=== PATIENT | male | born 1960 | race Caucasian/White ===

== ENCOUNTER 2023-07-16 08:00 | Outpatient (OUT) | payer OTHER, SELFPAY ==
[2023-07-16] MEDS: COVID VAC 23-24(12UP)MODERNA/PF 50 MCG/0.5 ML VIAL IM (14:30)
== END 2023-07-16 08:01 | disposition home or self-care (01) ==
LOC: VACCLI 09-04 09:18
DX: Z23 Encounter for immunization (principal)
CPT/HCPCS: 90480; 91322

== ENCOUNTER 2024-03-31 06:33 | Outpatient (OUT) | payer OTHER, SELFPAY ==
[2024-03-31 07:10] LABS: Basophils Percent Auto 0.6 % (0.2-2.0); Eosinophils Absolute Auto 0.1 10^3/uL (0.0-0.7); Eosinophils Percent Auto 1.8 % (0.9-7.0); Hematocrit 46.7 % (42.0-54.0); Hemoglobin 15.1 g/dL (14.0-18.0); Immature Granulocytes Abs Auto 0.03 10^3/uL (0.00-0.03); Immature Granulocytes Pct Auto 0.4 % (0.0-0.5); Lymphocytes Percent Auto 27.1 % (20.5-60.0); Mean Corpuscular HGB Conc 32.3 g/dL (29.9-35.2); Mean Corpuscular Hemoglobin 27.5 pg (25.9-34.0); Mean Corpuscular Volume 85.1 fL (80.0-94.0); Mean Platelet Volume 9.7 fL (9.5-13.5); Monocytes Absolute Auto 0.7 10^3/uL (0.3-0.8); Monocytes Percent Auto 10.1 % (1.7-12.0); Neutrophils Absolute Auto 4.4 10^3/uL (1.4-6.5); Platelet Count 179 10^3/uL (150-450); Red Blood Count 5.49 10^6/uL (4.70-6.10); Red Cell Distribution Width 13.6 % (11.0-15.0); White Blood Count 7.2 10^3/uL (4.0-11.0)
[2024-03-31 07:39] LABS: Estimated Average Glucose 111 mg/dL; Glycohemoglobin A1C 5.5 % (4.5-6.2)
[2024-03-31 08:58] LABS: Anion Gap 14.1; Calcium 8.7 mg/dL (8.5-10.1); Carbon Dioxide 26.9 mmol/L (21.0-32.0); Chloride 103 mmol/L (98-107); Chol HDL Ratio 2.5; Cholesterol 142 mg/dL (<=200); Estimated GFR (African America >60 (>=60); Estimated GFR (Non-African Ame >60 (>=60); Glucose 112 mg/dL (74-106); HDL Cholesterol 57 mg/dL (40-60); LDL Cholesterol Calculated 67.8 mg/dL; Sodium 140 mmol/L (136-145); Thyroid Stimulating Hormone 1.597 uIU/mL (0.358-3.740); Triglycerides 86 mg/dL (<=150); VLDL CHOLESTEROL 17.2 mg/dL
[2024-03-31 09:03] LABS: Prostate Specific Antigen Scrn 0.92 ng/mL (<=4.00)
== END 2024-03-31 06:34 | disposition home or self-care (01) ==
LOC: LAB 06:33
PROVIDERS: PCP Internal Medicine; Visit Provider Internal Medicine
DX: Z00.00 Encounter for general adult medical examination without abnormal findings (principal); Z12.5 Encounter for screening for malignant neoplasm of prostate
CPT/HCPCS: 36415; 80048; 80061; 83036; 84443; 85025; G0103

== ENCOUNTER 2024-07-11 06:40 | Outpatient (OUT) | payer OTHER, SELFPAY ==
--- OUTSIDE RECORDS SUMMARY | 2024-07-11 06:43 | XMS_ITS | CCD ---
Author Organization [facility] Care Team Providers [employer] Manager Name Role Phone DO Oliva Croft Primary Care Provider DO Christiano Weston Emergency Provider Noni KNUTSON, DR AUGUSTINE Carlson Consulting Unavailable TA, DR FATIMA Attending Unavailable TA, DR FATIMA Admitting Unavailable REQUEST, DR ACOSTA LISTED Primary Care Unavaila ble TA, DR FATIMA Consulting Unavailable WEST, DR NASIMA Chou Attending Unavailable REQUEST, DR ACOSTA LISTED Primary Care Unavaila ble WEST, DR NASIMA Chou Admitting Unavailable WEST, DR NASIMA Chou Admitting Unavailable REQUEST, DR ACOSTA LISTED Primary Care Unavaila ble WEST, DR NASIMA Chou Attending Unavailable TA, DR FATIMA Attending Unavailable TA, DR FATIMA Admitting Unavailable TA, DR FATIMA Consulting Unavailable REQUEST, DR ACOSTA LISTED Primary Care Unavaila ble GUERDA, DR BAPTISTE Attending Unavailable GUERDA, DR BAPTISTE Admitting Unavailable REQUEST, DR ACOSTA LISTED Primary Care Unavaila ble WEST, DR NASIMA Chou Attending Unavailable REQUEST, DR ACOSTA LISTED Primary Care Unavaila ble WEST, DR NASIMA Chou Admitting Unavailable REQUEST, DR ACOSTA LISTED Primary Care Unavaila ble HOY ., DR PHIPPS Admitting Unavailable HOY ., DR PHIPPS Consulting Unavailable HOY ., DR PHIPPS Attending Unavailable WEST, DR NASIMA Chou Admitting Unavailable REQUEST, DR ACOSTA LISTED Primary Care Unavaila ble WEST, DR NASIMA Chou Attending Unavailable WEST, DR NASIMA Chou Admitting Unavailable WEST, DR NASIMA Chou Consulting Unavailable REQUEST, DR ACOSTA LISTED Primary Care Unavaila ble WEST, DR NASIMA Chou Attending Unavailable WEST, DR NASIMA Chou Admitting Unavailable WEST, DR NASIMA Chou Consulting Unavailable REQUEST, NONE LISTED Primary Care Unavaila ble WEST, DR NASIMA Chou Attending Unavailable MARIA TERESA, DR AUGUSTINE Carlson Consulting Unavailable WEST, DR NASIMA Chou Admitting Unavailable WEST, DR NASIMA Chou Consulting Unavailable REQUEST, NONE LISTED Primary Care Unavaila ble WEST, DR NASIMA Chou Attending Unavailable WEST, DR NASIMA Chou Admitting Unavailable WEST, DR NASIMA Chou Consulting Unavailable REQUEST, DR ACOSTA LISTED Primary Care Unavaila ble WEST, DR NASIMA Chou Attending Unavailable WEST, DR NASIMA Chou Consulting Unavailable VASGAB, DR BAPTISTE Admitting Unavailable REQUEST, DR ACOSTA LISTED Primary Care Unavaila ble VASCHAK, DR BAPTISTE Attending Unavailable VASCHAK, DR BAPTISTE Consulting Unavailable TA, DR FATIMA Attending Unavailable TA, DR FATIMA Admitting Unavailable REQUEST, DR NONE LISTED Primary Care Unavaila ble ZIEBER, DR AUGUSTINE Carlson Consulting Unavailable VASCHAKaren, DR BAPTISTE Admitting Unavailable REQUEST, DR ACOSTA LISTED Primary Care Unavaila ble VASCHAK, DR BAPTISTE Attending Unavailable VASCHAK, DR BAPTISTE Consulting Unavailable TA, DR FATIMA Admitting Unavailable REQUEST, NONE LISTED Primary Care Unavaila ble TA, DR FATIMA Attending Unavailable TESJORDANA, SISSY Admitting Unavailable ZIEBER, DR AUGUSTINE Carlson Consulting Unavailable TESMOND, SISSY Attending Unavailable TESJORDANA, SISSY Consulting Unavailable Vaschakaren, Dr. Oliva Bedoya Attending Unava ilable Guerda, Dr. Oliva Bedoya Primary Care Yandyva Oliva Sorensen Unavailable Unavailable Unavailable DO Oliva Croft Primary Care Provider DO Christiano Weston Emergency Provider Unastephi DO Dave Fernandez Attending Provider Chung Garcia Attending Unavailable Guerda, Dr. Oliva Bedoya Primary Care Yandyva Chung Ace Attending Unavailable Chung Garcia Referring Unavailable Guerda, Dr. Oliva Bedoya Primary Care Dave Dwyer Admitting Unavailable Oliva Croft Primary Care Unavailable Dave Garcia Attending Unavailable Christiano Weston Attending Unavailable Christiano Weston Admitting Unavailable Oliva Croft Primary Care Unavailable Oliva Croft Primary Care Unavailable Dave Garcia Attending Unavailable Dave Garcia Admitting Unavailable OLIVA CROFT Referring Unavailable MARIO LOYA Attending Unavailable OLIVA CROFT Attending Unavailable Allergies Allergy Classification Reported Allergen(s) Allergy Type Date of Onset Reaction(s) Facility (3 sources) cefditoren; Translations: [Spectracef] Drug Allergy Nausea -[facility] 250 DO Work Phone: (3 sources) cefditoren; Translations: [cefditoren] Drug Allergy 12-10-2022 N/V [facility] Medications Current Medications Medication Drug Class(es) Dates Sig (Normalized) Sig (Original) amLODIPine 10 mg oral tablet (5 sources) Dihydropyridine Calcium Channel Carli Start: 12-10-2022 take 10 mg by mouth once daily Amlodipine Active 10 MG PO Daily December 10, 2022 12:00am aspirin 81 mg delayed release oral tablet (5 sources) Platelet Aggregation Inhibitor, Nonsteroidal Anti-inflammatory Drug Start: 12-10-2022 take 81 mg by mouth once daily Aspirin Active 81 MG PO Daily December 10, 2022 12:00am rosuvastatin calcium 20 mg oral tablet (5 sources) HMG-CoA Reductase Inhibitor Start: 12-10-2022 take 20 mg by mouth once daily at bedtime Rosuvastatin Active 20 MG PO Daily at bedtime December 10, 2022 12:00am sildenafil 100 mg oral tablet (5 sources) Phosphodiesterase 5 Inhibitor Start: 12-10-2022 Sildenafil Active 100 MG PO Daily December 10, 2022 12:00am administer 30 minutes to 4 hours before activity take 1 tablet by mouth once sandor y Sildenafil Citrate 100 MG Oral Tablet TAKE 1 TABLET DAILY 1 HOUR BEFORE NEEDED Quantity: 30 Refills: 5 Ordered: 09-Dec-2022 DO Active Problems Active Problems Problem Classification Problem Date Documented Da te Episodic/Chronic Cardiac dysrhythmias (3 sources) Palpitations; Translations: [Palpitations] 10-31-2022 Episodic Disorders of lipid metabolism (3 sources) Hyperlipidemia, unspecified; Translations: [Hyperlipidemia, unspecified] Onset: 3 Chronic Essential hypertension (4 sources) Essential (primary) hypertension; Translations: [Hypertensive disorder] Onset: 3 Chronic Heart valve disorders (1 source) Other cardiac sounds; Translations: [OTHER CARDIAC SOUNDS] Onset: 3 Episodic Joint disorders and dislocations; trauma-related (8 sources) Other tear of medial meniscus, current injury, right knee, subsequent encounter; Translations: [Other tear of medial meniscus, current injury, right knee, initial encounter] Onset: 2 Episodic Nonspecific chest pain (11 sources) Chest pain; Translations: [Chest pain, unspecified] Onset: 3 10-31-2022 Episodic Other circulatory disease (3 sources) Elevated blood pressure; Translations: [Elevated blood-pressure reading, without diagnosis of hypertension] 10-31-2022 Episodic Other nutritional; endocrine; and metabolic disorders (3 sources) Overweight in adulthood with body mass index of 25 or more but less than 30; Translations: [Overweight] Episodic Other screening for suspected conditions (not mental disorders or infectious disease) (1 source) Abnormal findings on diagnostic imaging of other specified body structures; Translations: [ABNORML FIND DX IMG OTH BODY STRUC] Onset: 3 Chronic Other screening for suspected conditions (not mental disorders or infectious disease) (4 sources) Calcification of coronary artery; Translations: [Nonspecific (abnormal) findings on radiological and other examination of other intrathoracic organs] Onset: 3 Episodic Phlebitis; thrombophlebitis and thromboembolism (8 sources) Phlebitis and thrombophlebitis of superficial vessels of left lower extremity; Translations: [Phlebitis and thrombophlebitis of superficial vessels of right lower extremity] Onset: 2 Episodic Screening and history of mental health and substance abuse codes (3 sources) Ex-smoker; Translations: [Personal history of tobacco use] Episodic Comment on above: Quit smoking 30 + ye ars ago- 1 pack daily. Smoked 1 cigar daily-Quit in 2019; Unclassified (1 source) Encounter for preprocedural laboratory examination; Translations: [Encounter for preprocedural laboratory examination] Onset: 3 Varicose veins of lower extremity (11 sources) Varicose veins of bilateral lower extremities with pain; Translations: [Varicose veins of right lower extremity with pain] Onset: 2 Episodic Past or Other Problems Problem Classification Problem Date Documented Date Episodic/Chronic Other nervous system disorders (1 source) Other abnormalities of gait and mobility; Translations: [OTHER ABNORMALITIES GAIT AND MOBILITY] Onset: 08-08-2022 Episodic Other nervous system disorders (1 source) Unspecified abnormalities of gait and mobility; Translations: [UNS ABNORMALITIES GAIT AND MOBILITY] Onset: 08-08-2022 Episodic Other non-traumatic joint disorders (1 source) Pain in right knee; Translations: [PAIN IN RIGHT KNEE] Onset: 08-08-2022 Episodic Sprains and strains (5 sources) Strain of unspecified muscle(s) and tendon(s) at lower leg level, right leg, subsequent encounter; Translations: [Strain of unspecified muscle(s) and tendon(s) at lower leg level, right leg, initial encounter] Onset: 04-08-2022 Episodic Superficial injury; contusion (1 source) Contusion of right knee, subsequent encounter; Translations: [CONTUSION RIGHT KNEE SUBSEQUENT ENC] Onset: 08-08-2022 Episodic Results Test Name Value Interpretation Reference Range Facility Activated partial thrombopla stin time (aPTT) in platelet poor plasma by coagulation aOrdered By: Dave Garcia on 12-10-2022 aPTT Coag (PPP) [Time] 32.8 s 25.1-36.5 [facility] Basophils Auto (Bld) [#/Vol] Ordered By: Dave Garcia on 12-10-2022 Basophils (Bld) [#/Vol] 0.0 10*3/uL 0.0-0.2 [facility] Basophils/100 WBC Auto (Bld) Ordered By: Dave Garcia on 12-10-2022 Basophils/100 WBC (Bld) 0.5 % . [facility] Blood Urea Nitrogenon 2022 Urea nitrogen [Mass/Vol] 18 mg/dL Normal 7-25 [facility] Comment on above: Performed By: #### L IPID, CREAT, PP, CBC, LYTES, BUN #### [address] Carbon dioxide, total [Moles /volume] in Serum or PlasmaOrdered By: Dave Garcia on 12-10-2022 CO2 [Moles/Vol] 28.7 mmol/L 21.0-31.0 [facility] Chloride [Moles/volume] in S jose carlos or PlasmaOrdered By: Dave Garcia on 12-10-2022 Chloride [Moles/Vol] 107 mmol/L 98-107 [facility] Cholesterol [Mass/volume] in Serum or PlasmaOrdered By: Dave Garcia on 12-10-2022 Cholesterol [Mass/Vol] 118 mg/dL 140-200 [facility] Comment on above: Chol less than 200 m g/dl low riskChol 201-239 mg/dl borderline riskChol 240 mg/dl and greater high risk Cholesterol in LDL Calc [Mas s/Vol]Ordered By: Dave Garcia on 12-10-2022 Cholesterol in LDL [Mass/Vol] 57 mg/dL 0-100 [facility] Comment on above: LDL ATP III CLASSIFI CATIONLDL less than 100 mg/dL OptimalLDL 100-129 mg/dL Near or above optimalLDL 130-159 mg/dL Borderline highLDL 160-189 mg/dL HighLDL greater than 189 mg/dL Very high Cholesterol in VLDL Calc [Ma ss/Vol]Ordered By: Dave Garcia on 12-10-2022 Cholesterol in VLDL [Mass/Vol] 13 mg/dL [facility] Coagulation Profileon 2022 aPTT Coag (Bld) [Time] 32.8 s Normal 25.1-36.5 [facility] Comment on above: Result Comment: PERF ORMED BY: [place] [address] PATHOLOGIST JEWELRY MOLD MAKER ALEKSANDER TOBIN M.D. Performed By: #### L IPID, CREAT, PP, CBC, LYTES, BUN #### [address] INR Coag (PPP) [Relative time] 1.0 {INR} Normal [facility] Comment on above: Result Comment: INR Therapeutic Range A) Pre- and Peroperative OAT started two weeks before surgery. NOT HIP SURGERY: 1.5 - 2.5 HIP SURGERY: 2 - 3 B) Primary and secondary prevention of venous THROMBOSIS: 2 - 3 C) Active venous thrombosis, pulmonary embolism and prevention of recurrent venous thrombosis: 2 - 3 D) Prevention of arterial thromboembolism including patients with mechanical heart valves: 3 - 4.5 Performed By: #### L IPID, CREAT, PP, CBC, LYTES, BUN #### [facility] [address] PT Coag (PPP) [Time] 11.8 s Normal 9.0-12.9 [facility] Comment on above: Performed By: #### L IPID, CREAT, PP, CBC, LYTES, BUN #### [facility] [address] Complete Blood Count Auto Di ffon 12-10-2022 Basophils (Bld) [#/Vol] 0.0 10*3/uL Normal 0.0-0.2 [facility] Comment on above: Result Comment: PERF ORMED BY: [place] [address] PATHOLOGIST JEWELRY MOLD MAKER ALEKSANDER TOBIN M.D. Performed By: #### L IPID, CREAT, PP, CBC, LYTES, BUN #### [address] Basophils/100 WBC (Bld) 0.5 % Normal . [facility] Comment on above: Performed By: #### L IPID, CREAT, PP, CBC, LYTES, BUN #### [address] Eosinophils (Bld) [#/Vol] 0.1 10*3/uL Normal 0.0-0.45 [facility] Comment on above: Performed By: #### L IPID, CREAT, PP, CBC, LYTES, BUN #### [address] Eosinophils/100 WBC (Bld) 1.7 % Normal . [facility] Comment on above: Performed By: #### L IPID, CREAT, PP, CBC, LYTES, BUN #### [address] Erythrocyte distribution width (RBC) [Ratio] 14.1 % Normal 12.0-14.8 [facility] Comment on above: Performed By: #### L IPID, CREAT, PP, CBC, LYTES, BUN #### [address] Hematocrit (Bld) [Volume fraction] 44.7 % Normal 38.8-50.0 [facility] Comment on above: Performed By: #### L IPID, CREAT, PP, CBC, LYTES, BUN #### [place] [address] [place] Hemoglobin (Bld) [Mass/Vol] 14.9 g/dL Normal 13.0-17.0 [facility] Comment on above: Performed By: #### L IPID, CREAT, PP, CBC, LYTES, BUN #### [address] Lymphocytes (Bld) [#/Vol] 1.3 10*3/uL Normal 1.00-4.8 [facility] Comment on above: Performed By: #### L IPID, CREAT, PP, CBC, LYTES, BUN #### [address] Lymphocytes/100 WBC (Bld) 22.4 % Normal . [facility] Comment on above: Performed By: #### L IPID, CREAT, PP, CBC, LYTES, BUN #### [address] MCH (RBC) [Entitic mass] 27.4 pg Low 27.5-35.2 [facility] Comment on above: Performed By: #### L IPID, CREAT, PP, CBC, LYTES, BUN #### [address] MCV (RBC) [Entitic vol] 82.4 fL Low 83.5-101 [facility] Comment on above: Performed By: #### L IPID, CREAT, PP, CBC, LYTES, BUN #### [address] Mean Corpuscular HGB Conc 33.3 g/dL Normal 32.5-35.6 [facility] Comment on above: Performed By: #### L IPID, CREAT, PP, CBC, LYTES, BUN #### [address] Monocytes (Bld) [#/Vol] 0.6 10*3/uL Normal 0.0-0.8 [facility] Comment on above: Performed By: #### L IPID, CREAT, PP, CBC, LYTES, BUN #### [address] Monocytes/100 WBC (Bld) 9.7 % Normal . [facility] Comment on above: Performed By: #### L IPID, CREAT, PP, CBC, LYTES, BUN #### [address] Neutrophils (Bld) [#/Vol] 3.8 10*3/uL Normal 1.8-7.7 [facility] Comment on above: Performed By: #### L IPID, CREAT, PP, CBC, LYTES, BUN #### [address] Neutrophils/100 WBC (Bld) 65.7 % Normal . [facility] Comment on above: Performed By: #### L IPID, CREAT, PP, CBC, LYTES, BUN #### [address] NRBC% 0.6 /100{WBC} High 0-0.5 [facility] Comment on above: Performed By: #### L IPID, CREAT, PP, CBC, LYTES, BUN #### [address] Platelet mean volume (Bld) [Entitic vol] 7.8 fL Normal 6.6-10.1 [facility] Comment on above: Performed By: #### L IPID, CREAT, PP, CBC, LYTES, BUN #### [address] Platelets (Bld) [#/Vol] 162 10*3/uL Normal 150-450 [facility] Comment on above: Performed By: #### L IPID, CREAT, PP, CBC, LYTES, BUN #### [place] [address] [place] RBC (Bld) [#/Vol] 5.43 10*6/uL Normal 3.90-5.60 [facility] Comment on above: Performed By: #### L IPID, CREAT, PP, CBC, LYTES, BUN #### [facility] [address] [place] [address] [place] WBC (Bld) [#/Vol] 5.7 10*3/uL Normal 4.1-10.5 [facility] Comment on above: Performed By: #### L IPID, CREAT, PP, CBC, LYTES, BUN #### [facility] [address] [place] [address] [place] Creatinineon 12-10-2022 Creatinine [Mass/Vol] 0.97 mg/dL Normal 0.70-1.30 [facility] Comment on above: Performed By: #### L IPID, CREAT, PP, CBC, LYTES, BUN #### [address] GFR/1.73 sq M.predicted MDRD (S/P/Bld) [Vol rate/Area] mL/min/{1.73_m2} [facility] Comment on above: Performed By: #### L IPID, CREAT, PP, CBC, LYTES, BUN #### [address] Creatinine [Mass/volume] in Serum or PlasmaOrdered By: Dave Garcia on 12-10-2022 Creatinine [Mass/Vol] 0.97 mg/dL 0.70-1.30 [facility] ECG 12 lead ECGon 12-10-2022 ECG 12 lead ECG [facility] Main [place] [address] [place] [address] Electrocardiograph Report Signed Patient: Augustine Hall MR#: [id number] : 1960 Acct:[id number] Age/Sex: 62 / M ADM Date: 12/10/22 Loc: Room: Type: [facility] Attending Dr: Dave Garcia DO Ordering Provider: Dave Garcia DO Date of Service: 12/10/22 ECG/ECG 12 lead ECG: cardiac cath Copies to: Test Reason : Blood Pressure : / mmHG Vent. Rate : 061 BPM Atrial Rate : 061 BPM P-R Int : 166 ms QRS Dur : 086 ms QT Int : 400 ms P-R-T Axes : 066 060 057 degrees QTc Int : 402 ms Normal sinus rhythm Normal ECG When compared with ECG of 31-OCT-2022 10:23, No significant change was found Confirmed by ANKUR RODRÍGUEZ [facility], BRYAN ([id number]) on 12/10/2022 4:25:08 PM Referred By: GUERDA GARCIA Electronically Signed By:BRYAN FERNANDEZ MD [facility] Transcribed By: MUS Signed By Bryan Fernandez MD, FAC 12/10/22 1625 Normal [facility] Electrolyteson 12-10-2022 Anion gap [Moles/Vol] 8.6 mmol/L Normal 6.0-15.0 [facility] Comment on above: Performed By: #### L IPID, CREAT, PP, CBC, LYTES, BUN #### [address] Chloride [Moles/Vol] 107 mmol/L Normal 98-107 [facility] Comment on above: Performed By: #### L IPID, CREAT, PP, CBC, LYTES, BUN #### [address] CO2 [Moles/Vol] 28.7 mmol/L Normal 21.0-31.0 [facility] Comment on above: Performed By: #### L IPID, CREAT, PP, CBC, LYTES, BUN #### [address] Potassium [Moles/Vol] 4.3 mmol/L Normal 3.5-5.1 [facility] Comment on above: Performed By: #### L IPID, CREAT, PP, CBC, LYTES, BUN #### [address] Sodium [Moles/Vol] 140 mmol/L Normal 136-145 [facility] Comment on above: Performed By: #### L IPID, CREAT, PP, CBC, LYTES, BUN #### [address] Eosinophils Auto (Bld) [#/Vo l]Ordered By: Dave Garcia on 12-10-2022 Eosinophils (Bld) [#/Vol] 0.1 10*3/uL 0.0-0.45 [facility] Eosinophils/100 WBC Auto (Bl d)Ordered By: Dave Garcia on 12-10-2022 Eosinophils/100 WBC (Bld) 1.7 % . [facility] Erythrocyte distribution wid th Auto (RBC) [Ratio]Ordered By: Dave Garcia on 12-10-2022 Erythrocyte distribution width (RBC) [Ratio] 14.1 % 12.0-14.8 [facility] Hematocrit Auto (Bld) [Volum e fraction]Ordered By: Dave Garcia on 12-10-2022 Hematocrit (Bld) [Volume fraction] 44.7 % 38.8-50.0 [facility] Hemoglobin [Mass/volume] in BloodOrdered By: Dave Garcia on 12-10-2022 Hemoglobin (Bld) [Mass/Vol] 14.9 g/dL 13.0-17.0 [facility] Laboratory - Chemistry and C hemistry - challengeon 12-10-2022 Cholesterol [Mass/Vol] 118\S\118 below low threshold 140-200 [facility] 250 DO Work Phone: Comment on above: Chol less than 200 m g/dl low risk Chol 201-239 mg/dl borderline risk Chol 240 mg/dl and greater high risk Cholesterol in LDL [Mass/Vol] 57\S\57 Normal 0-100 [facility] 250 DO Work Phone: Comment on above: LDL ATP III CLASSIFI CATION LDL less than 100 mg/dL Optimal LDL 100-129 mg/dL Near or above optimal LDL 130-159 mg/dL Borderline high LDL 160-189 mg/dL High LDL greater than 189 mg/dL Very high Laboratory - Chemistry and C hemistry - challengeOrdered By: Dave Garcia on 12-10-2022 GFR/1.73 sq M.predicted MDRD (S/P/Bld) [Vol rate/Area] mL/min/{1.73_m2} [facility] - CoagulationOrde red By: Dave Garcia on 12-10-2022 PT Coag (PPP) [Time] 11.8 s 9.0-12.9 [facility] Leukocytes [#/volume] correc laya for nucleated erythrocytes in Blood by Automated counOrdered By: Dave Garcia on 12-10-2022 WBC corrected for nucl RBC Auto (Bld) [#/Vol] 5.7 10*3/uL 4.1-10.5 [facility] Lipid Panelon 12-10-2022 Cholesterol [Mass/Vol] 118 mg/dL Low 140-200 [facility] Comment on above: Result Comment: Chol less than 200 mg/dl low risk Chol 201-239 mg/dl borderline risk Chol 240 mg/dl and greater high risk Performed By: #### L IPID, CREAT, PP, CBC, LYTES, BUN #### [facility] [address] Cholesterol in HDL [Mass/Vol] 48 mg/dL Normal 29-71 [facility] Comment on above: Result Comment: HDL CHOL ATP-III CLASSIFICATION Cardiovascular Risk HDL > or equal to 60 mg/dL LOW HDL < 40 mg/dL HIGH Performed By: #### L IPID, CREAT, PP, CBC, LYTES, BUN #### [facility] [address] Cholesterol.total/Chol esterol in HDL [Mass ratio] 2.5 {ratio} Normal <5.0 [facility] Comment on above: Result Comment: PERF ORMED BY: [place] [address] PATHOLOGIST JEWELRY MOLD MAKER ALEKSANDER TOBIN M.D. Performed By: #### L IPID, CREAT, PP, CBC, LYTES, BUN #### [facility] [address] LDL Cholesterol,Calculated 57 mg/dL Normal 0-100 [facility] Comment on above: Result Comment: LDL ATP III CLASSIFICATION LDL less than 100 mg/dL Optimal LDL 100-129 mg/dL Near or above optimal LDL 130-159 mg/dL Borderline high LDL 160-189 mg/dL High LDL greater than 189 mg/dL Very high Performed By: #### L IPID, CREAT, PP, CBC, LYTES, BUN #### [facility] [address] [place] [address] [place] Triglyceride w/Reflex 67 mg/dL Normal 0-149 [facility] Comment on above: Result Comment: TRIG ATP III CLASSIFICATION TRIG less than 150 mg/dL Normal TRIG 150-199 mg/dL Borderline high TRIG 200-500 mg/dL High TRIG greater than 500 mg/dL Very high Standard traceable to the Center for Disease Conrtrol and Prevention (CDC) test method. Performed By: #### L IPID, CREAT, PP, CBC, LYTES, BUN #### [facility] [address] [place] [address] [place] VLDL CHOLESTEROL 13 mg/dL Normal [facility] Comment on above: Performed By: #### L IPID, CREAT, PP, CBC, LYTES, BUN #### [facility] [address] Lymphocytes Auto (Bld) [#/Vo l]Ordered By: Dave Gacria on 12-10-2022 Lymphocytes (Bld) [#/Vol] 1.3 10*3/uL 1.00-4.8 [facility] Lymphocytes/100 WBC Auto (Bl d)Ordered By: Dave Garcia on 12-10-2022 Lymphocytes/100 WBC (Bld) 22.4 % . [facility] MCH Auto (RBC) [Entitic mass ]Ordered By: Dave Garcia on 12-10-2022 MCH (RBC) [Entitic mass] 27.4 pg 27.5-35.2 [facility] MCHC Auto (RBC) [Mass/Vol]Or dered By: Dave Garcia on 12-10-2022 MCHC (RBC) [Mass/Vol] 33.3 g/dL 32.5-35.6 [facility] MCV Auto (RBC) [Entitic vol] Ordered By: Dave Garcia on 12-10-2022 MCV (RBC) [Entitic vol] 82.4 fL 83.5-101 [facility] Monocytes Auto (Bld) [#/Vol] Ordered By: Dave Garcia on 12-10-2022 Monocytes (Bld) [#/Vol] 0.6 10*3/uL 0.0-0.8 [facility] Monocytes/100 WBC Auto (Bld) Ordered By: Dave Garcia on 12-10-2022 Monocytes/100 WBC (Bld) 9.7 % . [facility] Neutrophils Auto (Bld) [#/Vo l]Ordered By: Dave Garcia on 12-10-2022 Neutrophils (Bld) [#/Vol] 3.8 10*3/uL 1.8-7.7 [facility] Neutrophils/100 WBC Auto (Bl d)Ordered By: Dave Garcia on 12-10-2022 Neutrophils/100 WBC (Bld) 65.7 % . [facility] No Panel InformationOrdered By: Dave Garcia on 12-10-2022 Pharmacy Creatinine Clearance (Chem N/A [facility] No Panel Informationon 12-10 0.0\S\0.0 Normal 0.0-0.2 [facility] 250 DO Work Phone: Comment on above: PERFORMED BY:[facility] [place] [phone] MEDICAL DIRECTORALEKSANDER TOBIN M.D. 0.1\S\0.1 Normal 0.0-0.45 [facility] 250 DO Work Phone: 0.6\S\0.6 above high threshold 0-0.5 [facility] 250 DO Work Phone: 1.3\S\1.3 Normal 1.00-4.8 [facility] 250 DO Work Phone: [phone] 3.8\S\3.8 Normal 1.8-7.7 [facility] 250 DO Work Phone: 0.5\S\0.5 Normal . [facility] alonso 250 DO Work Phone: 1.7\S\1.7 Normal . [facility] 250 DO Work Phone: [phone] 9.7\S\9.7 Normal . [facility] 250 DO Work Phone: [phone] 22.4\S\22.4 Normal . [facility] 250 DO Work Phone: [phone] 65.7\S\65.7 Normal . [facility] 250 DO Work Phone: [phone] 7.8\S\7.8 Normal 6.6-10.1 [facility] 250 DO Work Phone: [phone] 162\S\162 Normal 150-450 [facility] 250 DO Work Phone: [phone] 14.1\S\14.1 Normal 12.0-14.8 [facility] 250 DO Work Phone: [phone] 33.3\S\33.3 Normal 32.5-35.6 [facility] 250 DO Work Phone: [phone] 27.4\S\27.4 below low threshold 27.5-35.2 [facility] 250 DO Work Phone: [phone] 82.4\S\82.4 below low threshold 83.5-101 [facility] 250 DO Work Phone: [phone] 44.7\S\44.7 Normal 38.8-50.0 [facility] 250 DO Work Phone: [phone] 14.9\S\14.9 Normal 13.0-17.0 [facility] 250 DO Work Phone: [phone] 5.43\S\5.43 Normal 3.90-5.60 [facility] 250 DO Work Phone: [phone] 5.7\S\5.7 Normal 4.1-10.5 [facility] 250 DO Work Phone: [phone] 32.8\S\32.8 Normal 25.1-36.5 -[facility] alonso 250 DO Work Phone: Comment on above: PERFORMED BY:[facility] [place] [id number] MEDICAL DIRECTORALEKSANDER TOBIN M.D. 1.0\S\1.0 Normal -[facility] alonso 250 DO Work Phone: Comment on above: INR Therapeutic Rang e A) Pre- and Peroperative OAT started two weeks before surgery. NOT HIP SURGERY: 1.5 - 2.5 HIP SURGERY: 2 - 3 B) Primary and secondary prevention of venous THROMBOSIS: 2 - 3 C) Active venous thrombosis, pulmonary embolism and prevention of recurrent venous thrombosis: 2 - 3 D) Prevention of arterial thromboembolism including patients with mechanical heart valves: 3 - 4.5 11.8\S\11.8 Normal 9.0-12.9 [facility] 250 DO Work Phone: [phone] 8.6\S\8.6 Normal 6.0-15.0 [facility] 250 DO Work Phone: 28.7\S\28.7 Normal 21.0-31.0 [facility] 250 DO Work Phone: 107\S\107 Normal 98-107 [facility] 250 DO Work Phone: 4.3\S\4.3 Normal 3.5-5.1 [facility] 250 DO Work Phone: 140\S\140 Normal 136-145 [facility] 250 DO Work Phone: 18\S\18 Normal 7-25 [facility] 250 DO Work Phone: > 60.0 Normal [facility] 250 DO Work Phone: 0.97\S\0.97 Normal 0.70-1.30 [facility] alonso 250 DO Work Phone: 2.5\S\2.5 Normal <5.0 [facility] Work Phone: Comment on above: PERFORMED BY:[facility] [place] [place] [id number] MEDICAL DIRECTORALEKSANDER TOBIN M.D. 13\S\13 Normal [facility] alonso 250 DO Work Phone: 67\S\67 Normal 0-149 [facility] 250 DO Work Phone: Comment on above: TRIG ATP III CLASSIF ICATION TRIG less than 150 mg/dL Normal TRIG 150-199 mg/dL Borderline high TRIG 200-500 mg/dL High TRIG greater than 500 mg/dL Very high Standard traceable to the Center for Disease Conrtrol and Prevention (CDC) test method. 48\S\48 Normal 29-71 [facility] alonso 250 DO Work Phone: Comment on above: HDL CHOL ATP-III CLA SSIFICATION Cardiovascular Risk HDL > or equal to 60 mg/dL LOW HDL < 40 mg/dL HIGH Nucleated erythrocytes [Pres ence] in Blood by Automated countOrdered By: Dave Garcia on 12-10-2022 Nucleated RBC Auto Ql (Bld) 0.6 /100{WBC} 0-0.5 [facility] Platelet mean volume Auto (B ld) [Entitic vol]Ordered By: Dave Garcia on 12-10-2022 Platelet mean volume (Bld) [Entitic vol] 7.8 fL 6.6-10.1 [facility] Platelet poor plasma interna tional normalized ratio (INR) by coagulation assay (relatOrdered By: Dave Garcia on 12-10-2022 INR Coag (PPP) [Relative time] 1.0 {INR} [facility] Comment on above: INR Therapeutic Rang e A) Pre- and Peroperative OAT started two weeks before surgery. NOT HIP SURGERY: 1.5 - 2.5 HIP SURGERY: 2 - 3B) Primary and secondary prevention of venous THROMBOSIS: 2 - 3C) Active venous thrombosis, pulmonary embolismand prevention of recurrent venous thrombosis: 2 - 3D) Prevention of arterial thromboembolismincluding patients with mechanical heart valves: 3 - 4.5 Platelets Auto (Bld) [#/Vol] Ordered By: Dave Garcia on 12-10-2022 Platelets (Bld) [#/Vol] 162 10*3/uL 150-450 [facility] Potassium [Moles/volume] in Serum or PlasmaOrdered By: Dave Garcia on 12-10-2022 Potassium [Moles/Vol] 4.3 mmol/L 3.5-5.1 [facility] RBC Auto (Bld) [#/Vol]Ordere d By: Dave Gracia on 12-10-2022 RBC (Bld) [#/Vol] 5.43 10*6/uL 3.90-5.60 [facility] Serum or plasma anion gap de terminationOrdered By: Dave Garcia on 12-10-2022 Anion gap [Moles/Vol] 8.6 mmol/L 6.0-15.0 [facility] Serum or plasma high density lipoprotein (HDL) cholesterol measurementOrdered By: Dave Garcia on 12-10-2022 Cholesterol in HDL [Mass/Vol] 48 mg/dL 29-71 [facility] Comment on above: HDL CHOL ATP-III CLA SSIFICATION Cardiovascular RiskHDL > or equal to 60 mg/dL LOWHDL < 40 mg/dL HIGH Serum or plasma total choles terol/high density lipoprotein (HDL) cholesterol mass ratOrdered By: Dave Garcia on 12-10-2022 Cholesterol.total/Chol esterol in HDL [Mass ratio] 2.5 {ratio} <5.0 [facility] Sodium [Moles/volume] in Ser um or PlasmaOrdered By: Dave Garcia on 12-10-2022 Sodium [Moles/Vol] 140 mmol/L 136-145 [facility] Triglyceride [Mass/volume] i n Serum or PlasmaOrdered By: Dave Garcia on 12-10-2022 Triglyceride [Mass/Vol] 67 mg/dL 0-149 [facility] Comment on above: TRIG ATP III CLASSIF ICATIONTRIG less than 150 mg/dL NormalTRIG 150-199 mg/dL Borderline highTRIG 200-500 mg/dL High TRIG greater than 500 mg/dL Very highStandard traceable to the Center for Disease Conrtrol and Prevention (CDC) test method. Urea nitrogen [Mass/volume] in Serum or PlasmaOrdered By: Dave Garcia on 12-10-2022 Urea nitrogen [Mass/Vol] 18 mg/dL 7 [facility] WBC Auto (Bld) [#/Vol]Ordere d By: Dave Garcia on 12-10-2022 WBC (Bld) [#/Vol] 5.7 10*3/uL 4.1-10.5 [facility] Office Visit (Cardiology)on 12-09-2022 Follow-up visit Diagnoses/Problems Assessed Hypertension (401.9) (I10) Chest pressure (786.59) (R07.89) Agatston coronary artery calcium score between 200 and 399 (793.2) (R93.1) Varicose vein of leg (454.9) (I83.90) Overweight with body mass index (BMI) of 26 to 26.9 in adult (278.02,V85.22) (E66.3,Z68.26) Former smoker (V15.82) (Z87.891) Quit smoking 30 + years ago- 1 pack daily. Smoked 1 cigar daily-Quit in 2020 Orders Agatston coronary artery calcium score between 200 and 399, Chest pressure, Hypertension Cardiac Catherization; Status:Active - Retrospective Authorization; Requested for:09Dec2022; Overweight with body mass index (BMI) of 26 to 26.9 in adult IO EKG Electrocardiogram- 12 Lead; Status:Complete; Done: 09Dec2022 Healthy Weight Tips; Status:Complete - Retrospective Authorization; Done: 09Dec2022 Some eating tips that can help you lose weight.; Status:Complete - Retrospective Authorization; Done: 09Dec2022 SocHx: Former smoker Tobacco Use Screening; Status:Complete; Done: 09Dec2022 Patient Instructions Please bring all medicines, vitamins, and herbal supplements with you when you come to the office. Prescriptions will not be filled unless you are compliant with your follow up appointments or have a follow up appointment scheduled as per instruction of your physician. Refills should be requested at the time of your visit. Follow up after testing completed Chief Complaint AUGUSTINE HALL is being seen for a consultation for Dr. Kahn/ Melvi Aguilar CP/ Abnormal stress/elevated calcium score. 62-year-old gentleman seen in cardiology consultation at the request of Dr. Moncada check for further evaluation and management regarding new onset chest discomfort. Patient was recently seen in the emergency room, details of that evaluation, laboratories and ECG are reviewed. Patient describes chest pressure for the past 3 to 4 months and has been reticent to seek out further attention for this. He has recently been diagnosed with essential hypertension and treated with amlodipine with improved blood pressure results. He underwent stress testing at [facility] details of which are unknown but he was told he achieved his target heart rate and there were no EKG changes and he did not describe any angina. We do not have details of the stress test as of yet. He did have calcium score performed in [facility] which revealed mild proximal LAD calcification with Aggiston score of 200, consistent with mild single-vessel LAD calcification. He is a former smoker quit 30 years ago and then smoked a cigar daily up until 2 years ago. He denies any previous myocardial infarction, revascularization, stroke, thromboembolic or bleeding disorder. He does have a history of varicose veins and underwent ablation for his varicose veins within the last year with improved results and resolution of lower extremity edema Informed decision-making process as well as risks, benefits and alternatives performed with the patient and his for over 45 minutes this morning in regards to noninvasive/conservative management versus invasive assessment with by means of heart catheterization possible revascularization. He is concerned and fearful about these new symptoms. He would like to proceed with heart catheterization out of concern for his health. We will proceed electively either later this week or next week. Surgical History Problems Denied: History of Complete colonoscopy History of Knee surgery History of Neck surgery History of Rotator cuff repair Current Meds Medication NameInstruction amLODIPine Besylate 10 MG Oral TabletTAKE 1 TABLET DAILY. Aspirin EC 81 MG Oral Tablet Delayed ReleaseTAKE 1 TABLET DAILY FOR 100 DAYS. Rosuvastatin Calcium 20 MG Oral TabletTAKE 1 TABLET AT BEDTIME Sildenafil Citrate 100 MG Oral TabletTAKE 1 TABLET DAILY 1 HOUR BEFORE NEEDED Allergies Medication Spectracef Adverse Reaction; Nausea; Recorded By: Kanchan Newton; 12/09/2022 8:45:46 AM Social History Problems Alcohol ingestion (V69.8) (Z78.9) 2-3 beers daily Daily caffeine consumption 4 cups of 8 oz of coffee daily Former smoker (V15.82) (Z87.891) Quit smoking 30 + years ago- 1 pack daily. Smoked 1 cigar daily-Quit in 2019 No illicit drug use Review of Systems Constitutional: not feeling tired. Cardiovascular: chest pain and palpitations, but no intermittent leg claudication and as noted in HPI. Respiratory: shortness of breath during exertion, but no cough and no shortness of breath. Gastrointestinal: no change in bowel habits and no blood in stools. Integumentary: no skin rashes. Neurological: no seizures and no frequent falls. All other systems have been reviewed and are negative for complaint. Vitals Vital Signs Recorded: 09Dec2022 08:58AMRecorded: 09Dec2022 08:56AM [id number], LUE, Edcnjqu232, RUE, Sitting [id number], LUE, Cjddnfu29, RUE, Sitting PHQ-2 #1. Over the last 2 weeks have you felt down, depresse (more content not included)... Normal [facility] PHQ-2 VITALSon 12-09-2022 Adult depression screening assessment No [facility] [employer] 250 DO Work Phone: Tobacco Screening.on 023 Fall risk assessment c) Not medically indicated [facility] [employer] alonso 250 DO Work Phone: Tobacco use status [facility] b) No [facility] alonso 250 DO Work Phone: CT CARDIAC SCORINGon 023 CT CARDIAC SCORING Addendum Begins Patient Name: AUGUSTINE HALL ADDENDUM: Technical: The following is to serve as an over-read for an unenhanced cardiac CT, to evaluate the extra vascular structures. Contiguous unenhanced CT sections are performed from the level of the hermila to the upper abdomen. Findings: The visualized portions of both lungs are clear. There is no sign of pathologic lymph node enlargement. There is no pericardial or pleural effusion. Images through the upper abdomen suggest splenic enlargement of the spleen is incompletely visualized with this field of view. There is a dense calcification anteriorly at the level of the left hemidiaphragm which could reflect a calcified lymph node or granuloma. The visualized osseous and soft tissue structures of the chest wall are intact. Impression: Questionable splenomegaly though the spleen is incompletely visualized. The extra vascular structures are otherwise unremarkable. Electronically signed by: JENNIFER FUENTES MD Addendum Ends Patient Name: AUGUSTINE HALL STUDY: CT CARDIAC SCORING; 12/02/2022 3:04 pm INDICATION: Hyperlipidemia, unspecified. COMPARISON: None. ACCESSION NUMBER(S): [id number] ORDERING CLINICIAN: OLIVA CROFT TECHNIQUE: Using prospective ECG gating, CT scan of the coronary arteries was performed without intravenous contrast. Coronary calcium scoring was performed according to the method of Agatston. CT Dose-Length Product (DLP): 65.1 mGy*cm CT Dose Reduction Employed: Yes, prospective gating, iterative reconstruction. FINDINGS: The score and distribution of calcium in the coronary arteries is as follows: LM 2 LAD 199 LCx 0 RCA 0 Total 201 The visualized ascending thoracic aorta measures 4.0 cm in diameter. The heart is normal in size. No pericardial effusion is present. The main pulmonary artery, right and left pulmonary artery are normal in size. IMPRESSION: 1. Coronary artery calcium score of 201*. 2. MUSE 72nd percentile for age, gender, and race in asymptomatic patients. *Coronary Artery Agatston score Score risk Very low 1-99 Mildly increased 100-299 Moderately increased >300 Moderate to severely increased >800 Marvel et al. JCCT 2016 (http://dx.doi.org/10.1016 /j.jcct.2016.11.003) MUSE Percentile In general, greater than 75th percentile for age, gender, and race is considered to be a higher relative risk and higher lifetime risk condition. Greater than 75th percentile=moderate to severely increased relative risk irrespective of the score. Advise using MUSE 10 year CHD risk calculator below for better discrimination of risk. MUSE 10-Year CHD Risk with Coronary Artery Calcification can be calcuate using link below https://www.muse-nhlbi.org /MESACHDRisk/MesaRiskScore /RiskScore.aspx Luisa mcgarry al. JACC 2015 (http://dx.doi.org/10.1016 /j.j acc.2015.08.035) [place] Parent: Dr. Akua Kline, Date: 12/02/2022 3:21 pm Electronically signed by: JENNIFER FUENTES MD Normal [facility] CT Cardiac Scoringon 023 CT Cardiac Scoring Normal -[facility] alonso 250 DO Work Phone: ECHOCARDIO M/2D COMPLETEon 0 11-12-2022 ECHOCARDIO M/2D COMPLETE Patient: AUGUSTINE HALL Exam Date: 11/12/2022 : 1960 Gender:M Ordering : DR OLIVA CROFT Admission #: [id number] Family : Order #: [id number] CLICK HERE TO VIEW EXAM ECHOCARDIOGRAM REPORT PROCEDURE: CARDIO PULMONARY ECHOCARDIO M/2D COMP INDICATIONS: Chest pain, HTN COMPARISON: None. DESCRIPTION: COMPLETE ECHOCARDIOGRAM Real-time transthoracic echocardiography with 2D, M-mode, spectral and color flow Doppler performed. QUALITY: Technical quality was good. LEFT VENTRICLE: Normal chamber size. Borderline left ventricular hypertrophy. LV EF: Global left ventricular systolic function is normal. Calculated left ventricular ejection fraction is 66%. DIASTOLIC: Normal diastolic function. ATRIAL SEPTUM: Inadequately seen. LEFT ATRIUM: Mild dilatation. RIGHT ATRIUM: Mild dilatation. RIGHT VENTRICLE: Normal chamber size. Normal right ventricular systolic function. TRICUSPID VALVE: Normal mobility and thickness. No stenosis with trivial regurgitation. Mild pulmonary hypertension. RVSP 35mmHg MITRAL VALVE: Normal mobility and thickness. No mitral valve prolapse. No evidence of mitral valve stenosis. There is no mitral annular calcification. Trivial mitral regurgitation. AORTIC VALVE: Normal trileaflet appearance. No visible sclerosis. Normal leaflet mobility. No evidence of aortic valve stenosis. No aortic regurgitation. AORTIC ROOT: Normal diameter and appearance. PULMONIC VALVE: Normal thickness and mobility. No stenosis. Trivial regurgitation. PERICARDIUM: Anterior free space; trivial effusion versus fat pad. IVC: Collapses with inspirations. Mild dilatation measuring 2.3cm. CONCLUSION: Global left ventricular systolic function is normal; visually estimated ejection fraction is 55 to 60%. No wall motion abnormalities. Borderline left ventricular hypertrophy. Biatrial enlargement. The right ventricle is normal in size and systolic function. Mildly elevated right-sided pressures. No significant valvular abnormalities. Anterior free space; trivial effusion versus fat pad. Adult Echocardiography Procedure Report Left Ventricle LVEDD (3.7 - 5.6 cm): 4.87 cm LVESD (2.2 - 4.0 cm): 3.38 cm LVIVS thickness (0.6 - 1.2 cm): 1.12 cm LVPW thickness (0.5 - 1.0 cm): 1.25 cm e': 0.14 m/s E - e': 6.31 LVOT Max Gradient: 3.96 mm[Hg] Peak Velocity (LVOT): 0.99 m/s Mean Velocity (LVOT): 0.53 m/s LVOT Diameter 2.28 cm Left Ventricular Ejection Fraction: 57.99 %, 57.99 % Left Atrium LA Volume Index (2D A2C): 98.99 ml, 98.99 ml Left Atrium Systolic Dimension: 4.10 cm Mitral Valve MV E to A Ratio: 1.20 Mitral Valve A-Wave Peak Velocity: 0.73 m/s Mitral Valve E-Wave Peak Velocity: 0.88 m/s Right Ventricle RV Internal Diastolic Dimension: 4.07 cm Aorta AO Root Diam: 3.19 cm Ascending Ao Diam: 3.64 cm Aortic Valve AoV Area (Peak Christian): 3.27 cm2, 3.27 cm2 AoV Area (VTI): 2.89 cm2, 2.89 cm2 Peak Velocity(Antegrade Flow): 1.24 m/s Peak Gradient(Antegrade Flow): 6.11 mm[Hg] Mean Velocity(Antegrade Flow): 0.79 m/s Mean Gradient(Antegrade Flow): 2.84 mm[Hg] Velocity Time Integral: 24.43 cm Tricuspid Valve Peak Velocity (Regurgitant Flow): 2.47 m/s, 2.44 m/s, 2.59 m/s Peak Velocity: 0.75 m/s Pulmonic Valve Mean Gradient: 3.89 mm[Hg] Mean Velocity: 0.93 m/s Peak Velocity: 1.36 m/s, 1.37 m/s Peak Gradient: 7.40 mm[Hg], 7.49 mm[Hg] Right Atrium Right Atrium Systolic Pressure: 73.94 ml, 57.51 ml, 90.37 ml Dictated by: Chuck Faustin M.D. on 11/12/2022 at 11:28 Approved by: Chuck Faustin M.D. on 11/12/2022 at 11:31 Normal [facility] NM STRESS/REST MULTIon 11-12 NM STRESS/REST MULTI Patient: VERÓNICA HALL Exam Date: 11/12/2022 : 1960 Gender:M Ordering : DR OLIVA CROFT Admission #: [id number] Family : Order #: [id number] CLICK HERE TO VIEW EXAM RADIOLOGY REPORT PROCEDURE: RADIONUCLIDE IMAGING STRESS/REST MULTI COMPARISON: None. INDICATIONS: Chest pain TECHNIQUE: Exam Description: Stress/Rest one day protocol gated SPECT Rest Imagin.8 mCi Tc-99m Cardiolite IV on 11/12/2022 Stress Imaging 31.6 mCi Tc-99m Cardiolite IV on 11/12/2022 Exercise Protocol: Gerardo Heart Rate (bpm): Rest: 75 Max: 133 PMHR: 84 Blood Pressure: Rest: 170/96 Max: 218/104 Exercise Time: Minutes: 7 Seconds: 15 Stage Reached: Stage: 3 Mets 9.1 Symptoms: persistent chest pain the entire time Rest and peak stress ECG findings were abnormal and the exercise portion of the study was Non-diagnostic per attending physician Dr. Torres due to EKG changes, inverted T-waves at rest, and positive orientation with exercise. For more details please see separate cardiac stress test report. FINDINGS: QUALITY OF STUDY: Excellent. PERFUSION DEFECT: LOCATION: Mid-inferior. Apical inferior. SIZE: Small (1-2 segments). SEVERITY: Mild. TYPE: Persistent. WALL MOTION: Normal. LV SIZE: Normal. 120 mL. TID / TCD: None; 1.0 LVEF: Normal. Calculated EF 59%. SUMMARY: Myocardial perfusion imaging study has ABNORMAL findings. CONCLUSION: 1. No acute or reversible ischemia. 2. Inferior wall diaphragm attenuation artifact is suspected. Fixed ischemia cannot be completely excluded. 3. Normal wall motion and ejection fraction. Dictated by: Augustine Knutson M.D. on 11/13/2022 at 12:07 Approved by: Augustine Knutson M.D. on 11/13/2022 at 12:09 Normal [facility] Activated partial thrombopla stin time (aPTT) in platelet poor plasma by coagulation aOrdered By: Christiano Weston on 10-31-2022 aPTT Coag (PPP) [Time] 33.6 s 25.1-36.5 [facility] B-Type Natriuretic Peptideon 10-31-2022 Natriuretic peptide B (Bld) [Mass/Vol] 42.0 pg/mL Normal 5-100 [facility] Comment on above: Result Comment: PERF ORMED BY: [place] [address] PATHOLOGIST JEWELRY MOLD MAKER ALEKSANDER TOBIN M.D. Performed By: #### L IPID, CREAT, PP, CBC, LYTES, BUN #### [address] Basic Metabolic Panelon 10-22 Anion gap [Moles/Vol] 10.2 mmol/L Normal 6.0-15.0 [facility] Comment on above: Performed By: #### B ENTREPRENEURSHIP PROGRAM DIRECTOR, HS TROP, PT, PTT, CBC, CKMB, BMP #### [address] Calcium [Mass/Vol] 9.1 mg/dL Normal 8.2-10.2 [facility] Comment on above: Performed By: #### B ENTREPRENEURSHIP PROGRAM DIRECTOR, HS TROP, PT, PTT, CBC, CKMB, BMP #### [address] Chloride [Moles/Vol] 105 mmol/L Normal 95-114 [facility] Comment on above: Performed By: #### B ENTREPRENEURSHIP PROGRAM DIRECTOR, HS TROP, PT, PTT, CBC, CKMB, BMP #### [address] CO2 [Moles/Vol] 26.9 mmol/L Normal 22.0-30.0 [facility] Comment on above: Performed By: #### B ENTREPRENEURSHIP PROGRAM DIRECTOR, HS TROP, PT, PTT, CBC, CKMB, BMP #### [address] Creatinine [Mass/Vol] 0.95 mg/dL Normal 0.64-1.27 [facility] Comment on above: Performed By: #### B ENTREPRENEURSHIP PROGRAM DIRECTOR, HS TROP, PT, PTT, CBC, CKMB, BMP #### [facility] [address] Creatinine Clr Calc Pharmacy 92.54 [facility] Comment on above: Result Comment: PERF ORMED BY: [place] [address] PATHOLOGIST JEWELRY MOLD MAKER ALEKSANDER TOBIN M.D. Performed By: #### B ENTREPRENEURSHIP PROGRAM DIRECTOR, HS TROP, PT, PTT, CBC, CKMB, BMP #### [facility] [address] Estimated GFR ( Milady > 60 [facility] Comment on above: Result Comment: GFR estimated reference range: According to KDOQI guidelines, <60 ml/min/1.73m2 is sufficient to diagnose a patient with chronic kidney disease. Performed By: #### B ENTREPRENEURSHIP PROGRAM DIRECTOR, HS TROP, PT, PTT, CBC, CKMB, BMP #### [facility] [address] Estimated GFR (Non- Am > 60 [facility] Comment on above: Performed By: #### B ENTREPRENEURSHIP PROGRAM DIRECTOR, HS TROP, PT, PTT, CBC, CKMB, BMP #### [facility] [address] Glucose [Mass/Vol] 95 mg/dL Normal 70-100 [facility] Comment on above: Result Comment: [place] Glucose Reference Range is dependent on time and content of last meal. Glucose of more than 200 mg/dL in a nonstressed, ambulatory subject supports the diagnosis of Diabetes Mellitus. ADA recommended reference range Performed By: #### B ENTREPRENEURSHIP PROGRAM DIRECTOR, HS TROP, PT, PTT, CBC, CKMB, BMP #### [facility] [address] Potassium [Moles/Vol] 4.1 mmol/L Normal 3.5-5.1 [facility] Comment on above: Performed By: #### B ENTREPRENEURSHIP PROGRAM DIRECTOR, HS TROP, PT, PTT, CBC, CKMB, BMP #### [facility] [address] [place] [address] [place] Sodium [Moles/Vol] 138 mmol/L Normal 136-146 [facility] Comment on above: Performed By: #### B ENTREPRENEURSHIP PROGRAM DIRECTOR, HS TROP, PT, PTT, CBC, CKMB, BMP #### [facility] [address] Urea nitrogen [Mass/Vol] 16 mg/dL Normal 9-23 [facility] Comment on above: Performed By: #### B ENTREPRENEURSHIP PROGRAM DIRECTOR, HS TROP, PT, PTT, CBC, CKMB, BMP #### [facility] [address] Basophils Auto (Bld) [#/Vol] Ordered By: Christiano Weston on 10-31-2022 Basophils (Bld) [#/Vol] 0.0 10*3/uL 0.0-0.2 [facility] Basophils/100 WBC Auto (Bld) Ordered By: Christiano Weston on 10-31-2022 Basophils/100 WBC (Bld) 0.6 % . [facility] Complete Blood Count Auto Di ffon 10-31-2022 Basophils (Bld) [#/Vol] 0.0 10*3/uL Normal 0.0-0.2 [facility] Comment on above: Result Comment: PERF ORMED BY: [place] [address] PATHOLOGIST JEWELRY MOLD MAKER ALEKSANDER TOBIN M.D. Performed By: #### B ENTREPRENEURSHIP PROGRAM DIRECTOR, HS TROP, PT, PTT, CBC, CKMB, BMP #### [address] Basophils/100 WBC (Bld) 0.6 % Normal . [facility] Comment on above: Performed By: #### B ENTREPRENEURSHIP PROGRAM DIRECTOR, HS TROP, PT, PTT, CBC, CKMB, BMP #### [facility] [address] Eosinophils (Bld) [#/Vol] 0.1 10*3/uL Normal 0.0-0.45 [facility] Comment on above: Performed By: #### B ENTREPRENEURSHIP PROGRAM DIRECTOR, HS TROP, PT, PTT, CBC, CKMB, BMP #### [address] Eosinophils/100 WBC (Bld) 1.3 % Normal . [facility] Comment on above: Performed By: #### B ENTREPRENEURSHIP PROGRAM DIRECTOR, HS TROP, PT, PTT, CBC, CKMB, BMP #### [address] Erythrocyte distribution width (RBC) [Ratio] 14.3 % Normal 12.0-14.8 [facility] Comment on above: Performed By: #### B ENTREPRENEURSHIP PROGRAM DIRECTOR, HS TROP, PT, PTT, CBC, CKMB, BMP #### [address] Hematocrit (Bld) [Volume fraction] 45.3 % Normal 38.8-50.0 [facility] Comment on above: Performed By: #### B ENTREPRENEURSHIP PROGRAM DIRECTOR, HS TROP, PT, PTT, CBC, CKMB, BMP #### [address] Hemoglobin (Bld) [Mass/Vol] 15.0 g/dL Normal 13.0-17.0 [facility] Comment on above: Performed By: #### B ENTREPRENEURSHIP PROGRAM DIRECTOR, HS TROP, PT, PTT, CBC, CKMB, BMP #### [address] Lymphocytes (Bld) [#/Vol] 1.1 10*3/uL Normal 1.00-4.8 [facility] Comment on above: Performed By: #### B ENTREPRENEURSHIP PROGRAM DIRECTOR, HS TROP, PT, PTT, CBC, CKMB, BMP #### [address] Lymphocytes/100 WBC (Bld) 17.2 % Normal . [facility] Comment on above: Performed By: #### B ENTREPRENEURSHIP PROGRAM DIRECTOR, HS TROP, PT, PTT, CBC, CKMB, BMP #### [address] MCH (RBC) [Entitic mass] 27.7 pg Normal 27.5-35.2 [facility] Comment on above: Performed By: #### B ENTREPRENEURSHIP PROGRAM DIRECTOR, HS TROP, PT, PTT, CBC, CKMB, BMP #### [address] MCV (RBC) [Entitic vol] 83.4 fL Low 83.5-101 [facility] Comment on above: Performed By: #### B ENTREPRENEURSHIP PROGRAM DIRECTOR, HS TROP, PT, PTT, CBC, CKMB, BMP #### [address] Mean Corpuscular HGB Conc 33.2 g/dL Normal 32.5-35.6 [facility] Comment on above: Performed By: #### B ENTREPRENEURSHIP PROGRAM DIRECTOR, HS TROP, PT, PTT, CBC, CKMB, BMP #### [address] Monocytes (Bld) [#/Vol] 0.6 10*3/uL Normal 0.0-0.8 [facility] Comment on above: Performed By: #### B ENTREPRENEURSHIP PROGRAM DIRECTOR, HS TROP, PT, PTT, CBC, CKMB, BMP #### [address] Monocytes/100 WBC (Bld) 15.84 % Normal 0.00-20.00 [facility] Comment on above: Performed By: #### B ENTREPRENEURSHIP PROGRAM DIRECTOR, HS TROP, PT, PTT, CBC, CKMB, BMP #### [place] [address] [place] Monocytes/100 WBC (Bld) 9.9 % Normal . [facility] Comment on above: Performed By: #### B ENTREPRENEURSHIP PROGRAM DIRECTOR, HS TROP, PT, PTT, CBC, CKMB, BMP #### [place] [address] [place] Neutrophils (Bld) [#/Vol] 4.4 10*3/uL Normal 1.8-7.7 [facility] Comment on above: Performed By: #### B ENTREPRENEURSHIP PROGRAM DIRECTOR, HS TROP, PT, PTT, CBC, CKMB, BMP #### [address] Neutrophils/100 WBC (Bld) 71.0 % Normal . [facility] Comment on above: Performed By: #### B ENTREPRENEURSHIP PROGRAM DIRECTOR, HS TROP, PT, PTT, CBC, CKMB, BMP #### [address] NRBC% 0.2 /100{WBC} Normal 0-0.5 [facility] Comment on above: Performed By: #### B ENTREPRENEURSHIP PROGRAM DIRECTOR, HS TROP, PT, PTT, CBC, CKMB, BMP #### [address] Platelet mean volume (Bld) [Entitic vol] 7.8 fL Normal 6.6-10.1 [facility] Comment on above: Performed By: #### B ENTREPRENEURSHIP PROGRAM DIRECTOR, HS TROP, PT, PTT, CBC, CKMB, BMP #### [address] Platelets (Bld) [#/Vol] 172 10*3/uL Normal 150-450 [facility] Comment on above: Performed By: #### B ENTREPRENEURSHIP PROGRAM DIRECTOR, HS TROP, PT, PTT, CBC, CKMB, BMP #### [address] RBC (Bld) [#/Vol] 5.43 10*6/uL Normal 3.90-5.60 [facility] Comment on above: Performed By: #### B ENTREPRENEURSHIP PROGRAM DIRECTOR, HS TROP, PT, PTT, CBC, CKMB, BMP #### [address] WBC (Bld) [#/Vol] 6.2 10*3/uL Normal 4.1-10.5 [facility] Comment on above: Performed By: #### B ENTREPRENEURSHIP PROGRAM DIRECTOR, HS TROP, PT, PTT, CBC, CKMB, BMP #### [address] Creatinine Kinase MBon 10-31 CK.MB [Mass/Vol] 2.0 ng/mL Normal 0.6-6.3 [facility] Comment on above: Performed By: #### L IPID, CREAT, PP, CBC, LYTES, BUN #### [place] [id number] [place] CKMB Relative Index Not performed Normal 0.00-2.50 [facility] Comment on above: Performed By: #### L IPID, CREAT, PP, CBC, LYTES, BUN #### [address] Creatinine and Glomerular fi ltration rate.predicted panel (S/P/Bld)Ordered By: Christiano Weston on 10-31-2022 Creatinine [Mass/Vol] 0.95 mg/dL 0.64-1.27 [facility] ECG 12 lead ECGon 10-31-2022 ECG 12 lead ECG [facility] Main [place] [address] [place] [address] Electrocardiograph Report Signed Patient: Augutsine Hall MR#: [id number] : 1960 Acct:[id number] Age/Sex: 62 / M ADM Date: 10/31/22 Loc: ER Room: Type: [facility] ER Attending Dr: Ordering Provider: Christiano Weston DO Date of Service: 10/31/2207/13/1020 ECG/ECG 12 lead ECG: CHEST PAIN Copies to: Test Reason : Blood Pressure : 194/098 mmHG Vent. Rate : 070 BPM Atrial Rate : 070 BPM P-R Int : 168 ms QRS Dur : 086 ms QT Int : 396 ms P-R-T Axes : 061 041 062 degrees QTc Int : 427 ms Normal sinus rhythm Confirmed by Christiano Weston DO ([id number]) on 10/31/2022 4:28:51 PM Referred By: Electronically Signed By:Christiano Weston DO Transcribed By: MUS Signed By Christiano Weston DO [id number] Normal [facility] Eosinophils Auto (Bld) [#/Vo l]Ordered By: Christiano Weston on 10-31-2022 Eosinophils (Bld) [#/Vol] 0.1 10*3/uL 0.0-0.45 [facility] Eosinophils/100 WBC Auto (Bl d)Ordered By: Christiano Weston on 10-31-2022 Eosinophils/100 WBC (Bld) 1.3 % . [facility] Erythrocyte distribution wid th Auto (RBC) [Ratio]Ordered By: Christiano Weston on 10-31-2022 Erythrocyte distribution width (RBC) [Ratio] 14.3 % 12.0-14.8 [facility] Estimated glomerular filtrat ion rate (GFR) non- AmericanOrdered By: Christiano Weston on 10-31-2022 GFR/1.73 sq M.predicted among non-blacks MDRD (S/P/Bld) [Vol rate/Area] > 60 mL/Min [facility] Hematocrit Auto (Bld) [Volum e fraction]Ordered By: Christiano Weston on 10-31-2022 Hematocrit (Bld) [Volume fraction] 45.3 % 38.8-50.0 [facility] Hemoglobin [Mass/volume] in BloodOrdered By: Christiano Weston on 10-31-2022 Hemoglobin (Bld) [Mass/Vol] 15.0 g/dL 13.0-17.0 [facility] Laboratory - Chemistry and C hemistry - challengeOrdered By: Christiano Weston on 10-31-2022 Natriuretic peptide B (Bld) [Mass/Vol] 42.0 pg/mL 5-100 [facility] - CoagulationOrde red By: Christiano Weston on 10-31-2022 PT Coag (PPP) [Time] 11.4 s 9.0-12.9 [facility] Leukocytes [#/volume] correc laya for nucleated erythrocytes in Blood by Automated counOrdered By: Christiano Weston on 10-31-2022 WBC corrected for nucl RBC Auto (Bld) [#/Vol] 6.2 10*3/uL 4.1-10.5 [facility] Lymphocytes Auto (Bld) [#/Vo l]Ordered By: Christiano Weston on 10-31-2022 Lymphocytes (Bld) [#/Vol] 1.1 10*3/uL 1.00-4.8 [facility] Lymphocytes/100 WBC Auto (Bl d)Ordered By: Christiano Weston on 10-31-2022 Lymphocytes/100 WBC (Bld) 17.2 % . [facility] MCH Auto (RBC) [Entitic mass ]Ordered By: Christiano Weston on 10-31-2022 MCH (RBC) [Entitic mass] 27.7 pg 27.5-35.2 [facility] MCHC Auto (RBC) [Mass/Vol]Or dered By: Christiano Weston on 10-31-2022 MCHC (RBC) [Mass/Vol] 33.2 g/dL 32.5-35.6 [facility] MCV Auto (RBC) [Entitic vol] Ordered By: Christiano Weston on 10-31-2022 MCV (RBC) [Entitic vol] 83.4 fL 83.5-101 [facility] Monocyte distribution width [Entitic volume] in Blood by AutomatedOrdered By: Christiano Weston on 10-31-2022 Monocyte distribution width Auto (Bld) [Entitic vol] 15.84 % 0.00-20.00 [facility] Monocytes Auto (Bld) [#/Vol] Ordered By: Christiano Weston on 10-31-2022 Monocytes (Bld) [#/Vol] 0.6 10*3/uL 0.0-0.8 [facility] Monocytes/100 WBC Auto (Bld) Ordered By: Christiano Weston on 10-31-2022 Monocytes/100 WBC (Bld) 9.9 % . [facility] Neutrophils Auto (Bld) [#/Vo l]Ordered By: Christiano Weston on 10-31-2022 Neutrophils (Bld) [#/Vol] 4.4 10*3/uL 1.8-7.7 [facility] Neutrophils/100 WBC Auto (Bl d)Ordered By: Christiano Weston on 10-31-2022 Neutrophils/100 WBC (Bld) 71.0 % . [facility] No Panel InformationOrdered By: Christiano Weston on 10-31-2022 Estimated GFR () > 60 mL/Min [facility] Comment on above: GFR estimated refere nce range: According to KDOQI guidelines, <60 ml/min/1.73m2 is sufficient to diagnose a patient with chronic kidney disease. Pharmacy Creatinine Clearance (Chem 92.54 [facility] Nucleated erythrocytes [Pres ence] in Blood by Automated countOrdered By: Christiano Weston on 10-31-2022 Nucleated RBC Auto Ql (Bld) 0.2 /100{WBC} 0-0.5 [facility] Partial Thromboplastin Timeo n 10-31-2022 aPTT Coag (Bld) [Time] 33.6 s Normal 25.1-36.5 [facility] Comment on above: Result Comment: PERF ORMED BY: [facility] [address] [place] [address] PATHOLOGIST JEWELRY MOLD MAKER ALEKSANDER TOBIN M.D. Performed By: #### B ENTREPRENEURSHIP PROGRAM DIRECTOR, HS TROP, PT, PTT, CBC, CKMB, BMP #### [facility] [address] Platelet mean volume Auto (B ld) [Entitic vol]Ordered By: Christiano Weston on 10-31-2022 Platelet mean volume (Bld) [Entitic vol] 7.8 fL 6.6-10.1 [facility] Platelet poor plasma interna tional normalized ratio (INR) by coagulation assay (relatOrdered By: Christiano Weston on 10-31-2022 INR Coag (PPP) [Relative time] 1.0 {INR} [facility] Comment on above: INR Therapeutic Rang e A) Pre- and Peroperative OAT started two weeks before surgery. NOT HIP SURGERY: 1.5 - 2.5 HIP SURGERY: 2 - 3B) Primary and secondary prevention of venous THROMBOSIS: 2 - 3C) Active venous thrombosis, pulmonary embolismand prevention of recurrent venous thrombosis: 2 - 3D) Prevention of arterial thromboembolismincluding patients with mechanical heart valves: 3 - 4.5 Platelets Auto (Bld) [#/Vol] Ordered By: Christiano Weston on 10-31-2022 Platelets (Bld) [#/Vol] 172 10*3/uL 150-450 [facility] Prothrombin Time INRon 10-31 INR Coag (PPP) [Relative time] 1.0 {INR} Normal [facility] Comment on above: Result Comment: INR Therapeutic Range A) Pre- and Peroperative OAT started two weeks before surgery. NOT HIP SURGERY: 1.5 - 2.5 HIP SURGERY: 2 - 3 B) Primary and secondary prevention of venous THROMBOSIS: 2 - 3 C) Active venous thrombosis, pulmonary embolism and prevention of recurrent venous thrombosis: 2 - 3 D) Prevention of arterial thromboembolism including patients with mechanical heart valves: 3 - 4.5 Performed By: #### B ENTREPRENEURSHIP PROGRAM DIRECTOR, HS TROP, PT, PTT, CBC, CKMB, BMP #### [facility] [address] PT Coag (PPP) [Time] 11.4 s Normal 9.0-12.9 [facility] Comment on above: Performed By: #### B ENTREPRENEURSHIP PROGRAM DIRECTOR, HS TROP, PT, PTT, CBC, CKMB, BMP #### [facility] [address] RBC Auto (Bld) [#/Vol]Ordere d By: Christiano Weston on 10-31-2022 RBC (Bld) [#/Vol] 5.43 10*6/uL 3.90-5.60 [facility] Serum or plasma anion gap de terminationOrdered By: Christiano Weston on 10-31-2022 Anion gap [Moles/Vol] 10.2 mmol/L 6.0-15.0 [facility] Serum or plasma calcium shannon urement (mass/volume)Ordered By: Christiano Weston on 10-31-2022 Calcium [Mass/Vol] 9.1 mg/dL 8.2-10.2 [facility] Serum or plasma chloride cheryl surement (moles/volume)Ordered By: Christiano Weston on 10-31-2022 Chloride [Moles/Vol] 105 mmol/L 95-114 [facility] Serum or plasma creatine kin ase MB (CKMB)/total creatine kinase (CK) ratio by calculaOrdered By: Christiano Weston on 10-31-2022 CK.MB Calc [Catalytic fraction] TNP [facility] Comment on above: Test not performed Serum or plasma creatine kin ase MB measurement (mass/volume)Ordered By: Christiano Weston on 10-31-2022 CK.MB [Mass/Vol] 2.0 ng/mL 0.6-6.3 [facility] Serum or plasma glucose shannon urement (mass/volume)Ordered By: Christiano Weston on 10-31-2022 Glucose [Mass/Vol] 95 mg/dL 70-100 [facility] Comment on above: ADA recommended refe rence rangeRandom Glucose Reference Range is dependent on time and content of last meal. Glucose of more than 200 mg/dL in a nonstressed, ambulatory subject supports the diagnosis of Diabetes Mellitus. Serum or plasma potassium me asurement (moles/volume)Ordered By: Christiano Weston on 10-31-2022 Potassium [Moles/Vol] 4.1 mmol/L 3.5-5.1 [facility] Serum or plasma sodium measu rement (moles/volume)Ordered By: Christiano Weston on 10-31-2022 Sodium [Moles/Vol] 138 mmol/L 136-146 [facility] Serum or plasma total carbon dioxide measurement (moles/volume)Ordered By: Christiano Weston on 10-31-2022 CO2 [Moles/Vol] 26.9 mmol/L 22.0-30.0 [facility] Serum or plasma urea nitroge n measurement (mass/volume)Ordered By: Christiano Weston on 10-31-2022 Urea nitrogen [Mass/Vol] 16 mg/dL 9-23 [facility] Troponin I High Sensitivityo n 10-31-2022 Troponin I High Sensitivity 4 pg/mL Normal 0-20 [facility] Comment on above: Result Comment: PERF ORMED BY: [facility] [address] [facility] [place] [address] PATHOLOGIST JEWELRY MOLD MAKER ALEKSANDER TOBIN M.D. Performed By: #### L IPID, CREAT, PP, CBC, LYTES, BUN #### [facility] [address] Troponin I.cardiac [Mass/vol ume] in Serum or Plasma by High sensitivity methodOrdered By: Christiano Weston on 10-31-2022 Troponin I.cardiac High sensitivity method [Mass/Vol] 4 pg/mL 0-20 [facility] WBC Auto (Bld) [#/Vol]Ordere d By: Christiano Weston on 10-31-2022 WBC (Bld) [#/Vol] 6.2 10*3/uL 4.1-10.5 [facility] XR chest 1V portableon 10-31 XR chest 1V portable [facility] Main [place] [address] [place], [place] [id number] XRay Report Signed Patient: Augustine Hall MR#: [id number] : 1960 Acct:[id number] Age/Sex: 62 / M ADM Date: 10/31/22 Loc: ER Room: Type: [facility] ER Attending Dr: Copies to: Christiano Weston DO Ordering Provider: Christiano Weston DO Date of Service: 10/31/22 XR/XR chest 1V portable: CHEST PAIN Plain film chestsingle view HISTORY:Chest pressure and palpitations. COMPARISON:None FINDINGS: Heart is borderline enlarged. Hilar vasculature unremarkable. No acute lung process, pleural effusion or pneumothorax identified. Thoracic spondylosis identified. XR/XR chest 1V portable IMPRESSION: No acute process. Impression dictated by: Tenzin Sagastume M.D.10/31/2022 10:53 AM Dictation Location: [place] [address] Transcribed By: [facility] 10/31/22 1053 Dictated By: Tenzin Sagastume DO 10/31/22 1052 Signed By: 10/31/22 1053 [facility] VC CONSULT FOLLOWUPon 2021 VC CONSULT FOLLOWUP Patient: AUGUSTINE HALL Exam Date: 09/01/2022 : 1960 Gender:M Ordering : DR NASIMA SIMS M.D. Admission #: [id number] Family : Order #: [id number] CLICK HERE TO VIEW EXAM RADIOLOGY REPORT PROCEDURE: VEIN CENTER CONSULTATION FOLLOWUP VEIN CENTER - OFFICE VISIT FOLLOW UP COMPARISON: VC CONSULT FOLLOWUP, 08/25/2022. PROGRESS NOTES: The patient reports no significant discomfort following intravenous laser ablation the left great saphenous vein. The patient did not require oral analgesics. The patient did wear his compression stockings. The patient has followed our recommendations to walk 20-30 minutes once or twice per day since the procedure. Ports improvement in his initial presenting symptoms. Physical exam demonstrates scattered areas of bruising likely related to tumescence injection. No areas of erythema or warmth to suggest cellulitis or thrombophlebitis. No active ulceration. Residual incompetent varicose veins are observed. Moderate residual reticular and spider veins Review of the ultrasound performed the same day demonstrates occlusive thrombus extending throughout the treated left great saphenous vein with heat induced thrombus 1 cm from the saphenofemoral junction. The patient's insurance denied micro foam chemical ablation. We did discuss this in the patient was given options of self pay or to wait until he begins Medicare which is 2 years away. The patient did want to proceed with treatment of reticular and spider veins with injection sclerotherapy. IMPRESSION: 1. Successful ablation of the left great saphenous vein 2. Persistent bilateral incompetent varicose veins, reticular veins and spider veins PLAN: Injection sclerotherapy Nurse notes, history and physical were reviewed and confirmed, see attached forms. The nurse was present throughout the physical exam and consultation Dictated by: Nasima Sims MD on 09/01/2022 at 09:53 Approved by: Nasima Sims MD on 09/01/2022 at 09:55 Normal [facility] VC EXT VENOUS LT LIMITEDon 1 11-02-2021 VC EXT VENOUS LT LIMITED Patient: AUGUSTINE HALL Exam Date: 09/01/2022 : 1960 Gender:M Ordering : DR NASIMA SIMS M.D. Admission #: [id number] Family : Order #: [id number] CLICK HERE TO VIEW EXAM RADIOLOGY REPORT PROCEDURE: VEIN CENTER EXTREMITY VENOUS LEFT LIMITED COMPARISON: None. INDICATIONS: Phlebitis and thrombophlebitis of superficial veins of left lower extremity I80.02 TECHNIQUE: Lower extremity winn scale and Duplex Doppler evaluation of the deep venous system from the inguinal ligament through the calf veins. FINDINGS: REGION: Left lower extremity. THROMBI: Negative for DVT. Thrombus in left GSV 1.0 cm from SFJ and extends to the distal lower leg/ankle. COMPRESSIBILITY: Non-compressible segments corresponding to thrombus. FLOW: Absent flow corresponding to thrombus OTHER: Multiple varicose veins remain. *Exam performed in accordance with [facility] practice guidelines- Peripheral venous ultrasound, December 15, 2009. CONCLUSION: Post ablation occlusion of the left great saphenous vein heat induced thrombus 1 cm from the saphenofemoral junction Dictated by: Nasima Sims MD on 09/01/2022 at 09:34 Approved by: Nasima Sims MD on 09/01/2022 at 09:34 Normal [facility] VC ENDOVENOUS ABL 1ST V LTon 08-29-2022 VC ENDOVENOUS ABL 1ST V LT Patient: AUGUSTINE HALL Exam Date: 08/29/2022 : 1960 Gender:M Ordering : DR NASIMA SIMS M.D. Admission #: [id number] Family : Order #: [id number] CLICK HERE TO VIEW EXAM RADIOLOGY REPORT PROCEDURE: VEIN CENTER ENDOVENOUS ABLATION FIRST VEIN LEFT COMPARISON: None. INDICATIONS: Pain co-occurrent and due to varicose veins of bilateral legs I83.813 OPERATIVE REPORT: The risks and benefits of the procedure had been previously discussed, and were rediscussed at length. Informed written consent was obtained by me and Loc Guerra assisted. Time out procedure was performed. The left lower extremity was prepared and draped in the usual sterile fashion to allow knee flexion in the sterile field. Duplex ultrasound probe was draped in a sterile cover, sterile transmission gel was used. Venous mapping was performed with the areas of dilation and large tributaries marked. The total length was 72 cm from the entry 5 cm above the medial malleolus to 3 cm below the saphenofemoral junction. The diameter of the greater saphenous vein ranged from 6-12 mm. A 30 gauge needle and 1% buffered lidocaine was used to anesthetize the entry site. A 4 mm incision was made with a scalpel and the saphenous vein was entered percutaneously under direct ultrasound guidance with a micropuncture set, a single stick was successful in gaining access. A micro-guide wire was inserted and the needle removed. A micro-set including a dilator was inserted over the microwire and the needle and dilator were removed. A 0.018 guide wire was inserted through the micro-set and threaded through the saphenous vein to the saphenofemoral junction. The dilator was removed and an introducer sheath was inserted over the wire until the end of the sheath entered the saphenofemoral junction. The dilator and wire were removed and the 600 micron fiber was introduced and placed and positioned so that it extended beyond the sheath and was 3 cm peripheral to the saphenofemoral femoral junction. Final position of the fiber was determined by ultrasound guidance and duplex imaging. Tumescent anesthetic was delivered by ultrasound guidance. 300 cc of fluid was delivered along the entire course of the saphenous vein. The solution consisted of 500 cc of normal saline with 20mL of 1% lidocaine and 10 mL of sodium bicarbonate. A final positioning check was made. The energy source was turned on by means of the foot pedal and the fiber and sheath were withdrawn. The total number of Joules delivered was 3395. The laser was active for 424 seconds under continuous pulse, average laser use of 8 J. Laser start time 1:30 p.m. August 29, 2022 Laser stop time 1:38 p.m. August 29, 2022. A duplex ultrasound revealed compressibility and flow at the saphenofemoral junction immediately after the procedure. Hemostasis at the access site was achieved. The skin incision of the saphenous vein was closed with a 4 x 4. A compression stocking was applied. Postop instructions were given. A follow up appointment was recommended and scheduled. The patient tolerated the procedure well and was discharged in good condition. CONCLUSION: 1. Technically successful endovenous laser ablation of the left great saphenous vein. Dictated by: Nasima Sims MD on 08/29/2022 at 13:39 Approved by: Nasima Sims MD on 08/29/2022 at 13:45 Normal [facility] VC CONSULT FOLLOWUPon 2021 VC CONSULT FOLLOWUP Patient: AUGUSTINE HALL Exam Date: 08/25/2022 : 1960 Gender:M Ordering : DR NASIMA SIMS M.D. Admission #: [id number] Family : Order #: [id number] CLICK HERE TO VIEW EXAM RADIOLOGY REPORT PROCEDURE: VEIN CENTER CONSULTATION FOLLOWUP VEIN CENTER - OFFICE VISIT FOLLOW UP COMPARISON: None. PROGRESS NOTES: The patient reports only mild discomfort following intravenous laser ablation of the right great saphenous vein. The patient did not require oral analgesics. The patient did wear his compression stocking. The patient has followed our recommendations to walk 20-30 minutes once or twice per day since the procedure. Physical exam demonstrates no areas of erythema, warmth or bruising. No evidence of cellulitis or thrombophlebitis. Thrombosed right great saphenous vein can be palpated. Some thrombosed branch saphenous varicose veins are observed. Multiple patent varicose veins. Review of the ultrasound performed the same day demonstrates occlusive thrombus extending throughout the treated right great saphenous vein with heat induced thrombus 1.4 cm from the saphenofemoral junction. No deep vein thrombus. The patient expressed a desire to proceed with treatment of incompetent left great saphenous vein. IMPRESSION: 1. Successful ablation of the right great saphenous vein 2. Persistent incompetent left great saphenous vein PLAN: Intravenous laser ablation left great saphenous vein Nurse notes, history and physical were reviewed and confirmed, see attached forms. The nurse was present throughout the physical exam and consultation Dictated by: Nasima Sims MD on 08/25/2022 at 09:23 Approved by: Nasima Sims MD on 08/25/2022 at 09:26 Normal [facility] VC EXT VENOUS RT LIMITEDon 1 10-26-2021 VC EXT VENOUS RT LIMITED Patient: JENNIFER AUGUSTINE A. Exam Date: 08/25/2022 : 1960 Gender:M Ordering : DR NASIMA SIMS M.D. Admission #: [id number] Family : Order #: [id number] CLICK HERE TO VIEW EXAM RADIOLOGY REPORT PROCEDURE: VEIN CENTER EXTREMITY VENOUS RIGHT LIMITED COMPARISON: None. INDICATIONS: Phlebitis and thrombophlebitis of superficial veins of right lower extremity I80.01 TECHNIQUE: Lower extremity winn scale and Duplex Doppler evaluation of the deep venous system from the inguinal ligament through the calf veins. FINDINGS: REGION: Right lower extremity. THROMBI: Negative for DVT. Heat induced thrombus 1.4 cm from SFJ and extends to the mid lower leg at insert. COMPRESSIBILITY: Possible segments corresponding to thrombus FLOW: Absent flow corresponding to thrombus OTHER: Multiple varicose veins remain. *Exam performed in accordance with [facility] practice guidelines- Peripheral venous ultrasound, December 15, 2009. CONCLUSION: Post ablation occlusion of the right great saphenous vein with heat induced thrombus 1.4 cm from the saphenofemoral junction Dictated by: Nasima Sims MD on 08/25/2022 at 09:21 Approved by: Nasima Sims MD on 08/25/2022 at 09:23 [facility] VC ENDOVENOUS ABL 1ST V RTon 08-20-2022 VC ENDOVENOUS ABL 1ST V RT Patient: AUGUSTINE HALL Exam Date: 08/20/2022 : 1960 Gender:M Ordering : DR NASIMA SIMS M.D. Admission #: [id number] Family : Order #: [id number] CLICK HERE TO VIEW EXAM RADIOLOGY REPORT PROCEDURE: VEIN CENTER ENDOVENOUS ABLATION FIRST VEIN RIGHT COMPARISON: None. INDICATIONS: Pain co-occurrent and due to varicose veins of bilateral legs I83.813 OPERATIVE REPORT: The risks and benefits of the procedure had been previously discussed, and were rediscussed at length. Informed written consent was obtained by me and Loc Guerra assisted. Time out procedure was performed. The right lower extremity was prepared and draped in the usual sterile fashion to allow knee flexion in the sterile field. Duplex ultrasound probe was draped in a sterile cover, sterile transmission gel was used. Venous mapping was performed with the areas of dilation and large tributaries marked. The total length was 52 cm from the entry 4 cm above the medial malleolus to 3 cm below the saphenofemoral junction (due to in in passive all segment just above the knee, 2 insertions were made, 1 just above the medial malleolus and treated, followed by vein access just above the knee and subsequent treatment). The diameter of the greater saphenous vein ranged from 13 mm. A 30 gauge needle and 1% buffered lidocaine was used to anesthetize the entry site. A 4 mm incision was made with a scalpel and the saphenous vein was entered percutaneously under direct ultrasound guidance with a micropuncture set, a single stick was successful in gaining access. A micro-guide wire was inserted and the needle removed. A micro-set including a dilator was inserted over the microwire and the needle and dilator were removed. A 0.018 guide wire was inserted through the micro-set and threaded through the saphenous vein to the saphenofemoral junction. The dilator was removed and an introducer sheath was inserted over the wire until the end of the sheath entered the saphenofemoral junction. The dilator and wire were removed and the 600 micron fiber was introduced and placed and positioned so that it extended beyond the sheath and was 3 cm peripheral to the saphenofemoral femoral junction. Final position of the fiber was determined by ultrasound guidance and duplex imaging. Tumescent anesthetic was delivered by ultrasound guidance. Three hundred cc of fluid was delivered along the entire course of the saphenous vein. The solution consisted of 500 cc of normal saline with 20mL of 1% lidocaine and 10 mL of sodium bicarbonate. A final positioning check was made. The energy source was turned on by means of the foot pedal and the fiber and sheath were withdrawn. The total number of Joules delivered was 3214. The laser was active for 402 seconds split between the calf segment treatment and thigh segment treatment, average laser use of 8 J. Laser time 10:26 a.m. to 10:32 a.m. 10:47 a.m. to 10:50 a.m.; August 20, 2022. A duplex ultrasound revealed compressibility and flow at the saphenofemoral junction immediately after the procedure. Hemostasis at the access site was achieved. The skin incision of the saphenous vein was closed with a 4 x 4. A compression stocking was applied. Postop instructions were given. A follow up appointment was recommended and scheduled. The patient tolerated the procedure well and was discharged in good condition. CONCLUSION: 1. Technically successful endovenous laser ablation of the right great saphenous vein. Dictated by: Augustine Knutson M.D. on 08/20/2022 at 13:13 Approved by: Augustine Knutson M.D. on 08/20/2022 at 13:17 Normal [facility] COMP CONSULTATIONon 07-10 VC COMP CONSULTATION Patient: VERÓNICA HALL Exam Date: 07/10/2022 : 1960 Gender:M Ordering : DR OLIVA CROFT Admission #: [id number] Family : Order #: [id number] CLICK HERE TO VIEW EXAM RADIOLOGY REPORT PROCEDURE: VEIN CENTER CONSULTATION VEIN CENTER - OFFICE VISIT INITIAL COMPARISON: None. PROGRESS NOTES: 62-year-old male who presents with a 15-20 year history of lower extremity pain swelling and varicose veins. The patient describes dilated bulging veins with right greater than left pain. The patient describes the pain as aching burning heaviness with a pain rated as a 3 on a scale of 1-10. The patient developed an episode of nonhealing venous stasis ulceration 15 years ago treated by a vascular surgeon with compression stockings for 6 months. Vein treatments were recommended at that time but the patient deferred treatment. 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 The patient's symptoms require periodic rest and leg elevation. The patient's symptoms are improved by rest, leg elevation, compression stockings and over the counter ibuprofen. The patient had an episode 5-10 years ago of spontaneous venous thrombosis on the right leg ultrasound demonstrates chronic changes to the right great saphenous vein consistent with the patient's history. The patient does walk 5 days per week and normal body BMI. The patient denies any signs and symptoms to suggest arterial ischemia. The patient describes a family history significant for type 2 diabetes in his father. Breast cancer and stroke in her mother. Heart disease in her brother. Patient has never smoked. Occasional social alcohol use. No illicit drug use. Past medical history significant for back and neck pain with neck surgery. Hypertriglyceridemia. Lumbosacral radiculopathy. The patient's is scheduled to undergo a 2nd right knee arthroscopy next week for clicking, catching and pain. No history of pulmonary embolus. See separate history and physical for medication list. No prior treatment for varicose or spider veins. Nursing notes were reviewed. Nursing notes were reviewed. After history and physical exam I discussed at length the pathophysiology of venous hypertension and possible treatments, therapies and strategies available. We discussed at length the importance of elevating the lower extremities above the level of the heart, increased physical activity and compression stocking use. We discussed nonsurgical treatments with compression stockings, surgical interventions including ligation and stripping and phlebectomy. We discussed intravenous laser ablation, micro foam chemical ablation and injection sclerotherapy at length. The risks and benefits were discussed. The patient's questions were answered. Ultrasound venous reflux study performed the same day was discussed at length with the patient. The report demonstrates severe right and moderate to severe left great saphenous vein venous insufficiency. Mild right anterior accessory saphenous vein venous insufficiency. Nonocclusive chronic thrombus right great saphenous vein. Bilateral incompetent branch saphenous tributary/varicose veins PHYSICAL EXAM: The right leg demonstrates marked diffuse varicosities throughout the thigh knee and lower leg. Extensive reticular and spider veins below the knee. large amount of hemosiderin staining below the knee. Minimal subcutaneous edema. The left leg demonstrates moderate scattered varicosities primarily along the medial lower leg and posterior knee. Moderate reticular and spider veins below the knee. Moderate amount of hemosiderin staining. Minimal subcutaneous edema Both thighs, legs and feet were symmetrically warm to the touch. Good posterior tibial and dorsalis pedis pulses were present bilaterally. IMPRESSION: 1. Severe right and moderate to severe left great saphenous vein venous insufficiency with marked dilatation 2. Moderate bilateral incompetent lower extremity varicose veins 3. Minimal lower extremity subcutaneous edema 4. No definite flow significant arterial disease 5. CEAP: C5, Ep, As, Pro PLAN: 1. Endovenous laser ablation right great saphenous vein followed by left great saphenous vein 2. Bilateral micro foam chemical ablation of incompetent varicose veins/tributaries 3. Injection sclerotherapy of reticular and spider veins 4. Long-term use of bilateral thigh-high 20-30 mm compression stockings 5. Leg elevation and increased physical activity for symptomatic relief Nurse notes, history and physical were reviewed and confirmed, see attached forms. The nurse was present throughout the physical exam and consultation Dictated by: Nasima Sims MD on 07/10/2022 at 12:50 Approved by: Nasima Sims MD on 07/10/2022 at 13:02 Normal [facility] VC VENOUS REFLUX FEI LMTon 1 VC VENOUS REFLUX FEI LMT Patient: AUGUSTINE HALL Exam Date: 07/10/2022 : 1960 Gender:M Ordering : DR OLIVA CROFT Admission #: [id number] Family : Order #: [id number] CLICK HERE TO VIEW EXAM RADIOLOGY REPORT PROCEDURE: VEIN CENTER ULTRASOUND VENOUS REFLUX BILATERAL LIMTED COMPARISON: None. INDICATIONS: Pain co-occurrent and due to varicose veins of right leg I83.811 TECHNIQUE: Duplex imaging of the lower extremity to assess the deep and superficial venous system for the presence of deep or superficial venous incompetence and to document the location and severity of disease. The study includes evaluation of the great saphenous vein (GSV), anterior accessory saphenous vein (AASV) and small saphenous vein (SSV). Patient scanned in reverse Trendelenburg and standing. FINDINGS: RIGHT LOWER EXTREMITY: Saphenofemoral Junction Reflux: Yes 9.5mm 3.9 sec GSV: Diam (mm) Reflux/ Time (sec) Proximal Thigh 12.9 Yes 3.9 Mid Thigh 13.2 Yes 3.7 Distal Thigh 16.8 Yes 3.2 Prox Calf 10.7 Yes 3.1 Mid Calf 7.1 Yes 2.9 Saphenopopliteal Junction Reflux: 3.6mm No SSV: Proximal Calf 3.3 No Mid Calf 2.6 No AASV: Proximal Thigh 4.7 Yes 0.4 Mid Thigh 3.8 Yes 1.0 Distal Thigh Thrombi: No acute or chronic thrombus visualized Compressibility: Normal Flow: 0.9s reflux visualized in the popliteal vein. Preforator: Dist/med calf 3.4mm with 0s reflux. Dist/med calf 2.6mm with 1.5s reflux. Mid/med calf 3.4mm with 0s reflux. Prox/lat calf 4.5mm with 0s reflux. Tech Note: Incompetent SFJ and GSV. AASV arises off of mid thigh GSV. GSV has hyperechoic components within, but is compressible throughout the entire leg. Patent varicose vein mid/med calf 5.2mm with 1.4s reflux. Patent varicose vein prox/ant calf 7.2mm with 1.3s reflux. Patent varicose vein prox/lat calf 6.5mm with 0.9s reflux. Patent varicose vein dist/med thigh 3.9mm with 0.6s reflux. LEFT LOWER EXTREMITY: Saphenofemoral Junction Reflux: Yes 9.9 mm 2.8 sec GSV: Diam (mm) Reflux/Time (sec) Proximal Thigh 11.9 Yes 1.6 Mid Thigh 8.4 Yes 2.3 Distal Thigh 8.0 Yes 1.2 Prox Calf 8.8 Yes 2.7 Mid Calf 6.8 Yes 3.0 Saphenopopliteal Junction Relux: 3.2 mm No SSV: Proximal Calf 2.5 No Mid Calf 2.2 No AASV: Proximal Thigh 3.4 No Mid Thigh 2.8 No Distal Thigh Thrombi: No acute or chronic thrombus visualized Compressibility: Normal Flow: Normal [employer] Floor[employer]: Dist/med calf 5.3mm with 0s reflux. Prox/med calf 2.8mm with 0s reflux. Tech Note: Incompetent SFJ and GSV. Patent varicose vein dist/med calf 6.9mm with 0.9s reflux. Patent varicose vein prox/med calf 3.2mm with 0s reflux. CONCLUSION: 1. Severe right and moderate left great saphenous vein venous insufficiency with moderate to marked dilatation 2. Nonocclusive chronic thrombus right great saphenous vein 3. Bilateral incompetent branch saphenous varicose veins 4. Mild venous insufficiency right anterior accessory saphenous vein Dictated by: Nasima Sims MD on 07/10/2022 at 11:22 Approved by: Nasima Sims MD on 07/10/2022 at 11:24 Normal [facility] CBC AUTO DIFFon 06-30-2022 BASO # 0.0 103/ul Normal 0.0-0.1 [facility] Comment on above: Performed By: #### C BC ####[facility] [address] [place] [address]Dr. Mariangel Gill Basophils/100 WBC (Bld) 0.5 % Normal 0.2-2.0 [facility] Comment on above: Performed By: #### C BC ####[facility] [address] [place], [place] [address]Dr. Mariangel Gill EO # 0.1 103/ul Normal 0.0-0.7 [facility] Comment on above: Performed By: #### C BC ####[facility] [address] [place], [place] [address]Dr. Mariangel Gill Eosinophils/100 WBC (Bld) 0.8 % Critically low 0.9-7.0 [facility] Comment on above: Performed By: #### C BC ####[facility] [address] [place], [place] [address]Dr. Mariangel Gill Erythrocyte distribution width (RBC) [Ratio] 13.7 % Normal 11.0-15.0 [facility] Comment on above: Performed By: #### C BC ####[facility] [address] [place], [place] [address]Dr. Mariangel Gill Hematocrit (Bld) [Volume fraction] 46.8 % Normal 42.0-54.0 [facility] Comment on above: Performed By: #### C BC ####[facility] [address] [place], [place] [address]Dr. Mariangel Gill Hemoglobin (Bld) [Mass/Vol] 15.2 g/dL Normal 14.0-18.0 [facility] Comment on above: Performed By: #### C BC ####[facility] [address] [place] [id number]. Mariangel Gill IG # 0.02 10e3/ul Normal 0.00-0.03 [facility] Comment on above: Performed By: #### C BC ####[facility] [address] [place] [id number]. Mariangel Gill IG % 0.3 % Normal 0.0-0.5 [facility] Comment on above: Performed By: #### C BC ####[facility] [address] [place] [address]Dr. Mariangel Gill LYMPH # 1.4 103/ul Normal 1.2-3.8 [facility] Comment on above: Performed By: #### C BC ####[facility] [address] [place], [place] [address]Dr. Mariangel Gill Lymphocytes/100 WBC (Bld) 23.6 % Normal 20.5-60.0 [facility] Comment on above: Performed By: #### C BC ####[facility] [address] [place] [address]Dr. Mariangel Gill MANUAL DIFF REQ NO Normal [facility] Comment on above: Performed By: #### C BC ####[facility] [address] [place], [place] [address]Dr. Mariangel Gill MCH (RBC) [Entitic mass] 27.8 pg Normal 25.9-34.0 [facility] Comment on above: Performed By: #### C BC ####[facility] [address] [place], [place] [address]Dr. Mariangel Gill MCHC (RBC) [Mass/Vol] 32.5 g/dL Normal 29.9-35.2 [facility] Comment on above: Performed By: #### C BC ####[facility] [address] [place], [place] [address]Dr. Mariangel Gill MCV (RBC) [Entitic vol] 85.7 fL Normal 80.0-94.0 [facility] Comment on above: Performed By: #### C BC ####[facility] [address] [place] [id number]. Mariangel Gill MONO # 0.6 103/ul Normal 0.3-0.8 [facility] Comment on above: Performed By: #### C BC ####[facility] [address] [place] [id number]. Mariangel Gill Monocytes/100 WBC (Bld) 10.0 % Normal 1.7-12.0 [facility] Comment on above: Performed By: #### C BC ####[facility] [address] [place] [id number]. Mariangel Gill NEUT # 4.0 103/ul Normal 1.4-6.5 [facility] Comment on above: Performed By: #### C BC ####[facility] [address] [place] [address]Dr. Mariangel Gill Neutrophils/100 WBC (Bld) 64.8 % Normal 43.0-75.0 [facility] Comment on above: Performed By: #### C BC ####[facility] [address] [place] [id number]. Mariangel Gill Platelet mean volume (Bld) [Entitic vol] 9.3 fL Critically low 9.5-13.5 [facility] Comment on above: Performed By: #### C BC ####[facility] [address] [place] [id number]. Mariangel Gill PLT 193 103/ul Normal 150-450 [facility] Comment on above: Performed By: #### C BC ####[facility] [address] [place], [place] [id number]. Mariangel Gill RBC 5.46 106/ul Normal 4.70-6.10 [facility] Comment on above: Performed By: #### C BC ####[facility] [address] [place], [place] [id number]. Mariangel Gill WBC 6.1 103/ul Normal 4.0-11.0 [facility] Comment on above: Performed By: #### C BC ####[facility] [address] [place] [address]Dr. Mariangel Gill PROF CHEM 8 (BAS METB)on Anion gap [Moles/Vol] 11.4 mmol/L Normal [facility] Comment on above: Performed By: #### B MP ####[facility] [address] [place] [address]Dr. Mariangel Gill Calcium [Mass/Vol] 8.5 mg/dL Normal 8.5-10.1 [facility] Comment on above: Performed By: #### B MP ####[facility] [address] [place], [place] [address]Dr. Mariangel Gill Chloride [Moles/Vol] 103 mmol/L Normal 98-107 [facility] Comment on above: Performed By: #### B MP ####[facility] [address] [place], [place] [address]Dr. Mariangel Gill CO2 [Moles/Vol] 28.8 mmol/L Normal 21.0-32.0 [facility] Comment on above: Performed By: #### B MP ####[facility] [address] [place], [place] [address]Dr. Mariangel Gill Creatinine [Mass/Vol] 1.12 mg/dL Normal 0.70-1.30 [facility] Comment on above: Performed By: #### B MP ####[facility] [address] [place], [place] [address]Dr. Mariangel Gill EGFR-AF IRAQI >60 Normal >=60 [facility] Comment on above: Performed By: #### B MP ####[facility] [address] [place], [place] [address]Dr. Mariangel Gill EGFR-NON AF IRAQI >60 Normal >=60 [facility] Comment on above: Performed By: #### B MP ####[facility] [address] [place], [place] [address]Dr. Mariangel Gill Glucose [Mass/Vol] 129 mg/dL Critically high 74-106 [facility] Comment on above: Performed By: #### B MP ####[facility] [address] [place], [place] [id number]. Mariangel Gill Potassium [Moles/Vol] 4.2 mmol/L Normal 3.5-5.1 [facility] Comment on above: Performed By: #### B MP ####[facility] [address] [place], [place] [address]Yy. Mariangel Gill Sodium [Moles/Vol] 139 mmol/L Normal 136-145 [facility] Comment on above: Performed By: #### B MP ####[facility] [address] [place], [place] [address]Lh. Mariangel Gill Urea nitrogen [Mass/Vol] 18.0 mg/dL Normal 7.0-18.0 [facility] Comment on above: Performed By: #### B MP ####[facility] [address] [place] [id number]. Mariangel Gill Urea nitrogen/Creatinine [Mass ratio] 16.1 mg/mg Normal [facility] Comment on above: Performed By: #### B MP ####[facility] [address] [place] [id number]. Mariangel Gill MRI KNEE RT WO CONon 022 MRI KNEE RT WO CON EXAMINATION: MRI KNE E RT WO CON HISTORY: Strain of muscle and/or tendon of lower leg ; acute stiffness and swelling of right knee COMPARISON: No relevant comparison available. TECHNIQUE: A complete multi-planar MRI was performed. FINDINGS: MEDIAL COMPARTMENT MEDIAL MENISCUS: Undersurface tear of the body and posterior junction. CARTILAGE: No visible defect. BONES: Very mild edema within the medial margin of the tibial plateau, possibly bone bruising. MCL AND MEDIAL CAPSULE: Grade I sprain of the medial collateral ligament. LATERAL COMPARTMENT LATERAL MENISCUS: No visible tear or significant degeneration. CARTILAGE: No visible defect. BONES: No marrow pathology, fracture, or significant arthropathy. LCL/POSTEROLAT COMPLEX: Normal lateral collateral ligament, fascicles, lateral capsule and ligaments. ANTERIOR COMPARTMENT PATELLA: No marrow pathology, fracture, or significant arthropathy. CARTILAGE: No visible defect. TENDONS: Normal. EFFUSION: Small joint effusion. ACL: Normal appearing ligament. PCL: Normal appearing ligament. MENISCOFEMORAL: Normal meniscofemoral ligaments. OTHER: Small Acosta's cyst. IMPRESSION: 1. Medial meniscus undersurface tear body and posterior junction. 2. Mild bone bruising of the medial margin of the tibial plateau. 3. Mild strain of the medial collateral ligament. 4. Small joint effusion. 5. Small Acosta's cyst. Electronically authenticated by: AUGUSTINE KNUTSON Date: 2022-04-09 07:47 Normal [facility] XR Knee Complete Right*on XR Knee Complete Right* CLINICAL HISTORY: Knee pain COMPARISON: None. TECHNIQUE: Right knee radiographs RESULT: No acute fracture or dislocation.Joint spaces maintained. Minimal chondrocalcinosis. Soft tissues unremarkable. No joint effusion. IMPRESSION: No acute findings. Report reported and signed by TREY MAURER on 03/04/2022 1132 Normal [facility] [place] Vital Signs Date Time Vital Sign Value Performing Clinician Angeles laguna 12-12-2022 14:15-0400 Diastolic blood pressure 80 mm[Hg] DO Oliva MR Presta Work Phone: [facility] 12-12-2022 14:15-0400 Heart rate 73 /min DO Oliva HamlinLucernex Work Phone: [facility] 12-12-2022 14:15-0400 Respiratory rate 18 /min DO Oliva HamlinLucernex Work Phone: [facility] 12-12-2022 14:15-0400 SaO2% (BldA) [Mass fraction] 94 % DO Oliva HamlinLucernex Work Phone: [facility] 12-12-2022 14:15-0400 Systolic blood pressure 146 mm[Hg] DO Oliva BoubacarLucernex Work Phone: [facility] 12-12-2022 09:55-0400 Body height 187.96 cm DO Oliva BujbumonikaLucernex Work Phone: [facility] 12-12-2022 09:55-0400 Body temperature 97.6 [degF] DO Oliva HmalinLucernex Work Phone: [facility] 12-12-2022 09:55-0400 Body weight 95 kg DO Oliva HamlinLucernex Work Phone: [facility] 12-09-2022 08:58-0400 Diastolic blood pressure 80 mm[Hg] Oliva Croft Work Phone: [facility] 250 DO Work Phone: 12-09-2022 08:58-0400 Systolic blood pressure 142 mm[Hg] Oliva Croft Work Phone: [facility] 250 DO Work Phone: 12-09-2022 08:56-0400 Body height 187.96 cm Oliva Croft Work Phone: [facility] 250 DO Work Phone: 12-09-2022 08:56-0400 Body mass index (BMI) [Ratio] 26.83 kg/m2 Oliva Croft Work Phone: [facility] 250 DO Work Phone: 12-09-2022 08:56-0400 Body surface area Derived from formula 2.21 m2 Oliva Croft Work Phone: [facility] 250 DO Work Phone: 12-09-2022 08:56-0400 Body weight 94.8 kg Oliva Croft Work Phone: [facility] 250 DO Work Phone: 12-09-2022 08:56-0400 Diastolic blood pressure 80 mm[Hg] Oliva Croft Work Phone: [facility] [facility] DO Work Phone: 12-09-2022 08:56-0400 Heart rate 74 /min Oliva Croft Work Phone: [facility] DO Work Phone: 12-09-2022 08:56-0400 Systolic blood pressure 144 mm[Hg] Oliva J Boubacark Work Phone: [facility] DO Work Phone: 10-31-2022 12:00-0500 Diastolic blood pressure 78 mm[Hg] DO Oliva Antwanchak Work Phone: [facility] 10-31-2022 12:00-0500 Heart rate 60 /min DO Oliva Boubacark Work Phone: [facility] 10-31-2022 12:00-0500 Respiratory rate 18 /min DO Oliva Boubacark Work Phone: [facility] 10-31-2022 12:00-0500 SaO2% (BldA) [Mass fraction] 96 % DO Oliva Hamlink Work Phone: [facility] 10-31-2022 12:00-0500 Systolic blood pressure 134 mm[Hg] DO Oliva Guerda Work Phone: [facility] 10-31-2022 10:21-0500 Body height 187.96 cm DO Oliva Croft Work Phone: [facility] 10-31-2022 10:21-0500 Body temperature 97.1 [degF] DO Oliva Croft Work Phone: [facility] 10-31-2022 10:21-0500 Body weight 95.25 kg DO Oliva Croft Work Phone: [facility] Encounters Encounter Date Encounter Type Care Provider Facility Start: 05-04-2024 End: 05-04-2024 ambulatory OLIVA CROFT Not Available Start: 10-21-2023 End: 10-21-2023 ambulatory OLIVA HAMLINK Not Available Start: 12-12-2022 ambulatory Chung Irving [id number] Start: 12-12-2022 [facility], Provider: Chung Garcia, Status: Pen, Time: 11:00 AM Oliva Croft Work Phone: [facility] DO Work Phone: Start: 12-12-2022 End: 12-12-2022 ambulatory Dave Garcia Facility:[facility] Start: 12-12-2022 End: 12-12-2022 Admission to same day surgery center DO Oliva Hamlinkaren Work Phone: [facility] Work Phone: Start: 12-12-2022 End: 12-12-2022 ambulatory DO Oliva Croft Work Phone: [facility] Work Phone: Start: 12-10-2022 Chart Update Oliva wyman Work Phone: [facility] DO Work Phone: Start: 12-10-2022 End: 12-10-2022 ambulatory Oliva Croft Facility:[facility] Start: 12-10-2022 End: 12-10-2022 ambulatory DO Oliva Croft Work Phone: [facility] Work Phone: Start: 12-10-2022 End: 12-10-2022 Patient encounter procedure DO Oliva Croft Work Phone: [facility] [facility] Work Phone: Start: 12-09-2022 Office consultation new/estab patient 80 min Oliva Croft Work Phone: [facility] DO Work Phone: Start: 12-09-2022 ambulatory Chung Garcia Facilit y: Start: 12-02-[address] Oliva Croft Facility:[id number] Start: 11-12-2022 End: 11-13-[address] AUGUSTINE KNUTSON Facility:[facility] Start: 10-31-2022 End: 10-31-2022 Emergency department patient visit Christiano Weston Facility:[facility] Start: 10-31-2022 End: 10-31-2022 Emergency department patient visit DO Oliva Croft Work Phone: [facility] Work Phone: Start: 09-21-2022 End: 09-22-[address] AKUA TA Facility:[facility] Start: 09-19-[address] NASIMA SIMS Facilit y:[facility]1 Start: 09-16-[address] NASIMA SIMS Facilit y:[facility] Start: 09-12-[address] NASIMA SIMS Facilit y:[facility] Start: 09-09-[address] NASIMA SIMS Facilit y:[facility]1 Start: 09-01-2022 End: 09-02-[address] NASIMA SIMS Facility:[facility] Start: 08-29-2022 End: 08-30-[address] NASIMA SIMS Facility:[facility] Start: 08-25-2022 End: 08-26-[address] NASIMA SIMS Facility:[facility] Start: 08-20-2022 End: 08-21-[address] NASIMA SIMS Facility:[facility] Start: 08-04-2022 End: 09-20-[address] AKUA TA Facility:[facility] Start: 07-10-2022 End: 07-11-[address] NASIMA SIMS Facility:[facility] Start: 07-04-[address] OLIVA Lawrence ity:H1 Start: 07-02-2022 End: 07-03-[address] AKUA TA Facility:[facility] Start: 06-30-2022 End: 07-01-[address] AUGUSTINE KNUTSON Facility:[facility] Start: 04-08-2022 End: 04-09-2022 ambulatory SISSY MARISCAL Facility:[facility] Procedures Date Procedure Procedure Detail Performing Clinician Start: 12-12-2022 [facility] Angio DO R tino Guerda Work Phone: Start: 10-31-2022 Plain chest X-ray DO Ro danny Croft Work Phone: Operative procedure on knee Oliva Croft Work Phone: Procedure on neck Oliva hathaway Work Phone: Repair of musculoten dinous cuff of shoulder Oliva Croft Work Phone: NEGATED: Highlighted row has not occurred! Total colonoscopy Oliva Croft Work Phone: Plan of Treatment Date Care Activity Detail Author Start: 01-06-2023 [facility], Provider: Chung Garcia, Status: Pen, Time: 8:50 AM [facility], Provider: Chung Garcia, Status: Pen, Time: [facility] [facility] Work Phone: Start: 12-12-2022 [facility], Provider: Chung Garcia, Status: Pen, Time: 11:00 AM [facility], Provider: Chung Garcia, Status: Pen, Time: 11:00 AM [facility] 250 DO Work Phone: Start: 12-12-2022 [facility] Patient Education Anxiety, Adult (DC) Chest Pain (DC) [facility] Work Phone: Patient referral [facility] Work Phone: Immunizations Immunization Date Immunization Notes Care Provider Fa jacquelin 08-26-2022 Moderna COVID-19 Vac cine 100 MCG/0.5ML Intramuscular Suspension Oliva Croft Work Phone: [facility] 07-17-2021 Moderna COVID-19 Vac cine 100 MCG/0.5ML Intramuscular Suspension Oliva Croft Work Phone: [facility] 12-21-2020 COVID-19 mRNA-1273 (Moderna) DO Oliva Croft Work Phone: [facility] 10-25-2020 Moderna COVID-19 Vac cine 100 MCG/0.5ML Intramuscular Suspension Oliva Croft Work Phone: [facility] DO Work Phone: 09-27-2020 Moderna COVID-19 Vac cine 100 MCG/0.5ML Intramuscular Suspension Oliva Croft Work Phone: [facility] Payers Date Payer Category Payer Self-pay 1960 Private Health Insurance [id number] 1960 Private Health Insurance [id number] 1960 Self-pay [id number] 1960 Unknown [id number] [id number]3 1959 Unknown [id number] 2.16.840.1.268045.3.579.2.593 1959 Unknown [id number] 2.16.840.1.888602.3.579.2.593 1959 Unknown [id number] 2.16.840.1.123972.3.579.2.593 1959 Unknown [id number] 2.16.840.1.479285.3.579.2.593 1959 Unknown [id number] 2.16.840.1.123352.3.579.2.593 1959 Unknown [id number] 2.16.840.1.138841.3.579.2.593 1959 Unknown [id number] 2.16.840.1.026853.3.579.2.593 1959 Unknown [id number] 2.16.840.1.362751.3.579.2.593 1959 Unknown [id number] 2.16.840.1.558713.3.579.2.593 1959 Unknown [id number] 2.16.840.1.608761.3.579.2.593 1959 Unknown [id number] 2.16.840.1.956372.3.579.2.593 1959 Unknown [id number] 2.16.840.1.719614.3.579.2.593 1959 Unknown [id number] 2.16.840.1.347837.3.579.2.593 1959 Unknown [id number] 2.16.840.1.353865.3.579.2.593 1959 Unknown [id number] 2.16.840.1.633945.3.579.2.593 1959 Unknown [id number] 2.16.840.1.694642.3.579.2.1068 1959 Unknown [id number] 2.16.840.1.618462.3.579.2.356 1959 Unknown [id number] 2.16.840.1.519329.3.579.2.356 1959 Unknown [id number] 2.16.840.1.992289.3.579.2.1259 1959 Unknown [id number] 2.16.840.1.830742.3.579.2.1259 Private Health Insurance [employer] [id number] Unknown [id number] Unknown [id number] 2.16840.1.146598.3.579.2.593 Unknown Unknown [id number] Unknown [id number] 2.16840.1.084756.3.579.2.531 Unknown [id number] 2.16840.1.195190.3.579.2.531 Unknown [id number] 2.16840.1.424333.3.579.2.531 Social History Date Type Detail Facility Start: 10-31-2022 End: 12-10-2022 Tobacco smoking status NHIS Ex-smoker (finding) [facility] Start: 1960 Sex Assigned At Male F [facility] No illicit drug use No illicit drug use [facility] 250 DO Work Phone: Comment on above: 2-3 beers daily; 4 cups of 8 oz of co ffee daily; Quit smoking 30 + ye ars ago- 1 pack daily. Smoked 1 cigar daily-Quit in 2019; Goals Date Patient Goal Desired Activity /State Discharge summary 12-12-2022 Note Date & Type Note Facility 12-12-2022 Discharge summary Note Date/Time December 12, 2022 12:14pm [facility] [address] [place] [address] Discharge Summary Signed Patient: Augustine Hall MR#: [id number] : 1960 Acct:[id number] Age/Sex: 62 / M Adm Date: 3 Loc: Room: Attending Dr: Dave Garcia DO Copies to: DO Dave Robertson DO~ Providers Date of Discharge: 12/12/22 Discharging Provider: Dave Garcia Primary Care Provider: Oliva Croft Discharge Diagnosis Final Diagnosis Final Discharge Diagnosis: Abnormal calcium score Abnormal stress test Hypertension Chest pain syndrome Normal coronary arteries and normal left ventricular function Summary Hospital Course Hospital course: 62-year-old gentleman with abnormal calcium score of 200 in the proximal LAD. Minimally abnormal stress test with atypical right-sided chest pain Heart catheterization reveals normal coronary arteries and normal left ventricular function Medical therapy is warranted Condition Condition at Discharge: Stable Status at Discharge Functional status at discharge: independent ambulation Overall status at discharge: patient is back to baseline Time Spent with Patient Time spent providing/coordinating discharge services (# min): 15 Surgeries and Procedures Operation Date: 12/12/22 11:15 Actual Procedures p [facility] Angio - Dave Garcia DO Complications Complications: None Exam Physical Exam Vital Signs: Temp Pulse Resp BP Pulse Ox O2 Del Method 97.6 F 72 20 148/85 H 100 Room Air 12/12/22 09:55 12/12/22 09:55 12/12/22 09:55 12/12/22 09:55 12/12/22 09:55 12/12/22 09:55 Discharge Plan Discharge Plan Patient Disposition: Home Diet: Low-Cholesterol Additional Instructions: DISCHARGE INSTRUCTIONS FOR CARDIAC WEATHERIZATION CREW LEADER PHONE NUMBER OF YOUR PHYSICIAN: [phone] PROCEDURE: Heart Cath The following instructions have been prepared to help you care for yourself, or be cared for upon your return home. 1. You were given conscious sedation. Do not operate a vehicle, power tools, make important decisions, or drink alcohol for 24 hours. You might be drowsy orlight headed. Return to the Emergency Room if you have trouble breathing, walking or nausea and vomiting. 2. FOR BLEEDING: Apply continuous pressure to the site and call 911. 3. Operative Site Care: Keep the dressing clean and dry. You may change the dressing only if soiled or wet. You may remove the dressing the following morning. You may wash over the puncture site in the shower. If the puncture site is at the wrist no soaking for 3 days. Some bruising or slight swelling may be present. -Signs of infection are redness, warmth, swelling, getting more sore, colored drainage, fever or chills. -Should the arm or leg become cold, numb, blue or white, call the recovery specialist immediately. 4. ACTIVITY: You are advised to go directly home from the hospital. Restrict your activities for the rest of the day. Resume light or normal activities tomorrow. Do not engage in any activity that will stress the puncture site. Avoid heavy lifting (over 15 lbs.), straining or bending at the catheter site for 48 hours after discharge. If the puncture site is at the wrist do not manipulate wrist for 24 hours and no lifting more than 3 lbs for 3 days. 5. DIET:You may eat your regular diet when you desire. 6. MEDICATIONS: Resume your daily prescription schedule. Prescriptions may be sent with you if needed. Use as directed. When taking pain medications, you may experience dizziness or drowsiness. Do not drink alcohol or drive when taking pain medications. 7. If you should experience episodes of angina e.g. chest discomfort, heaviness, tightness, pressure, burning, with or without radiation to the neck, jaws, arms, or back- Use 1 Nitrostat under your tongue every 5-10 minutes, and up to 3 tablets. If no relief- Call 911 and go to the nearest Emergency Room. -Notify the office for recurrent angina, chest pain or other concerns. You may NOT drive yourself home! Follow the medication instructions provided on your discharge. If the dosages and instructions on this sheet differ from the dosage and instructions on the bottle, follow the instructions on the bottle. [facility] is not responsible for incorrect prescription information provided by thepatient during their visit. Do not stop your medications without consulting your health care provider. Please take the list with you to your next doctor's appointment. Prescriptions: Continued aspirin 81 mg tablet,delayed release (DR/EC) 81 mg PO DAILY Patient Comments: TAKE 1 TABLET BY MOUTH EVERY DAY FOR 100 DAYS sildenafil 100 mg Tablet 100 mg PO DAILY PRN (Reason: Erectile Dysfunction) Rx Instructions: administer 30 minutes to 4 hours before activity amlodipine 10 mg tablet 10 mg PO DAILY Patient Comments: TAKE 1 TABLET BY MOUTH EVERY DAY FOR 30 DAYS rosuvastatin 20 mg tablet 20 mg PO QHS Patient Comments: TAKE 1 TABLET BY MOUTH EVERY DAY FOR 100 DAYS Follow Up: Dave Garcia DO [Active Staff - D.O.] - Oliva Croft DO [Primary Care Provider] - Documented By: Dave Garcia DO 12/12/22 1212 Signed By: <Electronically signed by Dave Garcia DO> 12/12/22 1216 [facility] Work Phone: Procedure note 12-12-2022 Note Date & Type Note Facility 12-12-2022 Procedure note [facility] Discharge instructions 12-12-2022 Note Date & Type Note Facility 12-12-2022 Hospital Discharg e instructions Additional Instructions DISCHARGE INSTRUCTIONS FOR CARDIAC WEATHERIZATION CREW LEADER PHONE NUMBER OF YOUR PHYSICIAN: [phone] PROCEDURE: Heart Cath The following instructions have been prepared to help you care for yourself, or be cared for upon your return home. 1. You were given conscious sedation. Do not operate a vehicle, power tools, make important decisions, or drink alcohol for 24 hours. You might be drowsy or light headed. Return to the Emergency Room if you have trouble breathing, walking or nausea and vomiting. 2. FOR BLEEDING: Apply continuous pressure to the site and call 911. 3. Operative Site Care: Keep the dressing clean and dry. You may change the dressing only if soiled or wet. You may remove the dressing the following morning. You may wash over the puncture site in the shower. If the puncture site is at the wrist no soaking for 3 days. Some bruising or slight swelling may be present. -Signs of infection are redness, warmth, swelling, getting more sore, colored drainage, fever or chills. -Should the arm or leg become cold, numb, blue or white, call the recovery specialist immediately. 4. ACTIVITY: You are advised to go directly home from the hospital. Restrict your activities for the rest of the day. Resume light or normal activities tomorrow. Do not engage in any activity that will stress the puncture site. Avoid heavy lifting (over 15 lbs.), straining or bending at the catheter site for 48 hours after discharge. If the puncture site is at the wrist do not manipulate wrist for 24 hours and no lifting more than 3 lbs for 3 days. 5. DIET:You may eat your regular diet when you desire. 6. MEDICATIONS: Resume your daily prescription schedule. Prescriptions may be sent with you if needed. Use as directed. When taking pain medications, you may experience dizziness or drowsiness. Do not drink alcohol or drive when taking pain medications. 7. If you should experience episodes of angina e.g. chest discomfort, heaviness, tightness, pressure, burning, with or without radiation to the neck, jaws, arms, or back- Use 1 Nitrostat under your tongue every 5-10 minutes, and up to 3 tablets. If no relief- Call 911 and go to the nearest Emergency Room. -Notify the office for recurrent angina, chest pain or other concerns. You may NOT drive yourself home! Follow the medication instructions provided on your discharge. If the dosages and instructions on this sheet differ from the dosage and instructions on the bottle, follow the instructions on the bottle. [facility] is not responsible for incorrect prescription information provided by the patient during their visit. Do not stop your medications without consulting your health care provider. Please take the list with you to your next doctor's appointment. [facility] Work Phone: Clinical Note 06-30-2022 Note Date & Type Note Facility 06-30-2022 Note EXAMINATION: XR CHES T 2 V HISTORY: Lateral meniscus tear ; presurgical evaluation COMPARISON: XR chest 08/22/2020 FINDINGS: LUNGS: Small calcified granuloma within lateral left lung base. Slightly hyperexpanded lungs. No acute infiltrates. VASCULATURE: No increased pulmonary vasculature. PLEURA: No pneumothorax, effusion, or pleural thickening. CARDIAC: No cardiomegaly or cardiac silhouette abnormality. MEDIASTINUM: No visible mass or adenopathy. BONES: No fracture or visible bone lesion. OTHER: Negative. IMPRESSION: 1. No acute cardiopulmonary process or suspicious findings. Electronically authenticated by: AUGUSTINE KNUTSON Date: 2022-06-30 16:08 [facility] Chief complaint Narrative - Reported Note Date & Type Note Facility Chief complaint Narrative - Reported AUGUSTINE HALL is being seen for a consultation for Dr. Kahn/ Melvi Aguilar CP/ Abnormal stress/elevated calcium score.62-year-old gentleman seen in cardiology consultation at the request of Dr. Antwan riley for further evaluation and management regarding new onset chest discomfort. Patient was recently seen in the emergency room, details of that evaluation, laboratories and ECG are reviewed.Patient describes chest pressure for the past 3 to 4 months and has been reticent to seek out further attention for this. He has recently been diagnosed with essential hypertension and treated with amlodipine with improved blood pressure results.He underwent stress testing at [facility] details of which are unknown but he was told he achieved his target heart rate and there were no EKG changes and he did not describe any angina. We do not have details of the stress test as of yet. He did have calcium score performed in [facility] which revealed mild proximal LAD calcification with Aggiston score of 200, consistent with mild single-vessel LAD calcification.He is a former smoker quit 30 years ago and then smoked a cigar daily up until 2 years ago.He denies any previous myocardial infarction, revascularization, stroke, thromboembolic or bleeding disorder. He does have a history of varicose veins and underwent ablation for his varicose veins within the last year with improved results and resolution of lower extremity edemaInformed decision-making process as well as risks, benefits and alternatives performed with the patient and his for over 45 minutes this morning in regards to noninvasive/conservative management versus invasive assessment with by means of heart catheterization possible revascularization. He is concerned and fearful about these new symptoms. He would like to proceed with heart catheterization out of concern for his health. We will proceed electively either later this week or next week. -[facility] 250 DO Work Phone: Evaluation note Note Date & Type Note Facility Evaluation note No assessment information availa [facility] Work Phone: Hospital Discharge instructions Note Date & Type Note Facility Hospital Discharge instructions Additional Instructions Take baby aspirin daily. Follow-up with your PCP for outpatient stress test and for recheck of your blood pressure for possible hypertension. Return if you develop any chest pain shortness of breath, chest pain with nausea or sweating or that radiates to your arm jaw or back. [facility] Work Phone: Summary Purpose Family History No Family History Records Found Relationship Condition Age at Onset Recorded Date/T karine Not Specified Type 2 diabetes mellitus Unknown father Type 2 diabetes mellitus Unknown Unknown Family Member Name Dates Details Family history of diabetes m ellitus: Mother, Father(V18.0, Z83.3) Status:Active Family history of cardiac pa cemaker: Father, Brother(V17.49, Z82.49) Status:Active Family history of myocardial infarction: Father, Sister(V17.3, Z82.49) Status:Active Unknown Family Member Name Dates Details Family history of myocardial infarction: Father, Sister(V17.3, Z82.49) Status:Active Family history of cardiac pa cemaker: Father, Brother(V17.49, Z82.49) Status:Active Family history of diabetes m ellitus: Mother, Father(V18.0, Z83.3) Status:Active Relationship Condition Age at Onset Recorded Date/T karine Not Specified Type 2 diabetes mellitus Unknown father Type 2 diabetes mellitus Unknown Presence of cardiac pacemaker Unknown sister Myocardial infarction Unknown Advance Directives No Advanced Directives Records Found Advance Directive Response Recorded Date/ Time Advance Directives No October 10:43am Advance Directive Response Recorded Date/ Time Advance Directives No October 11:43am Chief Complaint and Reason for Visit Chief Complaint chest pain Chief Complaint chest pain Chest Pressure, HTN Chief Complaint chest pain Chest Pressure, HTN Chest Pressure, HTN Additional Source Comments (unrecognized sect ion and content) No Status Records FoundNo Status Records FoundNo Status Records FoundNo Status Records FoundNo Status Records FoundNo Status Records FoundNo Status Records Found INFORMATION SOURCE (unrecogn ized section and content) DATE CREATED AUTHOR 03/05/2022 [facility] dical Specialist DATE CREATED AUTHOR AUTHOR'S ORGANIZ ATION 11/16/2022 [facility] DATE CREATED AUTHOR AUTHOR'S ORGANIZ ATION 12/06/2022 [facility] DATE CREATED AUTHOR AUTHOR'S ORGANIZ ATION 12/09/2022 [employer] DATE CREATED AUTHOR AUTHOR'S ORGANIZ ATION 12/13/2022 [facility] DATE CREATED AUTHOR AUTHOR'S ORGANIZ ATION 01/02/2023 [facility] DATE CREATED AUTHOR AUTHOR'S ORGANIZ ATION 05/06/2024 [facility] dical Specialists EPIC Care Teams (unrecognized sec tion and content) Team Status: Inactive Member Role Status Dates Oliva Croft , DO Primary Care Provider Active Christiano Weston , DO Emergency Provider Active Team Status: Active Member Role Status Dates Oliva Croft , DO Primary Care Provider Active Team Status: Inactive Member Role Status Dates Oliva Croft , DO Primary Care Provider Active Dave Garcia , DO Attending Provider Active Goals (unrecognized section and content) Goals may be documented in a n alternate sectionGoals may be documented in an alternate section FOR RECORDS PERTAINING TO PATIENTS WHO ARE OR HAVE BEEN ENROLLED IN A CHEMICAL DEPENDENCY/SUBSTANCEABUSE PROGRAM, SOME INFORMATION MAY BE OMITTED. This clinical summary was aggregated from multiple sources. Caution should be exercised in using it in the provision of clinical care. This summary normalizes information from multiple sources, and as a consequence, information in this document may materially change the coding, format and clinical context of patient data. In addition, data may be omitted in some cases. CLINICAL DECISIONS SHOULD BE BASED ON THE PRIMARY CLINICAL RECORDS. [facility] [employer] [facility]. provides no warranty or guarantee of the accuracy or completeness of information in this document.
[2024-07-11 07:07] LABS: Bilirubin Urine NEGATIVE (NEGATIVE); Blood Urine NEGATIVE (NEGATIVE); Clarity Urine CLEAR (CLEAR); Color Urine LT. YELLOW (YELLOW); Glucose Urine UA NEGATIVE (NEGATIVE); Ketones Urine NEGATIVE (NEGATIVE); Leukocyte Esterase Urine NEGATIVE (NEGATIVE); Nitrite Urine NEGATIVE (NEGATIVE); Protein Urine NEGATIVE (NEG/TRACE); pH Urine 6.5 (5.0-9.0)
[2024-07-11 07:28] LABS: Bacteria Urine NONE SEEN #/HPF (NONE SEEN); Cast Seen? NONE SEEN #/LPF (NONE SEEN); Crystals Seen? None Seen #/HPF (None Seen); Mucus Urine NONE SEEN (NONE SEEN); RBC Urine NONE SEEN #/HPF (0-2); Squamous Epithelial Cell Urine RARE #/LPF (NONE/RARE); Urine Culture Indicated NO; WBC Urine NONE SEEN #/HPF (NONE SEEN)
[2024-07-11 07:53] LABS: Creatinine Urine Random 83.91 mg/dL (20.00-300.00); Microalbum Creatinine Ratio Ur 15.4 mg/g (0.0-29.9); Microalbumin Urine Random <1.3 mg/dL (<=30.0)
== END 2024-07-11 06:41 | disposition home or self-care (01) ==
LOC: LAB 06:40
PROVIDERS: PCP Internal Medicine
DX: Z00.00 Encounter for general adult medical examination without abnormal findings (principal); I10 Essential (primary) hypertension
CPT/HCPCS: 81001; 82043; 82570

== ENCOUNTER 2024-07-11 06:42 | Outpatient (OUT) | payer OTHER, SELFPAY ==
--- OUTSIDE RECORDS SUMMARY | 2024-07-11 06:44 | XMS_ITS | CCD ---
Author Organization [facility] Care Team Providers Care Fashion Consultant Sales Name Role Phone DO Oliva Croft Primary Care Provider DO Christiano Weston Emergency Provider Noni KNUTSON, DR AUGUSTINE Carlson Consulting Unavailable TA, DR FATIMA Attending Unavailable TA, DR FATIAM Admitting Unavailable REQUEST, DR ACOSTA LISTED Primary [...] Attending Unavailable TA, DR FATIMA Admitting Unavailable AT, DR FATIMA Consulting Unavailable REQUEST, DR ACOSTA [...] Unavailable DO Oliva Croft Primary Care Provider [phone] DO Christiano Weston Emergency Provider [employer]phi DO [...] sources) cefditoren; Translations: [Spectracef] Drug Allergy Nausea -[facility] 250 DO Work Phone: (3 sources) cefditoren; Translations: [cefditoren] Drug Allergy 12-10-2022 N/V [facility] Medications Current Medications Medication Drug Class(es) Dates [...] aPTT Coag (PPP) [Time] 32.8 s 25.1-36.5 [facility] Basophils Auto (Bld) [#/Vol] Ordered By: Dave Garcia on 12-10-2022 Basophils (Bld) [#/Vol] 0.0 10*3/uL 0.0-0.2 [facility] Basophils/100 WBC Auto (Bld) Ordered By: Dave Garcia on 12-10-2022 Basophils/100 WBC (Bld) 0.5 % . [facility] Blood Urea Nitrogenon 2022 Urea nitrogen [Mass/Vol] 18 mg/dL Normal 7-25 [facility] Comment on above: Performed By: #### L IPID, CREAT, PP, CBC, LYTES, BUN #### [address] Carbon dioxide, total [Moles /volume] in Serum or PlasmaOrdered By: Dave Garcia on 12-10-2022 CO2 [Moles/Vol] 28.7 mmol/L 21.0-31.0 [facility] Chloride [Moles/volume] in S jose carlos or PlasmaOrdered By: Dave Garcia on 12-10-2022 Chloride [Moles/Vol] 107 mmol/L 98-107 [facility] Cholesterol [Mass/volume] in Serum or PlasmaOrdered By: Dave Garcia on 12-10-2022 Cholesterol [Mass/Vol] 118 mg/dL 140-200 [facility] Comment on above: Chol less than 200 m g/dl low riskChol 201-239 mg/dl borderline riskChol 240 mg/dl and greater high risk Cholesterol in LDL Calc [Mas s/Vol]Ordered By: Dave Garcia on 12-10-2022 Cholesterol in LDL [Mass/Vol] 57 mg/dL 0-100 [facility] Comment on above: LDL ATP III CLASSIFI CATIONLDL less than 100 mg/dL OptimalLDL 100-129 mg/dL Near or above optimalLDL 130-159 mg/dL Borderline highLDL 160-189 mg/dL HighLDL greater than 189 mg/dL Very high Cholesterol in VLDL Calc [Ma ss/Vol]Ordered By: Dave Garcia on 12-10-2022 Cholesterol in VLDL [Mass/Vol] 13 mg/dL [facility] Coagulation Profileon 2022 aPTT Coag (Bld) [Time] 32.8 s Normal 25.1-36.5 [facility] Comment on above: Result Comment: PERF ORMED BY: [place] [address] PATHOLOGIST NEWSPAPER VENDOR ALEKSANDER TOBIN M.D. Performed By: #### L IPID, CREAT, PP, CBC, LYTES, BUN #### [address] INR Coag (PPP) [Relative time] 1.0 {INR} Normal [facility] Comment on above: Result Comment: INR Therapeutic [...] IPID, CREAT, PP, CBC, LYTES, BUN #### [facility] [address] PT Coag (PPP) [Time] 11.8 s Normal 9.0-12.9 [facility] Comment on above: Performed By: #### L IPID, CREAT, PP, CBC, LYTES, BUN #### [facility] [address] Complete Blood Count Auto Di ffon 12-10-2022 Basophils (Bld) [#/Vol] 0.0 10*3/uL Normal 0.0-0.2 [facility] Comment on above: Result Comment: PERF ORMED BY: [place] [address] PATHOLOGIST NEWSPAPER VENDOR ALEKSANDER TOBIN M.D. Performed By: #### L IPID, CREAT, PP, CBC, LYTES, BUN #### [address] Basophils/100 WBC (Bld) 0.5 % Normal . [facility] Comment on above: Performed By: #### L IPID, CREAT, PP, CBC, LYTES, BUN #### [address] Eosinophils (Bld) [#/Vol] 0.1 10*3/uL Normal 0.0-0.45 [facility] Comment on above: Performed By: #### L IPID, CREAT, PP, CBC, LYTES, BUN #### [address] Eosinophils/100 WBC (Bld) 1.7 % Normal . [facility] Comment on above: Performed By: #### L IPID, CREAT, PP, CBC, LYTES, BUN #### [address] Erythrocyte distribution width (RBC) [Ratio] 14.1 % Normal 12.0-14.8 [facility] Comment on above: Performed By: #### L IPID, CREAT, PP, CBC, LYTES, BUN #### [address] Hematocrit (Bld) [Volume fraction] 44.7 % Normal 38.8-50.0 [facility] Comment on above: Performed By: #### L IPID, CREAT, PP, CBC, LYTES, BUN #### [place] [address] [place] Hemoglobin (Bld) [Mass/Vol] 14.9 g/dL Normal 13.0-17.0 [facility] Comment on above: Performed By: #### L IPID, CREAT, PP, CBC, LYTES, BUN #### [address] Lymphocytes (Bld) [#/Vol] 1.3 10*3/uL Normal 1.00-4.8 [facility] Comment on above: Performed By: #### L IPID, CREAT, PP, CBC, LYTES, BUN #### [address] Lymphocytes/100 WBC (Bld) 22.4 % Normal . [facility] Comment on above: Performed By: #### L IPID, CREAT, PP, CBC, LYTES, BUN #### [address] MCH (RBC) [Entitic mass] 27.4 pg Low 27.5-35.2 [facility] Comment on above: Performed By: #### L IPID, CREAT, PP, CBC, LYTES, BUN #### [address] MCV (RBC) [Entitic vol] 82.4 fL Low 83.5-101 [facility] Comment on above: Performed By: #### L IPID, CREAT, PP, CBC, LYTES, BUN #### [address] Mean Corpuscular HGB Conc 33.3 g/dL Normal 32.5-35.6 [facility] Comment on above: Performed By: #### L IPID, CREAT, PP, CBC, LYTES, BUN #### [address] Monocytes (Bld) [#/Vol] 0.6 10*3/uL Normal 0.0-0.8 [facility] Comment on above: Performed By: #### L IPID, CREAT, PP, CBC, LYTES, BUN #### [address] Monocytes/100 WBC (Bld) 9.7 % Normal . [facility] Comment on above: Performed By: #### L IPID, CREAT, PP, CBC, LYTES, BUN #### [address] Neutrophils (Bld) [#/Vol] 3.8 10*3/uL Normal 1.8-7.7 [facility] Comment on above: Performed By: #### L IPID, CREAT, PP, CBC, LYTES, BUN #### [address] Neutrophils/100 WBC (Bld) 65.7 % Normal . [facility] Comment on above: Performed By: #### L IPID, CREAT, PP, CBC, LYTES, BUN #### [address] NRBC% 0.6 /100{WBC} High 0-0.5 [facility] Comment on above: Performed By: #### L IPID, CREAT, PP, CBC, LYTES, BUN #### [address] Platelet mean volume (Bld) [Entitic vol] 7.8 fL Normal 6.6-10.1 [facility] Comment on above: Performed By: #### L IPID, CREAT, PP, CBC, LYTES, BUN #### [address] Platelets (Bld) [#/Vol] 162 10*3/uL Normal 150-450 [facility] Comment on above: Performed By: #### L IPID, CREAT, PP, CBC, LYTES, BUN #### [place] [address] [place] RBC (Bld) [#/Vol] 5.43 10*6/uL Normal 3.90-5.60 [facility] Comment on above: Performed By: #### L IPID, CREAT, PP, CBC, LYTES, BUN #### [facility] [address] [place] [address] [place] WBC (Bld) [#/Vol] 5.7 10*3/uL Normal 4.1-10.5 [facility] Comment on above: Performed By: #### L IPID, CREAT, PP, CBC, LYTES, BUN #### [facility] [address] [place] [address] [place] Creatinineon 12-10-2022 Creatinine [Mass/Vol] 0.97 mg/dL Normal 0.70-1.30 [facility] Comment on above: Performed By: #### L IPID, CREAT, PP, CBC, LYTES, BUN #### [address] GFR/1.73 sq M.predicted MDRD (S/P/Bld) [Vol rate/Area] mL/min/{1.73_m2} [facility] Comment on above: Performed By: #### L IPID, CREAT, PP, CBC, LYTES, BUN #### [address] Creatinine [Mass/volume] in Serum or PlasmaOrdered By: Dave Garcia on 12-10-2022 Creatinine [Mass/Vol] 0.97 mg/dL 0.70-1.30 [facility] ECG 12 lead ECGon 12-10-2022 ECG 12 lead ECG [facility] Main [place] [address] [place] [address] Electrocardiograph Report Signed Patient: Augustine Hall MR#: [id number] : 1960 Acct:[id number] Age/Sex: 62 / M ADM Date: 12/10/22 Loc: Room: Type: [facility] Attending Dr: Dave Garcia DO Ordering Provider: [...] change was found Confirmed by ANKUR RODRÍGUEZ [facility], BRYAN ([id number]) on 12/10/2022 4:25:08 PM Referred By: GUERDA GARCIA Electronically Signed By:BRYAN FERNANDEZ MD [facility] Transcribed By: MUS Signed By Bryan Fernandez MD, FAC 12/10/22 1625 Normal [facility] Electrolyteson 12-10-2022 Anion gap [Moles/Vol] 8.6 mmol/L Normal 6.0-15.0 [facility] Comment on above: Performed By: #### L IPID, CREAT, PP, CBC, LYTES, BUN #### [address] Chloride [Moles/Vol] 107 mmol/L Normal 98-107 [facility] Comment on above: Performed By: #### L IPID, CREAT, PP, CBC, LYTES, BUN #### [address] CO2 [Moles/Vol] 28.7 mmol/L Normal 21.0-31.0 [facility] Comment on above: Performed By: #### L IPID, CREAT, PP, CBC, LYTES, BUN #### [address] Potassium [Moles/Vol] 4.3 mmol/L Normal 3.5-5.1 [facility] Comment on above: Performed By: #### L IPID, CREAT, PP, CBC, LYTES, BUN #### [address] Sodium [Moles/Vol] 140 mmol/L Normal 136-145 [facility] Comment on above: Performed By: #### L IPID, CREAT, PP, CBC, LYTES, BUN #### [address] Eosinophils Auto (Bld) [#/Vo l]Ordered By: Dave Garcia on 12-10-2022 Eosinophils (Bld) [#/Vol] 0.1 10*3/uL 0.0-0.45 [facility] Eosinophils/100 WBC Auto (Bl d)Ordered By: Dave Garcia on 12-10-2022 Eosinophils/100 WBC (Bld) 1.7 % . [facility] Erythrocyte distribution wid th Auto (RBC) [Ratio]Ordered By: Dave Garcia on 12-10-2022 Erythrocyte distribution width (RBC) [Ratio] 14.1 % 12.0-14.8 [facility] Hematocrit Auto (Bld) [Volum e fraction]Ordered By: Dave Garcia on 12-10-2022 Hematocrit (Bld) [Volume fraction] 44.7 % 38.8-50.0 [facility] Hemoglobin [Mass/volume] in BloodOrdered By: Dave Garcia on 12-10-2022 Hemoglobin (Bld) [Mass/Vol] 14.9 g/dL 13.0-17.0 [facility] Laboratory - Chemistry and C hemistry - challengeon 12-10-2022 Cholesterol [Mass/Vol] 118\S\118 below low threshold 140-200 [facility] 250 DO Work Phone: Comment on above: Chol less than 200 m g/dl low risk Chol 201-239 mg/dl borderline risk Chol 240 mg/dl and greater high risk Cholesterol in LDL [Mass/Vol] 57\S\57 Normal 0-100 [facility] 250 DO Work Phone: Comment on above: LDL ATP III CLASSIFI CATION LDL less than 100 mg/dL Optimal LDL 100-129 mg/dL Near or above optimal LDL 130-159 mg/dL Borderline high LDL 160-189 mg/dL High LDL greater than 189 mg/dL Very high Laboratory - Chemistry and C hemistry - challengeOrdered By: Dave Garcia on 12-10-2022 GFR/1.73 sq M.predicted MDRD (S/P/Bld) [Vol rate/Area] mL/min/{1.73_m2} [facility] Laboratory - CoagulationOrde red By: Dave Garcia on 12-10-2022 PT Coag (PPP) [Time] 11.8 s 9.0-12.9 [facility] Leukocytes [#/volume] correc laya for nucleated erythrocytes in Blood by Automated counOrdered By: Dave Garcia on 12-10-2022 WBC corrected for nucl RBC Auto (Bld) [#/Vol] 5.7 10*3/uL 4.1-10.5 [facility] Lipid Panelon 12-10-2022 Cholesterol [Mass/Vol] 118 mg/dL Low 140-200 [facility] Comment on above: Result Comment: Chol less than 200 mg/dl low risk Chol 201-239 mg/dl borderline risk Chol 240 mg/dl and greater high risk Performed By: #### L IPID, CREAT, PP, CBC, LYTES, BUN #### [facility] [address] Cholesterol in HDL [Mass/Vol] 48 mg/dL Normal 29-71 [facility] Comment on above: Result Comment: HDL CHOL ATP-III CLASSIFICATION Cardiovascular Risk HDL > or equal to 60 mg/dL LOW HDL < 40 mg/dL HIGH Performed By: #### L IPID, CREAT, PP, CBC, LYTES, BUN #### [facility] [address] Cholesterol.total/Chol esterol in HDL [Mass ratio] 2.5 {ratio} Normal <5.0 [facility] Comment on above: Result Comment: PERF ORMED BY: [place] [address] PATHOLOGIST NEWSPAPER VENDOR ALEKSANDER TOBIN M.D. Performed By: #### L IPID, CREAT, PP, CBC, LYTES, BUN #### [facility] [address] LDL Cholesterol,Calculated 57 mg/dL Normal 0-100 [facility] Comment on above: Result Comment: LDL ATP III CLASSIFICATION LDL less than 100 mg/dL Optimal LDL 100-129 mg/dL Near or above optimal LDL 130-159 mg/dL Borderline high LDL 160-189 mg/dL High LDL greater than 189 mg/dL Very high Performed By: #### L IPID, CREAT, PP, CBC, LYTES, BUN #### [facility] [address] [place] [address] [place] Triglyceride w/Reflex 67 mg/dL Normal 0-149 [facility] Comment on above: Result Comment: TRIG ATP III CLASSIFICATION TRIG less than 150 mg/dL Normal TRIG 150-199 mg/dL Borderline high TRIG 200-500 mg/dL High TRIG greater than 500 mg/dL Very high Standard traceable to the Center for Disease Conrtrol and Prevention (CDC) test method. Performed By: #### L IPID, CREAT, PP, CBC, LYTES, BUN #### [facility] [address] [place] [address] [place] VLDL CHOLESTEROL 13 mg/dL Normal [facility] Comment on above: Performed By: #### L IPID, CREAT, PP, CBC, LYTES, BUN #### [facility] [address] Lymphocytes Auto (Bld) [#/Vo l]Ordered By: Dave Garcia on 12-10-2022 Lymphocytes (Bld) [#/Vol] 1.3 10*3/uL 1.00-4.8 [facility] Lymphocytes/100 WBC Auto (Bl d)Ordered By: Dave Garcia on 12-10-2022 Lymphocytes/100 WBC (Bld) 22.4 % . [facility] MCH Auto (RBC) [Entitic mass ]Ordered By: Dave Garcia on 12-10-2022 MCH (RBC) [Entitic mass] 27.4 pg 27.5-35.2 [facility] MCHC Auto (RBC) [Mass/Vol]Or dered By: Dave Garcia on 12-10-2022 MCHC (RBC) [Mass/Vol] 33.3 g/dL 32.5-35.6 [facility] MCV Auto (RBC) [Entitic vol] Ordered By: Dave Garcia on 12-10-2022 MCV (RBC) [Entitic vol] 82.4 fL 83.5-101 [facility] Monocytes Auto (Bld) [#/Vol] Ordered By: Dave Garcia on 12-10-2022 Monocytes (Bld) [#/Vol] 0.6 10*3/uL 0.0-0.8 [facility] Monocytes/100 WBC Auto (Bld) Ordered By: Dave Garcia on 12-10-2022 Monocytes/100 WBC (Bld) 9.7 % . [facility] Neutrophils Auto (Bld) [#/Vo l]Ordered By: Dave Garcia on 12-10-2022 Neutrophils (Bld) [#/Vol] 3.8 10*3/uL 1.8-7.7 [facility] Neutrophils/100 WBC Auto (Bl d)Ordered By: Dave Garcia on 12-10-2022 Neutrophils/100 WBC (Bld) 65.7 % . [facility] No Panel InformationOrdered By: Dave Garcia on 12-10-2022 Pharmacy Creatinine Clearance (Chem N/A [facility] No Panel Informationon 12-10 0.0\S\0.0 Normal 0.0-0.2 [facility] alonso 250 DO Work Phone: Comment on above: PERFORMED BY:[facility] [place], [place] [phone] MEDICAL DIRECTORALEKSANDER TOBIN M.D. 0.1\S\0.1 Normal 0.0-0.45 [facility] alonso 250 DO Work Phone: 0.6\S\0.6 above high threshold 0-0.5 [facility] alonso 250 DO Work Phone: 1.3\S\1.3 Normal 1.00-4.8 [facility] alonso 250 DO Work Phone: 3.8\S\3.8 Normal 1.8-7.7 [facility] alonso 250 DO Work Phone: 0.5\S\0.5 Normal . [facility] alonso 250 DO Work Phone: 1.7\S\1.7 Normal . [facility] alonso 250 DO Work Phone: [phone] 9.7\S\9.7 Normal . [facility] al[facility] 250 DO Work Phone: [phone] 22.4\S\22.4 Normal . [facility] alonso 250 DO Work Phone: [phone] 65.7\S\65.7 Normal . [facility] al[facility] 250 DO Work Phone: [phone] 7.8\S\7.8 Normal 6.6-10.1 [facility] al[facility] 250 DO Work Phone: [phone] 162\S\162 Normal 150-450 [facility] al[facility] 250 DO Work Phone: [phone] 14.1\S\14.1 Normal 12.0-14.8 [facility] alonso 250 DO Work Phone: [phone] 33.3\S\33.3 Normal 32.5-35.6 [facility] alonso 250 DO Work Phone: [phone] 27.4\S\27.4 below low threshold 27.5-35.2 [facility] 250 DO Work Phone: [phone] 82.4\S\82.4 below low threshold 83.5-101 [facility] al[facility] 250 DO Work Phone: [phone] 44.7\S\44.7 Normal 38.8-50.0 [facility] 250 DO Work Phone: [phone] 14.9\S\14.9 Normal 13.0-17.0 [facility] al[facility] 250 DO Work Phone: [phone] 5.43\S\5.43 Normal 3.90-5.60 [facility] al[facility] 250 DO Work Phone: [phone] 5.7\S\5.7 Normal 4.1-10.5 [facility] alonso 250 DO Work Phone: 32.8\S\32.8 Normal 25.1-36.5 -[facility] alonso 250 DO Work Phone: Comment on above: PERFORMED BY:[facility] [place] [phone] MEDICAL DIRECTORALEKSANDER TOBIN M.D. 1.0\S\1.0 Normal -[facility] alonso 250 DO Work Phone: Comment [...] valves: 3 - 4.5 11.8\S\11.8 Normal 9.0-12.9 [facility]-Beren[facility] alonso 250 DO Work Phone: [phone] 8.6\S\8.6 Normal 6.0-15.0 [facility]Beren[facility] alonso 250 DO Work Phone: 28.7\S\28.7 Normal 21.0-31.0 [facility]Beren[facility] alonso 250 DO Work Phone: 107\S\107 Normal 98-107 [facility]-Bereniceu alonso 250 DO Work Phone: 4.3\S\4.3 Normal 3.5-5.1 [facility] alonso 250 DO Work Phone: 140\S\140 Normal 136-145 [facility] alonso 250 DO Work Phone: 18\S\18 Normal 7-25 [facility] alonso 250 DO Work Phone: > 60.0 Normal [facility] alonso 250 DO Work Phone: 0.97\S\0.97 Normal 0.70-1.30 [facility] alonso 250 DO Work Phone: 2.5\S\2.5 Normal <5.0 [facility] 250 DO Work Phone: Comment on above: PERFORMED BY:[facility] [place] [place], [place] [phone] MEDICAL DIRECTORALEKSANDER TOBIN M.D. 13\S\13 Normal [facility] alonso 250 DO Work Phone: 67\S\67 Normal 0-149 [facility] 250 DO Work Phone: Comment on above: TRIG ATP III CLASSIF ICATION TRIG less than 150 mg/dL Normal TRIG 150-199 mg/dL Borderline high TRIG 200-500 mg/dL High TRIG greater than 500 mg/dL Very high Standard traceable to the Center for Disease Conrtrol and Prevention (CDC) test method. 48\S\48 Normal 29-71 [facility] alonso 250 DO Work Phone: Comment on above: HDL CHOL ATP-III CLA SSIFICATION Cardiovascular Risk HDL > or equal to 60 mg/dL LOW HDL < 40 mg/dL HIGH Nucleated erythrocytes [Pres ence] in Blood by Automated countOrdered By: Dave Garcia on 12-10-2022 Nucleated RBC Auto Ql (Bld) 0.6 /100{WBC} 0-0.5 [facility] Platelet mean volume Auto (B ld) [Entitic vol]Ordered By: Dave Garcia on 12-10-2022 Platelet mean volume (Bld) [Entitic vol] 7.8 fL 6.6-10.1 [facility] Platelet poor plasma interna tional normalized ratio (INR) by coagulation assay (relatOrdered By: Dave Garcia on 12-10-2022 INR Coag (PPP) [Relative time] 1.0 {INR} [facility] Comment on above: INR Therapeutic Rang e [...] 12-10-2022 Platelets (Bld) [#/Vol] 162 10*3/uL 150-450 [facility] Potassium [Moles/volume] in Serum or PlasmaOrdered By: Dave Garcia on 12-10-2022 Potassium [Moles/Vol] 4.3 mmol/L 3.5-5.1 [facility] RBC Auto (Bld) [#/Vol]Ordere d By: Dave Garcia on 12-10-2022 RBC (Bld) [#/Vol] 5.43 10*6/uL 3.90-5.60 [facility] Serum or plasma anion gap de terminationOrdered By: Dave Garcia on 12-10-2022 Anion gap [Moles/Vol] 8.6 mmol/L 6.0-15.0 [facility] Serum or plasma high density lipoprotein (HDL) cholesterol measurementOrdered By: Dave Garcia on 12-10-2022 Cholesterol in HDL [Mass/Vol] 48 mg/dL 29-71 [facility] Comment on above: HDL CHOL ATP-III CLA SSIFICATION Cardiovascular RiskHDL > or equal to 60 mg/dL LOWHDL < 40 mg/dL HIGH Serum or plasma total choles terol/high density lipoprotein (HDL) cholesterol mass ratOrdered By: Dave Garcia on 12-10-2022 Cholesterol.total/Chol esterol in HDL [Mass ratio] 2.5 {ratio} <5.0 [facility] Sodium [Moles/volume] in Ser um or PlasmaOrdered By: Dave Garcia on 12-10-2022 Sodium [Moles/Vol] 140 mmol/L 136-145 [facility] Triglyceride [Mass/volume] i n Serum or PlasmaOrdered By: Dave Garcia on 12-10-2022 Triglyceride [Mass/Vol] 67 mg/dL 0-149 [facility] Comment on above: TRIG ATP III CLASSIF ICATIONTRIG less than 150 mg/dL NormalTRIG 150-199 mg/dL Borderline highTRIG 200-500 mg/dL High TRIG greater than 500 mg/dL Very highStandard traceable to the Center for Disease Conrtrol and Prevention (CDC) test method. Urea nitrogen [Mass/volume] in Serum or PlasmaOrdered By: Dave Garcia on 12-10-2022 Urea nitrogen [Mass/Vol] 18 mg/dL 7 [facility] WBC Auto (Bld) [#/Vol]Ordere d By: Dave Garcia on 12-10-2022 WBC (Bld) [#/Vol] 5.7 10*3/uL 4.1-10.5 [facility] Office Visit (Cardiology)on 12-09-2022 Follow-up visit [...] pressure results. He underwent stress testing at [facility] details of which are unknown but he was told he achieved his target heart rate and there were no EKG changes and he did not describe any angina. We do not have details of the stress test as of yet. He did have calcium score performed in [facility] which revealed mild proximal LAD calcification [...] Vital Signs Recorded: 09Dec2022 08:58AMRecorded: 09Dec2022 08:56AM [id number], LUE, [id number], RUE, Sitting [id number], LUE, [id number], RUE, Sitting PHQ-2 #1. Over the last 2 weeks have you felt down, depresse (more content not included)... [facility] PHQ-2 VITALSon 12-09-2022 Adult depression screening assessment No [facility] [employer] 250 DO Work Phone: Tobacco Screening.on 023 Fall risk assessment c) Not medically indicated [facility] [employer] alonso 250 DO Work Phone: Tobacco use status [facility] b) No [facility] alonso 250 DO Work Phone: CT CARDIAC [...] INDICATION: Hyperlipidemia, unspecified. COMPARISON: None. ACCESSION NUMBER(S): [id number] ORDERING CLINICIAN: OLIVA CROFT TECHNIQUE: Using prospective [...] al. JACC 2015 (http://dx.doi.org/10.1016 /j.j acc.2015.08.035) Reading Palliative Nurse: Dr. Akua Kline, Date: 12/02/2022 3:21 pm Electronically signed by: JENNIFER FUENTES MD Normal [facility] CT Cardiac Scoringon 023 CT Cardiac Scoring Normal -Nor [facility] Heart-Sandu alonso 250 DO Work Phone: ECHOCARDIO M/2D COMPLETEon 0 11-12-2022 ECHOCARDIO M/2D COMPLETE Patient: AUGUSTINE HALL Exam Date: 11/12/2022 : 1960 Gender:M Ordering : DR OLIVA CROFT Admission #: [id number] Family : Order #: [id number] CLICK HERE TO VIEW EXAM ECHOCARDIOGRAM REPORT [...] Faustin M.D. on 11/12/2022 at 11:31 Normal [facility] NM STRESS/REST MULTIon 11-12 NM STRESS/REST MULTI Patient: VERÓNICA HALL Exam Date: 11/12/2022 : 1960 Gender:M Ordering : DR OLIVA CROFT Admission #: [id number] Family : Order #: [id number] CLICK HERE TO VIEW EXAM RADIOLOGY REPORT [...] Knutson M.D. on 11/13/2022 at 12:09 Normal [facility] Activated partial thrombopla stin time (aPTT) in platelet poor plasma by coagulation aOrdered By: Christiano Weston on 10-31-2022 aPTT Coag (PPP) [Time] 33.6 s 25.1-36.5 [facility] B-Type Natriuretic Peptideon 10-31-2022 Natriuretic peptide B (Bld) [Mass/Vol] 42.0 pg/mL Normal 5-100 [facility] Comment on above: Result Comment: PERF ORMED BY: [place] [address] PATHOLOGIST NEWSPAPER VENDOR ALEKSANDER TOBIN M.D. Performed By: #### L IPID, CREAT, PP, CBC, LYTES, BUN #### [address] Basic Metabolic Panelon 10-22 Anion gap [Moles/Vol] 10.2 mmol/L Normal 6.0-15.0 [facility] Comment on above: Performed By: #### B SUPERVISOR LENDING ACTIVITIES, HS TROP, PT, PTT, CBC, CKMB, BMP #### [address] Calcium [Mass/Vol] 9.1 mg/dL Normal 8.2-10.2 [facility] Comment on above: Performed By: #### B SUPERVISOR LENDING ACTIVITIES, HS TROP, PT, PTT, CBC, CKMB, BMP #### [address] Chloride [Moles/Vol] 105 mmol/L Normal 95-114 [facility] Comment on above: Performed By: #### B SUPERVISOR LENDING ACTIVITIES, HS TROP, PT, PTT, CBC, CKMB, BMP #### [address] CO2 [Moles/Vol] 26.9 mmol/L Normal 22.0-30.0 [facility] Comment on above: Performed By: #### B SUPERVISOR LENDING ACTIVITIES, HS TROP, PT, PTT, CBC, CKMB, BMP #### [address] Creatinine [Mass/Vol] 0.95 mg/dL Normal 0.64-1.27 [facility] Comment on above: Performed By: #### B SUPERVISOR LENDING ACTIVITIES, HS TROP, PT, PTT, CBC, CKMB, BMP #### [facility] [address] Creatinine Clr Calc Pharmacy 92.54 [facility] Comment on above: Result Comment: PERF ORMED BY: [place] [address] PATHOLOGIST NEWSPAPER VENDOR ALEKSANDER TOBIN M.D. Performed By: #### B SUPERVISOR LENDING ACTIVITIES, HS TROP, PT, PTT, CBC, CKMB, BMP #### [facility] [address] Estimated GFR ( Milady > 60 [facility] Comment on above: Result Comment: GFR estimated reference range: According to KDOQI guidelines, <60 ml/min/1.73m2 is sufficient to diagnose a patient with chronic kidney disease. Performed By: #### B SUPERVISOR LENDING ACTIVITIES, HS TROP, PT, PTT, CBC, CKMB, BMP #### [facility] [address] Estimated GFR (Non- Am > 60 [facility] Comment on above: Performed By: #### B SUPERVISOR LENDING ACTIVITIES, HS TROP, PT, PTT, CBC, CKMB, BMP #### [facility] [address] Glucose [Mass/Vol] 95 mg/dL Normal 70-100 [facility] Comment on above: Result Comment: [place] Glucose Reference Range is dependent on time and content of last meal. Glucose of more than 200 mg/dL in a nonstressed, ambulatory subject supports the diagnosis of Diabetes Mellitus. ADA recommended reference range Performed By: #### B SUPERVISOR LENDING ACTIVITIES, HS TROP, PT, PTT, CBC, CKMB, BMP #### [facility] [address] Potassium [Moles/Vol] 4.1 mmol/L Normal 3.5-5.1 [facility] Comment on above: Performed By: #### B SUPERVISOR LENDING ACTIVITIES, HS TROP, PT, PTT, CBC, CKMB, BMP #### [facility] [address] [place] [address] [place] Sodium [Moles/Vol] 138 mmol/L Normal 136-146 [facility] Comment on above: Performed By: #### B SUPERVISOR LENDING ACTIVITIES, HS TROP, PT, PTT, CBC, CKMB, BMP #### [facility] [address] Urea nitrogen [Mass/Vol] 16 mg/dL Normal 9-23 [facility] Comment on above: Performed By: #### B SUPERVISOR LENDING ACTIVITIES, HS TROP, PT, PTT, CBC, CKMB, BMP #### [facility] [address] Basophils Auto (Bld) [#/Vol] Ordered By: Christiano Weston on 10-31-2022 Basophils (Bld) [#/Vol] 0.0 10*3/uL 0.0-0.2 [facility] Basophils/100 WBC Auto (Bld) Ordered By: Christiano Weston on 10-31-2022 Basophils/100 WBC (Bld) 0.6 % . [facility] Complete Blood Count Auto Di ffon 10-31-2022 Basophils (Bld) [#/Vol] 0.0 10*3/uL Normal 0.0-0.2 [facility] Comment on above: Result Comment: PERF ORMED BY: [place] [address] PATHOLOGIST NEWSPAPER VENDOR ALEKSANDER TOBIN M.D. Performed By: #### B SUPERVISOR LENDING ACTIVITIES, HS TROP, PT, PTT, CBC, CKMB, BMP #### [address] Basophils/100 WBC (Bld) 0.6 % Normal . [facility] Comment on above: Performed By: #### B SUPERVISOR LENDING ACTIVITIES, HS TROP, PT, PTT, CBC, CKMB, BMP #### [facility] [address] Eosinophils (Bld) [#/Vol] 0.1 10*3/uL Normal 0.0-0.45 [facility] Comment on above: Performed By: #### B SUPERVISOR LENDING ACTIVITIES, HS TROP, PT, PTT, CBC, CKMB, BMP #### [address] Eosinophils/100 WBC (Bld) 1.3 % Normal . [facility] Comment on above: Performed By: #### B SUPERVISOR LENDING ACTIVITIES, HS TROP, PT, PTT, CBC, CKMB, BMP #### [address] Erythrocyte distribution width (RBC) [Ratio] 14.3 % Normal 12.0-14.8 [facility] Comment on above: Performed By: #### B SUPERVISOR LENDING ACTIVITIES, HS TROP, PT, PTT, CBC, CKMB, BMP #### [address] Hematocrit (Bld) [Volume fraction] 45.3 % Normal 38.8-50.0 [facility] Comment on above: Performed By: #### B SUPERVISOR LENDING ACTIVITIES, HS TROP, PT, PTT, CBC, CKMB, BMP #### [address] Hemoglobin (Bld) [Mass/Vol] 15.0 g/dL Normal 13.0-17.0 [facility] Comment on above: Performed By: #### B SUPERVISOR LENDING ACTIVITIES, HS TROP, PT, PTT, CBC, CKMB, BMP #### [address] Lymphocytes (Bld) [#/Vol] 1.1 10*3/uL Normal 1.00-4.8 [facility] Comment on above: Performed By: #### B SUPERVISOR LENDING ACTIVITIES, HS TROP, PT, PTT, CBC, CKMB, BMP #### [address] Lymphocytes/100 WBC (Bld) 17.2 % Normal . [facility] Comment on above: Performed By: #### B SUPERVISOR LENDING ACTIVITIES, HS TROP, PT, PTT, CBC, CKMB, BMP #### [address] MCH (RBC) [Entitic mass] 27.7 pg Normal 27.5-35.2 [facility] Comment on above: Performed By: #### B SUPERVISOR LENDING ACTIVITIES, HS TROP, PT, PTT, CBC, CKMB, BMP #### [address] MCV (RBC) [Entitic vol] 83.4 fL Low 83.5-101 [facility] Comment on above: Performed By: #### B SUPERVISOR LENDING ACTIVITIES, HS TROP, PT, PTT, CBC, CKMB, BMP #### [address] Mean Corpuscular HGB Conc 33.2 g/dL Normal 32.5-35.6 [facility] Comment on above: Performed By: #### B SUPERVISOR LENDING ACTIVITIES, HS TROP, PT, PTT, CBC, CKMB, BMP #### [address] Monocytes (Bld) [#/Vol] 0.6 10*3/uL Normal 0.0-0.8 [facility] Comment on above: Performed By: #### B SUPERVISOR LENDING ACTIVITIES, HS TROP, PT, PTT, CBC, CKMB, BMP #### [address] Monocytes/100 WBC (Bld) 15.84 % Normal 0.00-20.00 [facility] Comment on above: Performed By: #### B SUPERVISOR LENDING ACTIVITIES, HS TROP, PT, PTT, CBC, CKMB, BMP #### [place] [address] [place] Monocytes/100 WBC (Bld) 9.9 % Normal . [facility] Comment on above: Performed By: #### B SUPERVISOR LENDING ACTIVITIES, HS TROP, PT, PTT, CBC, CKMB, BMP #### [place] [address] [place] Neutrophils (Bld) [#/Vol] 4.4 10*3/uL Normal 1.8-7.7 [facility] Comment on above: Performed By: #### B SUPERVISOR LENDING ACTIVITIES, HS TROP, PT, PTT, CBC, CKMB, BMP #### [address] Neutrophils/100 WBC (Bld) 71.0 % Normal . [facility] Comment on above: Performed By: #### B SUPERVISOR LENDING ACTIVITIES, HS TROP, PT, PTT, CBC, CKMB, BMP #### [address] NRBC% 0.2 /100{WBC} Normal 0-0.5 [facility] Comment on above: Performed By: #### B SUPERVISOR LENDING ACTIVITIES, HS TROP, PT, PTT, CBC, CKMB, BMP #### [address] Platelet mean volume (Bld) [Entitic vol] 7.8 fL Normal 6.6-10.1 [facility] Comment on above: Performed By: #### B SUPERVISOR LENDING ACTIVITIES, HS TROP, PT, PTT, CBC, CKMB, BMP #### [address] Platelets (Bld) [#/Vol] 172 10*3/uL Normal 150-450 [facility] Comment on above: Performed By: #### B SUPERVISOR LENDING ACTIVITIES, HS TROP, PT, PTT, CBC, CKMB, BMP #### [address] RBC (Bld) [#/Vol] 5.43 10*6/uL Normal 3.90-5.60 [facility] Comment on above: Performed By: #### B SUPERVISOR LENDING ACTIVITIES, HS TROP, PT, PTT, CBC, CKMB, BMP #### [address] WBC (Bld) [#/Vol] 6.2 10*3/uL Normal 4.1-10.5 [facility] Comment on above: Performed By: #### B SUPERVISOR LENDING ACTIVITIES, HS TROP, PT, PTT, CBC, CKMB, BMP #### [address] Creatinine Kinase MBon 10-31 CK.MB [Mass/Vol] 2.0 ng/mL Normal 0.6-6.3 [facility] Comment on above: Performed By: #### L IPID, CREAT, PP, CBC, LYTES, BUN #### [place] [id number] [place] CKMB Relative Index Not performed Normal 0.00-2.50 [facility] Comment on above: Performed By: #### L IPID, CREAT, PP, CBC, LYTES, BUN #### [address] Creatinine and Glomerular fi ltration rate.predicted panel (S/P/Bld)Ordered By: Christiano Weston on 10-31-2022 Creatinine [Mass/Vol] 0.95 mg/dL 0.64-1.27 [facility] ECG 12 lead ECGon 10-31-2022 ECG 12 lead ECG [facility] Main [place] [address] [place] [address] Electrocardiograph Report Signed Patient: Augustine Hall MR#: [id number] : 1960 Acct:[id number] Age/Sex: 62 / M ADM Date: 10/31/22 Loc: ER Room: Type: [facility] ER Attending Dr: Ordering Provider: Christiano [...] sinus rhythm Confirmed by Christiano Weston DO ([id number]) on 10/31/2022 4:28:51 PM Referred By: Electronically Signed By:Christiano Weston DO Transcribed By: MUS Signed By Christiano Weston DO [id number] Normal [facility] Eosinophils Auto (Bld) [#/Vo l]Ordered By: Christiano Weston on 10-31-2022 Eosinophils (Bld) [#/Vol] 0.1 10*3/uL 0.0-0.45 [facility] Eosinophils/100 WBC Auto (Bl d)Ordered By: Christiano Weston on 10-31-2022 Eosinophils/100 WBC (Bld) 1.3 % . [facility] Erythrocyte distribution wid th Auto (RBC) [Ratio]Ordered By: Christiano Weston on 10-31-2022 Erythrocyte distribution width (RBC) [Ratio] 14.3 % 12.0-14.8 [facility] Estimated glomerular filtrat ion rate (GFR) non- AmericanOrdered By: Christiano Weston on 10-31-2022 GFR/1.73 sq M.predicted among non-blacks MDRD (S/P/Bld) [Vol rate/Area] > 60 mL/Min [facility] Hematocrit Auto (Bld) [Volum e fraction]Ordered By: Christiano Weston on 10-31-2022 Hematocrit (Bld) [Volume fraction] 45.3 % 38.8-50.0 [facility] Hemoglobin [Mass/volume] in BloodOrdered By: Christiano Weston on 10-31-2022 Hemoglobin (Bld) [Mass/Vol] 15.0 g/dL 13.0-17.0 [facility] Laboratory - Chemistry and C hemistry - challengeOrdered By: Christiano Weston on 10-31-2022 Natriuretic peptide B (Bld) [Mass/Vol] 42.0 pg/mL 5-100 [facility] Laboratory - CoagulationOrde red By: Christiano Weston on 10-31-2022 PT Coag (PPP) [Time] 11.4 s 9.0-12.9 [facility] Leukocytes [#/volume] correc laya for nucleated erythrocytes in Blood by Automated counOrdered By: Christiano Weston on 10-31-2022 WBC corrected for nucl RBC Auto (Bld) [#/Vol] 6.2 10*3/uL 4.1-10.5 [facility] Lymphocytes Auto (Bld) [#/Vo l]Ordered By: Christiano Weston on 10-31-2022 Lymphocytes (Bld) [#/Vol] 1.1 10*3/uL 1.00-4.8 [facility] Lymphocytes/100 WBC Auto (Bl d)Ordered By: Christiano Weston on 10-31-2022 Lymphocytes/100 WBC (Bld) 17.2 % . [facility] MCH Auto (RBC) [Entitic mass ]Ordered By: Christiano Weston on 10-31-2022 MCH (RBC) [Entitic mass] 27.7 pg 27.5-35.2 [facility] MCHC Auto (RBC) [Mass/Vol]Or dered By: Christiano Weston on 10-31-2022 MCHC (RBC) [Mass/Vol] 33.2 g/dL 32.5-35.6 [facility] MCV Auto (RBC) [Entitic vol] Ordered By: Christiano Weston on 10-31-2022 MCV (RBC) [Entitic vol] 83.4 fL 83.5-101 [facility] Monocyte distribution width [Entitic volume] in Blood by AutomatedOrdered By: Christiano Weston on 10-31-2022 Monocyte distribution width Auto (Bld) [Entitic vol] 15.84 % 0.00-20.00 [facility] Monocytes Auto (Bld) [#/Vol] Ordered By: Christiano Weston on 10-31-2022 Monocytes (Bld) [#/Vol] 0.6 10*3/uL 0.0-0.8 [facility] Monocytes/100 WBC Auto (Bld) Ordered By: Christiano Weston on 10-31-2022 Monocytes/100 WBC (Bld) 9.9 % . [facility] Neutrophils Auto (Bld) [#/Vo l]Ordered By: Christiano Weston on 10-31-2022 Neutrophils (Bld) [#/Vol] 4.4 10*3/uL 1.8-7.7 [facility] Neutrophils/100 WBC Auto (Bl d)Ordered By: Christiano Weston on 10-31-2022 Neutrophils/100 WBC (Bld) 71.0 % . [facility] No Panel InformationOrdered By: Christiano Weston on 10-31-2022 Estimated GFR () > 60 mL/Min [facility] Comment on above: GFR estimated refere nce range: According to KDOQI guidelines, <60 ml/min/1.73m2 is sufficient to diagnose a patient with chronic kidney disease. Pharmacy Creatinine Clearance (Chem 92.54 [facility] Nucleated erythrocytes [Pres ence] in Blood by Automated countOrdered By: Christiano Weston on 10-31-2022 Nucleated RBC Auto Ql (Bld) 0.2 /100{WBC} 0-0.5 [facility] Partial Thromboplastin Timeo n 10-31-2022 aPTT Coag (Bld) [Time] 33.6 s Normal 25.1-36.5 [facility] Comment on above: Result Comment: PERF ORMED BY: [facility] [address] [place] [address] PATHOLOGIST NEWSPAPER VENDOR ALEKSANDER TOBIN M.D. Performed By: #### B SUPERVISOR LENDING ACTIVITIES, HS TROP, PT, PTT, CBC, CKMB, BMP #### [facility] [address] Platelet mean volume Auto (B ld) [Entitic vol]Ordered By: Christiano Weston on 10-31-2022 Platelet mean volume (Bld) [Entitic vol] 7.8 fL 6.6-10.1 [facility] Platelet poor plasma interna tional normalized ratio (INR) by coagulation assay (relatOrdered By: Christiano Weston on 10-31-2022 INR Coag (PPP) [Relative time] 1.0 {INR} [facility] Comment on above: INR Therapeutic Rang e [...] 10-31-2022 Platelets (Bld) [#/Vol] 172 10*3/uL 150-450 [facility] Prothrombin Time INRon 10-31 INR Coag (PPP) [Relative time] 1.0 {INR} Normal [facility] Comment on above: Result Comment: INR Therapeutic [...] 3 - 4.5 Performed By: #### B SUPERVISOR LENDING ACTIVITIES, HS TROP, PT, PTT, CBC, CKMB, BMP #### [facility] [address] PT Coag (PPP) [Time] 11.4 s Normal 9.0-12.9 [facility] Comment on above: Performed By: #### B SUPERVISOR LENDING ACTIVITIES, HS TROP, PT, PTT, CBC, CKMB, BMP #### [facility] [address] RBC Auto (Bld) [#/Vol]Ordere d By: Christiano Weston on 10-31-2022 RBC (Bld) [#/Vol] 5.43 10*6/uL 3.90-5.60 [facility] Serum or plasma anion gap de terminationOrdered By: Christiano Weston on 10-31-2022 Anion gap [Moles/Vol] 10.2 mmol/L 6.0-15.0 [facility] Serum or plasma calcium shannon urement (mass/volume)Ordered By: Christiano Weston on 10-31-2022 Calcium [Mass/Vol] 9.1 mg/dL 8.2-10.2 [facility] Serum or plasma chloride cheryl surement (moles/volume)Ordered By: Christiano Weston on 10-31-2022 Chloride [Moles/Vol] 105 mmol/L 95-114 [facility] Serum or plasma creatine kin ase MB (CKMB)/total creatine kinase (CK) ratio by calculaOrdered By: Christiano Weston on 10-31-2022 CK.MB Calc [Catalytic fraction] TNP [facility] Comment on above: Test not performed Serum or plasma creatine kin ase MB measurement (mass/volume)Ordered By: Christiano Weston on 10-31-2022 CK.MB [Mass/Vol] 2.0 ng/mL 0.6-6.3 [facility] Serum or plasma glucose shannon urement (mass/volume)Ordered By: Christiano Weston on 10-31-2022 Glucose [Mass/Vol] 95 mg/dL 70-100 [facility] Comment on above: ADA recommended refe rence rangeRandom Glucose Reference Range is dependent on time and content of last meal. Glucose of more than 200 mg/dL in a nonstressed, ambulatory subject supports the diagnosis of Diabetes Mellitus. Serum or plasma potassium me asurement (moles/volume)Ordered By: Christiano Weston on 10-31-2022 Potassium [Moles/Vol] 4.1 mmol/L 3.5-5.1 [facility] Serum or plasma sodium measu rement (moles/volume)Ordered By: Christiano Weston on 10-31-2022 Sodium [Moles/Vol] 138 mmol/L 136-146 [facility] Serum or plasma total carbon dioxide measurement (moles/volume)Ordered By: Christiano Weston on 10-31-2022 CO2 [Moles/Vol] 26.9 mmol/L 22.0-30.0 [facility] Serum or plasma urea nitroge n measurement (mass/volume)Ordered By: Christiano Weston on 10-31-2022 Urea nitrogen [Mass/Vol] 16 mg/dL 9-23 [facility] Troponin I High Sensitivityo n 10-31-2022 Troponin I High Sensitivity 4 pg/mL Normal 0-20 [facility] Comment on above: Result Comment: PERF ORMED BY: [facility] [address] [facility] [address] [place] [address] PATHOLOGIST NEWSPAPER VENDOR ALEKSANDER TOBIN M.D. Performed By: #### L IPID, CREAT, PP, CBC, LYTES, BUN #### [facility] [address] Troponin I.cardiac [Mass/vol ume] in Serum or Plasma by High sensitivity methodOrdered By: Christiano Weston on 10-31-2022 Troponin I.cardiac High sensitivity method [Mass/Vol] 4 pg/mL 0-20 [facility] WBC Auto (Bld) [#/Vol]Ordere d By: Christiano Weston on 10-31-2022 WBC (Bld) [#/Vol] 6.2 10*3/uL 4.1-10.5 [facility] XR chest 1V portableon 10-31 XR chest 1V portable [facility] Main [place] [address] [place], [place] [id number] XRay Report Signed Patient: Augustine Hall MR#: [id number] : 1960 Acct:[id number] Age/Sex: 62 / M ADM Date: 10/31/22 Loc: ER Room: Type: [facility] ER Attending Dr: Copies to: Christiano Weston [...] Tenzin Sagastume M.D.10/31/2022 10:53 AM Dictation Location: [place] [address] Transcribed By: [facility] 10/31/22 1053 Dictated By: Tenzin Sagastume DO 10/31/22 1052 Signed By: 10/31/22 1053 [facility] VC CONSULT FOLLOWUPon 2021 VC CONSULT FOLLOWUP Patient: AUGUSTINE HALL Exam Date: 09/01/2022 : 1960 Gender:M Ordering : DR NASIMA SIMS M.D. Admission #: [id number] Family : Order #: [id number] CLICK HERE TO VIEW EXAM RADIOLOGY REPORT [...] Sims MD on 09/01/2022 at 09:55 Normal [facility] VC EXT VENOUS LT LIMITEDon 1 11-02-2021 VC EXT VENOUS LT LIMITED Patient: AUGUSTINE HALL Exam Date: 09/01/2022 : 1960 Gender:M Ordering : DR NASIMA SIMS M.D. Admission #: [id number] Family : Order #: [id number] CLICK HERE TO VIEW EXAM RADIOLOGY REPORT [...] Sims MD on 09/01/2022 at 09:34 Normal [facility] VC ENDOVENOUS ABL 1ST V LTon 08-29-2022 VC ENDOVENOUS ABL 1ST V LT Patient: AUGUSTINE HALL Exam Date: 08/29/2022 : 1960 Gender:M Ordering : DR NASIMA SIMS M.D. Admission #: [id number] Family : Order #: [id number] CLICK HERE TO VIEW EXAM RADIOLOGY REPORT [...] Sims MD on 08/29/2022 at 13:45 Normal [facility] VC CONSULT FOLLOWUPon 2021 VC CONSULT FOLLOWUP Patient: AUGUSTINE HALL Exam Date: 08/25/2022 : 1960 Gender:M Ordering : DR NASIMA SIMS M.D. Admission #: [id number] Family : Order #: [id number] CLICK HERE TO VIEW EXAM RADIOLOGY REPORT [...] Sims MD on 08/25/2022 at 09:26 Normal [facility] VC EXT VENOUS RT LIMITEDon 1 10-26-2021 VC EXT VENOUS RT LIMITED Patient: JENNIFER AUGUSTINE A. Exam Date: 08/25/2022 : 1960 Gender:M Ordering : DR NASIMA SIMS M.D. Admission #: [id number] Family : Order #: [id number] CLICK HERE TO VIEW EXAM RADIOLOGY REPORT [...] Nasima Sims MD on 08/25/2022 at 09:23 [facility] VC ENDOVENOUS ABL 1ST V RTon 08-20-2022 VC ENDOVENOUS ABL 1ST V RT Patient: AUGUSTINE HALL Exam Date: 08/20/2022 : 1960 Gender:M Ordering : DR NASIMA SIMS M.D. Admission #: [id number] Family : Order #: [id number] CLICK HERE TO VIEW EXAM RADIOLOGY REPORT [...] Knutson M.D. on 08/20/2022 at 13:17 Normal [facility] COMP CONSULTATIONon 07-10 VC COMP CONSULTATION Patient: VERÓNICA HALL Exam Date: 07/10/2022 : 1960 Gender:M Ordering : DR OLIVA CROFT Admission #: [id number] Family : Order #: [id number] CLICK HERE TO VIEW EXAM RADIOLOGY REPORT [...] Sims MD on 07/10/2022 at 13:02 Normal [facility] VC VENOUS REFLUX FEI LMTon 1 VC VENOUS REFLUX FEI LMT Patient: AUGUSTINE HALL Exam Date: 07/10/2022 : 1960 Gender:M Ordering : DR OLIVA CROFT Admission #: [id number] Family : Order #: [id number] CLICK HERE TO VIEW EXAM RADIOLOGY REPORT [...] chronic thrombus visualized Compressibility: Normal Flow: Normal Business Development Engineer: Dist/med calf 5.3mm with 0s reflux. Prox/med [...] MD on 07/10/2022 at 11:24 Normal [facility] CBC AUTO DIFFon 06-30-2022 BASO # 0.0 103/ul Normal 0.0-0.1 [facility] Comment on above: Performed By: #### C BC ####[facility] [address] [place] [address]Dr. Mariangel Gill Basophils/100 WBC (Bld) 0.5 % Normal 0.2-2.0 [facility] Comment on above: Performed By: #### C BC ####[facility] [address] [place], [place] [address]Dr. Mariangel Gill EO # 0.1 103/ul Normal 0.0-0.7 [facility] Comment on above: Performed By: #### C BC ####[facility] [address] [place], [place] [address]Dr. Mariangel Gill Eosinophils/100 WBC (Bld) 0.8 % Critically low 0.9-7.0 [facility] Comment on above: Performed By: #### C BC ####[facility] [address] [place], [place] [address]Dr. Mariangel Gill Erythrocyte distribution width (RBC) [Ratio] 13.7 % Normal 11.0-15.0 [facility] Comment on above: Performed By: #### C BC ####[facility] [address] [place], [place] [address]Dr. Mariangel Gill Hematocrit (Bld) [Volume fraction] 46.8 % Normal 42.0-54.0 [facility] Comment on above: Performed By: #### C BC ####[facility] [facility] [address] [place], [place] [address]Dr. Mariangel Gill Hemoglobin (Bld) [Mass/Vol] 15.2 g/dL Normal 14.0-18.0 [facility] Comment on above: Performed By: #### C BC ####[facility] [address] [place] [id number]. Mariangel Gill IG # 0.02 10e3/ul Normal 0.00-0.03 [facility] Comment on above: Performed By: #### C BC ####[facility] Xytfsayqjj8840 [place] [id number]. Mariangel Gill IG % 0.3 % Normal 0.0-0.5 [facility] Comment on above: Performed By: #### C BC ####[facility] Lkizx[address] [place] [address]Dr. Mariangel Gill LYMPH # 1.4 103/ul Normal 1.2-3.8 [facility] Comment on above: Performed By: #### C BC ####[facility] Zhbx[address] [place], [place] [address]Dr. Mariangel Gill Lymphocytes/100 WBC (Bld) 23.6 % Normal 20.5-60.0 [facility] Comment on above: Performed By: #### C BC ####[facility] [address]vushlmqx[address] [place] [address]Dr. Mariangel Gill MANUAL DIFF REQ NO Normal [facility] Comment on above: Performed By: #### C BC ####[facility] Ahp[address] [place], [place] [address]Dr. Mariangel Gill MCH (RBC) [Entitic mass] 27.8 pg Normal 25.9-34.0 [facility] Comment on above: Performed By: #### C BC ####[facility] V[address] [place], [place] [address]Dr. Mariangel Gill MCHC (RBC) [Mass/Vol] 32.5 g/dL Normal 29.9-35.2 [facility] Comment on above: Performed By: #### C BC ####[facility] [address] [place], [place] [address]Dr. Mariangel Gill MCV (RBC) [Entitic vol] 85.7 fL Normal 80.0-94.0 [facility] Comment on above: Performed By: #### C BC ####[facility] Dzsjjnlrgi5[address] [place] [id number]. Mariangel Gill MONO # 0.6 103/ul Normal 0.3-0.8 [facility] Comment on above: Performed By: #### C BC ####[facility] Xzzgnrxuiu8151 [place] [phone]. Mariangel Gill Monocytes/100 WBC (Bld) 10.0 % Normal 1.7-12.0 [facility] Comment on above: Performed By: #### C BC ####[facility] Mlignoijuy025[address] [place] [phone]. Mariangel Gill NEUT # 4.0 103/ul Normal 1.4-6.5 [facility] Comment on above: Performed By: #### C BC ####[facility] [address]unfr[address]xc[address] [place] [address]Dr. Mariangel Gill Neutrophils/100 WBC (Bld) 64.8 % Normal 43.0-75.0 [facility] Comment on above: Performed By: #### C BC ####[facility] Dhapdxutni[address] [place] [phone]. Mariangel Gill Platelet mean volume (Bld) [Entitic vol] 9.3 fL Critically low 9.5-13.5 [facility] Comment on above: Performed By: #### C BC ####[facility] Uqjhokpgto4[address] [place] [phone]. Mariangel Gill PLT 193 103/ul Normal 150-450 [facility] Comment on above: Performed By: #### C BC ####[facility] Zqlv[address] [place], [place] [id number]. Mariangel Gill RBC 5.46 106/ul Normal 4.70-6.10 [facility] Comment on above: Performed By: #### C BC ####[facility] [address] [place], [place] [id number]. Mariangel Gill WBC 6.1 103/ul Normal 4.0-11.0 [facility] Comment on above: Performed By: #### C BC ####[facility] [address] [place] [address]Dr. Mariangel Gill PROF CHEM 8 (BAS METB)on Anion gap [Moles/Vol] 11.4 mmol/L Normal [facility] Comment on above: Performed By: #### B MP ####[facility] Nc[address]tfd38[address] [place] [address]Dr. Mariangel Gill Calcium [Mass/Vol] 8.5 mg/dL Normal 8.5-10.1 [facility] Comment on above: Performed By: #### B MP ####[facility] G[address] [place], [place] [address]Dr. Mariangel Gill Chloride [Moles/Vol] 103 mmol/L Normal 98-107 [facility] Comment on above: Performed By: #### B MP ####[facility] Fxkinuk[address] [place], [place] [address]Dr. Mariangel Gill CO2 [Moles/Vol] 28.8 mmol/L Normal 21.0-32.0 [facility] Comment on above: Performed By: #### B MP ####[facility] Kbbn[address]yumi[address] [place], [place] [address]Dr. Mariangel Gill Creatinine [Mass/Vol] 1.12 mg/dL Normal 0.70-1.30 [facility] Comment on above: Performed By: #### B MP ####[facility] [address] [place], [place] [address]Dr. Mariangel Gill EGFR-AF [place]TH [place]OREAN >60 Normal >=60 [facility] Comment on above: Performed By: #### B MP ####[facility] Ir[address] [place], [place] [address]Dr. Mariangel Gill EGFR-NON AF [place]TH [place]OREAN >60 Normal >=60 [facility] Comment on above: Performed By: #### B MP ####[facility] [address]rtbybks[address] [place], [place] [address]Dr. Mariangel Gill Glucose [Mass/Vol] 129 mg/dL Critically high 74-106 [facility] Comment on above: Performed By: #### B MP ####[facility] [address] [place], [place] [id number]. Mariangel Gill Potassium [Moles/Vol] 4.2 mmol/L Normal 3.5-5.1 [facility] Comment on above: Performed By: #### B MP ####[facility] [address] [place], [place] [address]Bl. Mariangel Gill Sodium [Moles/Vol] 139 mmol/L Normal 136-145 [facility] Comment on above: Performed By: #### B MP ####[facility] Dbexmtzcym[address]194 [place], [place] [address]Ox. Mariangel Gill Urea nitrogen [Mass/Vol] 18.0 mg/dL Normal 7.0-18.0 [facility] Comment on above: Performed By: #### B MP ####[facility] Egmujrucee[address] [place] [phone]. Mariangel Gill Urea nitrogen/Creatinine [Mass ratio] 16.1 mg/mg Normal [facility] Comment on above: Performed By: #### B MP ####[facility] Ghjnihtmda6032 [place] [phone]. Mariangel Gill MRI KNEE RT WO CONon [...] by: AUGUSTINE KNUTSON Date: 2022-04-09 07:47 Normal [facility] XR Knee Complete Right*on XR Knee Complete Right* CLINICAL HISTORY: Knee pain COMPARISON: None. TECHNIQUE: Right knee radiographs RESULT: No acute fracture or dislocation.Joint spaces maintained. Minimal chondrocalcinosis. Soft tissues unremarkable. No joint effusion. IMPRESSION: No acute findings. Report reported and signed by TREY MAURER on 03/04/2022 1132 Normal [facility] Brush Maker Vital Signs Date Time Vital Sign Value Performing Clinician Angeles laguna 12-12-2022 14:15-0400 Diastolic blood pressure 80 mm[Hg] DO Oliva deviantART Work Phone: [facility] 12-12-2022 14:15-0400 Heart rate 73 /min DO Oliva [employer] Work Phone: [facility] 12-12-2022 14:15-0400 Respiratory rate 18 /min DO Oliva [employer] Work Phone: [facility] 12-12-2022 14:15-0400 SaO2% (BldA) [Mass fraction] 94 % DO Oliva [employer] Work Phone: [facility] 12-12-2022 14:15-0400 Systolic blood pressure 146 mm[Hg] DO Oliva Boubacar[employer] Work Phone: [facility] 12-12-2022 09:55-0400 Body height 187.96 cm DO Oliva Robodrommonika[employer] Work Phone: [facility] 12-12-2022 09:55-0400 Body temperature 97.6 [degF] DO Oliva Ham[employer] Work Phone: [facility] 12-12-2022 09:55-0400 Body weight 95 kg DO Oliva [employer] Work Phone: [facility] 12-09-2022 08:58-0400 Diastolic blood pressure 80 mm[Hg] Oliva Croft Work Phone: [facility] 250 DO Work Phone: 12-09-2022 08:58-0400 Systolic blood pressure 142 mm[Hg] Oliva Croft Work Phone: [facility] 250 DO Work Phone: 12-09-2022 08:56-0400 Body height 187.96 cm Oliva Croft Work Phone: [facility] 250 DO Work Phone: 12-09-2022 08:56-0400 Body mass index (BMI) [Ratio] 26.83 kg/m2 Oliva Croft Work Phone: [facility] 250 DO Work Phone: 12-09-2022 08:56-0400 Body surface area Derived from formula 2.21 m2 Oliva Croft Work Phone: [facility] 250 DO Work Phone: 12-09-2022 08:56-0400 Body weight 94.8 kg Oliva Croft Work Phone: [facility] 250 DO Work Phone: 12-09-2022 08:56-0400 Diastolic blood pressure 80 mm[Hg] Oliva Croft Work Phone: [facility] 250 DO Work Phone: 12-09-2022 08:56-0400 Heart rate 74 /min Oliva Croft Work Phone: [facility] 250 DO Work Phone: 12-09-2022 08:56-0400 Systolic blood pressure 144 mm[Hg] Oliva J Boubacark Work Phone: [facility] 250 DO Work Phone: 10-31-2022 12:00-0500 Diastolic blood pressure 78 mm[Hg] DO Oliva Antwanchak Work Phone: [facility] 10-31-2022 12:00-0500 Heart rate 60 /min DO Oliva Boubacark Work Phone: [facility] 10-31-2022 12:00-0500 Respiratory rate 18 /min DO Oliva Boubacark Work Phone: [facility] 10-31-2022 12:00-0500 SaO2% (BldA) [Mass fraction] 96 % DO Oliva Hamlink Work Phone: [facility] 10-31-2022 12:00-0500 Systolic blood pressure 134 mm[Hg] DO Oliva Guerda Work Phone: [facility] 10-31-2022 10:21-0500 Body height 187.96 cm DO Oliva Croft Work Phone: [facility] 10-31-2022 10:21-0500 Body temperature 97.1 [degF] DO Oliva Croft Work Phone: [facility] 10-31-2022 10:21-0500 Body weight 95.25 kg DO Oliva Croft Work Phone: [facility] Encounters Encounter Date Encounter Type Care Provider Facility Start: 05-04-2024 End: 05-04-2024 ambulatory OLIVA CROFT Not Available Start: 10-21-2023 End: 10-21-2023 ambulatory OLIVA HAMLINK Not Available Start: 12-12-2022 ambulatory Chung Irving [id number] Start: 12-12-2022 [facility], Provider: Chung Garcia, Status: Pen, Time: 11:00 AM Oliva Croft Work Phone: [facility] 250 DO Work Phone: Start: 12-12-2022 End: 12-12-2022 ambulatory Dave Garcia Facility:[facility] Start: 12-12-2022 End: 12-12-2022 Admission to same day surgery center DO Oliva Hamlinkaren Work Phone: [facility] Work Phone: Start: 12-12-2022 End: 12-12-2022 ambulatory DO Oliva Croft Work Phone: [facility] Work Phone: Start: 12-10-2022 Chart Update Oliva wyman Work Phone: [facility] 250 DO Work Phone: Start: 12-10-2022 End: 12-10-2022 ambulatory Oliva Croft Facility:[facility] Start: 12-10-2022 End: 12-10-2022 ambulatory DO Oliva Croft Work Phone: [facility] Work Phone: Start: 12-10-2022 End: 12-10-2022 Patient encounter procedure DO Oliva Croft Work Phone: [facility] Work Phone: Start: 12-09-2022 Office consultation new/estab patient 80 min Oliva Croft Work Phone: [facility] 250 DO Work Phone: Start: 12-09-2022 ambulatory Chung Garcia Facilit y: Start: 12-02-[address] Oliva Croft Facility:[id number] Start: 11-12-2022 End: 11-13-[address] AUGUSTINE KNUTSON Facility:[facility] Start: 10-31-2022 End: 10-31-2022 Emergency department patient visit Christiano Westno Facility:[facility] Start: 10-31-2022 End: 10-31-2022 Emergency department patient visit DO Oliva Croft Work Phone: [facility] Work Phone: Start: 09-21-2022 End: 09-22-2022 [...] Start: 08-04-2022 End: 09-20-[address] AKUA AT Facility:[facility]1 Start: 07-10-2022 End: 07-11-[address] [...] Chung Garcia, Status: Pen, Time: 8:50 [facility] Work Phone: Start: 12-12-2022 [facility], Provider: Chung Garcia, Status: Pen, Time: 11:00 AM [facility], Provider: Chung Garcia, Status: Pen, Time: 11:00 [facility] Work Phone: Start: 12-12-2022 [facility] Patient Education Anxiety, Adult (DC) Chest Pain (DC) [facility] Work Phone: Patient referral [facility] Work Phone: Immunizations Immunization Date Immunization Notes Care Provider Fa jacquelin 08-26-2022 Moderna COVID-19 Vac cine 100 MCG/0.5ML Intramuscular Suspension Oliva Croft Work Phone: [facility] 07-17-2021 Moderna COVID-19 Vac cine 100 MCG/0.5ML Intramuscular Suspension Oliva Croft Work Phone: [facility] 12-21-2020 COVID-19 mRNA-1273 (Moderna) DO Oliva Croft Work Phone: [facility] 10-25-2020 Moderna COVID-19 Vac cine 100 MCG/0.5ML Intramuscular Suspension Oliva Croft Work Phone: [facility] 250 DO Work Phone: 09-27-2020 Moderna COVID-19 Vac cine 100 MCG/0.5ML Intramuscular Suspension Oliva Croft Work Phone: [facility] Payers Date Payer Category Payer Self-pay 1960 Private Health Insurance [id number] 1960 Private Health Insurance [id number] 1960 Self-pay [id number] 1960 Unknown [id number] 2.16.840.1.400307.3.579.2.593 1959 Unknown [id number] 2.16.840.1.217403.3.579.2.593 1959 Unknown [id number] 2.16.840.1.955240.3.579.2.593 1959 Unknown [id number] 2.16.840.1.785396.3.579.2.593 1959 Unknown [id number] 2.16.840.1.514306.3.579.2.593 1959 Unknown [id number] 2.16.840.1.319435.3.579.2.593 1959 Unknown [id number] 2.16.840.1.244330.3.579.2.593 1959 Unknown [id number] 2.16.840.1.648892.3.579.2.593 1959 Unknown [id number] 2.16.840.1.430188.3.579.2.593 1959 Unknown [id number] 2.16.840.1.412431.3.579.2.593 1959 Unknown [id number] 2.16.840.1.699829.3.579.2.593 1959 Unknown [id number] 2.16.840.1.316155.3.579.2.593 1959 Unknown [id number] 2.16.840.1.784190.3.579.2.593 1959 Unknown [id number] 2.16.840.1.407232.3.579.2.593 1959 Unknown [id number] 2.16.840.1.118145.3.579.2.593 1959 Unknown [id number] 2.16.840.1.984849.3.579.2.593 1959 Unknown [id number] 2.16.840.1.613076.3.579.2.1068 1959 Unknown [id number] 2.16.840.1.663998.3.579.2.356 1959 Unknown [id number] 2.16.840.1.855614.3.579.2.356 1959 Unknown [id number] 2.16.840.1.589970.3.579.2.1259 1959 Unknown [id number] 2.16.840.1.437123.3.579.2.1259 Private Health Insurance [employer] [id number] Unknown [id number] Unknown [id number] 2.16840.1.690881.3.579.2.593 Unknown Unknown [id number] Unknown [id number] 2.16840.1.039112.3.579.2.531 Unknown [id number] 2.16840.1.217873.3.579.2.531 Unknown [id number] 2.16840.1.969136.3.579.2.531 Social History Date Type Detail Facility Start: 10-31-2022 End: 12-10-2022 Tobacco smoking status NHIS Ex-smoker (finding) [facility] Start: 1960 Sex Assigned At Male F [facility] No illicit drug use No illicit drug use [facility] 250 DO Work Phone: Comment on above: 2-3 beers daily; 4 cups of 8 oz of co ffee daily; Quit smoking 30 + ye ars ago- 1 pack daily. Smoked 1 cigar daily-Quit in 2019; Goals Date Patient Goal Desired Activity /State Discharge summary 12-12-2022 Note Date & Type Note Facility 12-12-2022 Discharge summary Note Date/Time December 12, 2022 12:14pm [facility] [address] [place] [address] Discharge Summary Signed Patient: Augustine Hall MR#: [id number] : 1960 Acct:[id number] Age/Sex: 62 / M Adm Date: 3 [...] Low-Cholesterol Additional Instructions: DISCHARGE INSTRUCTIONS FOR CARDIAC BUILDING MAINTENANCE ENGINEER PHONE NUMBER OF YOUR PHYSICIAN: [phone] PROCEDURE: Heart Cath The following instructions have [...] cold, numb, blue or white, call the resin shaver immediately. 4. ACTIVITY: You are advised to [...] bottle, follow the instructions on the bottle. [facility] is not responsible for incorrect prescription information [...] signed by Dave Garcia DO> 12/12/22 1216 [facility] Work Phone: Procedure note 12-12-2022 Note Date & Type Note Facility 12-12-2022 Procedure note [facility] Hospital Discharge instructions 12-12-2022 Note Date & Type Note Facility 12-12-2022 Hospital Discharg e instructions Additional Instructions DISCHARGE INSTRUCTIONS FOR CARDIAC BUILDING MAINTENANCE ENGINEER PHONE NUMBER OF YOUR PHYSICIAN: [phone] PROCEDURE: Heart Cath The following instructions have [...] cold, numb, blue or white, call the resin shaver immediately. 4. ACTIVITY: You are advised to [...] bottle, follow the instructions on the bottle. [facility] is not responsible for incorrect prescription information provided by the patient during their visit. Do not stop your medications without consulting your health care provider. Please take the list with you to your next doctor's appointment. [facility] Work Phone: Clinical Note 06-30-2022 Note Date [...] by: AUGUSTINE KNUTSON Date: 2022-06-30 16:08 [facility] Chief complaint Narrative - Reported Note [...] blood pressure results.He underwent stress testing at [facility] details of which are unknown but he was told he achieved his target heart rate and there were no EKG changes and he did not describe any angina. We do not have details of the stress test as of yet. He did have calcium score performed in [facility] which revealed mild proximal LAD calcification [...] either later this week or next week. -[facility] 250 DO Work Phone: Evaluation note Note Date & Type Note Facility Evaluation note No assessment information availa [facility] Work Phone: Hospital Discharge instructions Note Date & Type Note Facility Hospital Discharge instructions Additional Instructions Take baby aspirin daily. Follow-up with your PCP for outpatient stress test and for recheck of your blood pressure for possible hypertension. Return if you develop any chest pain shortness of breath, chest pain with nausea or sweating or that radiates to your arm jaw or back. [facility] Work Phone: Summary Purpose Family History [...] section and content) DATE CREATED AUTHOR 03/05/2022 [facility] dical Specialist DATE CREATED AUTHOR AUTHOR'S ORGANIZ ATION 11/16/2022 [facility] DATE CREATED AUTHOR AUTHOR'S ORGANIZ ATION 12/06/2022 [facility] DATE CREATED AUTHOR AUTHOR'S ORGANIZ ATION 12/09/2022 [employer] DATE CREATED AUTHOR AUTHOR'S ORGANIZ ATION 12/13/2022 [facility] DATE CREATED AUTHOR AUTHOR'S ORGANIZ ATION 01/02/2023 [facility] DATE CREATED AUTHOR AUTHOR'S ORGANIZ ATION 05/06/2024 [facility] dical Specialists EPIC Care Teams (unrecognized sec [...] BE BASED ON THE PRIMARY CLINICAL RECORDS. [facility] [employer] [facility]. provides no warranty or guarantee of the accuracy or completeness of information in this document.
== END 2024-07-11 06:43 | disposition home or self-care (01) ==
LOC: LAB 06:42
PROVIDERS: PCP Internal Medicine; Visit Provider Internal Medicine
DX: I10 Essential (primary) hypertension (principal)
CPT/HCPCS: 80053

== ENCOUNTER 2024-11-13 14:18 | Emergency (ER) | payer OTHER, SELFPAY ==
[2024-11-13 14:22] VITALS: BP 157/85; PULSE 68; TEMP 36.5; O2SAT 96; BMI 28.5
--- OUTSIDE RECORDS SUMMARY | 2024-11-13 14:25 | XMS_ITS | CCD ---
Author Organization [facility] Care Team Providers Care Medicaid Eligibility Specialist Name Role Phone DO Oliva Croft Primary Care Provider DO Christiano Weston Emergency Provider Noni KNUTSON, DR MARIANO Carlson Consulting Unavailable TA, DR FATIMA Attending [...] NASIMA Chou Attending Unavailable MARIA TERESA, DR MARIANO Carlson Consulting Unavailable WEST, DR NASIMA Chou Admitting Unavailable WEST, DR NASIMA Chou Consulting Unavailable REQUEST, NONE LISTED Primary Care Unavaila ble WEST, DR NASIMA Chou Attending Unavailable WEST, DR NASIMA Chou Admitting Unavailable WEST, DR NASIMA Chou Consulting Unavailable REQUEST, NONE LISTED Primary Care Unavaila ble WEST, DR NASIMA Chou Attending Unavailable WEST, DR NASIMA Chou Consulting Unavailable VASMISTI, DR BAPTISTE Admitting Unavailable REQUEST, NONE LISTED Primary Care Unavaila ble VASCHAK, DR BAPTISTE Attending Unavailable VASCHAK, DR BAPTISTE Consulting Unavailable TA, DR FATIMA Attending Unavailable TA, DR FATIMA Admitting Unavailable REQUEST, DR NONE LISTED Primary Care Unavaila ble ZIEBER, DR MARIANO Carlson Consulting Unavailable VASCHAZohra, DR BAPTISTE Admitting Unavailable REQUEST, DR ACOSTA LISTED Primary Care Unavaila ble VASCHAK, DR BAPTISTE Attending Unavailable VASCHAK, DR BAPTISTE Consulting Unavailable TA, DR FATIMA Admitting Unavailable REQUEST, NONE LISTED Primary Care Unavaila ble TA, DR FATIMA Attending Unavailable TESJORDANA, SISSY Admitting Unavailable ZIEBER, DR MARIANO Carlson Consulting Unavailable TESJORDANA, SISSY Attending Unavailable TESJORDANA, SISSY Consulting Unavailable Vaschazohra, Dr. Oliva Bedoya Attending Unava ilable Guerda, Dr. Oliva Bedoya Primary Care Unava ilOliva Rothman Unavailable Unavailable Unavailable DO Oliva Croft Primary Care Provider [phone] DO Christiano Weston Emergency Provider Unavai DO Dave Fernandez Attending Provider [phone] Chung Garcia Attending Unavailable Guerda, Dr. lOiva Bedoya [facility] Care Yandyva Chung Ace Attending Unavailable Chung Garcia Referring Unavailable Guerda, Dr. Oliva Bedoya Primary Care Yandyva Dave Ace Admitting Unavailable Oliva Croft Primary Care Unavailable Dave Garcia Attending Unavailable Christiano Weston Attending Unavailable Christiano Weston Admitting Unavailable Oliva Croft Primary Care Unavailable Oliva Croft Primary Care Unavailable Dave Garcia Attending Unavailable Dave Garcia Admitting Unavailable VasOliva chappell DO Primary Care Provider [phone] OLIVA CROFT Referring Unavailable MARIO LOYA Attending Unavailable OLIVA CROFT Attending Unavailable OLIVA CROFT Attending Unavailable OLIVA CROFT Referring Unavailable Anni RODRÍGUEZ, Yvon Sharp Attending Unavaila ble Lien Clayton Attending Unavailable Allergies Allergy Classification Reported Allergen(s) Allergy Type Date of Onset Reaction(s) Facility (3 sources) cefditoren; Translations: [Spectracef] Drug Allergy Nausea [facility] DO Work Phone: (3 sources) cefditoren; Translations: [cefditoren] Drug Allergy 12-10-2022 N/V [facility] (3 sources) amLODIPine Drug Allergy 10-21-2023 [facility] Healthcare (3 sources) cefditoren Drug Allergy 10-21-2023 [facility] Healthcare Medications Current Medications Medication Drug Class(es) Dates Sig (Normalized) Sig (Original) amLODIPine 10 mg oral tablet (5 sources) Dihydropyridine Calcium Channel Carli Start: 12-10-2022 take 10 mg by mouth once daily Amlodipine Active 10 MG PO Daily December 10, 2022 12:00am aspirin 81 mg delayed release oral tablet (8 sources) Platelet Aggregation Inhibitor, Nonsteroidal Anti-inflammatory Drug Start: 02-03-2024 take 1 tablet by mouth once daily aspirin ([facility] Aspirin Low Dose) 81 MG EC tablet Indications: Abnormal findings on diagnostic imaging of heart and coronary circulation TAKE 1 TABLET BY MOUTH EVERY DAY 90 tablet 1 02/03/2024 Active Start: 12-10-2022 take 81 mg by mouth once daily Aspirin Active 81 MG PO Daily December 10, 2022 12:00am losartan potassium 100 mg oral tablet (3 sources) Angiotensin 2 Receptor Carli Start: 02-03-2024 take 1 tablet by mouth once daily losartan (Cozaar) 100 MG tablet Indications: Essential (primary) hypertension (CMS/HCC) TAKE 1 TABLET BY MOUTH EVERY DAY 90 tablet 1 02/03/2024 Active rosuvastatin calcium 20 mg oral tablet (8 sources) HMG-CoA Reductase Inhibitor Start: 05-16-2024 take 1 tablet by mouth once daily at bedtime rosuvastatin (Crestor) 20 MG tablet Indications: Abnormal findings on diagnostic imaging of heart and coronary circulation TAKE 1 TABLET BY MOUTH EVERYDAY AT BEDTIME 90 tablet 2 05/16/2024 Active Start: 12-10-2022 take 20 mg by mouth once daily at bedtime Rosuvastatin Active 20 MG PO Daily at bedtime December 10, 2022 12:00am sildenafil 100 mg oral tablet (10 sources) Phosphodiesterase 5 Inhibitor Start: 05-04-2024 End: 08-09-2024 sildenafil (Viagra) 100 MG tablet Indications: Erectile dysfunction due to arterial insufficiency Take 1 tablet (100 mg) by mouth if needed for erectile dysfunction 10 tablet 11 08/09/2024 Active Start: 12-10-2022 Sildenafil Act delfina 100 MG PO Daily December 10, 2022 12:00am administer 30 minutes to 4 hours before activity take 1 tablet by arturo th once daily Sildenafil Citrate 100 MG Oral Tablet TAKE 1 TABLET DAILY 1 HOUR BEFORE NEEDED Quantity: 30 Refills: 5 Ordered: 09-Dec-2022 DO Active tadalafil 20 mg oral tablet (5 sources) Phosphodiesterase 5 Inhibitor Start: 03-16-2024 End: 08-09-2024 take 1 tablet by mouth once daily as needed tadalafil (Cialis) 20 MG tablet Indications: Erectile dysfunction due to arterial insufficiency Take 1 tablet (20 mg) by mouth Daily as needed for erectile dysfunction 30 tablet 2 08/09/2024 Active Problems Active Problems Problem Classification Problem Date Documented Da te Episodic/Chronic Cardiac dysrhythmias (3 sources) Palpitations; Translations: [Palpitations] 10-31-2022 Episodic Diabetes mellitus without complication (5 sources) Impaired fasting glycemia; Translations: [Impaired fasting glucose] Onset: 4 10-21-2023 Episodic Disorders of lipid metabolism (6 sources) Hyperlipidemia, unspecified; Translations: [Hypertriglyceridemia] Onset: 3 Chronic Essential hypertension (7 sources) Essential (primary) hypertension; Translations: [Hypertensive disorder] Onset: 3 10-21-2023 Chronic Heart valve disorders (1 source) Other [...] without diagnosis of hypertension] 10-31-2022 Episodic Other ear and sense organ disorders (2 sources) Bilateral hearing loss 08-09-2024 Chronic Other ear and sense organ disorders (2 sources) Sensorineural hearing loss, unilateral, left ear, with unrestricted hearing on the contralateral side; Translations: [Sensorineural hearing loss, unilateral] 08-09-2024 Chronic Other male genital disorders (1 source) Male erectile dysfunction, unspecified; Translations: [Impotence of organic origin] Onset: 4 10-21-2023 Chronic Other male genital disorders (2 sources) Erectile dysfunction co-occurrent and due to arterial insufficiency; Translations: [Erectile dysfunction due to arterial insufficiency] 08-09-2024 Chronic Other nutritional; endocrine; and metabolic disorders (3 sources) Metabolic syndrome X; Translations: [Metabolic syndrome] Onset: 4 10-21-2023 Chronic Other nutritional; endocrine; and metabolic disorders (3 [...] conditions (not mental disorders or infectious disease) (9 sources) Calcification of coronary artery; Translations: [Nonspecific (abnormal) findings on radiological and other examination of other intrathoracic organs] Onset: 3 10-21-2023 Episodic Phlebitis; thrombophlebitis and thromboembolism (8 sources) [...] pack daily. Smoked 1 cigar daily-Quit in 2020; Spondylosis; intervertebral disc disorders; other back problems (3 sources) Lumbar spondylosis; Translations: [Spondylosis without myelopathy or radiculopathy, lumbar region] Onset: 4 10-21-2023 Chronic Substance-related disorders (3 sources) Cigar smoker; Translations: [Nicotine dependence, other tobacco product, uncomplicated] Onset: 4 10-21-2023 Chronic Unclassified (1 source) Encounter for preprocedural laboratory examination; Translations: [Encounter for preprocedural laboratory examination] Onset: 3 Varicose veins of lower extremity (11 sources) Varicose veins of bilateral lower extremities with pain; Translations: [Varicose veins of right lower extremity with pain] Onset: 2 Episodic Past or Other Problems Problem Classification Problem Date Documented Date Episodic/Chronic Other nervous system disorders (3 sources) Carpal tunnel syndrome; Translations: [Carpal tunnel syndrome, unspecified upper limb] Onset: 10-21-2023 Resolved: 08-09-2024 10-21-2023 Chronic Other nervous system disorders (1 source) Other abnormalities of gait and mobility; Translations: [OTHER ABNORMALITIES GAIT AND MOBILITY] Onset: 08-08-2022 Episodic Other nervous system disorders (1 source) Unspecified abnormalities of gait and mobility; Translations: [UNS ABNORMALITIES GAIT AND MOBILITY] Onset: 08-08-2022 Episodic Other non-traumatic joint disorders (1 source) Pain in right knee; Translations: [PAIN IN RIGHT KNEE] Onset: 08-08-2022 Episodic Spondylosis; intervertebral disc disorders; other back problems (3 sources) Cervical radiculopathy; Translations: [Radiculopathy, cervical region] Onset: 10-21-2023 Resolved: 08-09-2024 10-21-2023 Episodic Sprains and strains (5 sources) Strain [...] Test Name Value Interpretation Reference Range Facility Otolaryngology Office/Clinic Noteon 09-01-2024 Otolaryngology Office/Clinic Note Chief Complaint Pt states here for bilateral hearing loss . 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 About 4 months ago he felt the hearing in his left ear suddenly diminished. This was not associated with change in vision, muscle weakness, headache, upper respiratory infection or imbalance/vertigo. There is no history of head trauma. He has a history of noise exposure both from work as well as shooting rifles. Audiogram reveals a bilateral sensorineural hearing loss with a marked low-frequency loss in the left ear up to 2000 Hz. Both tympanic membranes are mobile. Speech discrimination is 84% right but only 60% left. He denies history of ear disease as a child or family history of ear disease. Review of Systems General Adult ROS Fatigue: No Appetite change: No Other General: No Weakness: No Weight gain: No Weight Loss: No Cardiovascular Chest pain/pressure: No Claudication: No Edema: No Orthopnea: No Other Cardiovascular: No Palpitations: No Syncope: No EENMT Bleeding gums: No Dental pain: No Ear drainage: No Ear pain: No Facial pain: No Hearing loss: Yes Hoarseness: No Mouth lesions: No Nasal congestion: No Nasal discharge: No Nosebleeds: No Other EENMT: No Postnasal drainage: No Sore_throat: No Tinnitus: No Vision Changes: No Gastrointestinal Abdominal pain: No Constipation: No Diarrhea: No Dysphagia: No Fecal incontinence: No Heartburn: No Nausea: No Other GI: No Stools, black/bloody: No Vomiting: No Vomiting blood: No Genitourinary Decreased urine output: No Dysuria: No Frequency: No Genital irritation: No Hematuria: No Hesitancy: No Impaired urge sensation: No Other Genitourinary: No Polyuria: No Sexual dysfunction: No Urgency: No Urinary Incontinence: No Vaginal discharge: No Hematologic/Lymphatic Bleeding tendencies: No Bruising: No Other Luis/Lymph: No Musculoskeletal Back pain: No Joint pain: No Joint stiffness: No Joint swelling: No Muscle aches: No Other Musculoskeletal: No Neurological Abnormal Gait: No Focal weakness: No Headache: No Incoordination: No Memory problems: No Numbness: No Other Neurological: No Seizures: No Slurred speech: No Tremor: No Psychiatric Anxiety: No Depression: No Homicidal Ideation: No Other Psychiatric: No Poor sleep quality: No Respiratory Apnea: No Cough: No Hemoptysis: No Other Respiratory: No Shortness_of_breath: No Snoring: No Sputum production: No Wheezing: No Skin Change in skin color: No Hair changes: No Itching: No Lesion/change in moles: No Nail changes: No Other skin: No Rash: No Physical Exam Vitals & Measurements BP: 131/76 HT: 183.5 cm WT: 96.5 kg WT: 96.5 kg (Dosing) BMI: 28.66 General: [Alert and oriented, well nourished, no acute distress]. Eye: [PERRL, EOMI, normal conjunctiva]. HENT: [Normocephalic Ears: Both external ears are healthy without deformity. The canals are clear without significant cerumen. Both tympanic membranes are intact with some scarring change of both TMs. Nose: External nose is healthy without deformity. He does have septal deformity to the left but there is no intranasal purulence or stasis. He breathes quietly through his nose. OC/OP: Moist mucous membranes with significant bruxism change involving the incisors. He is chewing gum during the exam. He has a normal lingual coat and the oropharynx is unremarkable without postnasal drainage. Neck: [Supple, non-tender, no lymphadenopathy]. Lungs: [Clear to auscultation and percussion, non-labored respiration]. Heart: [Normal rate, regular rhythm, no murmur, gallop or edema]. Skin: [Skin is warm, dry and pink, no rashes or lesions]. Neurologic: [Awake, alert, and oriented X3, CN II-XII intact]. Psychiatric: [Cooperative, appropriate mood and affect]. Additional Vitals BP Position/Location: Sitting, Right arm Assessment/Plan 1. Sudden left hearing loss 2. Hearing loss, sensorineural, asymmetrical 3. Bilateral sensorineural hearing loss 4. Noise-induced hearing loss of both ears Recommendation: I have advised the patient that an ABR would be initially indicated. He is aware that this may not give us a good answer but it is worth trying first as the second choice would be to obtain an MRI. A low-frequency hearing loss is unlikely caused by an acoustic neuroma but it is possible. I will see him when the ABR is performed. Medical Decision Making Chronic conditions NOT treated during this visit that affected my overall medical decision making: [] Treatment plans discussed but not opted for at this time: [] Prescribed medication that requires intensive monitoring for toxicity: [] I have reviewed the patient?s medication list for medication interactions/contraindicat ions and/or for upcoming procedures: [yes or no] Time Spent with the Pa (more content not included)... Normal [facility] URINALYSIS, WITH MICROS COPICon 07-11-2024 BACTERIA URINE NONE SEEN NONE SEEN #/HPF [facility] BILIRUBIN URINE Negative NEGATIVE [facility] BLOOD URINE Negative NEGATIVE [facility] CAST SEEN? NONE SEEN NONE SEEN #/LPF [facility] Clarity (U) CLEAR CLEAR [facility] Color (U) LT. YELLOW YELLOW [facility] CRYSTALS SEEN? None Seen None Seen #/HPF [facility] GLUCOSE URINE UA Negative NEGATIVE mg/dL [facility] Ketones Ql (U) Negative NEGATIVE [facility] Leukocyte esterase Test strip Ql (U) Negative NEGATIVE [facility] MUCUS URINE NONE SEEN NONE SEEN [facility] NITRITE URINE Negative NEGATIVE [facility] pH (U) 6.5 [pH] 5.0 - 9.0 [facility] PROTEIN URINE Negative NEG/TRACE mg/dL [facility] SPECIFIC GRAVITY URINE 1.010 1.005 - 1.025 [facility] SQUAMOUS EPITHELIAL CELL URINE RARE NONE/RARE #/LPF [facility] Healthcare TBH RBC NONE SEEN [facility] TBH WBC NONE SEEN NONE SEEN #/HPF [facility] URINE CULTURE INDICATED NO [facility] UROBILINOGEN URINE 1.0 EU/dL 0.2 - 1.0 EU/dL [facility] Activated partial thrombopla stin time (aPTT) in platelet poor plasma by coagulation aOrdered By: Dave Garcia on 12-10-2022 aPTT Coag (PPP) [Time] 32.8 s 25.1-36.5 [facility] Basophils Auto (Bld) [#/Vol] Ordered By: Dave Garcia on 12-10-2022 Basophils (Bld) [#/Vol] 0.0 10*3/uL 0.0-0.2 [facility] Basophils/100 WBC Auto (Bld) Ordered By: Dave Garcia on 12-10-2022 Basophils/100 WBC (Bld) 0.5 % . [facility] Blood Urea Nitrogenon 2022 Urea nitrogen [Mass/Vol] 18 mg/dL Normal 7-25 [facility] Comment on above: Performed By: #### L IPID, CREAT, PP, CBC, LYTES, BUN #### [facility] [address] Carbon dioxide, total [Moles /volume] in Serum or PlasmaOrdered By: Dave Garcia on 12-10-2022 CO2 [Moles/Vol] 28.7 mmol/L 21.0-31.[address] [facility] Chloride [Moles/volume] in S jose carlos or PlasmaOrdered By: Dave Garcia on 12-10-2022 Chloride [Moles/Vol] 107 mmol/L 98-107 [facility] Cholesterol [Mass/volume] in Serum or PlasmaOrdered By: Dave Garcia on 12-10-2022 Cholesterol [Mass/Vol] 118 mg/dL 140-200 [facility] Comment on above: Chol less than 200 m g/dl low riskChol 201-239 mg/dl borderline riskChol 240 mg/dl and greater high risk Cholesterol in LDL Calc [Mas s/Vol]Ordered By: Dave Garcia on 12-10-2022 Cholesterol in LDL [Mass/Vol] 57 mg/dL 0-100 [facility] Comment on above: LDL ATP III CLASSIFI CATIONLDL less than 100 mg/dL OptimalLDL 100-129 mg/dL Near or above optimalLDL 130-159 mg/dL Borderline highLDL 160-189 mg/dL HighLDL greater than 189 mg/dL Very high Cholesterol in VLDL Calc [Ma ss/Vol]Ordered By: Dave Garcia on 12-10-2022 Cholesterol in VLDL [Mass/Vol] 13 mg/dL [facility] Coagulation Profileon 2022 aPTT Coag (Bld) [Time] 32.8 s Normal 25.1-36.5 [facility] Comment on above: Result Comment: PERF ORMED BY: [place] [address] PATHOLOGIST [employer] MANAGER ALEKSANDER TOBIN M.D. Performed By: #### L IPID, CREAT, PP, CBC, LYTES, BUN #### [facility] [address] INR Coag (PPP) [Relative time] 1.0 {INR} Normal [facility] Comment on above: Result Comment: INR Therapeutic [...] IPID, CREAT, PP, CBC, LYTES, BUN #### [address] PT Coag (PPP) [Time] 11.8 s Normal 9.0-12.9 [facility] Comment on above: Performed By: #### L IPID, CREAT, PP, CBC, LYTES, BUN #### [address] Complete Blood Count Auto Di ffon 12-10-2022 Basophils (Bld) [#/Vol] 0.0 10*3/uL Normal 0.0-0.2 [facility] Comment on above: Result Comment: PERF ORMED BY: [place] [address] PATHOLOGIST [employer]IOR [employer]S MANAGER ALEKSANDER TOBIN M.D. Performed By: #### L IPID, CREAT, PP, CBC, LYTES, BUN #### [address] Basophils/100 WBC (Bld) 0.5 % Normal . [facility] Comment on above: Performed By: #### L IPID, CREAT, PP, CBC, LYTES, BUN #### [address] Eosinophils (Bld) [#/Vol] 0.1 10*3/uL Normal 0.0-0.45 [facility] Comment on above: Performed By: #### L IPID, CREAT, PP, CBC, LYTES, BUN #### [address] [address] [place] Eosinophils/100 WBC (Bld) 1.7 % Normal . [facility] Comment on above: Performed By: #### L IPID, CREAT, PP, CBC, LYTES, BUN #### [address] Erythrocyte distribution width (RBC) [Ratio] 14.1 % Normal 12.0-14.8 [facility] Comment on above: Performed By: #### L IPID, CREAT, PP, CBC, LYTES, BUN #### [address] Hematocrit (Bld) [Volume fraction] 44.7 % Normal 38.8-50.0 [facility] Comment on above: Performed By: #### L IPID, CREAT, PP, CBC, LYTES, BUN #### [address] Hemoglobin (Bld) [Mass/Vol] 14.9 g/dL Normal 13.0-17.0 [facility] Comment on above: Performed By: #### L IPID, CREAT, PP, CBC, LYTES, BUN #### [address] Lymphocytes (Bld) [#/Vol] 1.3 10*3/uL Normal 1.00-4.8 [facility] Comment on above: Performed By: #### L IPID, CREAT, PP, CBC, LYTES, BUN #### [address] Lymphocytes/100 WBC (Bld) 22.4 % Normal . [facility] Comment on above: Performed By: #### L IPID, CREAT, PP, CBC, LYTES, BUN #### [address] MCH (RBC) [Entitic mass] 27.4 pg Low 27.5-35.2 [facility] Comment on above: Performed By: #### L IPID, CREAT, PP, CBC, LYTES, BUN #### [address] MCV (RBC) [Entitic vol] 82.4 fL Low 83.5-101 [facility] Comment on above: Performed By: #### L IPID, CREAT, PP, CBC, LYTES, BUN #### [address] Mean Corpuscular HGB Conc 33.3 g/dL Normal 32.5-35.6 [facility] Comment on above: Performed By: #### L IPID, CREAT, PP, CBC, LYTES, BUN #### [address] Monocytes (Bld) [#/Vol] 0.6 10*3/uL Normal 0.0-0.8 [facility] Comment on above: Performed By: #### L IPID, CREAT, PP, CBC, LYTES, BUN #### [address] Monocytes/100 WBC (Bld) 9.7 % Normal . [facility] Comment on above: Performed By: #### L IPID, CREAT, PP, CBC, LYTES, BUN #### [address] Neutrophils (Bld) [#/Vol] 3.8 10*3/uL Normal 1.8-7.7 [facility] Comment on above: Performed By: #### L IPID, CREAT, PP, CBC, LYTES, BUN #### [address] Neutrophils/100 WBC (Bld) 65.7 % Normal . [facility] Comment on above: Performed By: #### L IPID, CREAT, PP, CBC, LYTES, BUN #### [address] NRBC% 0.6 /100{WBC} High 0-0.5 [facility] Comment on above: Performed By: #### L IPID, CREAT, PP, CBC, LYTES, BUN #### [address] [place] [address] [place] Platelet mean volume (Bld) [Entitic vol] 7.8 fL Normal 6.6-10.1 [facility] Comment on above: Performed By: #### L IPID, CREAT, PP, CBC, LYTES, BUN #### [facility] [address] Platelets (Bld) [#/Vol] 162 10*3/uL Normal 150-450 [facility] Comment on above: Performed By: #### L IPID, CREAT, PP, CBC, LYTES, BUN #### [address] RBC (Bld) [#/Vol] 5.43 10*6/uL Normal 3.90-5.60 [facility] Comment on above: Performed By: #### L IPID, CREAT, PP, CBC, LYTES, BUN #### [address] WBC (Bld) [#/Vol] 5.7 10*3/uL Normal 4.1-10.5 [facility] Comment on above: Performed By: #### L IPID, CREAT, PP, CBC, LYTES, BUN #### [address] Creatinineon 12-10-2022 Creatinine [Mass/Vol] 0.97 mg/dL Normal 0.70-1.30 [facility] Comment on above: Performed By: #### L IPID, CREAT, PP, CBC, LYTES, BUN #### [address] GFR/1.73 sq M.predicted MDRD (S/P/Bld) [Vol rate/Area] mL/min/{1.73_m2} [facility] Comment on above: Performed By: #### L IPID, CREAT, PP, CBC, LYTES, BUN #### [address] Creatinine [Mass/volume] in Serum or PlasmaOrdered By: Dave Garcia on 12-10-2022 Creatinine [Mass/Vol] 0.97 mg/dL 0.70-1.30 [facility] ECG 12 lead ECGon 12-10-2022 ECG 12 lead ECG [facility] Main [place] [address] [place] [address] Electrocardiograph Report Signed Patient: Mariano Hall MR#: [id number] : 1960 Acct:[id number] Age/Sex: 62 / M ADM Date: 12/10/22 Loc: Room: Type: [facility] Attending Dr: Dave Garcia DO Ordering Provider: [...] change was found Confirmed by ANK[facility]UEZ [id number] on 12/10/2022 4:25:08 PM Referred By: GUERDA GARCIA Electronically Signed By:GINA FERNANDEZ MD [facility] Transcribed By: MUS Signed By Gina Fernandez MD, FACC 12/10/22 1625 Normal [facility] Electrolyteson 12-10-2022 Anion gap [Moles/Vol] 8.6 mmol/L Normal 6.0-15.0 [facility] Comment on above: Performed By: #### L IPID, CREAT, PP, CBC, LYTES, BUN #### [facility] [address] [place] [address] [place] Chloride [Moles/Vol] 107 mmol/L Normal 98-107 [facility] Comment on above: Performed By: #### L IPID, CREAT, PP, CBC, LYTES, BUN #### [facility] [address] CO2 [Moles/Vol] 28.7 mmol/L Normal 21.0-31.[address] [facility] Comment on above: Performed By: #### L IPID, CREAT, PP, CBC, LYTES, BUN #### [facility] [address] Potassium [Moles/Vol] 4.3 mmol/L Normal 3.5-5.1 [facility] Comment on above: Performed By: #### L IPID, CREAT, PP, CBC, LYTES, BUN #### [facility] [address] Sodium [Moles/Vol] 140 mmol/L Normal 136-145 [facility] Comment on above: Performed By: #### L IPID, CREAT, PP, CBC, LYTES, BUN #### [facility] [address] Eosinophils Auto (Bld) [#/Vo l]Ordered By: Dave Garcia on 12-10-2022 Eosinophils (Bld) [#/Vol] 0.1 10*3/uL 0.0-0.45 [facility] Eosinophils/100 WBC Auto (Bl d)Ordered By: Dave Garcia on 12-10-2022 Eosinophils/100 WBC (Bld) 1.7 % . [facility] Erythrocyte distribution wid th Auto (RBC) [Ratio]Ordered By: Dave Garcia on 12-10-2022 Erythrocyte distribution width (RBC) [Ratio] 14.1 % 12.0-14.8 [facility] Hematocrit Auto (Bld) [Volum e fraction]Ordered By: Dave Garcia on 12-10-2022 Hematocrit (Bld) [Volume fraction] 44.7 % 38.8-50.0 [facility] Hemoglobin [Mass/volume] in BloodOrdered By: Dave Garcia on 12-10-2022 Hemoglobin (Bld) [Mass/Vol] 14.9 g/dL 13.0-17.0 [facility] Laboratory - Chemistry and C hemistry - challengeon 12-10-2022 Cholesterol [Mass/Vol] 118\S\118 below low threshold 140-200 [facility] GILU[facility] alonso 250 DO Work Phone: Comment on above: Chol less than 200 m g/dl low risk Chol 201-239 mg/dl borderline risk Chol 240 mg/dl and greater high risk Cholesterol in LDL [Mass/Vol] 57\S\57 Normal 0-100 [facility] [employer] alonso 250 DO Work Phone: Comment on above: LDL ATP III CLASSIFI CATION LDL less than 100 mg/dL Optimal LDL 100-129 mg/dL Near or above optimal LDL 130-159 mg/dL Borderline high LDL 160-189 mg/dL High LDL greater than 189 mg/dL Very high Laboratory - Chemistry and C hemistry - challengeOrdered By: Dave Garcia on 12-10-2022 GFR/1.73 sq M.predicted MDRD (S/P/Bld) [Vol rate/Area] mL/min/{1.73_m2} [facility] Laboratory - CoagulationOrde red By: Dave Garcia on 12-10-2022 PT Coag (PPP) [Time] 11.8 s 9.0-12.9 [facility] Leukocytes [#/volume] correc laya for nucleated erythrocytes in Blood by Automated counOrdered By: Dave Garcia on 12-10-2022 WBC corrected for nucl RBC Auto (Bld) [#/Vol] 5.7 10*3/uL 4.1-10.5 [facility] Lipid Panelon 12-10-2022 Cholesterol [Mass/Vol] 118 mg/dL Low 140-200 [facility] Comment on above: Result Comment: Chol less than 200 mg/dl low risk Chol 201-239 mg/dl borderline risk Chol 240 mg/dl and greater high risk Performed By: #### L IPID, CREAT, PP, CBC, LYTES, BUN #### [facility] [address] Cholesterol in HDL [Mass/Vol] 48 mg/dL Normal 29-71 [facility] Comment on above: Result Comment: HDL CHOL ATP-III CLASSIFICATION Cardiovascular Risk HDL > or equal to 60 mg/dL LOW HDL < 40 mg/dL HIGH Performed By: #### L IPID, CREAT, PP, CBC, LYTES, BUN #### [facility] [address] Cholesterol.total/Chol esterol in HDL [Mass ratio] 2.5 {ratio} Normal <5.0 [facility] Comment on above: Result Comment: PERF ORMED BY: [place] [address] PATHOLOGIST SENIOR CONTRACTS MANAGER ALEKSANDER TOBIN M.D. Performed By: #### L IPID, CREAT, PP, CBC, LYTES, BUN #### [facility] [address] LDL Cholesterol,Calculated 57 mg/dL Normal 0-100 [facility] Comment on above: Result Comment: LDL ATP III CLASSIFICATION LDL less than 100 mg/dL Optimal LDL 100-129 mg/dL Near or above optimal LDL 130-159 mg/dL Borderline high LDL 160-189 mg/dL High LDL greater than 189 mg/dL Very high Performed By: #### L IPID, CREAT, PP, CBC, LYTES, BUN #### [facility] [address] Triglyceride w/Reflex 67 mg/dL Normal 0-149 [facility] Comment on above: Result Comment: TRIG ATP III CLASSIFICATION TRIG less than 150 mg/dL Normal TRIG 150-199 mg/dL Borderline high TRIG 200-500 mg/dL High TRIG greater than 500 mg/dL Very high Standard traceable to the Center for Disease Conrtrol and Prevention (CDC) test method. Performed By: #### L IPID, CREAT, PP, CBC, LYTES, BUN #### [facility] [address] VLDL CHOLESTEROL 13 mg/dL Normal [facility] Comment on above: Performed By: #### L IPID, CREAT, PP, CBC, LYTES, BUN #### [facility] [address] Lymphocytes Auto (Bld) [#/Vo l]Ordered By: Dave Garcia on 12-10-2022 Lymphocytes (Bld) [#/Vol] 1.3 10*3/uL 1.00-4.8 [facility] Lymphocytes/100 WBC Auto (Bl d)Ordered By: Dave Garcia on 12-10-2022 Lymphocytes/100 WBC (Bld) 22.4 % . [facility] MCH Auto (RBC) [Entitic mass ]Ordered By: Dave Garcia on 12-10-2022 MCH (RBC) [Entitic mass] 27.4 pg 27.5-35.2 [facility] MCHC Auto (RBC) [Mass/Vol]Or dered By: Dave Garcia on 12-10-2022 MCHC (RBC) [Mass/Vol] 33.3 g/dL 32.5-35.6 [facility] MCV Auto (RBC) [Entitic vol] Ordered By: Dave Garcia on 12-10-2022 MCV (RBC) [Entitic vol] 82.4 fL 83.5-101 [facility] Monocytes Auto (Bld) [#/Vol] Ordered By: Dave Garcia on 12-10-2022 Monocytes (Bld) [#/Vol] 0.6 10*3/uL 0.0-0.8 [facility] Monocytes/100 WBC Auto (Bld) Ordered By: Dave Garcia on 12-10-2022 Monocytes/100 WBC (Bld) 9.7 % . [facility] Neutrophils Auto (Bld) [#/Vo l]Ordered By: Dave Garcia on 12-10-2022 Neutrophils (Bld) [#/Vol] 3.8 10*3/uL 1.8-7.7 [facility] Neutrophils/100 WBC Auto (Bl d)Ordered By: Dave Garcia on 12-10-2022 Neutrophils/100 WBC (Bld) 65.7 % . [facility] No Panel InformationOrdered By: Dave Garcia on 12-10-2022 Pharmacy Creatinine Clearance (Chem N/A [facility] No Panel Informationon 12-10 0.0\S\0.0 Normal 0.0-0.2 -[facility] alonso 250 DO Work Phone: Comment on above: PERFORMED BY:[address] [address] [place], [place] [phone] MEDICAL DIRECTORALEKSANDER TOBIN M.D. 0.1\S\0.1 Normal 0.0-0.45 -[facility] alonso 250 DO Work Phone: [phone] 0.6\S\0.6 above high threshold 0-0.5 [facility] alonso 250 DO Work Phone: [phone] 1.3\S\1.3 Normal 1.00-4.8 [facility]u alonso 250 DO Work Phone: [phone] 3.8\S\3.8 Normal 1.8-7.7 -[facility] alonso 250 DO Work Phone: [phone] 0.5\S\0.5 Normal . [facility] alonso 250 DO Work Phone: [phone] 1.7\S\1.7 Normal . [facility] alonso 250 DO Work Phone: [phone] 9.7\S\9.7 Normal . [facility] alonso 250 DO Work Phone: [phone] 22.4\S\22.4 Normal . [facility]-Bereniceu alonso 250 DO Work Phone: [phone] 65.7\S\65.7 Normal . [facility] alonso 250 DO Work Phone: [phone] 7.8\S\7.8 Normal 6.6-10.1 [facility]-Bereniceu alonso 250 DO Work Phone: [phone] 162\S\162 Normal 150-450 [facility]Sand[facility] alonso 250 DO Work Phone: [phone] 14.1\S\14.1 Normal 12.0-14.8 [facility] alonso 250 DO Work Phone: [phone] 33.3\S\33.3 Normal 32.5-35.6 [facility]Sandu alonso 250 DO Work Phone: [phone] 27.4\S\27.4 below low threshold 27.5-35.2 [facility]-Jose Alfredo alonso 250 DO Work Phone: 82.4\S\82.4 below low threshold 83.5-101 -[facility] alonso 250 DO Work Phone: [phone] 44.7\S\44.7 Normal 38.8-50.0 [facility]-Jose Alfredo alonso 250 DO Work Phone: [phone] 14.9\S\14.9 Normal 13.0-17.0 [facility]Jose Alfredo alonso 250 DO Work Phone: [phone] 5.43\S\5.43 Normal 3.90-5.60 [facility] Alfredo alonso 250 DO Work Phone: 5.7\S\5.7 Normal 4.1-10.5 [facility] Alfredo alonso 250 DO Work Phone: 32.8\S\32.8 Normal 25.1-36.5 [facility]-Jose Alfredo gupta 250 DO Work Phone: Comment on above: PERFORMED BY:[address] [address] [place] [place], [place] [phone] MEDICAL DIRECTORALEKSANDER TOBIN M.D. 1.0\S\1.0 Normal [facility] edwardsy 250 DO Work Phone: Comment on above: [...] valves: 3 - 4.5 11.8\S\11.8 Normal 9.0-12.9 [facility]-Bereniceu alonso 250 DO Work Phone: [phone] 8.6\S\8.6 Normal 6.0-15.0 [facility]Jose Alfredo alonso 250 DO Work Phone: 28.7\S\28.7 Normal 21.0-31.0 [facility] Alfredo alonso 250 DO Work Phone: 107\S\107 Normal 98-107 [facility] Alfredo gupta 250 DO Work Phone: 4.3\S\4.3 Normal 3.5-5.1 [facility]-Jose Alfredo edwardsy 250 DO Work Phone: 140\S\140 Normal 136-145 [facility]Jose Alfredo gupta 250 DO Work Phone: 18\S\18 Normal 7-25 [facility]Jose Alfredo gupta 250 DO Work Phone: [phone] > 60.0 Normal [facility]-Jose Alfredo gupta 250 DO Work Phone: 0.97\S\0.97 Normal 0.70-1.30 [facility] Alfredo gupta 250 DO Work Phone: [phone] 2.5\S\2.5 Normal <5.0 [facility] Alfredo gupta 250 DO Work Phone: Comment on above: PERFORMED BY:[address] [place], [place] [phone] MEDICAL DIRECTORALEKSANDER TOBIN M.D. 13\S\13 Normal [facility]Jose Alfredo gupta 250 DO Work Phone: 67\S\67 Normal 0-149 [facility]Jose Alfredo gupta 250 DO Work Phone: [phone] Comment on above: TRIG ATP III CLASSIF ICATION TRIG less than 150 mg/dL Normal TRIG 150-199 mg/dL Borderline high TRIG 200-500 mg/dL High TRIG greater than 500 mg/dL Very high Standard traceable to the Center for Disease Conrtrol and Prevention (CDC) test method. 48\S\48 Normal 29-71 [facility]-Jose Alfredo edwardsy 250 DO Work Phone: Comment on above: HDL CHOL ATP-III CLA SSIFICATION Cardiovascular Risk HDL > or equal to 60 mg/dL LOW HDL < 40 mg/dL HIGH Nucleated erythrocytes [Pres ence] in Blood by Automated countOrdered By: Dave Garcia on 12-10-2022 Nucleated RBC Auto Ql (Bld) 0.6 /100{WBC} 0-0.5 [facility] Platelet mean volume Auto (B ld) [Entitic vol]Ordered By: Dave Garcia on 12-10-2022 Platelet mean volume (Bld) [Entitic vol] 7.8 fL 6.6-10.1 [facility] Platelet poor plasma interna tional normalized ratio (INR) by coagulation assay (relatOrdered By: Dave Garcia on 12-10-2022 INR Coag (PPP) [Relative time] 1.0 {INR} [facility] Comment on above: INR Therapeutic Rang e [...] 12-10-2022 Platelets (Bld) [#/Vol] 162 10*3/uL 150-450 [facility] Potassium [Moles/volume] in Serum or PlasmaOrdered By: Dave Garcai on 12-10-2022 Potassium [Moles/Vol] 4.3 mmol/L 3.5-5.1 [facility] RBC Auto (Bld) [#/Vol]Ordere d By: Dave Garcia on 12-10-2022 RBC (Bld) [#/Vol] 5.43 10*6/uL 3.90-5.60 [facility] Serum or plasma anion gap de terminationOrdered By: Dave Garcia on 12-10-2022 Anion gap [Moles/Vol] 8.6 mmol/L 6.0-15.0 [facility] Serum or plasma high density lipoprotein (HDL) cholesterol measurementOrdered By: Dave Garcia on 12-10-2022 Cholesterol in HDL [Mass/Vol] 48 mg/dL 29-71 [facility] Comment on above: HDL CHOL ATP-III CLA SSIFICATION Cardiovascular RiskHDL > or equal to 60 mg/dL LOWHDL < 40 mg/dL HIGH Serum or plasma total choles terol/high density lipoprotein (HDL) cholesterol mass ratOrdered By: Dave Garcia on 12-10-2022 Cholesterol.total/Chol esterol in HDL [Mass ratio] 2.5 {ratio} <5.0 [facility] Sodium [Moles/volume] in Ser um or PlasmaOrdered By: Dave Garcia on 12-10-2022 Sodium [Moles/Vol] 140 mmol/L 136-145 [facility] Triglyceride [Mass/volume] i n Serum or PlasmaOrdered By: Dave Garcia on 12-10-2022 Triglyceride [Mass/Vol] 67 mg/dL 0-149 [facility] Comment on above: TRIG ATP III CLASSIF ICATIONTRIG less than 150 mg/dL NormalTRIG 150-199 mg/dL Borderline highTRIG 200-500 mg/dL High TRIG greater than 500 mg/dL Very highStandard traceable to the Center for Disease Conrtrol and Prevention (CDC) test method. Urea nitrogen [Mass/volume] in Serum or PlasmaOrdered By: Dave Garcia on 12-10-2022 Urea nitrogen [Mass/Vol] 18 mg/dL 7-25 [facility] WBC Auto (Bld) [#/Vol]Ordere d By: Dave Garcia on 12-10-2022 WBC (Bld) [#/Vol] 5.7 10*3/uL 4.1-10.5 [facility] Office Visit (Cardiology)on 12-09-2022 Follow-up visit Diagnoses/Problems [...] Follow up after testing completed Chief Complaint MARIANO HALL is being seen for a consultation [...] pressure results. He underwent stress testing at [facility] details of which are unknown but he was told he achieved his target heart rate and there were no EKG changes and he did not describe any angina. We do not have details of the stress test as of yet. He did have calcium score performed in [facility] which revealed mild proximal LAD calcification [...] Vital Signs Recorded: 09Dec2022 08:58AMRecorded: 09Dec2022 08:56AM [id number], LUE, [id number], RUE, Sitting [id number], LUE, [id number], RUE, Sitting PHQ-2 #1. Over the last 2 weeks have you felt down, depresse (more content not included)... Normal [facility] PHQ-2 VITALSon 12-09-2022 Adult depression screening assessment No [facility]-Sandu alonso 250 DO Work Phone: Tobacco Screening.on 023 Fall risk assessment c) Not medically indicated -[facility]Jose Alfredo edwardsy 250 DO Work Phone: Tobacco use status CP b) No -[facility] Alfredo alonso 250 DO Work Phone: CT CARDIAC SCORINGon 023 CT CARDIAC SCORING Addendum Begins Patient Name: MARIANO HALL ADDENDUM: Technical: The following is to [...] JENNIFER FUENTES MD Addendum Ends Patient Name: MARIANO HALL STUDY: CT CARDIAC SCORING; 12/02/2022 3:04 pm INDICATION: Hyperlipidemia, unspecified. COMPARISON: None. ACCESSION NUMBER(S): [id number] ORDERING CLINICIAN: OLIVA CROFT TECHNIQUE: Using prospective [...] using link below [email or web address]://[email or web address]-[email or web address] [email or web address]/[email or web address] /RiskScore.aspx Luisa et al. JACC 2014 (http://dx.doi.org/10.1016 /j.j acc.2015.08.035) Reading Third Loader: Dr. Akua Kline, Date: 12/02/2022 3:21 pm Electronically signed by: JENNIFER FUENTES MD Normal [facility] CT Cardiac Scoringon 023 CT Cardiac Scoring Normal [facility]-Sandu alonso 250 DO Work Phone: ECHOCARDIO M/2D COMPLETEon 0 11-12-2022 ECHOCARDIO M/2D COMPLETE Patient: MARAINO HALL Exam Date: 11/12/2022 : 1960 Gender:M Ordering : DR OLIVA CROFT Admission #: [id number] Family : Order #: [id number] CLICK HERE TO VIEW EXAM ECHOCARDIOGRAM REPORT [...] Faustin M.D. on 11/12/2022 at 11:31 Normal [facility] NM STRESS/REST MULTIon 11-12 NM STRESS/REST MULTI Patient: VERÓNICA HALLChang Exam Date: 11/12/2022 : 1960 Gender:M Ordering : DR OLIVA CROFT Admission #: [id number] Family : Order #: [id number] CLICK HERE TO VIEW EXAM RADIOLOGY REPORT [...] wall motion and ejection fraction. Dictated by: Mariano Knutson M.D. on 11/13/2022 at 12:07 Approved by: Mariano Knutson M.D. on 11/13/2022 at 12:09 Normal [facility] Activated partial thrombopla stin time (aPTT) in platelet poor plasma by coagulation aOrdered By: Christiano Weston on 10-31-2022 aPTT Coag (PPP) [Time] 33.6 s 25.1-36.5 [facility] B-Type Natriuretic Peptideon 10-31-2022 Natriuretic peptide B (Bld) [Mass/Vol] 42.0 pg/mL Normal 5-100 [facility] Comment on above: Result Comment: PERF ORMED BY: [place] [address] PATHOLOGIST SENIOR CONTRACTS MANAGER ALEKSANDER TOBIN M.D. Performed By: #### L IPID, CREAT, PP, CBC, LYTES, BUN #### [facility] [address] [place] [address] Basic Metabolic Panelon 10-22 Anion gap [Moles/Vol] 10.2 mmol/L Normal 6.0-15.0 [facility] Comment on above: Performed By: #### B HOME STAGING SPECIALIST, HS TROP, PT, PTT, CBC, CKMB, BMP #### [facility] [address] [place] [address] [facility] Calcium [Mass/Vol] 9.1 mg/dL Normal 8.2-10.2 [facility] Comment on above: Performed By: #### B HOME STAGING SPECIALIST, HS TROP, PT, PTT, CBC, CKMB, BMP #### [address] Chloride [Moles/Vol] 105 mmol/L Normal 95-114 [facility] Comment on above: Performed By: #### B HOME STAGING SPECIALIST, HS TROP, PT, PTT, CBC, CKMB, BMP #### [address] CO2 [Moles/Vol] 26.9 mmol/L Normal 22.0-30.[address] [facility] Comment on above: Performed By: #### B HOME STAGING SPECIALIST, HS TROP, PT, PTT, CBC, CKMB, BMP #### [address] Creatinine [Mass/Vol] 0.95 mg/dL Normal 0.64-1.27 [facility] Comment on above: Performed By: #### B HOME STAGING SPECIALIST, HS TROP, PT, PTT, CBC, CKMB, BMP #### [address] Creatinine Clr Calc Pharmacy 92.54 [facility] Comment on above: Result Comment: PERF ORMED BY: [place] [address] PATHOLOGIST SENIOR CONTRACTS MANAGER ALEKSANDER TOBIN M.D. Performed By: #### B HOME STAGING SPECIALIST, HS TROP, PT, PTT, CBC, CKMB, BMP #### [address] Estimated GFR ( Milady > 60 [facility] Comment on above: Result Comment: GFR estimated reference range: According to KDOQI guidelines, <60 ml/min/1.73m2 is sufficient to diagnose a patient with chronic kidney disease. Performed By: #### B HOME STAGING SPECIALIST, HS TROP, PT, PTT, CBC, CKMB, BMP #### [address] Estimated GFR (Non- Am > 60 [facility] Comment on above: Performed By: #### B HOME STAGING SPECIALIST, HS TROP, PT, PTT, CBC, CKMB, BMP #### [facility] [address] Glucose [Mass/Vol] 95 mg/dL Normal 70-100 [facility] Comment on above: Result Comment: [facility] Glucose Reference Range is dependent on time and content of last meal. Glucose of more than 200 mg/dL in a nonstressed, ambulatory subject supports the diagnosis of Diabetes Mellitus. ADA recommended reference range Performed By: #### B HOME STAGING SPECIALIST, HS TROP, PT, PTT, CBC, CKMB, BMP #### [facility] [address] Potassium [Moles/Vol] 4.1 mmol/L Normal 3.5-5.1 [facility] Comment on above: Performed By: #### B HOME STAGING SPECIALIST, HS TROP, PT, PTT, CBC, CKMB, BMP #### [facility] [address] Sodium [Moles/Vol] 138 mmol/L Normal 136-146 [facility] Comment on above: Performed By: #### B HOME STAGING SPECIALIST, HS TROP, PT, PTT, CBC, CKMB, BMP #### [facility] [address] Urea nitrogen [Mass/Vol] 16 mg/dL Normal 9-23 [facility] Comment on above: Performed By: #### B HOME STAGING SPECIALIST, HS TROP, PT, PTT, CBC, CKMB, BMP #### [place] [address] [place] Basophils Auto (Bld) [#/Vol] Ordered By: Christiano Weston on 10-31-2022 Basophils (Bld) [#/Vol] 0.0 10*3/uL 0.0-0.2 [facility] Basophils/100 WBC Auto (Bld) Ordered By: Christiano Weston on 10-31-2022 Basophils/100 WBC (Bld) 0.6 % . [facility] Complete Blood Count Auto Di ffon 10-31-2022 Basophils (Bld) [#/Vol] 0.0 10*3/uL Normal 0.0-0.2 [facility] Comment on above: Result Comment: PERF ORMED BY: [place] [address] PATHOLOGIST SENIOR CONTRACTS MANAGER ALEKSANDER TOBIN M.D. Performed By: #### B HOME STAGING SPECIALIST, HS TROP, PT, PTT, CBC, CKMB, BMP #### [address] Basophils/100 WBC (Bld) 0.6 % Normal . [facility] Comment on above: Performed By: #### B HOME STAGING SPECIALIST, HS TROP, PT, PTT, CBC, CKMB, BMP #### [address] Eosinophils (Bld) [#/Vol] 0.1 10*3/uL Normal 0.0-0.45 [facility] Comment on above: Performed By: #### B HOME STAGING SPECIALIST, HS TROP, PT, PTT, CBC, CKMB, BMP #### [address] Eosinophils/100 WBC (Bld) 1.3 % Normal . [facility] Comment on above: Performed By: #### B HOME STAGING SPECIALIST, HS TROP, PT, PTT, CBC, CKMB, BMP #### [address] Erythrocyte distribution width (RBC) [Ratio] 14.3 % Normal 12.0-14.8 [facility] Comment on above: Performed By: #### B HOME STAGING SPECIALIST, HS TROP, PT, PTT, CBC, CKMB, BMP #### [address] Hematocrit (Bld) [Volume fraction] 45.3 % Normal 38.8-50.0 [facility] Comment on above: Performed By: #### B HOME STAGING SPECIALIST, HS TROP, PT, PTT, CBC, CKMB, BMP #### [address] Hemoglobin (Bld) [Mass/Vol] 15.0 g/dL Normal 13.0-17.0 [facility] Comment on above: Performed By: #### B HOME STAGING SPECIALIST, HS TROP, PT, PTT, CBC, CKMB, BMP #### [address] Lymphocytes (Bld) [#/Vol] 1.1 10*3/uL Normal 1.00-4.8 [facility] Comment on above: Performed By: #### B HOME STAGING SPECIALIST, HS TROP, PT, PTT, CBC, CKMB, BMP #### [address] Lymphocytes/100 WBC (Bld) 17.2 % Normal . [facility] Comment on above: Performed By: #### B HOME STAGING SPECIALIST, HS TROP, PT, PTT, CBC, CKMB, BMP #### [address] MCH (RBC) [Entitic mass] 27.7 pg Normal 27.5-35.2 [facility] Comment on above: Performed By: #### B HOME STAGING SPECIALIST, HS TROP, PT, PTT, CBC, CKMB, BMP #### [address] MCV (RBC) [Entitic vol] 83.4 fL Low 83.5-101 [facility] Comment on above: Performed By: #### B HOME STAGING SPECIALIST, HS TROP, PT, PTT, CBC, CKMB, BMP #### [address] Mean Corpuscular HGB Conc 33.2 g/dL Normal 32.5-35.6 [facility] Comment on above: Performed By: #### B HOME STAGING SPECIALIST, HS TROP, PT, PTT, CBC, CKMB, BMP #### [address] Monocytes (Bld) [#/Vol] 0.6 10*3/uL Normal 0.0-0.8 [facility] Comment on above: Performed By: #### B HOME STAGING SPECIALIST, HS TROP, PT, PTT, CBC, CKMB, BMP #### [address] Monocytes/100 WBC (Bld) 15.84 % Normal 0.00-20.00 [facility] Comment on above: Performed By: #### B HOME STAGING SPECIALIST, HS TROP, PT, PTT, CBC, CKMB, BMP #### [address] Monocytes/100 WBC (Bld) 9.9 % Normal . [facility] Comment on above: Performed By: #### B HOME STAGING SPECIALIST, HS TROP, PT, PTT, CBC, CKMB, BMP #### [address] Neutrophils (Bld) [#/Vol] 4.4 10*3/uL Normal 1.8-7.7 [facility] Comment on above: Performed By: #### B HOME STAGING SPECIALIST, HS TROP, PT, PTT, CBC, CKMB, BMP #### [address] Neutrophils/100 WBC (Bld) 71.0 % Normal . [facility] Comment on above: Performed By: #### B HOME STAGING SPECIALIST, HS TROP, PT, PTT, CBC, CKMB, BMP #### [address] NRBC% 0.2 /100{WBC} Normal 0-0.5 [facility] Comment on above: Performed By: #### B HOME STAGING SPECIALIST, HS TROP, PT, PTT, CBC, CKMB, BMP #### [address] Platelet mean volume (Bld) [Entitic vol] 7.8 fL Normal 6.6-10.1 [facility] Comment on above: Performed By: #### B HOME STAGING SPECIALIST, HS TROP, PT, PTT, CBC, CKMB, BMP #### [place] [address] [place] Platelets (Bld) [#/Vol] 172 10*3/uL Normal 150-450 [facility] Comment on above: Performed By: #### B HOME STAGING SPECIALIST, HS TROP, PT, PTT, CBC, CKMB, BMP #### [address] RBC (Bld) [#/Vol] 5.43 10*6/uL Normal 3.90-5.60 [facility] Comment on above: Performed By: #### B HOME STAGING SPECIALIST, HS TROP, PT, PTT, CBC, CKMB, BMP #### [facility] [address] WBC (Bld) [#/Vol] 6.2 10*3/uL Normal 4.1-10.5 [facility] Comment on above: Performed By: #### B HOME STAGING SPECIALIST, HS TROP, PT, PTT, CBC, CKMB, BMP #### [facility] [address] Creatinine Kinase MBon 10-31 CK.MB [Mass/Vol] 2.0 ng/mL Normal 0.6-6.[address] [facility] Comment on above: Performed By: #### L IPID, CREAT, PP, CBC, LYTES, BUN #### [facility] [address] CKMB Relative Index Not performed Normal 0.00-2.50 [facility] Comment on above: Performed By: #### L IPID, CREAT, PP, CBC, LYTES, BUN #### [facility] [address] Creatinine and Glomerular fi ltration rate.predicted panel (S/P/Bld)Ordered By: Christiano Weston on 10-31-2022 Creatinine [Mass/Vol] 0.95 mg/dL 0.64-1.27 [facility] ECG 12 lead ECGon 10-31-2022 ECG 12 lead ECG [facility] [place] [address] Electrocardiograph Report Signed Patient: Mariano Hall MR#: [id number] : 1960 Acct:[id number] Age/Sex: 62 / M ADM Date: 10/31/22 Loc: ER Room: Type: [facility] ER Attending Dr: Ordering Provider: Christiano Weston [...] sinus rhythm Confirmed by Christiano Weston DO ([id number]) on 10/31/2022 4:28:51 PM Referred By: Electronically Signed By:Christiano Weston DO Transcribed By: MUS Signed By Christiano Weston DO [id number] Normal [facility] Eosinophils Auto (Bld) [#/Vo l]Ordered By: Christiano Weston on 10-31-2022 Eosinophils (Bld) [#/Vol] 0.1 10*3/uL 0.0-0.45 [facility] Eosinophils/100 WBC Auto (Bl d)Ordered By: Christiano Weston on 10-31-2022 Eosinophils/100 WBC (Bld) 1.3 % . [facility] Erythrocyte distribution wid th Auto (RBC) [Ratio]Ordered By: Christiano Weston on 10-31-2022 Erythrocyte distribution width (RBC) [Ratio] 14.3 % 12.0-14.8 [facility] Estimated glomerular filtrat ion rate (GFR) non- AmericanOrdered By: Christiano Weston on 10-31-2022 GFR/1.73 sq M.predicted among non-blacks MDRD (S/P/Bld) [Vol rate/Area] > 60 mL/Min [facility] Hematocrit Auto (Bld) [Volum e fraction]Ordered By: Christiano eWston on 10-31-2022 Hematocrit (Bld) [Volume fraction] 45.3 % 38.8-50.0 [facility] Hemoglobin [Mass/volume] in BloodOrdered By: Christiano Weston on 10-31-2022 Hemoglobin (Bld) [Mass/Vol] 15.0 g/dL 13.0-17.0 [facility] Laboratory - Chemistry and C hemistry - challengeOrdered By: Christiano Weston on 10-31-2022 Natriuretic peptide B (Bld) [Mass/Vol] 42.0 pg/mL 5-100 [facility] Laboratory - CoagulationOrde red By: Christiano Weston on 10-31-2022 PT Coag (PPP) [Time] 11.4 s 9.0-12.9 [facility] Leukocytes [#/volume] correc laya for nucleated erythrocytes in Blood by Automated counOrdered By: Christiano Weston on 10-31-2022 WBC corrected for nucl RBC Auto (Bld) [#/Vol] 6.2 10*3/uL 4.1-10.5 [facility] Lymphocytes Auto (Bld) [#/Vo l]Ordered By: Christiano Weston on 10-31-2022 Lymphocytes (Bld) [#/Vol] 1.1 10*3/uL 1.00-4.8 [facility] Lymphocytes/100 WBC Auto (Bl d)Ordered By: Christiano Weston on 10-31-2022 Lymphocytes/100 WBC (Bld) 17.2 % . [facility] MCH Auto (RBC) [Entitic mass ]Ordered By: Christiano Weston on 10-31-2022 MCH (RBC) [Entitic mass] 27.7 pg 27.5-35.2 [facility] MCHC Auto (RBC) [Mass/Vol]Or dered By: Christiano Weston on 10-31-2022 MCHC (RBC) [Mass/Vol] 33.2 g/dL 32.5-35.6 [facility] MCV Auto (RBC) [Entitic vol] Ordered By: Christiano Weston on 10-31-2022 MCV (RBC) [Entitic vol] 83.4 fL 83.5-101 [facility] Monocyte distribution width [Entitic volume] in Blood by AutomatedOrdered By: Christiano Weston on 10-31-2022 Monocyte distribution width Auto (Bld) [Entitic vol] 15.84 % 0.00-20.00 [facility] Monocytes Auto (Bld) [#/Vol] Ordered By: Christiano Weston on 10-31-2022 Monocytes (Bld) [#/Vol] 0.6 10*3/uL 0.0-0.8 [facility] Monocytes/100 WBC Auto (Bld) Ordered By: Christiano Weston on 10-31-2022 Monocytes/100 WBC (Bld) 9.9 % . [facility] Neutrophils Auto (Bld) [#/Vo l]Ordered By: Christiano Weston on 10-31-2022 Neutrophils (Bld) [#/Vol] 4.4 10*3/uL 1.8-7.7 [facility] Neutrophils/100 WBC Auto (Bl d)Ordered By: Christiano Weston on 10-31-2022 Neutrophils/100 WBC (Bld) 71.0 % . [facility] No Panel InformationOrdered By: Christiano Weston on 10-31-2022 Estimated GFR () > 60 mL/Min [facility] Comment on above: GFR estimated refere nce range: According to KDOQI guidelines, <60 ml/min/1.73m2 is sufficient to diagnose a patient with chronic kidney disease. Pharmacy Creatinine Clearance (Chem 92.54 [facility] Nucleated erythrocytes [Pres ence] in Blood by Automated countOrdered By: Christiano Weston on 10-31-2022 Nucleated RBC Auto Ql (Bld) 0.2 /100{WBC} 0-0.5 [facility] Partial Thromboplastin Timeo n 10-31-2022 aPTT Coag (Bld) [Time] 33.6 s Normal 25.1-36.5 [facility] Comment on above: Result Comment: PERF ORMED BY: [place] [address] PATHOLOGIST [employer]IOR CONTRACTS MANAGER ALEKSANDER TOBIN M.D. Performed By: #### B HOME STAGING SPECIALIST, HS TROP, PT, PTT, CBC, CKMB, BMP #### [facility] [address] Platelet mean volume Auto (B ld) [Entitic vol]Ordered By: Christiano Weston on 10-31-2022 Platelet mean volume (Bld) [Entitic vol] 7.8 fL 6.6-10.1 [facility] Platelet poor plasma interna tional normalized ratio (INR) by coagulation assay (relatOrdered By: Christiano Weston on 02-10-2023 INR Coag (PPP) [Relative time] 1.0 {INR} [facility] Comment on above: INR Therapeutic Rang e [...] 10-31-2022 Platelets (Bld) [#/Vol] 172 10*3/uL 150-450 [facility] Prothrombin Time INRon 10-31 INR Coag (PPP) [Relative time] 1.0 {INR} Normal [facility] Comment on above: Result Comment: INR Therapeutic [...] 3 - 4.5 Performed By: #### B HOME STAGING SPECIALIST, HS TROP, PT, PTT, CBC, CKMB, BMP #### [facility] [address] PT Coag (PPP) [Time] 11.4 s Normal 9.0-12.9 [facility] Comment on above: Performed By: #### B HOME STAGING SPECIALIST, HS TROP, PT, PTT, CBC, CKMB, BMP #### [facility] [address] RBC Auto (Bld) [#/Vol]Ordere d By: Christiano Weston on 10-31-2022 RBC (Bld) [#/Vol] 5.43 10*6/uL 3.90-5.60 [facility] Serum or plasma anion gap de terminationOrdered By: Christiano Weston on 10-31-2022 Anion gap [Moles/Vol] 10.2 mmol/L 6.0-15.0 [facility] Serum or plasma calcium shannon urement (mass/volume)Ordered By: Christiano Weston on 10-31-2022 Calcium [Mass/Vol] 9.1 mg/dL 8.2-10.2 [facility] Serum or plasma chloride cheryl surement (moles/volume)Ordered By: Christiano Weston on 10-31-2022 Chloride [Moles/Vol] 105 mmol/L 95-114 [facility] Serum or plasma creatine kin ase MB (CKMB)/total creatine kinase (CK) ratio by calculaOrdered By: Christiano Weston on 10-31-2022 CK.MB Calc [Catalytic fraction] TNP [facility] Comment on above: Test not performed Serum or plasma creatine kin ase MB measurement (mass/volume)Ordered By: Christiano Weston on 10-31-2022 CK.MB [Mass/Vol] 2.0 ng/mL 0.6-6.[address] [facility] Serum or plasma glucose shannon urement (mass/volume)Ordered By: Christiano Weston on 10-31-2022 Glucose [Mass/Vol] 95 mg/dL 70-100 [facility] Comment on above: ADA recommended refe rence rangeRandom Glucose Reference Range is dependent on time and content of last meal. Glucose of more than 200 mg/dL in a nonstressed, ambulatory subject supports the diagnosis of Diabetes Mellitus. Serum or plasma potassium me asurement (moles/volume)Ordered By: Christiano Weston on 10-31-2022 Potassium [Moles/Vol] 4.1 mmol/L 3.5-5.1 [facility] Serum or plasma sodium measu rement (moles/volume)Ordered By: Christiano Weston on 10-31-2022 Sodium [Moles/Vol] 138 mmol/L 136-146 [facility] Serum or plasma total carbon dioxide measurement (moles/volume)Ordered By: Christiano Weston on 10-31-2022 CO2 [Moles/Vol] 26.9 mmol/L 22.0-30.[address] [facility] Serum or plasma urea nitroge n measurement (mass/volume)Ordered By: Christiano Weston on 10-31-2022 Urea nitrogen [Mass/Vol] 16 mg/dL - [facility] Troponin I High Sensitivityo n 10-31-2022 Troponin I High Sensitivity 4 pg/mL Normal 0-20 [facility] Comment on above: Result Comment: PERF ORMED BY: [place] [address] PATHOLOGIST SENIOR CONTRACTS MANAGER ALEKSANDER TOBIN M.D. Performed By: #### L IPID, CREAT, PP, CBC, LYTES, BUN #### [facility] [address] Troponin I.cardiac [Mass/vol ume] in Serum or Plasma by High sensitivity methodOrdered By: Christiano Weston on 10-31-2022 Troponin I.cardiac High sensitivity method [Mass/Vol] 4 pg/mL 0-20 [facility] WBC Auto (Bld) [#/Vol]Ordere d By: Christiano Weston on 10-31-2022 WBC (Bld) [#/Vol] 6.2 10*3/uL 4.1-10.5 [facility] XR chest 1V portableon 10-31 XR chest 1V portable [facility] Main [place] [address] [place] [address] XRay Report Signed Patient: Mariano Hall MR#: [id number] : 1960 Acct:[id number] Age/Sex: 62 / M ADM Date: 10/31/22 Loc: ER Room: Type: [facility] ER Attending Dr: Copies to: Christiano [...] Tenzin Sagastume M.D.10/31/2022 10:53 AM Dictation Location: [place] [address] Transcribed By: ELVI 10/31/221052 Dictated By: Tenzin Sagastume DO 10/31/221051 Signed By: 10/31/221052 [facility] VC CONSULT FOLLOWUPon 2021 VC CONSULT FOLLOWUP Patient: MARIANO HALL Exam Date: 09/01/2022 : 1960 Gender:M Ordering : DR NASIMA SIMS M.D. Admission #: [id number] Family : Order #: [id number] CLICK HERE TO VIEW EXAM RADIOLOGY REPORT [...] Nasima Sims MD on 09/01/2022 at 09:55 [facility] VC EXT VENOUS LT LIMITEDon 1 11-02-2021 VC EXT VENOUS LT LIMITED Patient: MARIANO HALL Exam Date: 09/01/2022 : 1960 Gender:M Ordering : DR NASIMA SIMS M.D. Admission #: [id number] Family : Order #: [id number] CLICK HERE TO VIEW EXAM RADIOLOGY REPORT [...] Sims MD on 09/01/2022 at 09:34 Normal [facility] VC ENDOVENOUS ABL 1ST V LTon 08-29-2022 VC ENDOVENOUS ABL 1ST V LT Patient: MARIANO HALL Exam Date: 08/29/2022 : 1960 Gender:M Ordering : DR NASIMA SIMS M.D. Admission #: [id number] Family : Order #: [id number] CLICK HERE TO VIEW EXAM RADIOLOGY REPORT PROCEDURE: VEIN CENTER ENDOVENOUS ABLATION FIRST VEIN LEFT COMPARISON: None. INDICATIONS: Pain co-occurrent and due to varicose veins of bilateral legs I83.813 OPERATIVE REPORT: The risks and benefits of the procedure had been previously discussed, and were rediscussed at length. Informed written consent was obtained by and Loc thompson. Time out procedure was performed. The left [...] Sims MD on 08/29/2022 at 13:45 Normal [facility] VC CONSULT FOLLOWUPon 2021 VC CONSULT FOLLOWUP Patient: MARIANO HALL Exam Date: 08/25/2022 : 1960 Gender:M Ordering : DR NASIMA SIMS M.D. Admission #: [id number] Family : Order #: [id number] CLICK HERE TO VIEW EXAM RADIOLOGY REPORT [...] Sims MD on 08/25/2022 at 09:26 Normal [facility] VC EXT VENOUS RT LIMITEDon 1 10-26-2021 VC EXT VENOUS RT LIMITED Patient: MARIANO HALL Exam Date: 08/25/2022 : 1960 Gender:M Ordering : DR NASIMA SIMS M.D. Admission #: [id number] Family : Order #: [id number] CLICK HERE TO VIEW EXAM RADIOLOGY REPORT [...] Nasima Sims MD on 08/25/2022 at 09:23 Normal [facility] VC ENDOVENOUS ABL 1ST V RTon 08-20-2022 VC ENDOVENOUS ABL 1ST V RT Patient: MARIANO HALL Exam Date: 08/20/2022 : 1960 Gender:M Ordering : DR NASIMA SIMS M.D. Admission #: [id number] Family : Order #: [id number] CLICK HERE TO VIEW EXAM RADIOLOGY REPORT PROCEDURE: VEIN CENTER ENDOVENOUS ABLATION FIRST VEIN RIGHT COMPARISON: None. INDICATIONS: Pain co-occurrent and due to varicose veins of bilateral legs I83.813 OPERATIVE REPORT: The risks and benefits of the procedure had been previously discussed, and were rediscussed at length. Informed written consent was obtained by and Loc Guerra assisted. Time out procedure [...] the right great saphenous vein. Dictated by: Mariano Knutson M.D. on 08/20/2022 at 13:13 Approved by: Mariano Knutson M.D. 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 The patient's symptoms require [...] Sims MD on 07/10/2022 at 13:02 Normal [facility] VC VENOUS REFLUX FEI LMTon 1 VC VENOUS REFLUX FEI LMT Patient: MARIANO HALLChang Exam Date: 07/10/2022 : 1960 Gender:M Ordering : DR OLIVA CROFT Admission #: [id number] Family : Order #: [id number] CLICK HERE TO VIEW EXAM RADIOLOGY REPORT [...] chronic thrombus visualized Compressibility: Normal Flow: Normal [place]mer: Dist/med calf 5.3mm with 0s reflux. Prox/med [...] MD on 07/10/2022 at 11:24 Normal [facility] CBC AUTO DIFFon 06-30-2022 BASO # 0.0 103/ul Normal 0.0-0.1 [facility] Comment on above: Performed By: #### C BC ####[facility] [address] [place] [address]DrChang Gill Basophils/100 WBC (Bld) 0.5 % Normal 0.2-2.0 [facility] Comment on above: Performed By: #### C BC ####[facility] [address] [place] [id number] Gill EO # 0.1 103/ul Normal 0.0-0.7 [facility] Comment on above: Performed By: #### C BC ####[facility] [address] [place] [address]DrChang Gill Eosinophils/100 WBC (Bld) 0.8 % Critically low 0.9-7.0 [facility] Comment on above: Performed By: #### C BC ####[facility] [address] [place], [place] [address]Dr. Briheath Gill Erythrocyte distribution width (RBC) [Ratio] 13.7 % Normal 11.0-15.0 [facility] Comment on above: Performed By: #### C BC ####[facility] [address] [place], [place] [address]Dr. Mariangel Gill Hematocrit (Bld) [Volume fraction] 46.8 % Normal 42.0-54.0 [facility] Comment on above: Performed By: #### C BC ####[facility] [address] [place], [place] [address]Dr. Mariangel Gill Hemoglobin (Bld) [Mass/Vol] 15.2 g/dL Normal 14.0-18.0 [facility] Comment on above: Performed By: #### C BC ####[facility] [address] [place], [place] [address]Dr. Mariangel Gill IG # 0.02 10e3/ul Normal 0.00-0.03 [facility] Comment on above: Performed By: #### C BC ####[facility] [address] [place], [place] [address]Dr. Mariangel Gill IG % 0.3 % Normal 0.0-0.5 [facility] Comment on above: Performed By: #### C BC ####[facility] [address] [place], [place] [address]Dr. Mariangel Gill LYMPH # 1.4 103/ul Normal 1.2-3.8 [facility] Comment on above: Performed By: #### C BC ####[facility] [address] [place], [place] [address]Dr. Mariangel Gill Lymphocytes/100 WBC (Bld) 23.6 % Normal 20.5-60.0 [facility] Comment on above: Performed By: #### C BC ####[facility] [address] [place], [place] [address]Dr. Mariangel Gill MANUAL DIFF REQ NO Normal [facility] Comment on above: Performed By: #### C BC ####[facility] [address] [place] [address]DrChang Gill MCH (RBC) [Entitic mass] 27.8 pg Normal 25.9-34.0 [facility] Comment on above: Performed By: #### C BC ####[facility] [address] [place] [address]DrChang Gill MCHC (RBC) [Mass/Vol] 32.5 g/dL Normal 29.9-35.2 [facility] Comment on above: Performed By: #### C BC ####[facility] [address] [place], [place] [address]DrChang Gill MCV (RBC) [Entitic vol] 85.7 fL Normal 80.0-94.0 [facility] Comment on above: Performed By: #### C BC ####[facility] [address] [place], [place] [address]DrChang Gill MONO # 0.6 103/ul Normal 0.3-0.8 [facility] Comment on above: Performed By: #### C BC ####[facility] [address] [place], [place] [address]DrChang Gill Monocytes/100 WBC (Bld) 10.0 % Normal 1.7-12.0 [facility] Comment on above: Performed By: #### C BC ####[facility] [address] [place], [place] [address]DrChang Gill NEUT # 4.0 103/ul Normal 1.4-6.5 [facility] Comment on above: Performed By: #### C BC ####[facility] [address] [place], [place] [address]DrChang Gill Neutrophils/100 WBC (Bld) 64.8 % Normal 43.0-75.0 [facility] Comment on above: Performed By: #### C BC ####[facility] [address] [place], [place] [address]DrChang Gill Platelet mean volume (Bld) [Entitic vol] 9.3 fL Critically low 9.5-13.5 [facility] Comment on above: Performed By: #### C BC ####[facility] [address] [place] [address]Dr. Mariangel Gill PLT 193 103/ul Normal 150-450 [facility] Comment on above: Performed By: #### C BC ####[facility] [address] [place] [address]Dr. Mariangel Gill RBC 5.46 106/ul Normal 4.70-6.10 [facility] Comment on above: Performed By: #### C BC ####[facility] [address] [place] [address]Dr. Mariangel Gill WBC 6.1 103/ul Normal 4.0-11.0 [facility] Comment on above: Performed By: #### C BC ####[facility] [address] [place], [place] [address]DrChang Gill PROF CHEM 8 (BAS METB)on Anion gap [Moles/Vol] 11.4 mmol/L Normal [facility] Comment on above: Performed By: #### B MP ####[facility] [address] [place], [place] [address]Dr. Mariangel Gill Calcium [Mass/Vol] 8.5 mg/dL Normal 8.5-10.1 [facility] Comment on above: Performed By: #### B MP ####[facility] [address] [place], [place] [address]Dr. Mariangel Gill Chloride [Moles/Vol] 103 mmol/L Normal 98-107 [facility] Comment on above: Performed By: #### B MP ####[facility] [address] [place], [place] [address]DrChang Gill CO2 [Moles/Vol] 28.8 mmol/L Normal 21.0-32.0 [facility] Comment on above: Performed By: #### B MP ####[facility] [address] [place], [place] [address]DrChang Gill Creatinine [Mass/Vol] 1.12 mg/dL Normal 0.70-1.30 [facility] Comment on above: Performed By: #### B MP ####[facility] [address] [place] [id number]. Mariangel Jairo EGFR-AF GABONESE >60 Normal >=60 [facility] Comment on above: Performed By: #### B MP ####[facility] [address] [place] [id number]. Briheath Jairo EGFR-NON AF GABONESE >60 Normal >=60 [facility] Comment on above: Performed By: #### B MP ####[facility] [address] [place] [address]Dr. Mariangel Gill Glucose [Mass/Vol] 129 mg/dL Critically high 74-106 [facility] Comment on above: Performed By: #### B MP ####[facility] [address] [place], [place] [address]Dr. Mariangel Gill Potassium [Moles/Vol] 4.2 mmol/L Normal 3.5-5.1 [facility] Comment on above: Performed By: #### B MP ####[facility] [address] [place], [place] [address]Dr. Mariangel Gill Sodium [Moles/Vol] 139 mmol/L Normal 136-145 [facility] Comment on above: Performed By: #### B MP ####[facility] [address] [place], [place] [address]Dr. Mariangel Gill Urea nitrogen [Mass/Vol] 18.0 mg/dL Normal 7.0-18.0 [facility] Comment on above: Performed By: #### B MP ####[facility] [address] [place], [place] [id number]. Mariangel Gill Urea nitrogen/Creatinine [Mass ratio] 16.1 mg/mg Normal [facility] Comment on above: Performed By: #### B MP ####[facility] [address] [place], [place] [address]Dr. Mariangel Gill MRI KNEE RT WO CONon [...] 5. Small Acosta's cyst. Electronically authenticated by: MARIANO KNUTSON Date: 2022-04-09 07:47 Normal [facility] XR Knee Complete Right*on XR Knee Complete Right* CLINICAL HISTORY: Knee pain COMPARISON: None. TECHNIQUE: Right knee radiographs RESULT: No acute fracture or dislocation.Joint spaces maintained. Minimal chondrocalcinosis. Soft tissues unremarkable. No joint effusion. IMPRESSION: No acute findings. Report reported and signed by TREY MAURER on 03/04/2022 1132 Normal [facility] Application Analyst Vital Signs Date Time Vital Sign Value Performing Clinician Facility 08-09-2024 08:59-0500 Body height 185.4 cm Oliva Croft DO Work Phone: [facility] 08-09-2024 08:59-0500 Body mass index (BMI) [Ratio] 28.1 kg/m2 Oliva Croft DO Work Phone: [facility] 08-09-2024 08:59-0500 Body weight 96.62 kg Oliva Boubacark DO Work Phone: [facility] 08-09-2024 08:59-0500 Diastolic blood pressure 60 mm[Hg] Oliva Vaschak DO Work Phone: [facility] 08-09-2024 08:59-0500 Heart rate 75 /min Oliva Vaschak DO Work Phone: [facility] 08-09-2024 08:59-0500 SaO2% (BldA) [Mass fraction] 98 % Oliva Vaschak DO Work Phone: [facility] 08-09-2024 08:59-0500 Systolic blood pressure 126 mm[Hg] Oliva Vaschak DO Work Phone: [facility] 12-12-2022 14:15-0400 Diastolic blood pressure 80 mm[Hg] DO Oliva Antwanchak Work Phone: [facility] 12-12-2022 14:15-0400 Heart rate 73 /min DO Oliva Vaschak Work Phone: [facility] 12-12-2022 14:15-0400 Respiratory rate 18 /min DO Oliva Antwanchak Work Phone: [facility] 12-12-2022 14:15-0400 SaO2% (BldA) [Mass fraction] 94 % DO Oliva Antwanchak Work Phone: [facility] 12-12-2022 14:15-0400 Systolic blood pressure 146 mm[Hg] DO Oliva Vaschak Work Phone: [facility] 12-12-2022 09:55-0400 Body height 187.96 cm DO Oliva Vaschak Work Phone: [facility] 12-12-2022 09:55-0400 Body temperature 97.6 [degF] DO Oliva Vaschak Work Phone: [facility] 12-12-2022 09:55-0400 Body weight 95 kg DO Oliva Vaschak Work Phone: [facility] 12-09-2022 08:58-0400 Diastolic blood pressure 80 mm[Hg] Oliva Croft Work Phone: [facility] [address] DO Work Phone: 12-09-2022 08:58-0400 Systolic blood pressure 142 mm[Hg] Oliva Croft Work Phone: [facility] 250 DO Work Phone: 12-09-2022 08:56-0400 Body height 187.96 cm Oliva Croft Work Phone: [facility] 250 DO Work Phone: 12-09-2022 08:56-0400 Body mass index (BMI) [Ratio] 26.83 kg/m2 Oliva Croft Work Phone: [facility] 250 DO Work Phone: 12-09-2022 08:56-0400 Body surface area Derived from formula 2.21 m2 Oliva Croft Work Phone: [facility] 250 DO Work Phone: 12-09-2022 08:56-0400 Body weight 94.8 kg Oliva Croft Work Phone: [facility] 250 DO Work Phone: 12-09-2022 08:56-0400 Diastolic blood pressure 80 mm[Hg] Oliva Croft Work Phone: [facility] 250 DO Work Phone: 12-09-2022 08:56-0400 Heart rate 74 /min Oliva Croft Work Phone: [facility] 250 DO Work Phone: 03-21-2023 08:56-0400 Systolic blood pressure 144 mm[Hg] Oliva Croft Work Phone: [facility] 250 DO Work Phone: 10-31-2022 12:00-0500 Diastolic blood pressure 78 mm[Hg] DO Oliva Croft Work Phone: [facility] 10-31-2022 12:00-0500 Heart rate 60 /min DO Oliva Croft Work Phone: [facility] 10-31-2022 12:00-0500 Respiratory rate 18 /min DO Oliva Croft Work Phone: [facility] 10-31-2022 12:00-0500 SaO2% (BldA) [Mass fraction] 96 % DO Oliva Croft Work Phone: [facility] 10-31-2022 12:00-0500 Systolic blood pressure 134 mm[Hg] DO Oliva Croft Work Phone: [facility] 10-31-2022 10:21-0500 Body height 187.96 cm DO Oliva Croft Work Phone: [facility] 10-31-2022 10:21-0500 Body temperature 97.1 [degF] DO Oliva Croft Work Phone: [facility] 10-31-2022 10:21-0500 Body weight 95.25 kg DO Oliva Croft Work Phone: [facility] Encounters Encounter Date Encounter Type Care Provider Facility Start: 09-02-2024 ambulatory Lien Eugene Fac ility:[facility] Start: 09-01-2024 End: 09-01-2024 ambulatory Yvon Hutton MD Facility:[facility] Start: 08-09-2024 End: 08-09-2024 Office outpatient visit 25 minutes Oliva Croft DO Work Phone: [facility] Comment on above: Agatston coronary ar herb calcium score between 200 and 399 (Primary Dx); Sensorineural hearing loss (SNHL) of left ear with unrestricted hearing of right ear; Erectile dysfunction due to arterial insufficiency; IFG (impaired fasting glucose) Start: 08-09-2024 End: 08-09-2024 ambulatory OLIVA CROFT Not Available Start: 07-11-2024 End: 07-11-2024 Clinisync Result Encounter Generic External Data Provider [facility] External Department Unsolicited Start: 07-11-2024 End: 07-11-2024 Clinisync Result Encounter Generic External Data Provider [facility] External Department Unsolicited Start: 05-04-2024 End: 05-04-2024 ambulatory OLIVA CROFT Not Available Start: 10-21-2023 End: 10-21-2023 ambulatory OLIVA CROFT Not Available Start: 12-12-2022 ambulatory Chung Garcia Facilit y:[id number] Start: 12-12-2022 [facility], Provider: Chung Garcia, Status: Pen, Time: 11:00 AM Ol[facility] Cro[facility] Work Phone: Start: 12-12-2022 End: 12-12-2022 ambulatory Dave Garcia Facility:[facility] Start: 12-12-2022 End: 12-12-2022 Admission to same day surgery center DO Oliva Antwanmisti Work Phone: [facility]-Mechanical Product Design Engineer Work Phone: Start: 12-12-2022 End: 12-12-2022 ambulatory DO Oliva Antwanmonikak Work Phone: [facility] Work Phone: Start: 12-10-2022 Chart Update Oliva wyman Work Phone: [facility] 250 DO Work Phone: Start: 12-10-2022 End: 12-10-2022 ambulatory Oliva Croft Facility:[facility] Start: 12-10-2022 End: 12-10-2022 ambulatory DO Oliva Antwanmonikak Work Phone: [facility] Work Phone: Start: 12-10-2022 End: 12-10-2022 Patient encounter procedure DO Oliva Croft Work Phone: [facility] Work Phone: Start: 12-09-2022 Office consultation new/estab patient 80 min Oliva Croft Work Phone: -[facility] 250 DO Work Phone: Start: 12-09-2022 ambulatory Chung Garcia Facilit y: Start: 12-02-[address] Oliva Croft Facility:[id number] Start: 11-12-2022 End: 11-13-[address] MARIANO KNUTSON Facility:[facility]1 Start: 10-31-2022 End: 10-31-2022 Emergency department patient visit Christiano Weston Facility:[facility] Start: 10-31-2022 End: 10-31-2022 Emergency department patient visit DO Oliva Croft Work Phone: [facility]Emergency Room Work Phone: Start: 09-21-2022 End: 09-22-2022 [...] SIMS Facility:H1 Start: 07-04-[address] OLIVA CROFT [facility] ity:H1 Start: 07-02-2022 End: 07-03-[address] AKUA TA Facility:[facility]1 Start: 06-30-2022 End: 07-01-[address] MARIANO KNUTSON Facility:[facility]1 Start: 04-08-2022 End: 04-09-2022 ambulatory SISSY MARISCAL Facility:[facility]1 Procedures Date Procedure Procedure Detail Performing Clinician Start: 07-11-2024 [facility] URINALYSIS, WIT H MICROSCOPIC Generic External Data Provider Start: 12-12-2022 [facility] Angio DO R tinosharona Croft Work Phone: Start: 10-31-2022 Plain chest X-ray DO Ro danny Croft Work Phone: Start: 06-19-2015 Colonoscopy Generic Pr ovider Operative procedure on knee Oliva Croft Work Phone: Procedure on neck Oliva hathaway Work Phone: Repair of musculoten dinous cuff of shoulder Oliva Croft Work Phone: NEGATED: Highlighted row has not occurred! Total colonoscopy Oliva Croft Work Phone: Plan of Treatment Date Care Activity Detail Author Start: 06-19-2025 Screening for malignant neoplasm of colon [facility] Start: 05-10-2025 End: 05-10-2025 Patient encounter procedure 05/10/2025 8:30 AM EDT Office Visit [facility] [address] [place] [address] Oliva Croft, DO [address] [place] [address] [facility] Start: 02-07-2025 End: 02-07-2025 Patient encounter procedure 02/07/2025 9:00 AM EDT Office Visit [facility] [address] [place] [id number] Oliva Croft, DO [address] [place] [address] [facility] Start: 08-09-2024 End: 08-09-2024 Patient encounter procedure 08/09/2024 9:00 AM EST Office Visit [facility] [address] [place] [id number] Oliva Croft, DO [address] [place] [address] [facility] Start: 2024 Pneumococcal Vaccine: 65+ Years (1 of 1 - PCV) Pneumococcal Vaccine: 65+ Years (1 of 1 - PCV) [facility] Start: 05-22-2024 Influenza vaccination Influenza Vaccine (#1) [facility] Start: 01-06-2023 [facility], Provider: Chung Garcia, Status: Pen, Time: 8:50 AM [facility], Provider: Chung Garcia, Status: Pen, Time: 8:50 AM [facility] 250 DO Work Phone: Start: 12-12-2022 [facility], Provider: Chung Garcia, Status: Pen, Time: 11:00 AM [facility], Provider: Chung Garcia, Status: Pen, Time: 11:00 AM [facility] Work Phone: Start: 12-12-2022 [facility] Start: 1960 Screening for malignant neoplasm of colon [facility] Patient Education Anxiety, Adult (DC) Chest Pain (DC) [facility] Work Phone: Patient referral [facility] Work Phone: Immunizations Immunization Date Immunization Notes Care Provider Fa cility 08-26-2022 Moderna COVID-19 Vac cine 100 MCG/0.5ML Intramuscular Suspension Oliva Croft Work Phone: [facility] 07-17-2021 Moderna COVID-19 Vac cine 100 MCG/0.5ML Intramuscular Suspension Oliva Rodoflo Moncadamisti Work Phone: [facility] 12-21-2020 COVID-19 mRNA-1273 (Moderna) DO Oliva Croft Work Phone: [facility] 10-25-2020 Moderna COVID-19 Vac cine 100 MCG/0.5ML Intramuscular Suspension Oliva Rodolfo Moncadamisti Work Phone: [facility] 250 DO Work Phone: 09-27-2020 Moderna COVID-19 Vac cine 100 MCG/0.5ML Intramuscular Suspension Oliva Rodolfo Moncadamisti Work Phone: [facility] Payers Date Payer Category Payer Private Health Insurance [id number] 2022 Self-pay 1960 Private Health Insurance [id number] 1959 Private Health Insurance [id number] 1960 Self-pay [id number] 1960 Unknown [id number] 2..[id number] 1959 Unknown [id number] 2.16.840.1.347874.3.579.2.59 1959 Unknown [id number] 2.16.840.1.549922.3.579.2.59 1959 Unknown [id number] 2.16.840.1.289995.3.579.2.593 1959 Unknown [id number] 2.16.840.1.727046.3.579.2.593 1959 Unknown [id number] 2.16.840.1.731275.3.579.2.593 1959 Unknown [id number] 2.16.840.1.819871.3.579.2.593 1959 Unknown [id number] 2.16.840.1.519985.3.579.2.593 1959 Unknown [id number] 2.16.840.1.631643.3.579.2.593 1959 Unknown [id number] 2.16.840.1.822537.3.579.2.593 1959 Unknown [id number] 2.16.840.1.623046.3.579.2.593 1959 Unknown [id number] 2.16.840.1.237070.3.579.2.593 1959 Unknown [id number] 2.16.840.1.840407.3.579.2.593 1959 Unknown [id number] 2.16.840.1.898343.3.579.2.593 1959 Unknown [id number] 2.16.840.1.879525.3.579.2.593 1959 Unknown [id number] 2.16.840.1.408575.3.579.2.593 1959 Unknown [id number] 2.16.840.1.850107.3.579.2.1068 1959 Unknown [id number] 2.16.840.1.211648.3.579.2.356 1959 Unknown [id number] 2.16.840.1.884625.3.579.2.356 1959 Unknown [id number] 2.16.840.1.875006.3.579.2.1259 1959 Unknown [id number] 2.16.840.1.315045.3.579.2.1259 1959 Unknown [id number] 2.16.840.1.083770.3.579.2.1259 1959 Unknown [id number] 2.16.840.1.857722.3.579.2.196 1959 Unknown [id number] 2.16.840.1.532180.3.579.2.196 Private Health Insurance [employer] [id number] Unknown [id number] Unknown [id number] 2.16.840.1.298706.3.579.2.593 Unknown Unknown [id number] Unknown [id number] 2.16.840.1.672750.3.579.2.531 Unknown [id number] 2.16.840.1.405002.3.579.2.531 Unknown [id number] 2.16.840.1.377911.3.579.2.531 Social History Date Type Detail Facility Start: 10-31-2022 End: 10-21-2023 Tobacco smoking status [facility] Ex-smoker (finding) [facility] Start: 1960 Sex Assigned At Male F [facility] Start: 05-04-2024 End: 08-09-2024 No illicit drug use No illicit drug use [place] [address] DO Work Phone: Comment on above: 2-3 beers daily; 4 cups of 8 oz of co ffee daily; Quit smoking 30 + ye ars ago- 1 pack daily. Smoked 1 cigar daily-Quit in 2020; End: 09-21-2019 History of tobacco use Current smoker [facility] End: 09-21-2019 History of tobacco use Cigarette Smoker [facility] History of tobacco use Cigar Smoker [facility] Start: 10-21-2023 Tobacco use and exposure Smokeless tobacco non-user [facility] Start: 05-04-2024 End: 08-09-2024 Alcoholic beverage intake Current drinker of alcohol (finding) [facility] Start: 05-04-2024 End: 08-09-2024 Tobacco use panel [facility] Start: 1960 Sex assigned at Not on file [facility] Goals Date Patient Goal Desired Activity /State History of Present illness Narrative 08-09-2024 Oliva Croft, DO - 08/09/2024 9:00 AM EST Note Date & Type Note Facility 08-09-2024 History of Presen t illness Narrative Images from the original note were not included. Mariano Hall is a 64 y.o. male presents with chief complaint of Three-month office visit HPI: HPI Patient believes he is experiencing hearing loss, more in LT ear but not sure. History of Present Illness He reports a decrease in hearing, particularly in his left ear, which he describes as muffled. He states it is very noticeable, cannot state when it occurred, believes slowly. He initially attributed this to earwax. 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 No headache, tinnitus, pulsations, dizziness, pain, sinus symptoms. HISTORIES: PAST MEDICAL HISTORY: No past medical history on file. SURGICAL HISTORY: No past surgical history on file. SOCIAL HISTORY: Social History Tobacco Use Smoking status: Former Current packs/day: 0.00 Types: Cigarettes, Cigars Quit date: 2019 Years since quittin.8 Smokeless tobacco: Never Vaping Use Vaping status: Never Used Substance Use Topics Alcohol use: Yes Alcohol/week: 2.0 standard drinks of alcohol Types: 2 Cans of beer per week Drug use: Never Depression: Not on file FAMILY HISTORY: No family history on file. MEDICATIONS: Current Outpatient Medications Medication Instructions [facility] Aspirin Low Dose 81 mg, Oral, Daily losartan (COZAAR) 100 mg, Oral, Daily rosuvastatin (CRESTOR) 20 mg, Oral, Nightly sildenafil (VIAGRA) 100 mg, Oral, As needed tadalafil (CIALIS) 20 mg, Oral, Daily PRN ALLERGIES: Allergies Allergen Reactions Amlodipine Other Reaction(s): Leg swelling Cefditoren Pivoxil Other Reaction(s): weakness, NVD PHYSICAL EXAM: Visit Vitals Smoking Status Former BP Readings from Last 3 Encounters: 05/04/24 148/70 10/21/23 126/62 12/22/22 130/80 Wt Readings from Last 3 Encounters: 05/04/24 213 lb 10/21/23 212 lb 12/22/22 219 lb Physical Exam Physical Exam Left ear appears normal. Tympanic membrane is opaque although cone of light is identified. Ear canal is normal. Right ear appears normal. Small amount of cerumen. Tympanic membrane appears normal. Air conduction is greater than bone conduction in both ears. Bone conduction lateralizes to the right ear. Results Testing Hearing test indicates unilateral neural sensory hearing loss. ASSESSMENT AND PLAN: Assessment & Plan Diagnosis Plan 1. Agatston coronary artery calcium score between 200 and 399 2. Sensorineural hearing loss (SNHL) of left ear with unrestricted hearing of right ear Ambulatory referral to ENT 3. Erectile dysfunction due to arterial insufficiency sildenafil (Viagra) 100 MG tablet tadalafil (Cialis) 20 MG tablet 4. IFG (impaired fasting glucose) March 112 1. Unilateral neural sensory hearing loss. The left ear is identified as having neural sensory hearing loss. The ear canal is clear, and the tympanic membrane appears normal. Air conduction is greater than bone conduction in the left ear, and bone conduction lateralizes to the right ear. A referral to an ENT specialist for a formal evaluation is recommended. An MRI may be considered, but this decision will be deferred to the ENT specialist. 2. Moderate plaque load coronary calcium with normal left heart catheterization. It was discussed that maintaining a healthy lifestyle, including regular exercise and a diet low in processed foods, is crucial. Significant improvements have been noted in his lifestyle. He reports no chest discomfort. 86 1.597 R 140 R 27.1 R CHOLESTEROL <=200 mg/dL 142 4.0 R 0.4 R HDL CHOLESTEROL 40 - 60 mg/dL 57 14.1 R 4.4 R Comment: > or =60 mg/dl - LOW CARDIOVASCULAR RISK <40 mg/dl - HIGH CARDIOVASCULAR RISK LDL CHOLESTEROL CALCULATED mg/dL 67.8 112 High R 2.0 R Comment: <100 mg/dl OPTIMAL 100-129 mg/dl NEAR OR ABOVE OPTIMAL 130-159 mg/dl BORDERLINE HIGH 160-189 mg/dl HIGH >190 mg/dl 3. Hypertension. His home blood pressure readings average less than 132. He is planning to retire at the end of the year which will reduce stress documented in this encounter [facility] Discharge summary 12-12-2022 Note Date & Type Note Facility 12-12-2022 Discharge summary Note Date/Time December 12, 2022 12:14pm [facility] [address] [place] [address] Discharge Summary Signed Patient: Mariano Hall MR#: [id number] : 1960 Acct:[id number] Age/Sex: 62 / M Adm Date: 3 [...] Low-Cholesterol Additional Instructions: DISCHARGE INSTRUCTIONS FOR CARDIAC CLIENT TECHNICAL SPECIALIST PHONE NUMBER OF YOUR PHYSICIAN: [phone] PROCEDURE: Heart Cath The following instructions have [...] cold, numb, blue or white, call the web services architect immediately. 4. ACTIVITY: You are advised to [...] bottle, follow the instructions on the bottle. [facility] is not responsible for incorrect prescription information [...] signed by Dave Garcia DO> 12/12/[address] [facility] Work Phone: Procedure note 12-12-2022 Note Date & Type Note Facility 12-12-2022 Procedure note [facility] Discharge instructions 12-12-2022 Note Date & Type Note Facility 12-12-2022 Hospital Discharg e instructions Additional Instructions DISCHARGE INSTRUCTIONS FOR CARDIAC CLIENT TECHNICAL SPECIALIST PHONE NUMBER OF YOUR PHYSICIAN: [phone] PROCEDURE: Heart Cath The following instructions have [...] cold, numb, blue or white, call the web services architect immediately. 4. ACTIVITY: You are advised to [...] bottle, follow the instructions on the bottle. [facility] is not responsible for incorrect prescription information provided by the patient during their visit. Do not stop your medications without consulting your health care provider. Please take the list with you to your next doctor's appointment. [facility] Work Phone: Clinical Note 06-30-2022 Note [...] process or suspicious findings. Electronically authenticated by: MARIANO KNUTSON Date: 2022-06-30 16:08 [facility] Chief complaint Narrative - Reported Note Date & Type Note Facility Chief complaint Narrative - Reported MARIANO HALL is being seen for a consultation for Dr. Kahn/ Melvi Rose- CP/ Abnormal stress/elevated calcium score.62-year-old gentleman seen [...] blood pressure results.He underwent stress testing at [facility] details of which are unknown but he was told he achieved his target heart rate and there were no EKG changes and he did not describe any angina. We do not have details of the stress test as of yet. He did have calcium score performed in [facility] which revealed mild proximal LAD calcification [...] either later this week or next week. -[facility] [address] DO Work Phone: Evaluation note Note Date & Type Note Facility Evaluation note No assessment information availa [facility] Work Phone: Evaluation note Note Date & Type Note Facility Evaluation note Diagnosis Agatston coronary artery calcium score between 200 and 399- Primary Sensorineural hearing loss (SNHL) of left ear with unrestricted hearing of right ear Erectile dysfunction due to arterial insufficiency IFG (impaired fasting glucose) documented in this encounter [facility] Discharge instructions Note Date & Type Note Facility Hospital Discharge instructions Additional Instructions Take baby aspirin daily. Follow-up with your PCP for outpatient stress test and for recheck of your blood pressure for possible hypertension. Return if you develop any chest pain shortness of breath, chest pain with nausea or sweating or that radiates to your arm jaw or back. [facility] Work Phone: Summary Purpose Family History [...] section and content) DATE CREATED AUTHOR 03/05/2022 [facility] dical Specialist DATE CREATED AUTHOR AUTHOR'S ORGANIZ ATION 11/16/2022 [facility] DATE CREATED AUTHOR AUTHOR'S ORGANIZ ATION 12/06/2022 [facility] DATE CREATED AUTHOR AUTHOR'S ORGANIZ ATION 12/09/2022 [facility] DATE CREATED AUTHOR AUTHOR'S ORGANIZ ATION 12/13/2022 [facility] DATE CREATED AUTHOR AUTHOR'S ORGANIZ ATION 01/02/2023 [facility] DATE CREATED AUTHOR AUTHOR'S ORGANIZ ATION 08/11/2024 [facility] dical Specialists [facility] DATE CREATED AUTHOR AUTHOR'S ORGANIZ ATION 09/04/2024 [facility] Care Teams (unrecognized sec tion and content) Team Status: Inactive Member Role Status Dates Oliva Croft , Primary Care Provider Active Christiano Weston , DO Emergency Provider Active Team Status: Active Member Role Status Dates Oliva Croft , Primary Care Provider Active Team Status: Inactive Member Role Status Dates Oliva Croft , Primary Care Provider Active Dave Garcia , Attending Provider Active Medicaid Eligibility Specialist Relationship Specialty Start Date End Date Oliva Croft DO [address] [place] [address] PCP - General Internal Medicine 01/27/23 Medicaid Eligibility Specialist Relationship Specialty Start Date End Date Oliva Croft DO [address] [place] [address] PCP - General Internal Medicine 01/27/23 Goals (unrecognized section and content) Goals may be documented in a n alternate sectionGoals may be documented in an alternate section Reason for Visit (unrecogniz ed section and content) Reason Comments Three-month office visit FOR RECORDS PERTAINING TO PATIENTS WHO ARE [...] BE BASED ON THE PRIMARY CLINICAL RECORDS. [facility], [facility]. provides no warranty or guarantee of the accuracy or completeness of information in this document.
--- NOTE | 2024-11-13 15:47 | ED_ITS ---
Documented by User: Walter Solorio 11/13/24 15:51 HPI HPI - Extremity Injury (Upper) General Chief Complaint: Extremity Injury, Upper Stated Complaint: UPPER EXTREMITY INJURY Time Seen by Provider: 11/13/24 14:29 Source: patient Mode of arrival: walk-in History of Present Illness HPI narrative: cc = crush injury left index finger tip The patient states that he was using a wood splitter and while his left hand was holding the wound in place his right hand was operating the splinter mechanism. He said that the wood crushed his left index finger tip against the machine, causing the skin to tear and resulting in bleeding underneath the fingernail of the left index finger, with increased pain in the area. No other injuries Tetanus is not up-to-date Related Data Previous Rx's ?Medication ?Instructions ?Recorded cephalexin 500 mg capsule 500 mg PO BID 10 days #20 caps 11/13/24 Allergies Allergy/AdvReac Type Severity Reaction Status Date / Time No Known Drug Allergies Allergy Verified 11/13/24 14:25 Opioid HPI Opioid Management Most Recent Pain and Opioid Data: Last Pain Scale 4 11/13/24 14:43 11/13/24 PFSH PFSH Social History Little interest or pleasure in doing things: not at all Feeling down, depressed, or hopeless: not at all Exam Narrative Exam Narrative: Nurses notes and vital signs reviewed and patient is not hypoxic. afebrile General: Well-appearing and in no apparent distress. Skin: Warm, dry, no pallor noted. Head: Normocephalic, atraumatic. Cardiovascular: Normal peripheral perfusion and capillary refill and the left hand. Respiratory: No accessory muscle use or respiratory distress. Musculoskeletal: Lacerations noted to the distal phalanx of the left index finger with subungual hematoma encompassing 100% of the fingernail. The nail is intact at the base, although the base is disrupted with a laceration on the dorsal aspect of the proximal portion of the distal phalanx of the left index finger. Sensation is intact. Normal capillary refill distal to the wounds. No injury to the palmar aspect of the hand or fingers. The remainder of the hand is unremarkable. All fingers of the left hand with normal ROM. Neurological: A&O x4. No cranial nerve dysfunction observed. No truncal ataxia. Moves all extremities. Sensation intact. Psychiatric: Cooperative and interactive. Normal mood and affect. Constitutional Vital Signs, click to edit/add: Last Vital Signs Temp 97.7 F 11/13/24 14:22 Pulse 68 11/13/24 14:22 Resp 18 11/13/24 14:22 BP 157/85 H 11/13/24 14:22 Pulse Ox 96 11/13/24 14:22 O2 Del Method Room Air 11/13/24 14:22 Course Vital Signs Vital signs: Vital Signs Temperature 97.7 F 11/13/24 14:22 Pulse Rate 68 11/13/24 14:22 Respiratory Rate 18 11/13/24 14:22 Blood Pressure 157/85 H 11/13/24 14:22 Pulse Oximetry 96 11/13/24 14:22 Oxygen Delivery Method Room Air 11/13/24 14:22 Temperature 97.7 F 11/13/24 14:22 Pulse Rate 68 11/13/24 14:22 Respiratory Rate 18 11/13/24 14:22 Blood Pressure 157/85 H 11/13/24 14:22 Pulse Oximetry 96 11/13/24 14:22 Oxygen Delivery Method Room Air 11/13/24 14:22 MDM - Extremity Injury (Upper) MDM Narrative Medical decision making narrative: I saw and examined the patient. X-rays of the left hand were obtained, revealing comminuted fracture of the distal phalanx of the left index finger. There is soft tissue swelling noted to the distal phalanx of the left index finger. No acute foreign body noted. Physician assistant professor surgical technology evaluated the patient and performed anesthetic and then closure of the patient's left index finger wounds, as well as trephination of the nail. Discharge Plan Discharge Chief Complaint: Extremity Injury, Upper Clinical Impression: Crush injury to finger, Finger laceration, Subungual hematoma, Open finger fracture Patient Disposition: Home, Self-Care Time of Disposition Decision: 16:06 Condition: Good Prescriptions / Home Meds: New cephalexin 500 mg capsule 500 mg PO BID 10 Days Qty: 20 0RF Print Language: Filipino Instructions: Care For Your Stitches (ED), Subungual Hematoma (ED), Finger Fracture (ED), Finger Laceration (ED) Additional Instructions: follow up with DR Marvin on november 21 at 1030 for suture removal and fracture assessment Referrals: OLIVA ZABALA [Primary Care Provider] - 1 week [place] [Other] - 11/21/24 10:30 am Documented by User: Tia Shields 11/13/24 16:11 HPI HPI - Extremity Injury (Upper) General Chief Complaint: Extremity Injury, Upper Stated Complaint: UPPER EXTREMITY INJURY Time Seen by Provider: 11/13/24 14:29 Related Data Previous Rx's ?Medication ?Instructions ?Recorded cephalexin 500 mg capsule 500 mg PO BID 10 days #20 caps 11/13/24 Allergies Allergy/AdvReac Type Severity Reaction Status Date / Time No Known Drug Allergies Allergy Verified 11/13/24 14:25 Opioid HPI Opioid Management Most Recent Pain and Opioid Data: Last Pain Scale 4 11/13/24 14:43 11/13/24 Review of Systems ROS Narrative All Systems are negative except as noted/marked. PFSH PFSH Social History Little interest or pleasure in doing things: not at all Feeling down, depressed, or hopeless: not at all Exam Constitutional Vital Signs, click to edit/add: Last Vital Signs Temp 97.7 F 11/13/24 14:22 Pulse 68 11/13/24 14:22 Resp 18 11/13/24 14:22 BP 157/85 H 11/13/24 14:22 Pulse Ox 96 11/13/24 14:22 O2 Del Method Room Air 11/13/24 14:22 Course Vital Signs Vital signs: Vital Signs Temperature 97.7 F 11/13/24 14:22 Pulse Rate 68 11/13/24 14:22 Respiratory Rate 18 11/13/24 14:22 Blood Pressure 157/85 H 11/13/24 14:22 Pulse Oximetry 96 11/13/24 14:22 Oxygen Delivery Method Room Air 11/13/24 14:22 Temperature 97.7 F 11/13/24 14:22 Pulse Rate 68 11/13/24 14:22 Respiratory Rate 18 11/13/24 14:22 Blood Pressure 157/85 H 11/13/24 14:22 Pulse Oximetry 96 11/13/24 14:22 Oxygen Delivery Method Room Air 11/13/24 14:22 MDM - Extremity Injury (Upper) MDM Narrative Medical decision making narrative: I saw and examined the patient. X-rays of the left hand were obtained, revealing comminuted fracture of the distal phalanx of the left index finger. There is soft tissue swelling noted to the distal phalanx of the left index finger. No acute foreign body noted. Physician assistant professor surgical technology evaluated the patient and performed anesthetic and then closure of the patient's left index finger wounds, as well as trephination of the nail. Medical Records Attestation: I reviewed the patient's medical records. Imaging Data hand: Attestation: I have reviewed the pertinent imaging results. Discharge Plan Discharge Chief Complaint: Extremity Injury, Upper Clinical Impression: Crush injury to finger, Finger laceration, Subungual hematoma, Open finger fracture Patient Disposition: Home, Self-Care Time of Disposition Decision: 16:06 Condition: Good Prescriptions / Home Meds: New cephalexin 500 mg capsule 500 mg PO BID 10 Days Qty: 20 0RF Print Language: Filipino Instructions: Care For Your Stitches (ED), Subungual Hematoma (ED), Finger Fracture (ED), Finger Laceration (ED) Additional Instructions: follow up with DR Marvin on november 21 at 1030 for suture removal and fracture assessment Referrals: OLIVA ZABALA [Primary Care Provider] - 1 week [place] [Other] - 11/21/24 10:30 am Procedures ED Procedure Instructions Procedures Procedures: Patient presented here with a chief complaint of a crush injury to the left index finger. Patient subungual hematoma noted. Area was cleaned and prepped in sterile fashion injected locally with 1% lidocaine solution x 3 cc, irrigated and flushed well with Hibiclens,foreign bodies noted. Wound was reapproximated with 3 x 4 0 Ethilon with simple suture. By nursing staff. Subungual hematoma was trephinated with small amount of blood was then expressed from the nail. Patient tolerated procedure well.
[2024-11-13] MEDS: ADACEL DIPH,PERTUSS(ACELL),TET VAC/PF 0.5 ML ADULT SYRINGE IM (16:17)
[2024-11-13] MEDS: LIDOCAINE HCL 1% 100 MG/10 ML MDV INJ (16:17)
== END 2024-11-13 16:39 | disposition home or self-care (01) ==
PROVIDERS: Emergency Provider Emergency Medicine; PCP Internal Medicine
DX: S62.631B Displaced fracture of distal phalanx of left index finger, initial encounter for open fracture (principal); W23.0XXA Caught, crushed, jammed, or pinched between moving objects, initial encounter; S60.122A Contusion of left index finger with damage to nail, initial encounter; Z23 Encounter for immunization
CPT/HCPCS: 11740; 12001; 73130; 90471; 90715; 99283

== ENCOUNTER 2025-08-30 09:14 | Outpatient (OUT) | payer MEDICARE, SELFPAY ==
--- OUTSIDE RECORDS SUMMARY | 2025-08-30 09:22 | XMS_ITS | CCD ---
Author Organization [facility] Care Team Providers Care Garage Supervisor Name Role Phone DO Oliva Croft Primary [...] Unavailable VASGAB, DR BAPTISTE Admitting Unavailable REQUEST, NONE LISTED [...] Unavailable ZIEBER, DR AUGUSTINE Carlson Consulting Unavailable TESJORDANA, SISSY Attending Unavailable TESJORDANA, SISSY Consulting Unavailable Vaschakaren, Dr. Oliva Bedoya Attending Unava ilable Guerda, Dr. Oliva Bedoya Primary Care Unava ilOliva Rothman Unavailable Unavailable Unavailable DO Oliva Croft Primary Care Provider [phone] DO Christiano Weston Emergency Provider Unavai DO Dave Fernandez Attending Provider [phone] Chung Garcia Attending Unavailable Guerda, Dr. Oliva Bedoya [facility] Care Yandyva Chung Ace Attending Unavailable Chung Garcia Referring Unavailable Guerda, Dr. Oliva Bedoya [facility] Care Yandyva Dave Ace Admitting Unavailable Oliva Croft Primary Care Unavailable Dave Garcia Attending Unavailable Christiano Weston Attending Unavailable Christiano Weston Admitting Unavailable Oliva Croft Primary Care Unavailable Oliva Croft Primary Care Unavailable Dave Garcia Attending Unavailable Dave Garcia Admitting Unavailable VasOliva chappell DO Primary Care Provider [phone] OLIVA CROFT Referring Unavailable MARIO LOYA Attending Unavailable OLIVA CROFT Attending Unavailable OLIVA CROFT Attending Unavailable OLIVA CROFT Referring Unavailable Yvon Hutton MD Attending Unavaila ble Lien Clayton Attending Unavailable Allergies Allergy ClassificationReported Allergen(s)Allergy TypeDate of OnsetReaction(s) Facility (3 sources)cefditoren; Translations: [Spectracef][facility]Pres[facility] DO Work Phone: (3 sources)cefditoren; Translations: [cefditoren]Drug Enkjcym57-92-4528J/V [facility] (3 sources)amLODIPineDrug Ztvogll62-24-7618[facility] (3 sources)cefditorenDrug Urwetrq77-27-2315[facility] Medications Current Medications MedicationDrug Class(es)DatesSig (Normalized)Sig (Original)amLODIPine 10 mg oral tablet (5 sources)Dihydropyridine Calcium Channel BlockerStart: 08-07-3647vfcr 10 mg by mouth once dailyAmlodipine Active 10 MG PO Daily December 10, 2022 12:00am aspirin 81 mg delayed release oral tablet (8 sources)Platelet Aggregation Inhibitor, Nonsteroidal Anti-inflammatory Drug Start: 30-88-5863wjvl 1 tablet by mouth once dailyaspirin ([facility] Aspirin Low Dose) 81 MG EC tablet Indications: Abnormal findings on diagnostic imagingof heart and coronary circulation TAKE 1 TABLET BY MOUTH EVERY DAY 90 tablet 1 02/03/2024 ActiveStart: 93-40-9778cdyn 81 mg by mouth once dailyAspirin Active 81 MG PO Daily December 10, 2022 12:00amlosartan potassium 100 mg oral tablet (3 sources)Angiotensin 2 Receptor BlockerStart: 15-86-6841mftj 1 tablet by mouth once dailylosartan (Cozaar) 100 MG tablet Indications: Essential (primary) hypertension (CMS/HCC) TAKE 1 TABLET BY MOUTH EVERY DAY 90 tablet 1 02/03/2024 Activerosuvastatin calcium 20 mg oral tablet (8 sources)HMG-CoA Reductase InhibitorStart: 43-27-2011hzar 1 tablet by mouth once daily at bedtimerosuvastatin (Crestor) 20 MG tablet Indications: Abnormal findings on diagnostic imaging of heart and coronary circulation TAKE 1 TABLET BY MOUTH EVERYDAY AT BEDTIME 90 tablet 2 05/16/2024 ActiveStart: 73-45-7675mesb 20 mg by mouth once daily at bedtimeRosuvastatin Active 20 MG PO Daily at bedtime March 22nd, 2023 12:00amsildenafil 100 mg oral tablet (10 sources)Phosphodiesterase 5 InhibitorStart: 05-04-2024 End: 50-32-9493vqadcqrazx (Viagra) 100 MG tablet Indications: Erectile dysfunction due to arterial insufficiency Take 1 tablet (100 mg) by mouth if needed for erectile dysfunction 10 tablet 11 08/09/2024 ActiveStart: 12-10-2022 Sildenafil Active 100 MG PO Daily December 10, 2022 12:00am administer 30 minutes to 4 hours before activitytake 1 tablet by mouth once dailySildenafil Citrate 100 MG Oral Tablet TAKE 1 TABLET DAILY 1 HOUR BEFORE NEEDED Quantity: 30 Refills: 5 Ordered: 09-Dec-2022 DO Activetadalafil 20 mg oral tablet (5 sources)Phosphodiesterase 5 InhibitorStart: 03-16-2024 End: 68-27-2192gkoh 1 tablet by mouth once daily as neededtadalafil (Cialis) 20 MG tablet Indications: Erectile dysfunction due to arterial insufficiency Take 1 tablet (20 mg) by mouth Daily as needed for erectile dysfunction 30 tablet 2 08/09/2024 Active Problems Active Problems Problem ClassificationProblemDateDocumented DateEpisodic/ChronicCardiac dysrhythmias (3 sources)Palpitations; Translations: [Palpitations]88-36-2620UvfmfutnWlbwigam mellitus without complication (5 sources)Impaired fasting glycemia; Translations: [Impaired fasting glucose] Onset: 929513-04-3242XcozqpiaTdovhqslr of lipid metabolism (6 sources)Hyperlipidemia, unspecified; Translations: [Hypertriglyceridemia] Onset: 80-91-3126KthmnxtTkzqzarde hypertension (7 sources)Essential (primary) hypertension; Translations: [Hypertensive disorder]Onset: 745658-27-2815GwxkjwdVdloo valve disorders (1 source)Other cardiac sounds; Translations: [OTHER CARDIAC SOUNDS]Onset: 87-86-4657FukochxvRapao disorders and dislocations; trauma-related (8 sources)Other tear of medial meniscus, current injury, right knee, subsequent encounter; Translations: [Other tear of medial meniscus, current injury, right knee, initial encounter]Onset: 42-14-4547XlddifztEuyqrsutxlw chest pain (11 sources)Chest pain; Translations: [Chest pain, unspecified]Onset: 10-31-2022 98-02-9076IuvzvmutSrsgj circulatory disease (3 sources)Elevated blood pressure; Translations: [Elevated blood-pressure reading, without diagnosis of hypertension]54-23-4207TtshwsiiBurtu ear and sense organ disorders (2 sources)Bilateral hearing kelv35-23-1874FvdpwebQafaq ear and sense organ disorders (2 sources)Sensorineural hearing loss, unilateral, left ear, with unrestricted hearing on the contralateral side; Translations: [Sensorineural hearing loss, unilateral]72-97-8442HyxrsxiNockc male genital disorders (1 source)Male erectile dysfunction, unspecified; Translations: [Impotence of organic origin]Onset: 538648-40-7068IaoxucwLntvx male genital disorders (2 sources)Erectile dysfunction co-occurrent and due to arterial insufficiency; Translations: [Erectile dysfunction due to arterial insufficiency]08-09-2024 ChronicOther nutritional; endocrine; and metabolic disorders (3 sources)Metabolic syndrome X; Translations: [Metabolic syndrome]Onset: 865782-25-4030AueoyixNswfc nutritional; endocrine; and metabolic disorders (3 sources)Overweight in adulthood with body mass index of 25 or more but less than 30; Translations: [Overweight]EpisodicOther screening for suspected conditions (not mental disorders or infectious disease) (1 source)Abnormal findings on diagnostic imaging of other specified body structures; Translations: [ABNORML FIND DX IMG OTH BODY STRUC]Onset: 11-16-2022 ChronicOther screening for suspected conditions (not mental disorders or infectious disease) (9 sources)Calcification of coronary artery; Translations: [Nonspecific (abnormal) findings on radiological and other examination of other intrathoracic organs]Onset: 389879-35-0193FzvbdpzgLfdwrzwxg; thrombophlebitis and thromboembolism (8 sources)Phlebitis and thrombophlebitis of superficial vessels of left lower extremity; Translations: [Phlebitis and thrombophlebitis of superficial vessels of right lower extremity]Onset: 57-16-6154JggpvlzcHdbxklycr and history of mental health and substance abuse codes (3 sources)Ex-smoker; Translations: [Personal history of tobacco use]Episodic Comment on above:Quit smoking 30 + years ago- 1 pack daily. Smoked 1 cigar daily-Quit in 2020;Spondylosis; intervertebral disc disorders; other back problems (3 sources)Lumbar spondylosis; Translations: [Spondylosis without myelopathy or radiculopathy, lumbar region]Onset: 364848-03-0404EsgifuzMpltpvkzf-zghlxxn disorders (3 sources)Cigar smoker; Translations: [Nicotine dependence, other tobacco product, uncomplicated]Onset: 880738-88-9059SmswbjeDznyaxxrtwpr (1 source)Encounter for preprocedural laboratory examination; Translations: [Encounter for preprocedural laboratory examination]Onset: 30-76-7844Nowbylsy veins of lower extremity (11 sources)Varicose veins of bilateral lower extremities with pain; Translations: [Varicose veins of right lower extremity with pain]Onset: 82-33-5307Obulweul Past or Other Problems Problem ClassificationProblemDateDocumented DateEpisodic/ChronicOther nervous system disorders (3 sources)Carpal tunnel syndrome; Translations: [Carpal tunnel syndrome, unspecified upper limb]Onset: 10-21-2023 Resolved: 759772-85-7594UwhpnmmUkdeq nervous system disorders (1 source)Other abnormalities of gait and mobility; Translations: [OTHER ABNORMALITIES GAIT AND MOBILITY]Onset: 13-13-7434BgmfkhgsWabbo nervous system disorders (1 source)Unspecified abnormalities of gait and mobility; Translations: [UNS ABNORMALITIES GAIT AND MOBILITY]Onset: 44-39-9745MlgicfjpJjyrt non-traumatic joint disorders (1 source)Pain in right knee; Translations: [PAIN IN RIGHT KNEE]Onset: 85-93-7118RrofjfquQgzefkggtnp; intervertebral disc disorders; other back problems (3 sources)Cervical radiculopathy; Translations: [Radiculopathy, cervical region]Onset: 10-21-2023 Resolved: 921617-86-1530HrblilbkQvmvgev and strains (5 sources)Strain of unspecified muscle(s) and tendon(s) at lower leg level, right leg, subsequent encounter; Translations: [Strain of unspecified muscle(s) and tendon(s) at lower leg level, right leg, initial encounter]Onset: 04-08-2022 EpisodicSuperficial injury; contusion (1 source)Contusion of right knee, subsequent encounter; Translations: [CONTUSION RIGHT KNEE SUBSEQUENT ENC]Onset: 90-64-4688Tgwsmtob Results Test NameValueInterpretationReference RangeFacilityOtolaryngology Office/Clinic Noteon 01-14-2098Exbmzashvacvly Office/Clinic NoteChief Complaint Pt states here for bilateral hearing loss . 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 About 4 months [...] a child or family history of ear dise ase. Review of Systems General Adult ROS Fatigue: [...] bruxism change involving the incisors. He is chewinggum during the exam. He has a normal [...] reviewed the patient?s medication list for medication interactions/contraindications and/or for upcoming procedures: [yes or no] Time Spent with the Pa (more content not included)...[facility] URINALYSIS, WITH MICROSCOPICon 31-77-0782TKOWGNSY URINENONE SEENNONE SEEN #/HPFNOMS HealthcareBILIRUBIN URINENegativeNEGATIVENOMS Healthcare BLOOD URINENegativeNEGATIVENOMS HealthcareCAST SEEN?NONE SEENNONE SEEN #/LPFNOMS HealthcareClarity (U)CLEARCLEARNOMS HealthcareColor (U)LT. YELLOWYELLOWNOMS HealthcareCRYSTALS SEEN?None SeenNone Seen #/HPFNOMS HealthcareGLUCOSE URINE UA NegativeNEGATIVE mg/dLNOMS HealthcareKetones Ql (U)NegativeNEGATIVE mg/dLNOMS HealthcareLeukocyte esterase Test strip Ql (U)NegativeNEGATIVENOMS Healthcare MUCUS URINENONE SEENNONE SEENNOMS HealthcareNITRITE URINENegativeNEGATIVENOMS HealthcarepH (U)6.5 [pH]5.0 - 9.0NOMS HealthcarePROTEIN URINENegativeNEG/TRACE mg/dLNOMS HealthcareSPECIFIC GRAVITY URINE1.0101.005 - 1.025NOMS Healthcare SQUAMOUS EPITHELIAL CELL URINERARENONE/RARE #/LPFNOMS HealthcareTBH RBCNONE SEEN NOMS HealthcareTBH WBCNONE SEENNONE SEEN #/HPFNOMS HealthcareURINE CULTURE INDICATEDNONOMS HealthcareUROBILINOGEN URINE1.0 EU/dL0.2 - 1.0 EU/dLNOMS HealthcareCLINISYNCNOMS HealthcareActivated partial thromboplastin time (aPTT) in platelet poor plasma by coagulation aOrdered By: Dave Garcia on 30-49-9243tYZW Coag (PPP) [Time]32.8 s25.1-36.5FSouthern Ohio Medical CenterBasophils Auto (Bld) [#/Vol]Ordered By: Dave Garcia on 42-07-7517Bkvpjmswb (Bld) [#/Vol]0.0 10*3/uL0.0-0.2FSouthern Ohio Medical CenterBasophils/100 WBC Auto (Bld) Ordered By: Dave Garcia on 30-05-3307Cqgovjzis/100 WBC (Bld)0.5 %.Uc Medical CenterBlood Urea Nitrogenon 03-72-4139Cjdl nitrogen [Mass/Vol] 18 mg/dLNormal-Uc Medical CenterComment on above:Performed By: #### LIPID, CREAT, PP, CBC, LYTES, BUN #### [place] [address] USACarbon dioxide, total [Moles/volume] in Serum or Plasma Ordered By: Dave Garcia on 79-06-6442TA5 [Moles/Vol]28.7 mmol/L21.0-31.0Uc Medical CenterChloride [Moles/volume] in Serum or PlasmaOrdered By: Dave Garcia on 64-21-4104Kewkcncg [Moles/Vol]107 mmol/N18-526DgvvqjugcUc Medical CenterCholesterol [Mass/volume] in Serum or PlasmaOrdered By: Dave Garcia on 09-14-0911Cjptctmumvy [Mass/Vol]118 mg/kJ129-163FlhrgfqgqUc Medical CenterComment on above:Chol less than 200 mg/dl low riskChol 201-239 mg/dl borderline riskChol 240 mg/dl and greater high riskCholesterol in LDL Calc [Mass/Vol]Ordered By: Dave Garcia on 94-64-5093Iukiwqfsjzp in LDL [Mass/Vol]57 mg/dL0-100Uc Medical CenterComment on above:LDL ATP III CLASSIFICATIONLDL less than 100 mg/dL OptimalLDL 100-129 mg/dL Near or above tzhhxedIEF931-166 mg/dL Borderline highLDL 160-189 mg/dL HighLDL greater than 189 mg/dL Very highCholesterol in VLDL Calc [Mass/Vol]Ordered By: Dave Garcia on 07-87-2813Zeenhsbfibm in VLDL [Mass/Vol]13 mg/dLUc Medical CenterCoagulation Profileon 38-35-7696wSZU Coag (Bld) [Time]32.8 sNormal 25.1-36.5FSouthern Ohio Medical CenterComment on above:Result Comment: PERFORMED BY: [place] [address] PATHOLOGIST FLORAL CLERK ALEKSANDER TOBIN M.D.Performed By: #### LIPID, CREAT, PP, CBC, LYTES, BUN #### [place] [address] USAINR Coag (PPP) [Relative time]1.0 {INR}NormalUc Medical CenterComment on above:Result Comment: INR Therapeutic Range A) Pre- and [...] patients with mechanical heart valves: 3 - 4.5Performed By: #### LIPID, CREAT, PP, CBC, LYTES, BUN #### [place] [address] USAPT Coag (PPP) [Time]11.8 sNormal9.0-12.9Uc Medical CenterComment on above:Performed By: #### LIPID, CREAT, PP, CBC, LYTES, BUN #### [place] [address] USAComplete Blood Count Auto Diffon 08-38-9242Rbajzwdrc (Bld) [#/Vol]0.0 10*3/uLNormal0.0-0.2FSouthern Ohio Medical CenterComment on above:Result Comment: PERFORMED BY: [place] [address] PATHOLOGIST FLORAL CLERK ALEKSANDER TOBIN M.D.Performed By: #### LIPID, CREAT, PP, CBC, LYTES, BUN #### [place] [address] USABasophils/100 WBC (Bld)0.5 %Normal.Uc Medical CenterComment on above:Performed By: #### LIPID, CREAT, PP, CBC, LYTES, BUN #### [place] [address] USAEosinophils (Bld) [#/Vol]0.1 10*3/uLNormal0.0-0.45 Uc Medical CenterComment on above:Performed By: #### LIPID, CREAT, PP, CBC, LYTES, BUN #### [place] [address] USAEosinophils/100 WBC (Bld)1.7 %Normal.Uc Medical CenterComment on above:Performed By: #### LIPID, CREAT, PP, CBC, LYTES, BUN #### [place] [address] USAErythrocyte distribution width (RBC) [Ratio]14.1 %Normal 12.0-14.8Uc Medical CenterCommunson healthcare [facility] on above:Performed By: #### LIPID, CREAT, PP, CBC, LYTES, BUN #### [place] [address] USAHematocrit (Bld) [Volume fraction]44.7 %Odvfqc07.8-50.0 Uc Medical CenterComment on above:Performed By: #### LIPID, CREAT, PP, CBC, LYTES, BUN #### [place] [address] USAHemoglobin (Bld) [Mass/Vol]14.9 g/gNMldkvb29.0-17.0 [facility]c Medical CenterComment on above:Performed By: #### LIPID, CREAT, PP, CBC, LYTES, BUN #### [place] [address] USALymphocytes (Bld) [#/Vol]1.3 10*3/uLNormal1.00-4.8 [facility]c Medical CenterComment on above:Performed By: #### LIPID, CREAT, PP, CBC, LYTES, BUN #### [place] [address] USALymphocytes/100 WBC (Bld)22.4 %Normal.Uc Medical CenterComment on above:Performed By: #### LIPID, CREAT, PP, CBC, LYTES, BUN #### [address] (RBC) [Entitic mass]27.4 pgLow27.5-35.2FSouthern Ohio Medical CenterComment on above:Performed By: #### LIPID, CREAT, PP, CBC, LYTES, BUN #### [address] (RBC) [Entitic vol]82.4 fLLow83.5-101Uc Medical CenterComment on above:Performed By: #### LIPID, CREAT, PP, CBC, LYTES, BUN #### [place] [address] USAMean Corpuscular HGB Conc33.3 g/yAHdxldz29.5-35.6FSouthern Ohio Medical CenterComment on above:Performed By: #### LIPID, CREAT, PP, CBC, LYTES, BUN #### [place] [address] USAMonocytes (Bld) [#/Vol]0.6 10*3/uLNormal0.0-0.8Uc Medical CenterComment on above:Performed By: #### LIPID, CREAT, PP, CBC, LYTES, BUN #### [place] [address] USAMonocytes/100 WBC (Bld)9.7 %Normal.Uc Medical CenterComment on above:Performed By: #### LIPID, CREAT, PP, CBC, LYTES, BUN #### [place] [address] USANeutrophils (Bld) [#/Vol]3.8 10*3/uLNormal1.8-7.7FSouthern Ohio Medical CenterComment on above:Performed By: #### LIPID, CREAT, PP, CBC, LYTES, BUN #### [facility] [address] [place] [address] USANeutrophils/100 WBC (Bld)65.7 %Normal.Uc Medical CenterComment on above:Performed By: #### LIPID, CREAT, PP, CBC, LYTES, BUN #### [place] [address] USANRBC%0.6 /100{WBC}High0-0.5FSouthern Ohio Medical CenterComment on above:Performed By: #### LIPID, CREAT, PP, CBC, LYTES, BUN #### [place] [address] USAPlatelet mean volume (Bld) [Entitic vol]7.8 fLNormal 6.6-10.1FSouthern Ohio Medical CenterComment on above:Performed By: #### LIPID, CREAT, PP, CBC, LYTES, BUN #### [place] [address] USAPlatelets (Bld) [#/Vol]162 10*3/gOGjitqh482-976GzfflcdkzUc Medical CenterComment on above:Performed By: #### LIPID, CREAT, PP, CBC, LYTES, BUN #### [place] [address] USARBC (Bld) [#/Vol]5.43 10*6/uLNormal3.90-5.60Uc Medical CenterComment on above:Performed By: #### LIPID, CREAT, PP, CBC, LYTES, BUN #### [place] [address] USAWBC (Bld) [#/Vol]5.7 10*3/uLNormal4.1-10.5FSouthern Ohio Medical CenterComment on above:Performed By: #### LIPID, CREAT, PP, CBC, LYTES, BUN #### [facility] [address] [place] [address] USACreatinineon 93-34-1348Mpvoealzsp [Mass/Vol]0.97 mg/dL Normal0.70-1.30Uc Medical CenterComment on above:Performed By: #### LIPID, CREAT, PP, CBC, LYTES, BUN #### [facility] [address] [place] [id number] USAGFR/1.73 sq M.predicted MDRD (S/P/Bld) [Vol rate/Area] mL/min/{1.73_m2}NormalUc Medical CenterComment on above: Performed By: #### LIPID, CREAT, PP, CBC, LYTES, BUN #### [facility] [address] [place] [id number] USACreatinine [Mass/volume] in Serum or PlasmaOrdered By: Dave Garcia on 84-70-6160Izxetdharm [Mass/Vol]0.97 mg/dL0.70-1.30Uc Medical CenterECG 12 lead ECGon 84-18-9717JUC 12 lead ECGWVUMEDICINE [facility] [employer] [address] [place] [address] Electrocardiograph Report Signed Patient: Augustine Hall MR#: [id number] : 1960 Acct:[id number] Age/Sex: 62 / M ADM Date: 12/10/22 Loc: Room: Type: [facility] Attending Dr: Dave Garcia DO Ordering [...] change was found Confirmed by ANKUR RODRÍGUEZ [facility]ENTERBRYAN ([id number]) on 12/10/2022 4:25:08 PM Referred By: GUERDA GARCIA Electronically Signed By:BRYAN FERNANDEZ MD [facility] Transcribed By: RENATO Signed By Bryan Fernandez MD, [facility] 12/10/22 1625NormalUc Medical CenterElectrolyteson 12-10-2022 Anion gap [Moles/Vol]8.6 mmol/LNormal6.0-15.0[facility] Comment on above:Performed By: #### LIPID, CREAT, PP, CBC, LYTES, BUN #### [facility] [address] [place] [address] USAChloride [Moles/Vol]107 mmol/SWtitqg29-122SaxgsiubaUc Medical CenterComment on above:Performed By: #### LIPID, CREAT, PP, CBC, LYTES, BUN #### [facility] [address] [place] [address] USACO2 [Moles/Vol]28.7 mmol/VCktsyf89.0-31.0Uc Medical CenterComment on above:Performed By: #### LIPID, CREAT, PP, CBC, LYTES, BUN #### [facility] [address] [place] [address] USAPotassium [Moles/Vol]4.3 mmol/LNormal3.5-5.1FSouthern Ohio Medical CenterComment on above:Performed By: #### LIPID, CREAT, PP, CBC, LYTES, BUN #### [facility] [address] [place] [address] USASodium [Moles/Vol]140 mmol/CEzjrht236-010ZgdiwtyejUc Medical CenterComment on above:Performed By: #### LIPID, CREAT, PP, CBC, LYTES, BUN #### [facility] [address] [place] [address] USAEosinophils Auto (Bld) [#/Vol]Ordered By: Dave Garcia on 26-53-6173Mpzewdnljfs (Bld) [#/Vol]0.1 10*3/uL0.0-0.45Uc Medical CenterEosinophils/100 WBC Auto (Bld)Ordered By: Dave Garcia on 12-10-2022 Eosinophils/100 WBC (Bld)1.7 %.Uc Medical CenterErythrocyte distribution width Auto (RBC) [Ratio]Ordered By: Dave Garcia on 12-10-2022 Erythrocyte distribution width (RBC) [Ratio]14.1 %12.0-14.8Uc Medical CenterHematocrit Auto (Bld) [Volume fraction]Ordered By: Dave Garcia on 12-89-8427Wxjkledhhs (Bld) [Volume fraction]44.7 %38.8-50.0Uc Medical CenterHemoglobin [Mass/volume] in BloodOrdered By: Dave Garcia on 88-40-0627Xwvgssalfe (Bld) [Mass/Vol]14.9 g/dL13.0-17.0Uc Medical CenterLaboratory - Chemistry and Chemistry - challengeon 12-10-2022 Cholesterol [Mass/Vol]118\S\118below low uokxtiuco783-315SQ-NgqdbChildren'S [place] 250 DO Work Phone: Comment on above:Chol less than 200 mg/dl low risk Chol 201-239 mg/dl borderline risk Chol 240 mg/dl and greater high risk Cholesterol in LDL [Mass/Vol]57\S\34Dmiwgj8-425VG-JpoqzSauk Centre Hospital 250 DO Work Phone: Comment on above:LDL ATP III CLASSIFICATION LDL less than 100 mg/dL Optimal LDL 100-129 mg/dL Near or above optimal LDL 130-159 mg/dL Borderline high LDL 160-189 mg/dL High LDL greater than 189 mg/dL Very high Laboratory - Chemistry and Chemistry - challengeOrdered By: Dave Garcia on 58-05-0340SBI/1.73 sq M.predicted MDRD (S/P/Bld) [Vol rate/Area]mL/min/{1.73_m2} [facility] CenterLaboratory - CoagulationOrdered By: Dave Garcia on 03-05-9132SN Coag (PPP) [Time]11.8 s9.0-12.9[facility] Leukocytes [#/volume] corrected for nucleated erythrocytes in Blood by Automated counOrdered By: Dave Garcia on 46-90-6448IYJ corrected for nucl RBC Auto (Bld) [#/Vol]5.7 10*3/uL4.1-10.5FSouthern Ohio Medical CenterLipid Panelon 90-24-5809Lvcyosurcuy [Mass/Vol]118 mg/fLLmf809-830ZmmwyareuUc Medical CenterComment on above:Result Comment: Chol less than 200 mg/dl low risk Chol 201-239 mg/dl borderline risk Chol 240 mg/dl and greater high riskPerformed By: #### LIPID, CREAT, PP, CBC, LYTES, BUN #### [facility] [address] [place] [address] USACholesterol in HDL [Mass/Vol]48 mg/iPRehrxf67-97BciatnyaoUc Medical CenterComment on above:Result Comment: HDL CHOL ATP-III CLASSIFICATION Cardiovascular Risk HDL > or equal to 60 mg/dL LOW HDL < 40 mg/dL HIGHPerformed By: #### LIPID, CREAT, PP, CBC, LYTES, BUN #### [facility] [address] [place] [address] USACholesterol.total/Cholesterol in HDL [Mass ratio]2.5 {ratio}Normal<5.0Uc Medical CenterComment on above:Result Comment: PERFORMED BY: [place] [address] PATHOLOGIST FLORAL CLERK ALEKSANDER TOBIN M.D.Performed By: #### LIPID, CREAT, PP, CBC, LYTES, BUN #### [facility] [address] [place] [address] USALDL Cholesterol,Ysotlxokzf43 mg/dLNormal0-100Uc Medical CenterComment on above:Result Comment: LDL ATP III CLASSIFICATION LDL less than 100 mg/dL Optimal LDL 100-129 mg/dL Near or above optimal LDL 130-159 mg/dL Borderline high LDL 160-189 mg/dL High LDL greater than 189 mg/dL Very highPerformed By: #### LIPID, CREAT, PP, CBC, LYTES, BUN #### [facility] [address] [place] [address] USATriglyceride w/Alyowi23 mg/dLNormal0-149Uc Medical CenterComment on above:Result Comment: TRIG ATP III CLASSIFICATION TRIG less than 150 mg/dL Normal TRIG 150-199 mg/dL Borderline high TRIG 200-500 mg/dL High TRIG greater than 500 mg/dL Very high Standard traceable to the Center for Disease Conrtrol and Prevention (CDC) test method.Performed By: #### LIPID, CREAT, PP, CBC, LYTES, BUN #### [facility] [address] [place] [id number] USAVLDL ODIRQDLVUSQ00 mg/dLNormalUc Medical CenterComment on above:Performed By: #### LIPID, CREAT, PP, CBC, LYTES, BUN #### [facility] [address] [place] [id number] USALymphocytes Auto (Bld) [#/Vol]Ordered By: Dave Garcia on 37-10-5065Jvfhutylfbh (Bld) [#/Vol]1.3 10*3/uL1.00-4.8Uc Medical CenterLymphocytes/100 WBC Auto (Bld)Ordered By: Dave Garcia on 12-10-2022 Lymphocytes/100 WBC (Bld)22.4 %.[facility] Auto (RBC) [Entitic mass]Ordered By: Dave Garcia on 84-50-1453MSD (RBC) [Entitic mass]27.4 pg 27.5-35.2FWexner Medical CenterHC Auto (RBC) [Mass/Vol]Ordered By: Dave Garcia on 04-89-8236ECYT (RBC) [Mass/Vol]33.3 g/dL32.5-35.6FWexner Medical CenterV Auto (RBC) [Entitic vol]Ordered By: Dave Garcia on 12-10-2022 MCV (RBC) [Entitic vol]82.4 fL83.5-101Uc Medical CenterMonocytes Auto (Bld) [#/Vol]Ordered By: Dave Garcia on 83-63-6066Ojubrvava (Bld) [#/Vol]0.6 10*3/uL0.0-0.8Uc Medical CenterMonocytes/100 WBC Auto (Bld) Ordered By: Dave Garcia on 68-45-8641Pufbmummi/100 WBC (Bld)9.7 %.Uc Medical CenterNeutrophils Auto (Bld) [#/Vol]Ordered By: Dave Garcia on 39-41-4705Rfguuxnlcyk (Bld) [#/Vol]3.8 10*3/uL1.8-7.7FSouthern Ohio Medical CenterNeutrophils/100 WBC Auto (Bld)Ordered By: Dave Garcia on 12-10-2022 Neutrophils/100 WBC (Bld)65.7 %.[facility]c Medical CenterNo Panel InformationOrdered By: Dave Garcia on 93-56-1638Xxhvxwsg Creatinine Clearance (ChemN/[facility] HospitalNo Panel Informationon 12-10-2022 0.0\S\0.7Snaiwe8.0-0.2MP-[facility] [address] DO Work Phone: Comment on above:PERFORMED BY:[facility] [place], [place] [phone] MEDICAL DIRECTORALEKSANDER TOBIN M.D.0.1\S\0.6Mddrkk9.0-0.45[facility] [address] DO Work Phone: [phone]\S\0.6above high threshold0-0.5[facility] [address] DO Work Phone: [phone]\S\1.5Ytlafm5.00-4.8[facility] [address] DO Work Phone: [phone]\S\3.7Aecqva6.8-7.7[facility] [address] DO Work Phone: [phone]\S\0.5Normal.[facility] [address] DO Work Phone: [phone]\S\1.7Normal.[facility] [address] DO Work Phone: [phone]\S\9.7Normal.[facility] [address] DO Work Phone: [phone]\S\22.4Normal.[facility] [address] DO Work Phone: [phone]\S\65.7Normal.[facility] [address] DO Work Phone: [phone]\S\7.0Kghcxg0.6-10.1[facility] [address] DO Work Phone: [phone]\S\262Ymfhnv229-553KP-Kbmei [place] [facility] [address] DO Work Phone: [phone]\S\14.8Pkbuby38.0-14.8[facility] [address] DO Work Phone: [phone]\S\33.7Jhjtqj47.5-35.6[facility] [address] DO Work Phone: [phone]\S\27.4below low ykmphqkoy57.5-35.2[facility] [address] DO Work Phone: [phone]\S\82.4below low oultsjhqw19.0-471PT-Kspiv [place] [facility] [address] DO Work Phone: [phone]\S\44.8Agogrx08.8-50.0[facility] [address] DO Work Phone: [phone]\S\14.6Mutwlz45.0-17.0[facility] [address] DO Work Phone: [phone]\S\5.19Ewsquw3.90-5.60[facility] [address] DO Work Phone: [phone]\S\5.6Yokrxs8.1-10.5[facility] [address] DO Work Phone: [phone]\S\32.8Pekhef97.1-36.5[facility] [address] DO Work Phone: Comment on above:PERFORMED BY:[facility] [place] [phone] MEDICAL DIRECTORALEKSANDER TOBIN M.D.1.0\S\1.0NormalMP-[facility] [address] DO Work Phone: Comment on above:INR Therapeutic Range A) Pre- and Peroperative OAT started two weeks before surgery. NOT HIP SURGERY: 1.5 - 2.5 HIP SURGERY: 2 - 3 B) Primary and secondary prevention of venous THROMBOSIS: 2 - 3 C) Active venous thrombosis, pulmonary embolism and prevention of recurrent venous thrombosis: 2 - 3 D) Prevention of arterial thromboembolism including patients with mechanical heart valves: 3 - 4.511.8\S\11.9Bvjzwu7.0-12.9[facility] [address] DO Work Phone: [phone]\S\8.2Mhhrpr2.0-15.0[facility] [address] DO Work Phone: [phone]\S\28.0Yvbwsw90.0-31.0[facility] [address] DO Work Phone: [phone]\S\823Lzkvgq02-565CW-Iuqvi [place] [facility] [address] DO Work Phone: [phone]\S\4.9Frxcby8.5-5.1[facility] [address] DO Work Phone: [phone]\S\347Ztpoka885-761DN-Eensv [place] [facility] [address] DO Work Phone: [phone]\S\25Zppoar5-53ME-Kbhew [place] [facility] [address] DO Work Phone: > 60.0NormalMP-[facility] DO Work Phone: [phone]\S\0.42Mwtykq7.70-1.30[facility] [address] DO Work Phone: [phone]\S\2.5Normal<5.0MP-[facility] [address] DO Work Phone: Comment on above:PERFORMED BY:[facility] [place], [place] [phone] MEDICAL DIRECTORALEKSANDER TOBIN M.D.13\S\13NormalMP-[facility] [address] DO Work Phone: [phone]\S\75Jbtdcj6-733QL-GanreSauk Centre Hospital 250 DO Work Phone: Comment on above:TRIG ATP III CLASSIFICATION TRIG less than 150 mg/dL Normal TRIG 150-199 mg/dL Borderline high ROBR711-876 mg/dL High TRIG greater than 500 mg/dL Very high Standard traceable to the Center for Disease Conrtrol and Prevention (CDC) test method.48\S\68Zmbumj24-27KG-CzzprSauk Centre Hospital 250 DO Work Phone: Comment on above:HDL CHOL ATP-III CLASSIFICATION Cardiovascular Risk HDL > or equal to 60 mg/dL LOW HDL < 40 mg/dL HIGHNucleated erythrocytes [Presence] in Blood by Automated countOrdered By: Dave Garcia on 39-96-7328Sxxvyjttl RBC Auto Ql (Bld)0.6 /100{WBC}0-0.5FSouthern Ohio Medical CenterPlatelet mean volume Auto (Bld) [Entitic vol]Ordered By: Dave Garcia on 03-53-8213Vmxopzpz mean volume (Bld) [Entitic vol]7.8 fL6.6-10.1FSouthern Ohio Medical CenterPlatelet poor plasma international normalized ratio (INR) by coagulation assay (relatOrdered By: Dave Garcia on 78-11-0114BFP Coag (PPP) [Relative time]1.0 {INR}Uc Medical CenterComment on above:INR Therapeutic Range A) Pre- and Peroperative OAT started two weeks before surgery. NOT HIP SURGERY: 1.5 - 2.5 HIP SURGERY: 2 - 3B) Primary and secondary prevention of venous THROMBOSIS: 2 - 3C) Active venous thrombosis, pulmonary embolismand prevention of recurrent venous thrombosis: 2 - 3D) Prevention of arterial thromboembolismincluding patients with mechanical heart valves: 3 - 4.5Platelets Auto (Bld) [#/Vol]Ordered By: Dave Garcia on 05-74-6419Tzwjshkoc (Bld) [#/Vol]162 10*3/jF686-709KiruwafdyUc Medical CenterPotassium [Moles/volume] in Serum or PlasmaOrdered By: Dave Garcia on 09-40-6721Nbeujfbcu [Moles/Vol]4.3 mmol/L 3.5-5.1FSouthern Ohio Medical CenterRBC Auto (Bld) [#/Vol]Ordered By: Dave Garcia on 21-59-7371JWV (Bld) [#/Vol]5.43 10*6/uL3.90-5.60[facility] Hospitalerum or plasma anion gap determinationOrdered By: Dave Garcia on 05-69-6171Forkz gap [Moles/Vol]8.6 mmol/L6.0-15.0[facility] Hospitalerum or plasma high density lipoprotein (HDL) cholesterol measurement Ordered By: Dave Garcia on 29-05-2222Maweqfjctgw in HDL [Mass/Vol]48 mg/dL29-71 Uc Medical CenterComment on above:HDL CHOL ATP-III CLASSIFICATION Cardiovascular RiskHDL > or equal to 60 mg/dL LOWHDL < 40 mg/dL HIGHSerum or plasma total cholesterol/high density lipoprotein (HDL) cholesterol mass ratOrdered By: Dave Garcia on 92-63-4110Nvnrmftmukm.total/Cholesterol in HDL [Mass ratio]2.5 {ratio}<5.0[facility] Hospitalodium [Moles/volume] in Serum or PlasmaOrdered By: Dave Garcia on 71-42-0995Khpgxk [Moles/Vol]140 mmol/W790-440LkyqvfwzxUc Medical CenterTriglyceride [Mass/volume] in Serum or PlasmaOrdered By: Dave Garcia on 63-45-0747Dskyhyjcdqce [Mass/Vol]67 mg/dL0-149Uc Medical CenterComment on above:TRIG ATP III CLASSIFICATIONTRIG less than 150 mg/dL NormalTRIG 150-199 mg/dL Borderline highTRIG 200-500 mg/dL High TRIG greater than 500 mg/dL Very highStandard traceable to the Center for Disease Conrtrol and Prevention (CDC) test method.Urea nitrogen [Mass/volume] in Serum or PlasmaOrdered By: Dave Garcia on 59-23-7381Dqlz nitrogen [Mass/Vol]18 mg/dL7-25Uc Medical CenterWBC Auto (Bld) [#/Vol]Ordered By: Dave Garcia on 35-67-5676SVJ (Bld) [#/Vol] 5.7 10*3/uL4.1-10.5FSouthern Ohio Medical CenterOffice Visit (Cardiology)on 34-94-6967Kzsusr-up visitDiagnoses/Problems Assessed Hypertension (401.9) (I10) Chest pressure (786.59) (R07.89) Agatston coronary artery calcium score between 200 and 399 (793.2) (R93.1) Varicose vein of leg (454.9) (I83.90) Overweight with body mass index (BMI) of 26 to 26.9 in adult (278.02,V85.22) (E66.3,Z68.26) Former smoker (V15.82) (Z87.891) Quit smoking 30 + years ago- 1 pack daily. Smoked 1 cigar daily-Quit in 2019 Orders Agatston coronary artery calcium score between [...] pressure results. He underwent stress testing at [facility] details of which are unknown but he was told he achieved his target heart rate and there were no EKG changes and he did not describe any angina. We donot have details of the stress test as of yet. He did have calcium score performed in [facility] which revealed mild proximal LAD calcification with Aggiston score of 200, consistent with mild single-vessel LAD calcification. He is a former smoker quit 30 years ago and then smoked a cigar daily up until 2 years ago. He denies any previous myocardial infarction, revascularization, stroke, thromboembolic or bleedingdisorder. He does have a history of varicose veins and underwent ablation for his varicose veins within the last year with improved results and resolution of lower extremity edema Informed decision-making process as well as risks, benefits and alternatives performed with the patient and his for over 45 minutes this morning in regards to noninvasive/conservative managementversus invasive assessment with by means of heart catheterization possible revascularization. He isconcerned and fearful about these new symptoms. He [...] Vital Signs Recorded: 09Dec2022 08:58AMRecorded: 09Dec2022 08:56AM Ycsdoknn896, LUE, Yvmdszd127, RUE, Sitting Ebdktpoep77, LUE, Lxylklq33, RUE, Sitting PHQ-2 #1. Over the last 2 weeks have you felt down, depresse (more content not included)...NormalUH TouchworksPHQ-2 VITALSon 58-69-5427Lrccn depression screening assessmentNoIsland Hospital Fant[employer]c DO Work Phone: Tobacco Screening.on 09-36-5163Jpak risk assessmentc) Not medically indicatedIsland Hospital [employer] 250 DO Work Phone: Tobacco use status CPHSb) NoMHarborview Medical Center [employer] 250 DO Work Phone: CT CARDIAC SCORINGon 35-17-1483JT CARDIAC SCORING Addendum Begins Patient Name: AUGUSTINE [...] INDICATION: Hyperlipidemia, unspecified. COMPARISON: None. ACCESSION NUMBER(S): [id number] ORDERING CLINICIAN: OLIVA CROFT TECHNIQUE: Using prospective [...] increased >800 Marvel et al. JCCT 2016 (http://dx.doi.org/10.1016/j.jcct.2016.11.003) MUSE Percentile In general, greater than 75th [...] Calcification can be calcuate using link below https://www.muse-nhlbi.org/MESACHDRisk/MesaRiskScore/RiskScore.aspx Adal. JACC 2015 (http://dx.doi.org/10.1016/j.j acc.2015.08.035) Reading Swing Tender: Dr. Akua Kline, Date: 12/02/2022 3:21 pm Electronically signed by: JENNIFER FUENTES MDLancaster Rehabilitation HospitalCT Cardiac Scoringon 97-78-1683YB Cardiac ScoringNormal-[facility] DO Work Phone: ECHOCARDIO M/2D COMPLETEon 28-31-7944SAWAATDJPO M/2D COMPLETEPatient: AUGUSTINE HALL Exam Date: 11/12/2022 : 1960 Gender:M Ordering : DR OLIVA CROFT Admission #: [id number] Family : Order #: [id number] CLICK HERE TO VIEW EXAM ECHOCARDIOGRAM REPORT [...] by: Chuck Faustin M.D. on 11/12/2022 at 11:31[facility] Doctors HospitalNM STRESS/REST MULTIon 77-66-9532KY STRESS/REST MULTIPatient: AUGUSTINE HALL Exam Date: 11/12/2022 : 1960 Gender:M Ordering : DR OLIVA CROFT Admission #: [id number] Family : Order #: [id number] CLICK HERE TO VIEW EXAM RADIOLOGY REPORT [...] motion and ejection fraction. Dictated by: Augustine nKutson M.D. on 11/13/2022 at 12:07 Approved by: Augustine Knutson M.D. on 11/13/2022 at 12:09Ohio[facility] Doctors HospitalActivated partial thromboplastin time (aPTT) in platelet poor plasma by coagulation aOrdered By: Christiano Weston on 77-48-7386tMBA Coag (PPP) [Time] 33.6 s25.1-36.5FSouthern Ohio Medical CenterB-Type Natriuretic Peptideon 60-66-2792Rwkgkqgyddp peptide B (Bld) [Mass/Vol]42.0 pg/mLNormal5-100Uc Medical CenterComment on above:Result Comment: PERFORMED BY: [place] [address] PATHOLOGIST FLORAL CLERK ALEKSANDER TOBIN M.D.Performed By: #### LIPID, CREAT, PP, CBC, LYTES, BUN #### [place] [address] USABasic Metabolic Panelon 51-06-4003Gtkpu gap [Moles/Vol] 10.2 mmol/LNormal6.0-15.0Uc Medical CenterComment on above: Performed By: #### BNP, HS TROP, PT, PTT, CBC, CKMB, BMP #### [facility] [address] [place] [address] USACalcium [Mass/Vol]9.1 mg/dLNormal8.2-10.2FSouthern Ohio Medical CenterComment on above:Performed By: #### BNP, HS TROP, PT, PTT, CBC, CKMB, BMP #### [place] [address] USAChloride [Moles/Vol]105 mmol/IVarsgy68-232CtlpbrufhUc Medical CenterComment on above:Performed By: #### BNP, HS TROP, PT, PTT, CBC, CKMB, BMP #### [place] [address] USACO2 [Moles/Vol]26.9 mmol/JPfmmrm75.0-30.0Uc Medical CenterComment on above:Performed By: #### BNP, HS TROP, PT, PTT, CBC, CKMB, BMP #### [place] [address] USACreatinine [Mass/Vol]0.95 mg/dLNormal0.64-1.27Uc Medical CenterComment on above:Performed By: #### BNP, HS TROP, PT, PTT, CBC, CKMB, BMP #### [facility] [address] [place] [address] USACreatinine Clr Calc Tgtijnro54.54NoWVUMedicine Harrison Community HospitalComment on above:Result Comment: PERFORMED BY: [place] [address] PATHOLOGIST FLORAL CLERK ALEKSANDER TOBIN M.D.Performed By: #### BNP, HS TROP, PT, PTT, CBC, CKMB, BMP #### [place] [address] USAEstimated GFR ( Milady> 60NoWVUMedicine Harrison Community HospitalComment on above:Result Comment: GFR estimated reference range: According to KDOQI guidelines, <60 ml/min/1.73m2 is sufficient to diagnose a patient with chronic kidney disease.Performed By: #### BNP, HS TROP, PT, PTT, CBC, CKMB, BMP #### [place] [address] USAEstimated GFR (Non- Am> 60White HospitalComment on above:Performed By: #### BNP, HS TROP, PT, PTT, CBC, CKMB, BMP #### [place] [address] USAGlucose [Mass/Vol]95 mg/sIXsmude88-422CaytdgupcUc Medical CenterComment on above:Result Comment: Random Glucose Reference Range is dependent on time and content of last meal. Glucose of more than 200 mg/dL in a nonstressed, ambulatory subject supports the diagnosis of Diabetes Mellitus. ADA recommended reference rangePerformed By: #### BNP, HS TROP, PT, PTT, CBC, CKMB, BMP #### [facility] [address] [place] [address] USAPotassium [Moles/Vol]4.1 mmol/LNormal3.5-5.1FSouthern Ohio Medical CenterComment on above:Performed By: #### BNP, HS TROP, PT, PTT, CBC, CKMB, BMP #### [facility] [address] [place] [address] USASodium [Moles/Vol]138 mmol/AIawenv476-278HqhwjggqzUc Medical CenterComment on above:Performed By: #### BNP, HS TROP, PT, PTT, CBC, CKMB, BMP #### [facility] [address] [place] [address] USAUrea nitrogen [Mass/Vol]16 mg/dLNormal9-23Uc Medical CenterComment on above:Performed By: #### BNP, HS TROP, PT, PTT, CBC, CKMB, BMP #### [place] [address] USABasophils Auto (Bld) [#/Vol]Ordered By: Christiano Weston on 50-80-0906Deculoxcp (Bld) [#/Vol]0.0 10*3/uL0.0-0.2FSouthern Ohio Medical CenterBasophils/100 WBC Auto (Bld)Ordered By: Christiano Weston on 10-31-2022 Basophils/100 WBC (Bld)0.6 %.Uc Medical CenterComplete Blood Count Auto Diffon 79-68-1506Mwldgjcmg (Bld) [#/Vol]0.0 10*3/uLNormal0.0-0.2 [facility]c Medical CenterComment on above:Result Comment: PERFORMED BY: [place] [address] PATHOLOGIST FLORAL CLERK ALEKSANDER TOBIN M.D.Performed By: #### BNP, HS TROP, PT, PTT, CBC, CKMB, BMP #### [place] [address] USABasophils/100 WBC (Bld)0.6 %Normal.Uc Medical CenterComment on above:Performed By: #### BNP, HS TROP, PT, PTT, CBC, CKMB, BMP #### [place] [address] USAEosinophils (Bld) [#/Vol]0.1 10*3/uLNormal0.0-0.45 Uc Medical CenterComment on above:Performed By: #### BNP, HS TROP, PT, PTT, CBC, CKMB, BMP #### [facility] [address] [place] [address] USAEosinophils/100 WBC (Bld)1.3 %Normal.Uc Medical CenterComment on above:Performed By: #### BNP, HS TROP, PT, PTT, CBC, CKMB, BMP #### [place] [address] USAErythrocyte distribution width (RBC) [Ratio]14.3 %Normal 12.0-14.8Uc Medical CenterCommunson healthcare charle[facility] hospital on above:Performed By: #### BNP, HS TROP, PT, PTT, CBC, CKMB, BMP #### [place] [address] USAHematocrit (Bld) [Volume fraction]45.3 %Uaavde45.8-50.0 Uc Medical CenterComment on above:Performed By: #### BNP, HS TROP, PT, PTT, CBC, CKMB, BMP #### [place] [address] USAHemoglobin (Bld) [Mass/Vol]15.0 g/oFUtbbro98.0-17.0 Uc Medical CenterCommunson healthcare charlevoix hospital on above:Performed By: #### BNP, HS TROP, PT, PTT, CBC, CKMB, BMP #### [place] [address] USALymphocytes (Bld) [#/Vol]1.1 10*3/uLNormal1.00-4.8 Uc Medical CenterComment on above:Performed By: #### BNP, HS TROP, PT, PTT, CBC, CKMB, BMP #### [place] [address] USALymphocytes/100 WBC (Bld)17.2 %Normal.Uc Medical CenterComment on above:Performed By: #### BNP, HS TROP, PT, PTT, CBC, CKMB, BMP #### [address] (RBC) [Entitic mass]27.7 quRqzxow21.5-35.2FSouthern Ohio Medical CenterComment on above:Performed By: #### BNP, HS TROP, PT, PTT, CBC, CKMB, BMP #### [address] (RBC) [Entitic vol]83.4 fLLow83.5-101Uc Medical CenterComment on above:Performed By: #### BNP, HS TROP, PT, PTT, CBC, CKMB, BMP #### [place] [address] USAMean Corpuscular HGB Conc33.2 g/hODgvcnb31.5-35.6FSouthern Ohio Medical CenterComment on above:Performed By: #### BNP, HS TROP, PT, PTT, CBC, CKMB, BMP #### [place] [address] USAMonocytes (Bld) [#/Vol]0.6 10*3/uLNormal0.0-0.8Uc Medical CenterComment on above:Performed By: #### BNP, HS TROP, PT, PTT, CBC, CKMB, BMP #### [place] [address] USAMonocytes/100 WBC (Bld)15.84 %Normal0.00-20.00Uc Medical CenterComment on above:Performed By: #### BNP, HS TROP, PT, PTT, CBC, CKMB, BMP #### [place] [address] USAMonocytes/100 WBC (Bld)9.9 %Normal.Uc Medical CenterComment on above:Performed By: #### BNP, HS TROP, PT, PTT, CBC, CKMB, BMP #### [place] [address] USANeutrophils (Bld) [#/Vol]4.4 10*3/uLNormal1.8-7.7FSouthern Ohio Medical CenterComment on above:Performed By: #### BNP, HS TROP, PT, PTT, CBC, CKMB, BMP #### [facility] [address] [place] [address] USANeutrophils/100 WBC (Bld)71.0 %Normal.Uc Medical CenterComment on above:Performed By: #### BNP, HS TROP, PT, PTT, CBC, CKMB, BMP #### [facility] [address] [place] [address] USANRBC%0.2 /100{WBC}Normal0-0.5FSouthern Ohio Medical CenterComment on above:Performed By: #### BNP, HS TROP, PT, PTT, CBC, CKMB, BMP #### [facility] [address] [place] [address] USAPlatelet mean volume (Bld) [Entitic vol]7.8 fLNormal 6.6-10.1FSouthern Ohio Medical CenterComment on above:Performed By: #### BNP, HS TROP, PT, PTT, CBC, CKMB, BMP #### [facility] [address] [place] [address] USAPlatelets (Bld) [#/Vol]172 10*3/bUXubpos383-226QvausmxlrUc Medical CenterComment on above:Performed By: #### BNP, HS TROP, PT, PTT, CBC, CKMB, BMP #### [facility] [address] [place] [address] USARBC (Bld) [#/Vol]5.43 10*6/uLNormal3.90-5.60Uc Medical CenterComment on above:Performed By: #### BNP, HS TROP, PT, PTT, CBC, CKMB, BMP #### [facility] [address] [place] [address] USAWBC (Bld) [#/Vol]6.2 10*3/uLNormal4.1-10.5FSouthern Ohio Medical CenterComment on above:Performed By: #### BNP, HS TROP, PT, PTT, CBC, CKMB, BMP #### [facility] [address] [place] [address] USACreatinine Kinase MBon 60-15-1730OW.MB [Mass/Vol]2.0 ng/mL Normal0.6-6.3FSouthern Ohio Medical CenterComment on above:Performed By: #### LIPID, CREAT, PP, CBC, LYTES, BUN #### [facility] [address] [place] [address] USACKMB Relative IndexNot performedNormal0.00-2.50Uc Medical CenterComment on above:Performed By: #### LIPID, CREAT, PP, CBC, LYTES, BUN #### [facility] [address] [place] [address] USACreatinine and Glomerular filtration rate.predicted panel (S/P/Bld)Ordered By: Christiano Weston on 55-10-1452Aimqzvgjqd [Mass/Vol]0.95 mg/dL0.64-1.27Uc Medical CenterECG 12 lead ECGon 97-55-0172TUA 12 lead ECGWVUMEDICINE HARRISON COMMUNITY [facility] [employer] [address] [place] [address] Electrocardiograph Report Signed Patient: Augustine Hall MR#: [id number] : 1960 Acct:[id number] Age/Sex: 62 / M ADM Date: 10/31/22 Loc: ER Room: Type: [facility] ER Attending Dr: Ordering Provider: Christiano Weston [...] sinus rhythm Confirmed by Christiano Weston DO ([id number]) on 10/31/2022 4:28:51 PM Referred By: Electronically Signed By:Christiano Weston DO Transcribed By: RENATO Signed By Christiano Weston DO [id number] Medical CenterEosinophils Auto (Bld) [#/Vol] Ordered By: Christiano Weston on 76-33-9812Cfltlmljjgn (Bld) [#/Vol]0.1 10*3/uL 0.0-0.45Uc Medical CenterEosinophils/100 WBC Auto (Bld)Ordered By: Christiano Weston on 79-27-9574Afxnldqqjlh/100 WBC (Bld)1.3 %.Uc Medical CenterErythrocyte distribution width Auto (RBC) [Ratio]Ordered By: Christiano Weston on 45-36-0148Lcdxtjccduq distribution width (RBC) [Ratio] 14.3 %12.0-14.8Uc Medical CenterEstimated glomerular filtration rate (GFR) non- AmericanOrdered By: Christiano Weston on 10-31-2022 GFR/1.73 sq M.predicted among non-blacks MDRD (S/P/Bld) [Vol rate/Area]> 60 mL/MinUc Medical CenterHematocrit Auto (Bld) [Volume fraction] Ordered By: Christiano Weston on 01-45-2005Egjcbabigg (Bld) [Volume fraction]45.3 %38.8-50.0Uc Medical CenterHemoglobin [Mass/volume] in Blood Ordered By: Christiano Weston on 15-62-2452Pbjvfjfonj (Bld) [Mass/Vol]15.0 g/dL 13.0-17.0Uc Medical CenterLaboratory - Chemistry and Chemistry - challengeOrdered By: Christiano Weston on 71-65-7592Pguvqddpeff peptide B (Bld) [Mass/Vol]42.0 pg/mL5-100Uc Medical CenterLaboratory - CoagulationOrdered By: Christiano Weston on 53-44-7923NB Coag (PPP) [Time]11.4 s 9.0-12.9Uc Medical CenterLeukocytes [#/volume] corrected for nucleated erythrocytes in Blood by Automated counOrdered By: Chrsitiano Weston on 24-94-3243RWN corrected for nucl RBC Auto (Bld) [#/Vol]6.2 10*3/uL4.1-10.5 Uc Medical CenterLymphocytes Auto (Bld) [#/Vol]Ordered By: Christiano Weston on 10-84-0265Uvyouzifbqn (Bld) [#/Vol]1.1 10*3/uL1.00-4.8 Uc Medical CenterLymphocytes/100 WBC Auto (Bld)Ordered By: Christiano Weston on 06-89-8466Jebhmkztyrk/100 WBC (Bld)17.2 %.[facility] HospitalH Auto (RBC) [Entitic mass]Ordered By: Christiano Weston on [id number] (RBC) [Entitic mass]27.7 pg27.5-35.2FS[facility] CenterMCHC Auto (RBC) [Mass/Vol]Ordered By: Christiano Weston on 57-15-3475WHVR (RBC) [Mass/Vol]33.2 g/dL32.5-35.6FS[facility] CenterMCV Auto (RBC) [Entitic vol]Ordered By: Christiano Weston on 82-78-7688GUM (RBC) [Entitic vol]83.4 fL83.5-101[facility] CenterMonocyte distribution width [Entitic volume] in Blood by AutomatedOrdered By: Christiano Weston on 10-31-2022 Monocyte distribution width Auto (Bld) [Entitic vol]15.84 %0.00-20.00[facility] CenterMonocytes Auto (Bld) [#/Vol]Ordered By: Christiano Weston on 21-97-4330Nkbucjdar (Bld) [#/Vol]0.6 10*3/uL0.0-0.8[facility] CenterMonocytes/100 WBC Auto (Bld)Ordered By: Christiano Weston on 10-31-2022 Monocytes/100 WBC (Bld)9.9 %.[facility] CenterNeutrophils Auto (Bld) [#/Vol]Ordered By: Christiano Weston on 09-80-2566Lhvxaaeccmk (Bld) [#/Vol] 4.4 10*3/uL1.8-7.7FSouthern [facility] CenterNeutrophils/100 WBC Auto (Bld)Ordered By: Christiano Weston on 09-43-3669Brnnpwspnjz/100 WBC (Bld)71.0 %. [facility]c Medical CenterNo Panel InformationOrdered By: Christiano Weston on 07-34-2772Kqhueavbo GFR ()> 60 mL/MinUc Medical CenterComment on above:GFR estimated reference range: According to KDOQI guidelines, <60 ml/min/1.73m2 is sufficient todiagnose a patient with chronic kidney disease.Pharmacy Creatinine Clearance (Chem92.54[facility] Medical CenterNucleated erythrocytes [Presence] in Blood by Automated countOrdered By: Christiano Weston on 72-31-1227Iruimsmoz RBC Auto Ql (Bld)0.2 /100{WBC}0-0.5FSouthern [place] Medical CenterPartial Thromboplastin Timeon 79-15-7146oEZB Coag (Bld) [Time]33.6 bTjuhui07.1-36.5FSouthern [place] Medical CenterComment on above:Result Comment: PERFORMED BY: [place] [address] PATHOLOGIST FLORAL CLERK ALEKSANDER TOBIN M.D.Performed By: #### BNP, HS TROP, PT, PTT, CBC, CKMB, BMP #### [place] [address] USAPlatelet mean volume Auto (Bld) [Entitic vol]Ordered By: Christiano Weston on 14-73-3491Pinrgvgr mean volume (Bld) [Entitic vol]7.8 fL 6.6-10.1FSouthern [place] Medical CenterPlatelet poor plasma international normalized ratio (INR) by coagulation assay (relatOrdered By: Christiano Weston on 48-74-5410WDN Coag (PPP) [Relative time]1.0 {INR}[facility]c Medical CenterComment on above:INR Therapeutic Range A) Pre- and Peroperative OAT started two weeks before surgery. NOT HIP SURGERY: 1.5 - 2.5 HIP SURGERY: 2 - 3B) Primary and secondary prevention of venous THROMBOSIS: 2 - 3C) Active venous thrombosis, pulmonary embolismand prevention of recurrent venous thrombosis: 2 - 3D) Prevention of arterial thromboembolismincluding patients with mechanical heart valves: 3 - 4.5Platelets Auto (Bld) [#/Vol]Ordered By: Christiano Weston on 96-09-2081Wnfvdneer (Bld) [#/Vol]172 10*3/wE170-000QyxmdjhwnUc Medical CenterProthrombin Time INRon 63-41-9411UIF Coag (PPP) [Relative time]1.0 {INR} NormalUc Medical CenterComment on above:Result Comment: INR Therapeutic Range A) Pre- and [...] patients with mechanical heart valves: 3 - 4.5Performed By: #### BNP, HS TROP, PT, PTT, CBC, CKMB, BMP #### [facility] [address] [place] [address] USAPT Coag (PPP) [Time]11.4 sNormal9.0-12.9Uc Medical CenterComment on above:Performed By: #### BNP, HS TROP, PT, PTT, CBC, CKMB, BMP #### [facility] [address] [place] [id number] USARBC Auto (Bld) [#/Vol]Ordered By: Christiano Weston on 89-66-1193BYN (Bld) [#/Vol]5.43 10*6/uL3.90-5.60[facility] Hospitalerum or plasma anion gap determinationOrdered By: Christiano Weston on 82-33-2148Pdyei gap [Moles/Vol]10.2 mmol/L6.0-15.0[facility] Hospitalerum or plasma calcium measurement (mass/volume)Ordered By: Christiano Weston on 11-25-5022Sinlhyc [Mass/Vol]9.1 mg/dL8.2-10.2FAdena Regional Medical Centererum or plasma chloride measurement (moles/volume)Ordered By: Christiano Weston on 24-97-8084Xinrupfo [Moles/Vol]105 mmol/C39-202DdisfsqkuMercy Health St. Elizabeth Youngstown Hospitalerum or plasma creatine kinase MB (CKMB)/total creatine kinase (CK) ratio by calculaOrdered By: Christiano Weston on 58-63-3521AF.MB Calc [Catalytic fraction]TNPUc Medical CenterComment on above:Test not performedSerum or plasma creatine kinase MB measurement (mass/volume)Ordered By: Christiano Weston on 57-73-9083KS.MB [Mass/Vol]2.0 ng/mL0.6-6.3FAdena Regional Medical Centererum or plasma glucose measurement (mass/volume)Ordered By: Christiano Weston on 07-73-4948Azkaazy [Mass/Vol]95 mg/uP78-610DvxycwfdsUc Medical CenterComment on above:ADA recommended reference rangeRandom Glucose Reference Range is dependent on time and content of last meal. Glucose of more than 200 mg/dL in a nonstressed, ambulatory subject supports the diagnosisof Diabetes Mellitus.Serum or plasma potassium measurement (moles/volume)Ordered By: Christiano Weston on 91-33-1504Lqknoqfrh [Moles/Vol]4.1 mmol/L3.5-5.1FAdena Regional Medical Centererum or plasma sodium measurement (moles/volume)Ordered By: Christiano Weston on 74-96-3748Vdkqsg [Moles/Vol]138 mmol/D673-263MzhurairgMercy Health St. Elizabeth Youngstown Hospitalerum or plasma total carbon dioxide measurement (moles/volume)Ordered By: Christiano Weston on 90-24-4657TS9 [Moles/Vol]26.9 mmol/L22.0-30.0[facility] Serum or plasma urea nitrogen measurement (mass/volume)Ordered By: Christiano Weston on 69-74-9153Reel nitrogen [Mass/Vol]16 mg/dL9-23Uc Medical CenterTroponin I High Sensitivityon 09-32-7974Ffdptogv I High Sensitivity4 pg/mLNormal0-20Uc Medical CenterComment on above: Result Comment: PERFORMED BY: [place] [address] PATHOLOGIST FLORAL CLERK ALEKSANDER TOBIN M.D.Performed By: #### LIPID, CREAT, PP, CBC, LYTES, BUN #### [facility] [address] [place] [address] USATroponin I.cardiac [Mass/volume] in Serum or Plasma by High sensitivity methodOrdered By: Christiano Weston on 27-18-2366Twyyixbf I.cardiac High sensitivity method [Mass/Vol]4 pg/mL0-20Uc Medical CenterWBC Auto (Bld) [#/Vol]Ordered By: Christiano Weston on 10-31-2022 WBC (Bld) [#/Vol]6.2 10*3/uL4.1-10.5FSouthern [place] Medical CenterXR chest 1V portableon 52-31-5951KC chest 1V portableWVUMEDICINE [facility] Main [employer] [address] [place], [place] [address] XRay Report Signed Patient: Augustine Hall MR#: [id number] : 1960 Acct:[id number] Age/Sex: 62 / M ADM Date: 10/31/22 Loc: ER Room: Type: [facility] ER Attending Dr: Copies to: Christiano Weston [...] Tenzin Sagastume M.D.10/31/2022 10:53 AM Dictation Location: [place] [address] Transcribed By: [facility] 10/31/22 1053 Dictated By: Tenzin Sagastume DO 02/10/23 1052 Signed By: 10/31/22 1053White HospitalVC CONSULT FOLLOWUPon 88-96-9046QG CONSULT FOLLOWUPPatient: JENNIFERAUGUSTINE. Exam Date: 09/01/2022 : 1960 Gender:M Ordering : DR NASIMA SIMS M.D. Admission #: [id number] Family : Order #: [id number] CLICK HERE TO VIEW EXAM RADIOLOGY REPORT [...] by: Nasima Sims MD on 09/01/2022 at 09:55[facility] HospitalVC EXT VENOUS LT LIMITEDon 98-00-7482EI EXT VENOUS LT LIMITEDPatient: JENNIFERAUGUSTINE Graves Exam Date: 09/01/2022 : 1960 Gender:M Ordering : DR NASIMA SIMS M.D. Admission #: [id number] Family : Order #: [id number] CLICK HERE TO VIEW EXAM RADIOLOGY REPORT [...] by: Nasima Sims MD on 09/01/2022 at 09:34[facility] Doctors HospitalVC ENDOVENOUS ABL 1ST V LTon 81-47-9299UO ENDOVENOUS ABL 1ST V LTPatient: AUGUSTINE HALL Exam Date: 08/29/2022 : 1960 Gender:M Ordering : DR NASIMA SIMS M.D. Admission #: [id number] Family : Order #: [id number] CLICK HERE TO VIEW EXAM RADIOLOGY REPORT [...] by: Nasima Sims MD on 08/29/2022 at 13:45[facility] HospitalVC CONSULT FOLLOWUPon 67-35-1073FA CONSULT FOLLOWUPPatient: AUGUSTINE HALL. Exam Date: 08/25/2022 : 1960 Gender:M Ordering : DR NASIMA SIMS M.D. Admission #: [id number] Family : Order #: [id number] CLICK HERE TO VIEW EXAM RADIOLOGY REPORT [...] by: Nasima Sims MD on 08/25/2022 at 09:26[facility] HospitalVC EXT VENOUS RT LIMITEDon 91-78-4917WJ EXT VENOUS RT LIMITEDPatient: AUGUSTINE HALL. Exam Date: 08/25/2022 : 1960 Gender:M Ordering : DR NASIMA SIMS M.D. Admission #: [id number] Family : Order #: [id number] CLICK HERE TO VIEW EXAM RADIOLOGY REPORT [...] by: Nasima Sims MD on 08/25/2022 at 09:23[facility] HospitalVC ENDOVENOUS ABL 1ST V RTon 82-24-3809CN ENDOVENOUS ABL 1ST V RTPatient: AUGUSTINE HALL Exam Date: 08/20/2022 : 1960 Gender:M Ordering : DR NASIMA SIMS M.D. Admission #: [id number] Family : Order #: [id number] CLICK HERE TO VIEW EXAM RADIOLOGY REPORT [...] by: Augustine Knutson M.D. on 08/20/2022 at 13:17[facility] COMP CONSULTATIONon 89-00-6830ET COMP CONSULTATIONPatient: AUGUSTINE HALL Exam Date: 07/10/2022 : 1960 Gender:M Ordering : DR OLIVA CROFT Admission #: [id number] Family : Order #: [id number] CLICK HERE TO VIEW EXAM RADIOLOGY REPORT [...] by: Nasima Sims MD on 07/10/2022 at 13:02[facility] HospitalVC VENOUS REFLUX FEI [facility] 23-73-4376NR VENOUS REFLUX FEI LMTPatient: AUGUSTINE HALL Exam Date: 07/10/2022 : 1960 Gender:M Ordering : DR OLIVA CROFT Admission #: [id number] Family : Order #: [id number] CLICK HERE TO VIEW EXAM RADIOLOGY REPORT [...] chronic thrombus visualized Compressibility: Normal Flow: Normal Production Analyst: Dist/med calf 5.3mm with 0s reflux. Prox/med [...] by: Nasima Sims MD on 07/10/2022 at 11:24NoMartin [facility] Hospital AUTO DIFFon 47-23-9851FNUF #0.0 103/ulNormal0.0-0.1[facility] Valley HospitalComment on above:Performed By: #### CBC ####[facility] Zvxtconhn[address] [place], [place] [address]Dr.Yilan ChangBasophils/100 WBC (Bld)0.5 %Normal 0.2-2.0The [facility] Health SystemComment on above:Performed By: #### CBC ####[facility] [address] [place] [address]Dr.Yilan ChangEO # 0.1 103/ulNormal0.0-0.7The [facility] Health SystemComment on above:Performed By: #### CBC ####[facility] Jickqvrkmm[address] [place], [place] [address]Dr. Yilan ChangEosinophils/100 WBC (Bld)0.8 %Critically low0.9-7.0The [facility] SystemComment on above:Performed By: #### CBC ####[facility] Hcjcmqyqty[address] [place], [place] [address]Dr.Mariangel ChangErythrocyte distribution width (RBC) [Ratio]13.7 %Gbmvhe10.0-15.0[facility] Comment on above:Performed By: #### CBC ####[facility] Ubthatbncr25[address] [place], [place] [address]Dr.Mariangel ChangHematocrit (Bld) [Volume fraction]46.8 %Imsoxu15.0-54.0The [facility] SystemComment on above:Performed By: #### CBC ####[facility] Dwnwkbzcwd24[address] [place], [place] [address]Dr.Mariangel ChangHemoglobin (Bld) [Mass/Vol]15.2 g/nPKnfqfj04.0-18.0The [facility] SystemComment on above:Performed By: #### CBC ####[facility] Qtxlexgdtc06[address] [place], [place] [address]Dr.Yiheath ChangIG #0.02 10e3/ulNormal0.00-0.03The [facility] SystemComment on above:Performed By: #### CBC ####[facility] Zsbygjncsb[address] [place], [place] [address]Dr. Yiheath ChangIG %0.3 %Normal0.0-0.5The [facility] SystemComment on above:Performed By: #### CBC ####[facility] Ozxzydukbh5[address] [place], [place] [address]Dr.Mariangel ChangLYMPH #1.4 103/ulNormal1.2-3.8The [facility] Comment on above:Performed By: #### CBC ####[facility] Rthsyrobux63[address] [place], [place] [address]Dr.Yilan ChangLymphocytes/100 WBC (Bld)23.6 %Omsqkj36.5-60.0The [facility] SystemComment on above:Performed By: #### CBC ####[facility] Thxec[address]pj[address] [place] [address]. Mariangel GillMANUAL DIFF REQNONormalThe [facility] Health SystemComment on above: Performed By: #### CBC ####[facility] Tbzlgerjbz[address] [place], [place] [address]Dr.Mariangel GillH (RBC) [Entitic mass]27.8 pgNormal 25.9-34.0The [facility] SystemComment on above:Performed By: #### CBC ####[facility] Igtpxvumyp[address] [place], [place] [address]Dr. Mariangel GillHC (RBC) [Mass/Vol]32.5 g/qAAckkwi86.9-35.2The [facility] Comment on above:Performed By: #### CBC ####[facility] Jygzaqyhtu3[address] [place], [place] [address]Dr.Mariangel GillV (RBC) [Entitic vol]85.7 fL Nsiynz74.0-94.0The [facility] SystemComment on above:Performed By: #### CBC ####[facility] Rrxloveude39[address] [place], [place] [address]Dr. Mariangel GillMONO #0.6 103/ulNormal0.3-0.8The [facility] Health SystemComment on above: Performed By: #### CBC ####[facility] Vjcyaxhdlb[address] [place], [place] [address]Dr.Mariangel ChangMonocytes/100 WBC (Bld)10.0 %Normal 1.7-12.0The [facility] Health SystemComment on above:Performed By: #### CBC ####[facility] Qjavetlnco15[address] [place], [place] [address]Dr. Mariangel GillNEUT #4.0 103/ulNormal1.4-6.5The [facility] SystemComment on above: Performed By: #### CBC ####[facility] Qcbdhuwksy8[address] [place], [place] [address]Dr.Brilan ChangNeutrophils/100 WBC (Bld)64.8 %Normal 43.0-75.0The [facility] Health SystemComment on above:Performed By: #### CBC ####[facility] [address]fzdia[address] [place] [address]Dr. Mariangel ChangPlatelet mean volume (Bld) [Entitic vol]9.3 fLCritically low9.5-13.5 The [facility] SystemComment on above:Performed By: #### CBC ####[facility] Bwtoxiyonn[address] [place] [address]Dr.Yiheath SqgsgBZG867 103/asHqosdu564-770Iwx [facility] SystemComment on above:Performed By: #### CBC ####[facility] Nqwocnzywt6[address] [place], [place] [address]Dr. Yilan ChangRBC5.46 106/ulNormal4.70-6.10The [facility] Health SystemComment on above: Performed By: #### CBC ####[facility] Afhxyhdyfp[address] [place], [place] [address]Dr.Mariangel ChangWBC6.1 103/ulNormal4.0-11.0The [facility] SystemComment on above:Performed By: #### CBC ####[facility] Zhrhdtypou[address] [place], [place] [address]Dr.Mariangel ChangPROF CHEM 8 (BAS METB)on 54-75-4465Gthkw gap [Moles/Vol]11.4 mmol/LNormalThe [facility] SystemComment on above:Performed By: #### BMP ####[facility] Snoznoicyh[address] [place], [place] [address]Dr.Mariangel ChangCalcium [Mass/Vol]8.5 mg/dLNormal8.5-10.1The [facility] SystemComment on above:Performed By: #### BMP ####[facility] Wpfdpktctb[address] [place], [place] [address]Dr.Yilan ChangChloride [Moles/Vol]103 mmol/CZwceci98-831Hte [facility] SystemComment on above:Performed By: #### BMP ####[facility] Zhvkguqbzy55[address] [place], [place] [address]Dr.Yilan ChangCO2 [Moles/Vol] 28.8 mmol/KIgtndy18.0-32.0The [facility] SystemComment on above:Performed By: #### BMP ####[facility] [address]oprde[address] [place] [address]Dr.Yilan ChangCreatinine [Mass/Vol]1.12 mg/dLNormal0.70-1.30The [facility] Health SystemComment on above:Performed By: #### BMP ####[facility] [address]npqskbwly[address] [place] [address]Dr.Yilan ChangEGFR-AF BURKINAN>60Normal>=60The [facility] SystemComment on above:Performed By: #### BMP ####[facility] Ygzwdhnuse[address] [place], [place] [address]Dr. Yilan ChangEGFR-NON AF BURKINAN>60Normal>=60The [facility] SystemComment on above:Performed By: #### BMP ####[facility] Hgtsnfgoco[address] [place], [place] [address]Dr.Yilan ChangGlucose [Mass/Vol]129 mg/dLCritically yilo55-025Dps [facility] SystemComment on above:Performed By: #### BMP ####[facility] Pasqlflmce[address] [place], [place] [address]Dr. Yilan ChangPotassium [Moles/Vol]4.2 mmol/LNormal3.5-5.1The [facility] Comment on above:Performed By: #### BMP ####[facility] Cjmdrhdjys[address] [place], [place] [address]Dr.Yilan ChangSodium [Moles/Vol]139 mmol/L Wcivug051-649Zjk [facility] SystemComment on above:Performed By: #### BMP ####[facility] Cuxapwcgzm[address] [place], [place] [address]Dr. Yilan ChangUrea nitrogen [Mass/Vol]18.0 mg/dLNormal7.0-18.0The [facility] Comment on above:Performed By: #### BMP ####[facility] Byvvybkcbu[address] [place], [place] [address]Dr.Yilan ChangUrea nitrogen/Creatinine [Mass ratio]16.1 mg/mgNormalThe [facility] SystemComment on above:Performed By: #### BMP ####[facility] Vsoeltvvgj[address] [place], [place] [address]Eo. Mariangel GillMRI KNEE RT WO CONon 72-56-6069WWG KNEE RT WO CONEXAMINATION: MRI KNEE RT WO CON HISTORY: Strain of muscle [...] Electronically authenticated by: AUGUSTINE KNUTSON Date: 2022-04-09 07:[address] [place], [place] [address]XR Knee Complete Right*on 77-46-2897XV Knee Complete Right* CLINICAL HISTORY: Knee pain COMPARISON: None. TECHNIQUE: Right knee radiographs RESULT: No acute fracture or dislocation.Joint spaces maintained. Minimal chondrocalcinosis. Soft tissues unremarkable. No joint effusion. IMPRESSION: No acute findings. Report reported and signed by TREY MAURER on 03/04/2022 1132Lisettedignity health east valley rehabilitation hospitaldavid Pierce Workforce Development Program Director Vital Signs Date TimeVital SignValuePerforming PvktzhrvqHaqafcre82-69-7747 08:59-0500Body oimhmi442.4 cmRobert Antwanmonikak DO Work Phone: [facility] CenterRwucjvezbf82-20-1431 08:59-0500Body mass index (BMI) [Ratio]28.1 kg/o7Tfkcky Vaschak DO Work Phone: [facility] CenterMuuvqthrrv04-51-6444 08:59-0500Body niothi95.62 kgRobert Vasmonikak DO Work Phone: [facility] CenterNxlccahlif16-05-7527 08:59-0500Diastolic blood rlwtycip18 mm[Hg]Oliva Hamlink DO Work Phone: [address] [place], [place] [address]Lbxwlufobm69-92-0203 08:59-0500Heart rate75 /min Oliva Boubacark DO Work Phone: [place] [address]Vqfdhsybyn61-78-2694 08:59-8489UsF4% (BldA) [Mass fraction]98 %Oliva Croft DO Work Phone: [facility] CenterPhnbbvuuah37-68-7901 08:59-0500Systolic blood hyqdzyxi762 mm[Hg]Oliva Boubacark DO Work Phone: [facility] CenterZbhmwubkqn51-25-0466 14:15-0400Diastolic blood uykzfaeo97 mm[Hg]DO Oliva Croft Work Phone: [facility]03-24-2023 14:15-0400 Heart rate73 /MarloO Oliva Croft Work Phone: [address] [place], [place] [address]-24-2023 14:15-0400 Respiratory rate18 /minDO Oliva Croft Work Phone: [phone] [place], [place] [address]303-24-2023 14:15-0400 SaO2% (BldA) [Mass fraction]94 %DO Oliva Boubacark Work Phone: [facility]03-24-2023 14:15-0400 Systolic blood guxwuusm185 mm[Hg]DO Oliva Boubacark Work Phone: [phone]03-24-2023 09:55-0400 Body kqppha847.96 cmDO Oliva Vaschak Work Phone: [facility]03-24-2023 09:55-0400 Body mivqbhgnzzz65.6 [degF]DO Oliva Croft Work Phone: [facility]03-24-2023 09:55-0400 Body ukyzbf26 kgDO Oliva Croft Work Phone: [facility]03-21-2023 08:58-0400 Diastolic blood pobjsukz69 mm[Hg]Oliva Croft Work Phone: [phone]-Gajik [facility] [address] DO Work Phone: 1(486) 467-112603-21-2023 08:58-0400Systolic blood mm[Hg] Oliva Croft Work Phone: [phone]-Sjdjn [facility] [address] DO Work Phone: 1(530) 265-194403-21-2023 08:56-0400Body wyocui953.96 cmRtino Rodolfo Croft Work Phone: [phone]-Lukks [facility] [address] DO Work Phone: 1(307) 301-126703-21-2023 08:56-0400Body mass index (BMI) [Ratio] 26.83 kg/t2TxjdccOliva Croft Work Phone: [phone]-Ogqrm [facility] [address] DO Work Phone: 1(274) 747-307103-21-2023 08:56-0400Body surface area Derived from formula2.21 u7Lupoqjsharona Croft Work Phone: [phone]-Excjh [facility] [address] DO Work Phone: 1(796) 569-151203-21-2023 08:56-0400Body .8 kgPavansharona Croft Work Phone: [phone]-Ydhdq [facility] [address] DO Work Phone: 1(621) 118-793803-21-2023 08:56-0400Diastolic blood cgweqfge53 mm[Hg] Oliva Croft Work Phone: mp142-1738FQ-Ivnoo [facility] [address] DO Work Phone: 1(559) 340-106903-21-2023 08:56-0400Heart rate74 /minRobert Rodolfo Croft Work Phone: [phone]-Qifmp [facility] [address] DO Work Phone: 1(298) 493-923203-21-2023 08:56-0400Systolic blood jrchgsfa279 mm[Hg] Oliva Croft Work Phone: [phone]-Vhldx [facility] [address] DO Work Phone: 1(243) 443-645602-10-2023 12:00-0500Diastolic blood krqajrgp03 mm[Hg] DO Oliva Croft Work Phone: [facility]02-10-2023 12:00-0500 Heart rate60 /minDO Oliva Croft Work Phone: [facility]02-10-2023 12:00-0500 Respiratory rate18 /minDO Oliva Croft Work Phone: [facility]02-10-2023 12:00-0500 SaO2% (BldA) [Mass fraction]96 %DO Oliav Croft Work Phone: [facility]02-10-2023 12:00-0500 Systolic blood adbosfxx294 mm[Hg]DO Oliva Croft Work Phone: [facility]02-10-2023 10:21-0500 Body aomawe529.96 cmDO Oliva Croft Work Phone: [address] [place], [place] [address]-10-2023 10:21-0500 Body xrodueqtzqi41.1 [degF]DO Oliva Croft Work Phone: [facility]02-10-2023 10:21-0500 Body .25 kgDO Oliva Croft Work Phone: [facility] Encounters Encounter DateEncounter TypeCare ProviderFacilityStart: 74-89-7138jweferpgwo Lien Castano AuDFacility:ENT SpecStart: 09-01-2024 End: 84-53-2693hkgcuziveqLsjrDevaughn Hutton MDFacility:ENT SpecStart: 08-09-2024 End: 20-28-0861Gzcirl outpatient visit 25 minutesRobsharona Croft DO Work Phone: [facility] IMComment on above:Agatston coronary artery calcium score between 200 and 399 (Primary Dx); Sensorineural hearing loss (SNHL) of left ear with unrestricted hearing of right ear; Erectile dysfunction due to arterial insufficiency; IFG (impaired fasting glucose)Start: 08-09-2024 End: 12-08-8057qldwctwhcwOQVRUZ J VASCHASURYot AvailableStart: 07-11-2024 End: 01-14-9794Fkfsovkfs Result EncounterGeneric External Data ProviderNOMS External Department UnsolicitedStart: 07-11-2024 End: 34-01-1444Wrsbndcfe Result EncounterGeneric External Data ProviderNOMS External Department UnsolicitedStart: 05-04-2024 End: 15-66-3305icwhorlnmfRYOJXG J VASCHAKNot AvailableStart: 10-21-2023 End: 11-18-9389oohgnhpcovHVHJXO Rodolfo VASMONIot AvailableStart: 12-12-2022 Ca GarciaFacility:9090Start: 90-92-1551NYVFJCZLS, Provider: Chung Garcia, Status: Pen, Time: 11:00 Leah Croft Work Phone: [phone]-Ihuud [facility] DO Work Phone: Start: 12-12-2022 End: 69-90-7329qogpuxqpacFMarisela GarciaFacility:[facility] Hospitaltart: 12-12-2022 End: 80-10-4662Yeuyyhlhr to same day surgery centerDO Oliva Croft Work Phone: [facility] Work Phone: Start: 12-12-2022 End: 12-80-5354fnaljpgmwzOV Oliva Croft Work Phone: [facility] Work Phone: Start: 31-01-4028Vaaio UpdateRobert Rodolfo Croft Work Phone: [phone]-Tdhim [facility] DO Work Phone: Start: 12-10-2022 End: 20-97-2005wycqssfkmuStigsw VaschakarenFacility:[facility] Hospitaltart: 12-10-2022 End: 79-00-9044hkonopeutkXE Oliva Croft Work Phone: [facility] Work Phone: Start: 12-10-2022 End: 82-55-1599Pcobsxd encounter procedureDO Oliva Croft Work Phone: [facility]-Pre-Surgical Testing Work Phone: Start: 17-40-5165Ngqgji consultation new/estab patient 80 minRobert Rodolfo Croft Work Phone: [phone]-Qagmk [facility] DO Work Phone: Start: 73-31-3428heryunrxvgJzbkazt [place] Facility:925[address]Nfhkm: 57-80-3162gndkowoasvMvChang Burkcility:[address] Start: 11-12-2022 End: 66-01-5973pminrobttfUP STEVEN R ZIEBERFacility:N3Oaldt: 10-31-2022 End: 39-49-1215Zmivtelmx department patient visitMachriss Weston Facility:[facility] Hospitaltart: 10-31-2022 End: 72-31-1224Qijhdfodr department patient visitDO Oliva Croft Work Phone: [facility]-Emergency Room Work Phone: Start: 09-21-2022 End: 32-38-6275hlddmrbmnaHK MICHAEL POWERSFacility:Q7Dgsdi: 39-52-2649psifemrlsq DR NASIMA SIMSFacility:L1Bjuor: 68-83-0840yheraueytoKH NASIMA Markscility:H1 Start: 87-03-8823zmliwrpjjwJX DAVID V WESTFacility:R7Jihle: 16-23-2809yhodhwhuuu DR NASIMA Markscility:C6Hagrf: 09-01-2022 End: 38-73-9556dnmkzzseygNG NASIMA SIMSFacility:V8Jjzfw: 08-29-2022 End: 55-57-5745xleuxasgfqHI NASIMA Markscility:O2Fensk: 08-25-2022 End: 36-48-3353fmtpqnbwccGG DAVID V WESTFacility:B8Wyvuu: 08-20-2022 End: 83-07-1348lguotnisadUU DAVID V WESTFacility:E7Lnphc: 08-04-2022 End: 16-26-7825vdhfaqlggqZD MICHAEL POWERSFacility:Y5Faqpl: 07-10-2022 End: 48-52-9331jgepnugvwxAW DAVID V WESTFacility:E1Cwoxi: 64-05-1245osaogkncjhOC OLIVA CROFTFacility:T3Cxsnq: 07-02-2022 End: 00-19-4234wcsadwvvqkRP MICHAEL POWERSFacility:N2Nanda: 06-30-2022 End: 91-50-1953mcwmocmandAP AUGUSTINE KNUTSONFacility:V6Baxjt: 04-08-2022 End: 45-98-0737bhguanvzonNIKHKGA TESMONDFacility:H1 Procedures DateProcedureProcedure DetailPerforming ClinicianStart: 58-31-7044IKBY URINALYSIS, WITH MICROSCOPICGeneric External Data ProviderStart: 23-66-5043[facility] AngioDO Oliva Croft Work Phone: Start: 20-32-0734Vyvet chest X-rayDO Oliva Croft Work Phone: Start: 26-83-3102HjnqjyuixhdNqhnyni ProviderOperative procedure on kneeRobert J [employer] Work Phone: Procedure on neckRobert J General Electric Work Phone: Repair of musculotendinous cuff of shoulderRobert Rodolfo Croft Work Phone: NEGATED: Highlighted row has not occurred!Total colonoscopyRobsharona Croft Work Phone: Plan of Treatment DateCare ActivityDetailAuthorStart: 66-44-6774Vujxmhiky for malignant neoplasm of colonNOMS HealthcareStart: 05-10-2025 End: 65-50-4087Guejjbz encounter odwaahgsn83/20/2025 8:30 AM EDT Office Visit [facility] [address] [place] [address] Oliva Croft, DO [address] [place] [address] [facility] IMStart: 02-07-2025 End: 41-17-2987Zyikopx encounter izbqrvkfe47/20/2025 9:00 AM EDT Office Visit [facility] [address] [place] [phone] Oliva Croft, DO [address] [place] [address] [facility] IMStart: 08-09-2024 End: 31-85-2648Yypaapg encounter sycihggzm13/19/2024 9:00 AM EST Office Visit [facility] [address] [place] [phone] Oliva Croft, DO [address] [place] [address] [facility] IMStart: 05-18-1987Qfclgkgyiolh Vaccine: 65+ Years (1 of 1 - PCV)Pneumococcal Vaccine: 65+ Years (1 of 1 - PCV)[facility] HealthcareStart: 65-22-0961Eurgwywza vaccinationInfluenza Vaccine (#1)[facility] HealthcareStart: 42-37-6984OHO, Provider: Chung Garcia, Status: Pen, Time: 8:50 AMFUV, Provider: Chung Garcia, Status: Pen, [facility]: 8:[facility] [facility] Work Phone: Start: 37-57-6056JXMEWNUOF, Provider: Chung Garcia, Status: Pen, Time: 11:00 AMSURGNONUH, Provider: Chung Garcia, Status: Pen, Time: 11:00 AM[facility] [address] [facility] Work Phone: Start: 46-10-2014Qgmniqkjl[facility] Start: 22-38-7632Bxldvbtvf for malignant neoplasm of colonNOMS HealthcarePatient EducationAnxiety, Adult (DC) Chest Pain (DC)[facility] Work Phone: Patient referralGalion Community Hospital [facility]tr Work Phone: Immunizations Immunization DateImmunizationNotesCare DezsngqcEbnswtzn55-50-4815Mixmelu COVID- 19 Vaccine 100 MCG/0.5ML Intramuscular SuspensionRobert J Vaschak Work Phone: [facility]10-27-2021Moderna COVID-19 Vaccine 100 MCG/0.5ML Intramuscular SuspensionRobert J Vaschak Work Phone: [facility]04-02-2021COVID-19 mRNA-1273 (Moderna)DO Oliva Hamlink Work Phone: [facility]02-04-2021Moderna COVID-19 Vaccine 100 MCG/0.5ML Intramuscular SuspensionRobert J Vaschak Work Phone: [phone]-[facility]gmeuR[facility] 250 DO Work Phone: [phone]rcbvw COVID-19 Vaccine 100 MCG/0.5ML Intramuscular SuspensionRobert J Vaschak Work Phone: [facility] Payers DatePayer CategoryPayerPolicy [id number] Health Insurance [id number] Private Health [id number] Private Health [id number]-[id number] [id number] 2.16.840.1.059539.3.57[id number] 2.16.840.1.036083.3.57[id number] 2.16.840.1.107481.3.57[id number] 2.16.840.1.257730.3.57[id number] 2.16.840.1.023771.3.57[id number] 2.16.840.1.767283.3.57[id number] 2.16.840.1.900657.3.57[id number] 2.16.840.1.047567.3.57[id number] 2.16.840.1.284896.3.57[id number] 2.16.840.1.033749.3.579.[id number] 2.16.840.1.348890.3.57[id number] 2.16.840.1.924593.3.57[id number] 2.16840.1.845051.3.57[id number] 2.16840.1.700431.3.57[id number] 2.16840.1.591684.3.57[id number] 2.840.1.514697.3.57[id number] 2.0.1.382687.3.579.[id number] 2.0.1.164745.3.57[id number] 2.0.1.888723.3.57[id number] 2.0.1.706136.3.57[id number] 2..1.274540.3.579.2.83[id number] 2.0.1.745894.3.57[id number] 2.0.1.470949.3.57[id number] 2.0.1.444484.3.579.2.196Private Health InsuranceAet Insurance Co [id number] 2.840.1.961027.3.[id number] 2.16.840.1.0[id number] 2.16.840.1.394459.3.579.2.531 [id number] 2.16.840.1.114993.3.579.2.531 Social History DateTypeDetailFacilityStart: 10-31-2022 End: 45-27-0077Lnemzyf smoking status NHISEx-smoker (finding)[facility] Hospitaltart: 51-35-5991Uwz Assigned At [facility] Centertart: 05-04-2024 End: 61-18-4020Wm illicit drug useNo illicit drug use-[facility] [place] [address] DO Work Phone: Comment on above:2-3 beers daily;4 cups of 8 oz of coffee daily;Quit smoking 30 + years ago- 1 pack daily. Smoked 1 cigar daily- Quit in 2020; End: 32-41-4298Jbuuuwh of tobacco useCurrent smokerNOMS Healthcare End: 98-46-3371Zxfykjx of tobacco useCigarette SmokerNOMS HealthcareHistory of tobacco useCigar SmokerNOMS HealthcareStart: 26-56-8949Fbsobby use and exposure Smokeless tobacco non-userNOMS HealthcareStart: 05-04-2024 End: 96-32-5953Ifibjzgsn beverage intakeCurrent drinker of alcohol (finding)[facility]S HealthcareStart: 05-04-2024 End: 39-03-8783Wiqwbmi use panelNOMS HealthcareStart: 27-87-5345Qof assigned at birthNot on fileNONE Healthcare Goals DatePatient GoalDesired Activity/State History of Present illness Narrative 08-09-2024 Note Date & AhooBirbJupyijhm93-87-4844 History of Present illness Narrative* Oliva Croft, DO - 08/09/2024 9:00 AM EST Images from the original note were not included. Augustine Hall is a 64 y.o. male presents [...] when it occurred, believes slowly. He initially attributedthis to earwax. He has a history of [...] than bone conduction in the left ear, andbone conduction lateralizes to the right ear. A referral to an ENT specialist for a formal evaluation is recommended. An MRI may be considered, but this decision will be deferred to the ENT specialist. 2. Moderate plaque load coronary calcium with normal left heart catheterization. It was discussed that maintaining a healthy lifestyle, including regular exercise and a diet low inprocessed foods, is crucial. Significant improvements have been [...] which will reduce stress [facility] 12-12-2022 Note Date & MgixQnpqRnpzzyaa87-39-0362 Discharge summary Author Dave Garcia [facility] December 12, 2022 12:16pmNote Date/TimeMarch 2022 12:14[place] [address] Discharge Summary Signed Patient: Augustine Hall MR#: [id number] : 1960 Acct:[id number] Age/Sex: 62 / M Adm Date: 3 Loc: CL Room: Attending Dr: Dave Garcia DO Copies [...] Low-Cholesterol Additional Instructions: DISCHARGE INSTRUCTIONS FOR CARDIAC FIRE HAZARD INSPECTOR PHONE NUMBER OF YOUR PHYSICIAN: [phone] PROCEDURE: Heart Cath The following instructions have [...] You may change the dressing only if soiledor wet. You may remove the dressing the [...] cold, numb, blue or white, call the automatic transmission mechanic immediately. 4. ACTIVITY: You are advised to [...] bottle, follow the instructions on the bottle. [facility] is not responsible for incorrect prescription information [...] signed by Dave Garcia DO> 12/12/22 1216 [facility] Work Phone: Procedure note 12-12-2022 Note Date & SjfqNwocRybdqigf70-89-4019 [facility] Discharge instructions 12-12-2022 Note Date & FpdmVajaCvvlolwa84-27-6063 Hospital Discharge instructions Additional Instructions DISCHARGE INSTRUCTIONS FOR CARDIAC FIRE HAZARD INSPECTOR PHONE NUMBER OF YOUR PHYSICIAN: [phone] PROCEDURE: Heart Cath The following instructions have [...] cold, numb, blue or white, call the automatic transmission mechanic immediately. 4. ACTIVITY: You are advised to [...] bottle, follow the instructions on the bottle. [facility] is not responsible for incorrect prescription information provided by the patient during their visit. Do not stop your medications without consulting your health care provider. Please take the list with you to your next doctor's appointment.[facility] Work Phone: Clinical Note 06-30-2022 Note Date & GqbwOdkdGehyruyu43-89-2805 NoteEXAMINATION: XR CHEST 2 V HISTORY: Lateral meniscus tear ; [...] Electronically authenticated by: AUGUSTINE KNUTSON Date: 2022-06-30 16:08[facility] Chief complaint Narrative - Reported Note Date & TypeNoteFacilityChief complaint Narrative - Reported* AUGUSTINE JENNIFER is being seen for a consultation for Dr. Kahn/ Melvi Aguilar CP/ Abnormal stress/elevated calcium score. * 62-year-old gentleman seen in cardiology consultation at the request of Dr. Moncada check for further evaluation and management regarding new onset chest discomfort. Patient was recently seen in the emergency room, details of that evaluation, laboratories and ECG are reviewed. * Patient describes chest pressure for the past 3 to 4 months and has been reticent to seek out further attention for this. He has recently been diagnosed with essential hypertension and treated with amlodipine with improved blood pressure results. * He underwent stress testing at [facility] details of which are unknown but he was told he achieved his target heart rate and there were no EKG changes and he did not describe any angina. We donot have details of the stress test as of yet. He did have calcium score performed in [facility] which revealed mild proximal LAD calcification with Aggiston score of 200, consistent with mild single-vessel LAD calcification. * He is a former smoker quit 30 years ago and then smoked a cigar daily up until 2 years ago. * He denies any previous myocardial infarction, revascularization, stroke, thromboembolic or bleedingdisorder. He does have a history of varicose veins and underwent ablation for his varicose veins within the last year with improved results and resolution of lower extremity edema * Informed decision-making process as well as risks, benefits and alternatives performed with the patient and his for over 45 minutes this morning in regards to noninvasive/conservative managementversus invasive assessment with by means of heart catheterization possible revascularization. He isconcerned and fearful about these new symptoms. He would like to proceed with heart catheterization out of concern for his health. We will proceed electively either later this week or next week. -[facility] [address] DO Work Phone: Evaluation note Note Date & TypeNoteFacilityEvaluation noteNo assessment information available [facility] Work Phone: Evaluation note Note Date & TypeNoteFacilityEvaluation note* Diagnosis Agatston coronary artery calcium score between 200 and 399- Primary Sensorineural hearing loss (SNHL) of left ear with unrestricted hearing of right ear Erectile dysfunction due to arterial insufficiency IFG (impaired fasting glucose) documented in this encounter [facility] Discharge instructions Note Date & TypeNoteFacilityHospital Discharge instructions Additional Instructions Take baby aspirin daily. Follow-up with your PCP for outpatient stress test and for recheck of your blood pressure for possible hypertension. Return if you develop any chest pain shortness of breath, chest pain with nausea or sweating or that radiates to your arm jaw or back. [facility] Work Phone: Summary Purpose Family History No Family History Records Found Relationship Condition Age at Onset Recorded Date/T karine Not Specified Type 2 diabetes mellitus Unknown fatherType 2 diabetes mellitusUnknownUnknown Family Member Name Dates Details Family history of diabetes m ellitus: Mother, Father(V18.0, Z83.3) Status:ActiveFamily history of cardiac pacemaker: Father, Brother(V17.49, Z82.49) Status:ActiveFamily history of myocardial infarction: Father, Sister(V17.3, Z82.49) Status:Active Unknown Family Member Name Dates Details Family history of myocardial infarction: Father, Sister(V17.3, Z82.49) Status:ActiveFamily history of cardiac pacemaker: Father, Brother(V17.49, Z82.49) Status:ActiveFamily history of diabetes mellitus: Mother, Father(V18.0, Z83.3) Status:Active Relationship Condition Age at Onset Recorded Date/T karine Not Specified Type 2 diabetes mellitus Unknown fatherType 2 diabetes mellitusUnknownPresence of cardiac pacemakerUnknownsister Myocardial infarctionUnknown Advance Directives No Advanced Directives Records Found [...] section and content) DATE CREATED AUTHOR 03/05/2022 [facility] DATE CREATED AUTHOR AUTHOR'S ORGANIZ ATION 11/16/2022 [facility] DATE CREATED AUTHOR AUTHOR'S ORGANIZ ATION 12/06/2022 [facility] DATE CREATED AUTHOR AUTHOR'S ORGANIZ ATION 12/09/2022 [facility] DATE CREATED AUTHOR AUTHOR'S ORGANIZ ATION 12/13/2022 [facility] DATE CREATED AUTHOR AUTHOR'S ORGANIZ ATION 01/02/2023 [facility] DATE CREATED AUTHOR AUTHOR'S ORGANIZ ATION 08/11/2024 [facility] DATE CREATED AUTHOR AUTHOR'S ORGANIZ ATION 09/04/2024 [facility] Care Teams (unrecognized sec tion and content) Team Status: Inactive Member Role Status Dates Oliva Croft DO Primary Care Provider Active Christiano Weston DOEmermichael ProviderActive Team Status: Active Member Role Status Dates Oliva Croft DO Primary Care Provider Active Team Status: Inactive Member Role Status Dates Oliva Croft DO Primary Care Provider Active W Matthieu Garcia DOAttending ProviderActiveTeam MemberRelationshipSpecialty Start DateEnd Date Oliva Croft DO [address] [place] [address] PCP - GeneralInternal Medicine01/27/23Team MemberRelationshipSpecialtyStart Date End Date Oliva Croft DO [address] [place] [address] PCP - GeneralInternal Medicine01/27/23 Goals (unrecognized section and content) Goals may be documented in a n alternate sectionGoals may be documented in an alternate section Reason for Visit (unrecogniz ed section and content) ReasonCommentsThree-month office visit FOR RECORDS PERTAINING TO PATIENTS [...] BE BASED ON THE PRIMARY CLINICAL RECORDS. [facility] [employer] [facility]. provides no warranty or guarantee of the accuracy or completeness of information in this document.
[2025-08-30 09:59] LABS: Hematocrit 45.0 % (42.0-54.0); Hemoglobin 14.8 g/dL (14.0-18.0); Immature Granulocytes Abs Auto 0.01 10^3/uL (0.00-0.03); Immature Granulocytes Pct Auto 0.2 % (0.0-0.5); Lymphocytes Absolute Auto 1.2 10^3/uL (1.2-3.8); Mean Corpuscular HGB Conc 32.9 g/dL (29.9-35.2); Mean Corpuscular Hemoglobin 27.8 pg (25.9-34.0); Mean Corpuscular Volume 84.6 fL (80.0-94.0); Platelet Count 155 10^3/uL (150-450); Red Blood Count 5.32 10^6/uL (4.70-6.10); White Blood Count 5.6 10^3/uL (4.0-11.0)
[2025-08-30 10:41] LABS: Alanine Aminotransferase 36 U/L (16-63); Albumin Globulin Ratio 1.4; Albumin Level 4.0 g/dL (3.4-5.0); Alkaline Phosphatase 74 U/L (46-116); Anion Gap 13.0; Aspartate Amino Transferase 18 U/L (15-37); Blood Urea Nitrogen 14.0 mg/dL (7.0-18.0); Calcium 9.1 mg/dL (8.5-10.1); Carbon Dioxide 28.4 mmol/L (21.0-32.0); Chloride 104 mmol/L (98-107); Cholesterol 131 mg/dL (<=200); Estimated GFR (African America >60 (>=60 mL/min/1.73m^2); Estimated GFR (Non-African Ame >60 (>=60 mL/min/1.73m^2); Free T3 3.28 pg/mL (2.18-3.98); Globulin 2.9 g/dL; Glucose 105 mg/dL (74-106); HDL Cholesterol 52 mg/dL (40-60); Potassium 4.4 mmol/L (3.5-5.1); Sodium 141 mmol/L (136-145); Thyroid Stimulating Hormone 1.244 uIU/mL (0.358-3.740); Total Protein 6.9 g/dL (6.4-8.2); Triglycerides 64 mg/dL (<=150); VLDL CHOLESTEROL 12.8 mg/dL
[2025-08-31 08:12] LABS: PSA, Free 0.35 ng/mL
== END 2025-08-30 09:15 | disposition home or self-care (01) ==
LOC: LAB 09:19
PROVIDERS: PCP Family Medicine; Visit Provider Family Medicine
DX: Z79.899 Other long term (current) drug therapy (principal); E78.00 Pure hypercholesterolemia, unspecified; Z12.5 Encounter for screening for malignant neoplasm of prostate; R73.09 Other abnormal glucose; D64.9 Anemia, unspecified; E03.9 Hypothyroidism, unspecified
CPT/HCPCS: 36415; 80053; 80061; 83036; 84153; 84154; 84436; 84443; 84481; 85025